=== PATIENT | female | born 1945 | race Caucasian/White ===

== ENCOUNTER 2016-12-07 08:03 | Inpatient (IN) ==
--- NOTE | 2016-12-07 08:32 | Emergency Department Note ---
Disposition Clinical Impression: Intertrochanteric fracture of left femur Qualifiers: Encounter type: initial encounter Fracture type: closed Qualified Code(s): S72.142A - Displaced intertrochanteric fracture of left femur, initial encounter for closed fracture Disposition: Admitted As Inpatient Condition: Good Time of Disposition: 09:18 Fall HPI - General Chief Complaint: ED Fall Stated Complaint: Fall/L thigh pain Source: patient, EMS Mode of arrival: EMS Limitations: no limitations Nursing Notes Reviewed: Yes Vital Signs Reviewed: Yes - History of Present Illness HPI Narrative: 71-year-old female presents with concerns of left hip pain. Patient states that she was standing, trying to reach the bathroom when she lost her footing and fell to the ground. Patient denies hitting her head or having loss of consciousness. Patient states she is unable to stand after the event. She was transferred to the emergency department by EMS. - Related Data Home Medications Medication Instructions Recorded Confirmed Albuterol Sulfate [Proair Hfa] 1 - 2 puff IH Q4-6H PRN 05/19/16 12/07/16 Amitriptyline [Elavil] 25 - 50 mg PO HS 05/19/16 12/07/16 Amlodipine [Norvasc] 5 mg PO DAILY 05/19/16 12/07/16 Atorvastatin [Lipitor] 40 mg PO HS 05/19/16 12/07/16 Ferrous Sulfate 325 mg PO BIDWM 05/19/16 12/07/16 Furosemide [Lasix] 40 mg PO BID 05/19/16 12/07/16 Gabapentin [Neurontin] 600 mg PO TID 05/19/16 12/07/16 Glimepiride [Amaryl] 4 mg PO BID 05/19/16 12/07/16 Insulin Glargine,Hum.rec.anlog 68 unit SQ DAILY 05/19/16 12/07/16 [Lantus Solostar] Levothyroxine [Synthroid] 125 mcg PO QAM 05/19/16 12/07/16 Valsartan [Diovan] 20 mg PO DAILY 05/19/16 12/07/16 Venlafaxine HCl 100 mg PO QPM 05/19/16 12/07/16 Cholecalciferol (Vitamin D3) 5,000 unit PO BID 08/16/16 12/07/16 [Vitamin D3] Metoprolol XL (24 HR) Succ [Toprol 100 mg PO DAILY 08/16/16 12/07/16 Xl] Warfarin [Coumadin] 1 mg PO AD 08/16/16 12/07/16 Warfarin [Coumadin] 5 mg PO AD 08/16/16 12/07/16 Venlafaxine HCl 200 mg PO QAM 12/07/16 12/07/16 Previous Rx's Medication Instructions Recorded Acetaminophen [Tylenol] 650 mg PO Q6HR PRN #0 tablet 08/18/16 Allergies Allergy/AdvReac Type Severity Reaction Status Date / Time No Known Allergies Allergy Verified 12/07/16 09:35 All systems ED: reviewed and negative except as stated. Constitutional: Denies: fever, chills, weakness Cardiovascular: Denies: chest pain, palpitations Respiratory: Denies: cough, dyspnea, wheezes Gastrointestinal: Denies: abdominal pain, nausea, vomiting Musculoskeletal: Reports: joint swelling Integumentary: Denies: rash Neurological: Denies: headache, weakness, numbness, paresthesias Fall PMH - Past Medical History Medical history: Reports: CVA, diabetes, hyperlipidemia, hypertension, thyroid disease Surgical history: Reports: Psychiatric history: Reports: no psych history - Social History Smoking Status: Former smoker Alcohol use: Reports: none Drug use: Reports: none Physical Exam General: Alert and in no acute distress. Morbidly obese. Skin: Warm, dry, intact Head: Normocephalic and atraumatic Neck: Supple, trachea midline and no tenderness Cardiovascular: RRR, no murmur, normal perfusion Respiratory: CTAB, no wheezing, cough, or respiratory distress Musculoskeletal: Tenderness to palpation of the left hip and thigh with leg and a externally rotated and shortened position. GI: Soft, nontender, nondistended. Bowel sounds present Neuro: A&O to person, place, time and situation. No focal deficits noted on exam Psychiatric: cooperative and appropriate mood and affect. - General Limitations: no limitations General appearance: alert Course Vital Signs O2 Sat by Pulse Oximetry 94 L 12/07/16 08:04 Temperature 97.9 F 12/07/16 14:49 Pulse Rate 92 12/07/16 14:49 Respiratory Rate 16 12/07/16 14:49 Blood Pressure 116/70 12/07/16 14:49 O2 Sat by Pulse Oximetry 96 12/07/16 14:49 Oxygen Delivery Oxygen Delivery Nasal Cannula Fall - MDM Narrative Medical decision making narrative: Spoke with Dr. Ruvalcaba who will see on the floor for L intertrochanteric hip fracture. - Medical Records Medical records reviewed: Yes I reviewed the patient's medical records. - Lab Data Lab results reviewed: Yes I reviewed the patient's lab results. Result diagrams: 12/07/16 09:23 12/07/16 09:23 Lab Results 12/07/16 12/07/16 12/07/16 Range/Units 09:23 09:23 09:23 WBC 12.1 H (4.3-11.1) K/mcL RBC 4.79 (3.82-4.97) M/mcL Hgb 13.9 (11.5-15.4) g/dL Hct 43.8 (35.3-44.9) % MCV 91.4 (83.0-100.0) fL MCH 29.0 (28.0-33.3) pg MCHC 31.7 (31.6-35.5) g/dL RDW 15.6 H (11.5-14.5) % Plt Count 239 (140-400) K/mcL MPV 10.9 (9.4-12.4) fL Immature Gran % 1.1 (0-4) % Seg Neutrophils % 82.2 % Lymphocytes % 8.5 % Monocytes % 5.8 % Eosinophils % 2.1 % Basophils % 0.3 % Neutrophils # 10.0 H (1.6-8.9) K/mcL Lymphocytes # 1.0 (0.6-4.6) K/mcL Monocytes # 0.7 (0.0-1.3) K/mcL Eosinophils # 0.3 (0.0-0.6) K/mcL Basophils # 0.0 (0.0-0.2) K/mcL Immature Plt Fraction 5.2 (1.1-6.1) % PT 21.7 H (9.4-12.1) Seconds INR 2.0 APTT 36.2 H (26.0-36.0) Seconds Sodium 140 (136-145) mEq/L Potassium 4.5 (3.5-4.5) mEq/L Chloride 100 (98-109) mEq/L Carbon Dioxide 29 (19-29) mEq/L BUN 31 H (7-20) mg/dL Creatinine 1.23 H (0.57-1.11) mg/dL Est GFR ( Amer) 52 L (> 60) Est GFR (Non-Af Amer) 43 L (> 60) BUN/Creatinine Ratio 25 (6-26) Glucose 319 H (70-99) mg/dL Calculated Osmolality 309 H (280-300) Calcium 9.4 (8.6-10.8) mg/dL Creatine Kinase 71 (29-168) Units/L - Radiology Data Radiology results reviewed: Yes I reviewed the patient's radiology results. - EKG Data EKG attestation: Yes I reviewed and interpreted this EKG.
[2016-12-07 09:30] LABS: Basophils % 0.3 %; Eosinophils # 0.3 K/mcL (0.0-0.6); Eosinophils % 2.1 %; Hematocrit 43.8 % (35.3-44.9); Hemoglobin 13.9 g/dL (11.5-15.4); Immature Granulocytes % 1.1 % (0-4); Immature Platelets 5.2 % (1.1-6.1); Lymphocytes % 8.5 %; Mean Corpuscular HGB Conc 31.7 g/dL (31.6-35.5); Mean Corpuscular Volume 91.4 fL (83.0-100.0); Mean Platelet Volume 10.9 fL (9.4-12.4); Monocytes # 0.7 K/mcL (0.0-1.3); Monocytes % 5.8 %; Platelet Count 239 K/mcL (140-400); Red Blood Count 4.79 M/mcL (3.82-4.97); Red Cell Distribution Width 15.6 % (11.5-14.5); Segmented Neutrophils % 82.2 %
[2016-12-07 09:34] LABS: Prothrombin Time 21.7 Seconds (9.4-12.1)
[2016-12-07 09:37] LABS: Activated Partial Thrombo Time 36.2 Seconds (26.0-36.0)
[2016-12-07 09:43] LABS: Calcium 9.4 mg/dL (8.6-10.8); Potassium 4.5 mEq/L (3.5-4.5)
[2016-12-07] MEDS ORDERED: *HR* Morphine 2 MG/ML SYRINGE IV ONE (09:55)
[2016-12-07] MEDS ORDERED: Naloxone 0.4 MG/ML INJ IVP PRN (10:02)
--- NOTE | 2016-12-07 10:31 | Internal Med History&Physical ---
Date of Encounter: 12/07/16 Time of Encounter: 10:10 Assessment and Plan (1) Closed intertrochanteric fracture of left hip Current visit: Yes Status: Acute Acute left hip intertrochanteric fracture. Admit inpatient. Consult orthopedics. Pain control. Depending on orthopedic recommendations, patient may require surgery. Height is for complications from this condition given at her age and comorbidities. She will stay in the hospital for at least 2 midnights. She may need placement to skilled rehabilitation at discharge. Will get 2-D echocardiogram for preoperative evaluation due to chronic history of hypertension and hyperlipidemia without any previous cardiac workup available here. Qualifiers: Encounter type: initial encounter Qualified Code(s): S72.142A - Displaced intertrochanteric fracture of left femur, initial encounter for closed fracture (2) Essential hypertension Current visit: Yes Status: Chronic Monitor blood pressure. Resume home medications. (3) Chronic anticoagulation Current visit: Yes Status: Chronic On Coumadin. INR is 2. We will hold Coumadin for now due to impending surgery. If surgery is not planned, will place her back on Coumadin. If surgery cannot be done by tomorrow, she will be placed on heparin drip to anticoagulate her. (4) DM2 (diabetes mellitus, type 2) Current visit: Yes Status: Chronic Monitor blood sugars. Sliding scale insulin. Diabetic diet. Qualifiers: Diabetes mellitus complication status: with hyperglycemia Diabetes mellitus intermediate insulin use: with intermediate use Qualified Code(s): E11.65 - Type 2 diabetes mellitus with hyperglycemia; Z79.4 - snf (current) use of insulin (5) History of cerebrovascular accident (CVA) with residual deficit Current visit: No Status: Chronic With residual left-sided hemiparesis. Supportive care. DVT and the throat is also prophylaxis. (6) Frequent falls Current visit: Yes Status: Acute Patient describes a history of recurrent falls. Will need physical therapy evaluation. Monitor blood pressure closely. Check orthostatics when able. Internal Medicine - H&P: HPI Chief complaint: Fall and left hip pain Admitted From: Emergency Dept Plans for Post Hospital Care: Transfer [facility] History of present illness: Ms. Walton is a 71 year old female with history of DVT, PE on chronic anticoagulation with Coumadin, CVA with residual left-sided hemiparesis, diabetes mellitus type 2, hyperlipidemia, hypertension who ambulates with a powered wheelchair presented to the ER after a fall. It appears to be a mechanical fall after the patient slipped. She hit her hip and has been having severe pain in her left hip since then. She does say she has been having frequent falls at home. No palpitations or dizziness. She denies any shortness of breath or chest pain. She has no history of coronary artery disease but does have a history of COPD. Past Med Surg Social Fam HX - Past Medical History Medical history: CVA, diabetes, hyperlipidemia, hypertension, thyroid disease Psychiatric history: no psych history - Past Surgical History Surgical History: - Social History Smoking Status: Former smoker Smokeless Tobacco Status: No Alcohol use: none Drug use: none - Family History Father Living Status: Hx Family Cardiac Disorders: Yes (HTN) Hx Family Cancer: Yes (prostate) Internal Medicine - H&P: Meds Albuterol Sulfate [Proair Hfa] 1 - 2 puff IH Q4-6H PRN 05/19/16 [History] Amitriptyline [Elavil] 25 - 50 mg PO HS 05/19/16 [History] Amlodipine [Norvasc] 5 mg PO DAILY 05/19/16 [History] Atorvastatin [Lipitor] 40 mg PO HS 05/19/16 [History] Ferrous Sulfate 325 mg PO BIDWM 05/19/16 [History] Furosemide [Lasix] 40 mg PO BID 05/19/16 [History] Gabapentin [Neurontin] 600 mg PO TID 05/19/16 [History] Glimepiride [Amaryl] 4 mg PO BID 05/19/16 [History] Insulin Glargine,Hum.rec.anlog [Lantus Solostar] 68 unit SQ DAILY 05/19/16 [ History] Levothyroxine [Synthroid] 125 mcg PO QAM 05/19/16 [History] Valsartan [Diovan] 20 mg PO DAILY 05/19/16 [History] Venlafaxine HCl 100 mg PO QPM 05/19/16 [History] Cholecalciferol (Vitamin D3) [Vitamin D3] 5,000 unit PO BID 08/16/16 [History] Metoprolol XL (24 HR) Succ [Toprol Xl] 100 mg PO DAILY 08/16/16 [History] Warfarin [Coumadin] 1 mg PO AD 08/16/16 [History] Warfarin [Coumadin] 5 mg PO AD 08/16/16 [History] Acetaminophen [Tylenol] 650 mg PO Q6HR PRN #0 tablet 08/18/16 [Rx] Venlafaxine HCl 200 mg PO QAM 12/07/16 [History] Allergies No Known Allergies Allergy (Verified 12/07/16 09:35) All Systems PM: A 10-system review of systems was performed and is negative for pertinent findings except as documented above in the HPI. - Constitutional Constitutional: falls, no chills, no fever(s), no night sweats - EENT Eyes: no change in vision, no discharge, no pain, no photophobia Ears: no ear discharge, no ear pain, no tinnitus Nose, mouth and throat: no dysphagia, no nasal discharge, no neck pain, no sore throat - Cardiovascular Cardiovascular ROS IM: no chest pain, no diaphoresis, no dyspnea, no lightheadedness, no palpitations, no syncope - Respiratory Respiratory: no cough, no dyspnea, no wheezing, no excessive phlegm production - Gastrointestinal Gastrointestinal: no abdominal pain, no diarrhea, no hematemesis, no hematochezia, no melena, no nausea, no vomiting - Genitourinary Genitourinary: no change in urinary stream, no dysuria, no flank pain, no hematuria - Musculoskeletal Musculoskeletal ROS IM: no numbness, no tingling - Integumentary Integumentary IM: no rash, no unusual bruising - Neurological Neurological ROS: focal weakness (Left-sided weakness), no confusion, no convulsions, no numbness, no tingling, no tremor(s) - Hematologic/Lymphatic Hematologic/Lymphatic: no easy bruising - Constitutional Vitals: Temp Pulse Resp BP Pulse Ox 98.6 F 86 18 132/90 91 L 12/07/16 08:11 12/07/16 08:11 12/07/16 08:11 12/07/16 08:11 12/07/16 08:11 General appearance: Present: cooperative, mild distress, A&O X 3, obese, answers questions appropriately - Eye Eye exam: Present: PERRL, conjuntiva pink, sclera anicteric Pupils: Present: PERRL - Neck Neck exam general surgery: Present: supple, trachea midline. Absent: lymphadenopathy - Respiratory Respiratory exam: Present: CTAB. Absent: accessory muscle use, rales, rhonchi, wheezes - Cardiovascular Cardiovascular exam: Present: RRR, +S1, +S2. Absent: diastolic murmur, gallop, rubs, systolic murmur - GI/Abdominal GI/Abdominal exam: Present: normal bowel sounds, soft, no peritoneal signs. Absent: distended, tenderness - Extremities Exam Extremities exam: Present: tenderness (Left hip region), warm, radial pulses palpable and symetrical. Absent: calf tenderness, cyanotic, pedal edema - Neurological Exam Neurological exam: Present: CN II-XII intact, oriented X3. Absent: facial droop , speech deficit Additional comments: Left-sided hemiparesis - Skin Skin exam: Present: dry, intact Internal Med - H&P Results - Labs CBC & Chem 7: 12/07/16 09:23 12/07/16 09:23 Labs: Short CBC 12/07/16 Range/Units 09:23 WBC 12.1 H (4.3-11.1) K/mcL Hgb 13.9 (11.5-15.4) g/dL Hct 43.8 (35.3-44.9) % Plt Count 239 (140-400) K/mcL Neutrophils # 10.0 H (1.6-8.9) K/mcL BMP 12/07/16 09:23 Sodium 140 Potassium 4.5 Chloride 100 Carbon Dioxide 29 BUN 31 H Creatinine 1.23 H Glucose 319 H Calcium 9.4 - Impressions ITS Impressions Cervical Spine CT 12/07/16 08:26 IMPRESSION: 1. No evidence of acute fracture in the cervical spine. 2. Exaggerated thoracic kyphosis. 3. There is a mass noted along the posterior right lobe of the thyroid gland measuring 2.9 x 1.2 cm that can be seen dating back to a CT of the chest on 08/28/2007. This favors a benign etiology. If there is strong clinical concern, a thyroid ultrasound could be performed for further evaluation. D/ / 12/07/2016 09:49:02 Garfield Galvez MD / [facility] Interpreting Provider: Garfield Galvez MD Chest X-Ray 12/07/16 08:26 IMPRESSION: No acute cardiopulmonary disease. D/ / Matt Mckinney MD / Matt Mckinney MD Interpreting Provider: Matt Mckinney MD Head CT 12/07/16 08:26 IMPRESSION: No acute intracranial abnormality. D/ / Maurizio Gorman MD / Maurizio Gorman MD Interpreting Provider: Maurizio Gorman MD Hip X-Ray 12/07/16 08:27 IMPRESSION: Intertrochanteric left proximal femur fracture. D/ / 12/07/2016 09:42:47 [facility] / [facility] Provider: Thai Zimmerman MD Knee X-Ray 12/07/16 08:27 IMPRESSION: 1. No acute abnormality of the left knee. 2. Chronic healed fracture deformity of the proximal fibular neck. 3. Stable tricompartmental osteoarthritis. D/ / 12/07/2016 09:42:15 Maurizio Gorman MD / [facility] Interpreting Provider: Maurizio Gorman MD - Attending Attestation This document has been at least partially created by [employer] recognition technology by Dr. Patel. Errors in grammar, wording or other phrases may exist. If errors are found after the documentation is signed, they will be addressed individually in the addendum section of this document when appropriate.
[2016-12-07] MEDS ORDERED: Ipratropium/Albuterol Neb 3 ML IH PRN (10:40)
[2016-12-07] MEDS ORDERED: *HR* Dextrose 50 % in Water (Syg) 50 ML SYRINGE IVP PRN (10:41)
[2016-12-07] MEDS ORDERED: Dextrose Gel 15 GM PO PRN ×2 (10:41)
[2016-12-07] MEDS ORDERED: D5% in Water 1,000 ML IV PRN (10:41)
[2016-12-07] MEDS: Insulin LISPRO 300 UNITS/3 ML VIAL SQ SCH ×3 (16:17→21:32)
[2016-12-07] MEDS: Venlafaxine 25 MG, Venlafaxine 75 MG PO SCH (16:27)
[2016-12-07] MEDS: 0.9 % Sodium Chloride 1,000 ML IVC SCH (16:35)
[2016-12-07] MEDS: *HR* Morphine 2 MG/ML SYRINGE IVP PRN (17:46)
[2016-12-07] MEDS ORDERED: VENLAFAXINE HCL 100 MG PO SCH (18:00)
--- NOTE | 2016-12-07 19:24 | Anesthesia Evaluation PreOp ---
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: CVA (residual L sided hemiparesis) Other Medical History: Renal (claudia), Diabetes Type II (282 at 1634 on 12/07), Thyroid Anesthesia History: No Prior Anesthetic Complications, Past Anesthesia (c/s) Alcohol Use: none Drug use: none Medications and Allergies Albuterol Sulfate [Proair Hfa] 1 - 2 puff IH Q4-6H PRN 05/19/16 [History] Amitriptyline [Elavil] 25 - 50 mg PO HS 05/19/16 [History] Amlodipine [Norvasc] 5 mg PO DAILY 05/19/16 [History] Atorvastatin [Lipitor] 40 mg PO HS 05/19/16 [History] Ferrous Sulfate 325 mg PO BIDWM 05/19/16 [History] Furosemide [Lasix] 40 mg PO BID 05/19/16 [History] Gabapentin [Neurontin] 600 mg PO TID 05/19/16 [History] Glimepiride [Amaryl] 4 mg PO BID 05/19/16 [History] Insulin Glargine,Hum.rec.anlog [Lantus Solostar] 68 unit SQ DAILY 05/19/16 [ History] Levothyroxine [Synthroid] 125 mcg PO QAM 05/19/16 [History] Valsartan [Diovan] 20 mg PO DAILY 05/19/16 [History] Venlafaxine HCl 100 mg PO QPM 05/19/16 [History] Cholecalciferol (Vitamin D3) [Vitamin D3] 5,000 unit PO BID 08/16/16 [History] Metoprolol XL (24 HR) Succ [Toprol Xl] 100 mg PO DAILY 08/16/16 [History] Warfarin [Coumadin] 1 mg PO AD 08/16/16 [History] Warfarin [Coumadin] 5 mg PO AD 08/16/16 [History] Acetaminophen [Tylenol] 650 mg PO Q6HR PRN #0 tablet 08/18/16 [Rx] Venlafaxine HCl 200 mg PO QAM 12/07/16 [History] Allergies No Known Allergies Allergy (Verified 12/07/16 09:35) - Meds/Allergy Pre-op Review Medications Reviewed: Yes Allergies Reviewed: Yes Beta Blockers on Current Med List: Yes If Beta Blockers taken, Date/Time (Last Dose taken): Metoprolol Anesthesia Results - Labs 12/07/16 09:23 12/07/16 09:23 - Imaging EKG: report reviewed (08/11: ST/RBBB/LA[facility]) Chest x-ray: report reviewed (nl from 12/07) Additional studies: CT cspine, negative, 2.9x1.2cm stable mass on the right thyroid lobe CT Head, no acute abnl Anesthesia Exam Height: 1.65 Weight: 98 NPO (# of Hours): >8 - HEENT Pupil (Motor): Pupils equal, EOMI Mallampati: IV (difficult AW) Teeth: Poor dentition Oral Opening: Less than or equal to 3 (very smile mouth and opening) - FIXTURE DESIGNER LOC: Oriented FIXTURE DESIGNER Motor: Normal RUE, Normal RLE, Normal Face, Deficit LUE, Deficit LLE FIXTURE DESIGNER Sensory: Normal: RUE, RLE, Face, Deficit: LUE, LLE - Cardiac Rhythm: Regular Murmur: None - Pulmonary Breath Sounds: bilateral Clear Respiratory Effort: Symmetrical Anesthesia Assess/Plan ASA Score: 3 Modified [place] Scale for Level of Consciousness: Cooperative, oriented, and tranquil Anesthetic Plan: General Monitoring Plan: Standard Monitors Recovery Plan: PACU
[2016-12-07] MEDS ORDERED: Perflutren Lipid Microsphere 1.3 ML in 0.9 % Sodium Chloride 8.7 ML IVP ONE (20:55)
[2016-12-07] MEDS: Gabapentin 300 MG CAPSULE PO SCH (21:29)
[2016-12-07] MEDS: Insulin DETEMIR 100 UNIT/ML X5UNITS SQ SCH (21:31)
[2016-12-08] MEDS: 0.9 % Sodium Chloride 1,000 ML IVC SCH ×2 (05:35→23:21)
[2016-12-08 06:24] LABS: INR 1.7; Prothrombin Time 18.5 Seconds (9.4-12.1)
[2016-12-08 06:25] LABS: Basophils % 0.2 %; Eosinophils # 0.3 K/mcL (0.0-0.6); Eosinophils % 3.5 %; Hematocrit 40.1 % (35.3-44.9); Immature Granulocytes % 0.7 % (0-4); Lymphocytes # 1.5 K/mcL (0.6-4.6); Lymphocytes % 16.6 %; Mean Corpuscular HGB Conc 30.2 g/dL (31.6-35.5); Mean Corpuscular Hemoglobin 27.4 pg (28.0-33.3); Mean Corpuscular Volume 90.7 fL (83.0-100.0); Mean Platelet Volume 10.4 fL (9.4-12.4); Monocytes # 0.8 K/mcL (0.0-1.3); Monocytes % 8.7 %; Neutrophils # 6.4 K/mcL (1.6-8.9); Platelet Count 162 K/mcL (140-400); Red Blood Count 4.42 M/mcL (3.82-4.97); Red Cell Distribution Width 15.5 % (11.5-14.5); Segmented Neutrophils % 70.3 %
[2016-12-08 06:29] LABS: Hemoglobin 12.1 g/dL (11.5-15.4)
[2016-12-08 06:43] LABS: BUN/Creatinine Ratio 28 (6-26); Blood Urea Nitrogen 25 mg/dL (7-20); Calcium 8.3 mg/dL (8.6-10.8); Carbon Dioxide 27 mEq/L (19-29); Chloride 103 mEq/L (98-109); Glucose 130 mg/dL (70-99); Osmolality,Calculated 292 (280-300); Sodium 138 mEq/L (136-145); eGFR For African Americans > 60 (> 60); eGFR For Non-African Americans > 60 (> 60)
--- NOTE | 2016-12-08 07:37 | Orthopedic Consult Note ---
Date of Encounter: 12/08/16 Time of Encounter: 07:35 Assessment and Plan (1) Closed intertrochanteric fracture of left hip Current Visit: Yes Status: Acute I did discuss the diagnosis in detail with the patient. She has a left-sided intertrochanteric hip fracture area I did discuss treatment options and recommended reduction and internal fixation in order to stabilize the hip to provide pain control and help facilitate nursing care. The risks discussed included but were not limited to bleeding, infection, anesthesia risks, damage to neurovascular structures, tendons, ligaments, and bone. Also discussed was the risk of continued symptoms and possible need for further procedures. I also discussed the risk of malunion, nonunion, some traumatic hardware, periprosthetic fracture. I also discussed the reasonable foreseeable post operative course, which will likely include a rehabilitation facility. I explained this to the patient in simple terms and she wished to proceed and consent was obtained. She will require medical clearance. Qualifiers: Encounter type: initial encounter Qualified Code(s): S72.142A - Displaced intertrochanteric fracture of left femur, initial encounter for closed fracture History of Present Illness HPI: Ms. Walton is a 71 year old female with a history of a prior stroke with left- sided hemiparesis. She is also on Coumadin for history of a DVT/PE. She had a fall yesterday when trying to get off the bed side commode and onto her motorized wheelchair. She did go down to the ground. The squad was called and she was lifted back up into the chair, but because of acute groin and hip pain she was brought in for further evaluation and found to have a left intertrochanteric hip fracture. The patient complains this is an isolated injury. She denies any loss of consciousness, headaches, neck pain, chest pain , abdominal pain, bilateral upper extremity pain, or right lower extremity pain. No numbness, tingling, or any other associated signs or symptoms. She has limited use of the left upper and left lower extremities from her prior stroke. She has no other complaints. Past Med Surg Social Fam HX - Past Medical History Medical history: CVA, diabetes, hyperlipidemia, hypertension, thyroid disease Psychiatric history: no psych history - Past Surgical History Surgical History: - Social History Smoking Status: Former smoker Smokeless Tobacco Status: No Alcohol use: none Drug use: none - Family History Father Living Status: Hx Family Cardiac Disorders: Yes (HTN) Hx Family Cancer: Yes (prostate) Medications and Allergies Albuterol Sulfate [Proair Hfa] 1 - 2 puff IH Q4-6H PRN 05/19/16 [History] Amitriptyline [Elavil] 25 - 50 mg PO HS 05/19/16 [History] Amlodipine [Norvasc] 5 mg PO DAILY 05/19/16 [History] Atorvastatin [Lipitor] 40 mg PO HS 05/19/16 [History] Ferrous Sulfate 325 mg PO BIDWM 05/19/16 [History] Furosemide [Lasix] 40 mg PO BID 05/19/16 [History] Gabapentin [Neurontin] 600 mg PO TID 05/19/16 [History] Glimepiride [Amaryl] 4 mg PO BID 05/19/16 [History] Insulin Glargine,Hum.rec.anlog [Lantus Solostar] 68 unit SQ DAILY 05/19/16 [ History] Levothyroxine [Synthroid] 125 mcg PO QAM 05/19/16 [History] Valsartan [Diovan] 20 mg PO DAILY 05/19/16 [History] Venlafaxine HCl 100 mg PO QPM 05/19/16 [History] Cholecalciferol (Vitamin D3) [Vitamin D3] 5,000 unit PO BID 08/16/16 [History] Metoprolol XL (24 HR) Succ [Toprol Xl] 100 mg PO DAILY 08/16/16 [History] Warfarin [Coumadin] 1 mg PO AD 08/16/16 [History] Warfarin [Coumadin] 5 mg PO AD 08/16/16 [History] Acetaminophen [Tylenol] 650 mg PO Q6HR PRN #0 tablet 08/18/16 [Rx] Venlafaxine HCl 200 mg PO QAM 12/07/16 [History] Allergies No Known Allergies Allergy (Verified 12/07/16 09:35) All Systems Reviewed: Constitutional and musculoskeletal systems were reviewed and are negative unless otherwise stated in history of present illness. Physical Exam - Constitutional Vitals: Temp Pulse Resp BP Pulse Ox 98.4 F 102 16 126/85 95 12/08/16 06:44 12/08/16 06:44 12/08/16 06:44 12/08/16 06:44 12/08/16 06:44 Constitutional -Vitals reviewed -The patient is well developed and well nourished. -Morbid obesity -Mood is pleasant. -The patient is well groomed. Psychiatric -The patient is fully alert and oriented x 3. Respiratory: -Respiratory effort normal Abdomen: -Soft abdomen -Non tender -Non distended: Left upper extremity: -The overlying skin is intact. No obvious signs of acute trauma. -No tenderness to palpation throughout. -Noted is rigidity to the hand and wrist given her prior stroke. -No significant pain with passive motion of the shoulder, elbow, wrist, and fingers within the limits of the bed. -Limited motor capabilities given her prior stroke. -Sensation grossly intact to light touch throughout the median, radial, and ulnar distributions. -Radial pulse is present; Fingers have good capillary refill. Right upper extremity: -No deformities. The overlying skin is intact. No obvious signs of acute trauma. -No tenderness to palpation throughout. -No significant pain with passive motion of the shoulder, elbow, wrist, and fingers within the limits of the bed. -Able to make an "OK" sign, cross the index and long fingers, and extend the thumb. -Sensation grossly intact to light touch throughout the median, radial, and ulnar distributions. -Radial pulse is present; Fingers have good capillary refill. Left lower extremity: -The extremity is shortened and externally rotated. The overlying skin is intact. -There is tenderness in the groin region as well as the proximal lateral thigh. -I did not range the hip due to the known fracture. -No tenderness along the distal thigh, leg, ankle, foot, or toes. -Able to dorsiflex the great toe but motion is limited otherwise given her prior stroke. -Sensation is grossly intact to light touch throughout the sural, saphenous, superficial peroneal, and deep peroneal distributions. -Toes have good capillary refill. Right lower extremity: -No deformities. The overlying skin is intact. No obvious signs of acute trauma. -No tenderness to palpation throughout. -No pain with passive motion of the hip, knee, ankle, and toes within the limits of the bed. -No pain with axial loading of the thigh. -Able to dorsiflex and plantarflex the ankle and toes. -Sensation is grossly intact to light touch throughout the sural, saphenous, superficial peroneal, and deep peroneal distributions. -Toes have good capillary refill. Results - Labs Result Diagrams: 12/08/16 05:58 12/08/16 05:58 Labs: Abnormal lab results MCH 27.4 pg (28.0-33.3) L 12/08/16 05:58 MCHC 30.2 g/dL (31.6-35.5) L 12/08/16 05:58 RDW 15.5 % (11.5-14.5) H 12/08/16 05:58 PT 18.5 Seconds (9.4-12.1) H 12/08/16 05:58 APTT 36.2 Seconds (26.0-36.0) H 12/07/16 09:23 BUN 25 mg/dL (7-20) H 12/08/16 05:58 BUN/Creatinine Ratio 28 (6-26) H 12/08/16 05:58 Glucose 130 mg/dL (70-99) H 12/08/16 05:58 POC Glucose 261 (58-89) H 12/07/16 19:38 Calcium 8.3 mg/dL (8.6-10.8) L 12/08/16 05:58 H & H 12/08/16 Range/Units 05:58 Hgb 12.1 D (11.5-15.4) g/dL Hct 40.1 (35.3-44.9) % All other labs normal. - Diagnostic results Hip x-ray: image reviewed (Left intertrochanteric hip fracture.) Consult Discharge Plan - Plan Referrals: Marleny Groves DO [Primary Care Provider] -
[2016-12-08] MEDS: Insulin LISPRO 300 UNITS/3 ML VIAL SQ SCH ×4 (08:00→20:45)
[2016-12-08] MEDS: VENLAFAXINE PO SCH (08:35)
[2016-12-08] MEDS: Metoprolol XL (24 HR) Succ 50 MG TAB.ER.24H PO SCH (08:35)
[2016-12-08] MEDS: Gabapentin 300 MG CAPSULE PO SCH ×2 (08:36→20:40)
[2016-12-08] MEDS: Cholecalciferol (D-3) 1,000 UNIT TABLET PO SCH (08:36)
[2016-12-08] MEDS: amLODIPine 5 MG TABLET PO SCH (08:36)
[2016-12-08] MEDS ORDERED: VENLAFAXINE HCL PO SCH (09:00)
--- NOTE | 2016-12-08 09:38 | ECHO - Doppler Report ---
Echo with Imaging Enhancement Agent Name: Mary Walton Date of Study: 12/07/2016 Date: 1945 Ht: 65.0 in Medical Record#: [id number] Age: 71 Wt: 216.0 lb Gender: Female BSA: 2.04 Order #: [id number] Location: [facility] Room #: [facility] Reading Physician: Lilly Nolasco DO Gas Inspector: Carleen Bolton RDCS Ordering Physician: Tamia Patel MD Primary Physician: Marleny Groves DO Indications: Preoperative, Hypertension, COPD Impressions: LVEF 65%. Indeterminate left venticular diastoic function Definity was given. Normal right ventricular size and function. No significant valvular dysfunction. No pulmonary hypertension. Left Ventricular Wall Motion: Rest Echo Findings The mid anterior septal, mid inferior lateral, basal anterior septal and basal inferior lateral henriquez were not visualized. All other wall segments showed normal motion. Findings: Study Quality * Technically sub-optimal due to body habitus. ECG Findings * Sinus tachycardia with BBB. Aortic Valve * No aortic regurgitation. * Aortic valve not well visualized. * No aortic stenosis. Mitral Valve * No mitral regurgitation. * Mildly calcified mitral valve leaflets. * No mitral stenosis. Tricuspid Valve * Tricuspid valve not well visualized. * Trace tricuspid regurgitation. Pulmonic Valve * Pulmonic valve is not well visualized. * No pulmonic stenosis. * No pulmonic regurgitation. Pulmonary Artery * Pulmonary artery not well visualized. Left Ventricle * Indeterminate diastolic function. * LVEF 65%. * Definity echo contrast was used. * LV size is normal. Right Ventricle * Normal right ventricular structure and function. Left Atrium * Normal left atrial size. Right Atrium * Normal right atrial size. Interatrial Septum * Interatrial septum not well evaluated. IVC * The IVC is not well evaluated. Pericardium * There is no pericardial effusion present. Aorta * Not well visualized. History Hypertension Diabetes Hypercholesteremia Family History of CAD 12/29/2014 a Previous Echo was performed. Contrast: Definity 1.3 ml in 8.7 ml of saline 2 ml. Measurements: BP: 116/ 70 2D Normal Values IVSd: 1.30 cm 0.6 - 1.0 cm LVIDd: 4.09 cm 3.7 - 5.6 cm LVPWd: 1.32 cm 0.6 - 1.1 cm LVIDs: 2.47 cm 1.5 - 3.6 cm AO: 2.40 cm < 4.0 cm LA: 3.40 cm 2.0 - 4.0cm %FS: 39.60 cm >25 % LA volume: 39 Mitral Valve Peak E:1.24 m/sec Peak E' Lat Ronald:18.8 cm/s Peak E' Med Ronald:16.8 cm/s E/E' Lat Ratio:6.6 E/E' Med Ratio:7.4 Tricuspid Valve TV Regurg Peak Grad: 20.00mmHg TV Regurg Peak Ronald: 2.24m/sec Updated by Lilly Nolasco on 12/08/2016 9:33:05 AM electronically signed on 12/08/2016 9:33:56 AM with status of Final Wall Motion Salgado: 1=Normal, 2=Hypokinesis, 3=Akinesis, 4=Dyskinesis, 5=Aneurysmal, 6=Hyperkinetic, X=Not Visualized (Blank)=Missing
[2016-12-08] MEDS: Insulin DETEMIR 100 UNIT/ML X5UNITS SQ SCH ×2 (12:19→20:40)
[2016-12-08] MEDS: *HR* Morphine 2 MG/ML SYRINGE IVP PRN (14:00)
--- NOTE | 2016-12-08 14:01 | Internal Med Progress Note ---
<Brooke Ocasio - Last Filed: 12/08/16 16:22> Date of Encounter: 12/08/16 Time of Encounter: 09:30 - Assessment and plan (1) Closed intertrochanteric fracture of left hip Current Visit: Yes Status: Acute Assessment and plan: - Left hip XR showed closed intertrochanteric proximal femur fracture - Orthopedic surgery plans to perform reduction and internal fixation later today. - Patient has clinical risk factors including diabetes and history of CVA but patient's MET is less than 4 and EKG & echocardiogram are normal. - Patient is moderate risk for intermediate-risk surgery - Will hold Coumadin for now. Qualifiers: Encounter type: initial encounter Qualified Code(s): S72.142A - Displaced intertrochanteric fracture of left femur, initial encounter for closed fracture (2) GORDY (acute kidney injury) Current Visit: Yes Status: Resolved Assessment and plan: - Cr 1.23 on initial presentation. Likely secondary to dehydration. - Improved as Cr 0.88 this morning. - Continue IV fluid. - Continue to monitor. (3) Frequent falls Current Visit: Yes Status: Acute Assessment and plan: - History of frequent fall. - PT/OT after surgery. (4) Chronic anticoagulation Current Visit: Yes Status: Chronic Assessment and plan: - On chronic Coumadin for history of PE/DVT. - INR 2 on admission. - Hold Coumadin for planned orthopedia surgery later today. - Will start heparin drip after surgery. (5) DM2 (diabetes mellitus, type 2) Current Visit: Yes Status: Chronic Assessment and plan: - Continue basal and sliding scale insulin. Qualifiers: Diabetes mellitus complication status: with hyperglycemia Diabetes mellitus [facility] insulin use: with [facility] use Qualified Code(s): E11.65 - Type 2 diabetes mellitus with hyperglycemia; Z79.4 - correction (current) use of insulin (6) Essential hypertension Current Visit: Yes Status: Chronic Assessment and plan: - BP 126/85 this morning. - Continue current antihypertensive regimen. (7) History of cerebrovascular accident (CVA) with residual deficit Current Visit: No Status: Chronic Assessment and plan: - With residual left-side hemiparesis. - Subjective Interval history: Patient was seen and examined this morning. Patient reports left hip pain being controlled. Patient denies fever, chills, chest pain, nausea, vomiting. Patient reports chronic dyspnea on exertion while she transports herself from bed to powerchair. Patient denies any known diagnosis of heart problem and has no cardiac work-up in the past. - Constitutional Vitals: Temp Pulse Resp BP Pulse Ox 98.6 F 104 16 165/80 97 12/08/16 11:46 12/08/16 11:46 12/08/16 06:44 12/08/16 11:46 12/08/16 11:46 General appearance: Present: cooperative, mild distress, A&O X 3, obese, answers questions appropriately - Head Head exam: Present: atraumatic, normocephalic - Eye Eye exam: Present: PERRL, conjuntiva pink, sclera anicteric - Neck Neck exam general surgery: Present: supple, trachea midline. Absent: lymphadenopathy - Respiratory Respiratory exam: Present: CTAB. Absent: accessory muscle use, rales, rhonchi, wheezes - Cardiovascular Cardiovascular exam: Present: RRR, +S1, +S2. Absent: diastolic murmur, gallop, rubs, systolic murmur - GI/Abdominal GI/Abdominal exam: Present: normal bowel sounds, soft, no peritoneal signs. Absent: distended, tenderness - Extremities Exam Extremities exam: Present: pedal edema, warm, radial pulses palpable and symetrical. Absent: calf tenderness, cyanotic - Neurological Exam Neurological exam: Present: CN II-XII intact, oriented X3. Absent: pronater drift, facial droop, speech deficit Additional comments: Left-side hemiparesis. - Skin Skin exam: Present: dry, warm Internal Medicine: Result - Labs CBC & Chem 7: 12/08/16 05:58 12/08/16 05:58 Labs: Short CBC 12/08/16 Range/Units 05:58 WBC 9.2 (4.3-11.1) K/mcL Hgb 12.1 D (11.5-15.4) g/dL Hct 40.1 (35.3-44.9) % Plt Count 162 (140-400) K/mcL Neutrophils # 6.4 (1.6-8.9) K/mcL BMP 12/08/16 05:58 Sodium 138 Potassium 4.0 Chloride 103 Carbon Dioxide 27 BUN 25 H Creatinine 0.88 Glucose 130 H Calcium 8.3 L - ABG Interpretation ABG results: PT/INR, D-dimer PT 18.5 Seconds (9.4-12.1) H 12/08/16 05:58 - VTE Documentation of Mechanical Device: Intermittent pneumatic compression device Consult Discharge Plan - Plan Referrals: Marleny Groves DO [Primary Care Provider] - 01/26/17 1:45 pm <[email or web address] T - Last Filed: 12/08/16 16:40> - Constitutional Vitals: Temp Pulse Resp BP Pulse Ox 98.6 F 104 16 165/80 97 12/08/16 11:46 12/08/16 11:46 12/08/16 06:44 12/08/16 11:46 12/08/16 11:46 Internal Medicine: Result - Labs CBC & Chem 7: 12/08/16 05:58 12/08/16 05:58 Labs: Short CBC 12/08/16 Range/Units 05:58 WBC 9.2 (4.3-11.1) K/mcL Hgb 12.1 D (11.5-15.4) g/dL Hct 40.1 (35.3-44.9) % Plt Count 162 (140-400) K/mcL Neutrophils # 6.4 (1.6-8.9) K/mcL BMP 12/08/16 05:58 Sodium 138 Potassium 4.0 Chloride 103 Carbon Dioxide 27 BUN 25 H Creatinine 0.88 Glucose 130 H Calcium 8.3 L - ABG Interpretation ABG results: PT/INR, D-dimer PT 18.5 Seconds (9.4-12.1) H 12/08/16 05:58 - Attending Attestation I examined this patient and my medical decision-making was reviewed with the CLINICAL CYTOGENETICS DIRECTOR/PA/Advanced Practice Nurse/Resident Physician. I agree with the documented findings, disposition and treatment plan as described except to the extent set forth below. 71 Y/O F with PMH of CAD, DVT-PE, HTN, HLD, Hx of CVA, She is admitted and being managed for Left hip fracture after a mechanical fall. She was on Coumadin prior to admission, her renal function tests showed some mild dehydration She is seen at bedside, pleasant, denies new complains Labs and Imaging reviewed: CXR, C-Spine CT, Head CT, Knee X-ray unremarkable, Hip X-ray with intertrochanteric left femora fracture. ECHO shows LVEF 65%, indeterminate LVDD, normal RV size and function, no pulmonary HTN. Chem showed improved renal function, CBC stable She is moderate risk for intermediate risk surgery. Plan is to hold Coumadin till after surgery today, start heparin drip after surgery, PT/OT. She is not on /ACEI/diuretics, its safe to continue other home meds except coumadin. High risk due to emergent procedure, and heparin drip. Rest of details as in residents documentation..
[2016-12-08] MEDS ORDERED: *HR* FentaNYL (PF) 100 MCG/2 ML VIAL ONE (14:05)
[2016-12-08] MEDS ORDERED: *HR* Propofol 200 MG/20 ML VIAL IVP ONE (14:05)
[2016-12-08] MEDS ORDERED: Lidocaine -MPF 4% 5 ML AMPUL ONE ×2 (14:05→14:22)
[2016-12-08] MEDS ORDERED: *HR* Succinylcholine 200 MG/10 ML VIAL IVP ONE (14:05)
[2016-12-08] MEDS ORDERED: *HR* Rocuronium Bromide 50 MG/5 ML VIAL ONE (14:05)
[2016-12-08] MEDS ORDERED: Ondansetron 4 MG/2 ML VIAL IVP ONE (14:12)
[2016-12-08] MEDS ORDERED: *HR* HYDROmorphone (PF) 1 MG/ML SYRINGE IVP PRN (14:12)
[2016-12-08] MEDS ORDERED: *HR* Labetalol 100 MG/20 ML MDV IVP PRN (14:12)
[2016-12-08] MEDS ORDERED: Lacri-Lube 3.5 GM TUBE ONE (15:25)
[2016-12-08] MEDS ORDERED: *HR* Phenylephrine 10 MG/ML VIAL ONE (15:30)
[2016-12-08] MEDS ORDERED: *HR* Morphine 10 MG/ML VIAL ONE (16:45)
[2016-12-08] MEDS ORDERED: Ipratropium/Albuterol Neb 3 ML ONE (16:52)
--- NOTE | 2016-12-08 17:20 | Orthopedic Operative Note ---
Date of procedure: 12/08/16 Procedure: OPERATIVE REPORT DATE OF PROCEDURE: 12/08/2016 SURGEON: Yassine Ruvalcaba MD GAME AUTHOR(S): There were no assistants PREOPERATIVE DIAGNOSIS: Left intertrochanteric hip fracture POSTOPERATIVE DIAGNOSIS: Left intertrochanteric hip fracture PROCEDURE: Reduction and internal fixation of the left intertrochanteric hip fracture ANESTHESIA: General anesthesia PREOPERATIVE ANTIBIOTICS: 2 g of Ancef ESTIMATED BLOOD LOSS: 75 milliliters SPECIMENS: There were no specimens IMPLANTS: [place] Gamma 3 125 degree by 11 mm short nail with a 105 mm lag screw LOCAL INJECTION: 0.5% percent bupivacaine PREOPERATIVE NOTE AND INDICATIONS: Mary is a 71-year-old female sustained a left intertrochanteric hip fracture. She has had a prior stroke with left-sided hemiparesis. She mostly gets by and a Hoveround but does weight-bear to transfer. Treatment options were discussed and the recommendation is for reduction and fixation in order to stabilize the hip to control pain and help facilitate nursing care. The surgical plan was discussed with the patient as well as the power of defense attorney. The risks, benefits, alternatives, and potential complications of this procedure were discussed with the patient including injury to veins, arteries, nerves, tendons, ligaments, and bone. Also discussed were the risks of infection, bleeding, pain, blood clots, the possible need for a blood transfusion, the possible need for further procedures, heart attack, stroke, and . Specific risks include malunion, nonunion, hardware failure, hardware irritation and the risk of needing to remove the hardware. All of this was explained in simple terms, and the patient and power of defense attorney verbalized understanding and wished to proceed. Consent was given to proceed with surgery. PROCEDURE: The patient was seen in the preoperative holding area where the identify and the consent were confirmed. The left thigh was marked. Final questions were answered. The patient was brought back to the operating room and placed supine on the operating room table. A huddle was performed with the patient and all vital surgical team members confirming patient identity, the correct procedure, and the correct operative site. General anesthesia was administered. The patient was placed in the traction table and the nonoperative leg was flexed and abducted out of the way. X-rays confirmed good visualization of the left hip. The left thigh was prepped and draped in the usual sterile fashion. A surgical time out was performed immediately preceding the incision with all personnel in the operating room to confirm patient identity, the correct operative site and extremity, correct radiographic studies, availability of appropriate surgical equipment, and agreement on the planned procedure. A longitudinal incision was made and dissection proceeded through the subcutaneous tissue and gluteal fascia. A guidewire was placed at the tip of the greater trochanter and an awl was used to open the proximal femur. The short medullary nail was then placed in the canal with great difficulty given her body habitus. The triple sleeve was placed over the skin and an incision was made through the skin and the fascia to place the guidewire up the femoral neck. Once it was felt that reasonable position was obtained, the length was measured and 105 mm felt appropriate. This was reamed and the lag screw was placed. The next set of triple sleeves was used for the distal interlocking screw and an incision was made through the skin and the fascia. The screw was drilled and a 37.5 mm distal interlocking screw was placed. X-rays confirmed reasonable reduction though there is slight varus due to the nail entering the fracture site when placed. Her tip to apex distance was felt to be less than 25 mm and therefore this was not changed. The wounds were copiously irrigated and the skin closed with 3-0 Vicryl stitches followed by brian. The fascia was too deep to close given her body habitus. The instrument, sponge, and needle counts were correct after wound closure. POST OPERATIVE PLAN: Weight Bearing: Weightbearing as tolerated DVT Prophylaxis: Coumadin Activity: As tolerated with assistance Wound Care: Daily dressing changes on postoperative day 2 Perioperative antibiotic prophylaxis: 2 g of Ancef 2 doses Social work for discharge planning Follow Up: 2 weeks
--- NOTE | 2016-12-08 17:38 | Anesthesia Evaluation Post Op ---
Date of Encounter: 12/08/16 Time of Encounter: 17:40 - Vital Signs Vital Signs: Vital Signs/O2 Sat/Glucose, Most Current Temp Pulse Resp BP Pulse Ox 12/08/16 17:23 98.9 F 93 20 104/56 90 L 12/08/16 17:13 95 20 120/76 91 L 12/08/16 17:03 96 20 130/93 90 L 12/08/16 16:53 99.1 F 95 20 159/93 88 L - Lungs Lungs: Clear Ascult./Percussion - Airway Airway: Non-obstructed - Cardiovascular Regular Rate - Mental Status Mental Status: Alert & Oriented, Answers Appropriately - Pain Pain Scale: 0 - Nausea Vomiting Nausea Vomiting: Not Present - Hydration Hydration: Ice chips - Discharge PostOp Status: Transfer Patient to floor
[2016-12-08] MEDS ORDERED: *HR* Heparin 5,000 UNIT/ML VIAL IVP ONE (18:00)
[2016-12-08] MEDS ORDERED: *HR* Heparin 5,000 UNIT/ML VIAL IVP PRN (18:00)
[2016-12-08] MEDS: Venlafaxine 25 MG, Venlafaxine 75 MG PO SCH (18:42)
[2016-12-08 19:20] LABS: INR 1.5; Prothrombin Time 15.9 Seconds (9.4-12.1)
[2016-12-08 19:23] LABS: Activated Partial Thrombo Time 30.3 Seconds (26.0-36.0)
[2016-12-08] MEDS: Heparin 25,000 UNIT/500 ML D5W 25,000 UNIT/500 ML MLS IVC SCH (20:57)
[2016-12-08] MEDS: ceFAZolin 2,000 MG in D5% in Water 100 ML IVPB SCH (23:22)
[2016-12-09] MEDS: *HR* Heparin 5,000 UNIT/ML VIAL IVP PRN ×2 (05:21→15:44)
[2016-12-09 06:45] LABS: Basophils % 0.3 %; Eosinophils # 0.3 K/mcL (0.0-0.6); Eosinophils % 2.6 %; Hematocrit 34.6 % (35.3-44.9); Hemoglobin 10.7 g/dL (11.5-15.4); Immature Granulocytes % 0.6 % (0-4); Lymphocytes # 1.1 K/mcL (0.6-4.6); Lymphocytes % 10.8 %; Mean Corpuscular HGB Conc 30.9 g/dL (31.6-35.5); Mean Corpuscular Hemoglobin 28.8 pg (28.0-33.3); Mean Platelet Volume 11.2 fL (9.4-12.4); Monocytes # 0.8 K/mcL (0.0-1.3); Monocytes % 7.7 %; Neutrophils # 7.8 K/mcL (1.6-8.9); Platelet Count 147 K/mcL (140-400); Red Blood Count 3.72 M/mcL (3.82-4.97); Red Cell Distribution Width 15.5 % (11.5-14.5)
[2016-12-09 07:18] LABS: BUN/Creatinine Ratio 20 (6-26); Blood Urea Nitrogen 20 mg/dL (7-20); Calcium 7.7 mg/dL (8.6-10.8); Carbon Dioxide 30 mEq/L (19-29); Chloride 103 mEq/L (98-109); Glucose 165 mg/dL (70-99); Osmolality,Calculated 294 (280-300); Potassium 4.3 mEq/L (3.5-4.5); Sodium 139 mEq/L (136-145); eGFR For African Americans > 60 (> 60); eGFR For Non-African Americans 55 (> 60)
--- NOTE | 2016-12-09 07:37 | Orthopedics Progress Note ---
Date of Encounter: 12/09/16 Time of Encounter: 07:34 - Assessment and Plan (1) Closed intertrochanteric fracture of left hip Current Visit: Yes Status: Acute I did discuss the diagnosis in detail with the patient. She has a left-sided intertrochanteric hip fracture area I did discuss treatment options and recommended reduction and internal fixation in order to stabilize the hip to provide pain control and help facilitate nursing care. The risks discussed included but were not limited to bleeding, infection, anesthesia risks, damage to neurovascular structures, tendons, ligaments, and bone. Also discussed was the risk of continued symptoms and possible need for further procedures. I also discussed the risk of malunion, nonunion, some traumatic hardware, periprosthetic fracture. I also discussed the reasonable foreseeable post operative course, which will likely include a rehabilitation facility. I explained this to the patient in simple terms and she wished to proceed and consent was obtained. She will require medical clearance. Qualifiers: Encounter type: initial encounter Qualified Code(s): S72.142A - Displaced intertrochanteric fracture of left femur, initial encounter for closed fracture Subjective Interval history: S: Resting in bed. Left hip is sore as expected, but pain better than before surgery. O: Afebrile, VSS Left thigh dressing is clean, dry, and intact. Very little movement of the left foot and ankle from prior stroke. Sensation grossly intact to left foot. Left foot is sensate and well perfused. A: Post fixation of the left hip. P: PT/OT WBAT B/L LE. Post op antibiotics x 2 doses. Heparin bridge to coumadin per the hospitalist. Alonso out today. Dressing change tomorrow. Antipicate rehab upon D/C. Objective Vital signs: Vital Signs Temp Pulse Resp BP Pulse Ox 12/09/16 07:06 98.5 F 93 16 114/68 94 L 12/09/16 00:00 98.8 F 87 16 117/75 92 L 12/08/16 20:25 99.2 F 95 20 112/70 95 12/08/16 18:50 98.2 F 94 17 113/69 88 L 12/08/16 18:21 98.2 F 95 16 115/68 12/08/16 17:50 98.3 F 98 15 103/63 98 12/08/16 17:43 95 20 128/79 90 L 12/08/16 17:33 94 20 137/92 89 L 12/08/16 17:23 98.9 F 93 20 104/56 90 L 12/08/16 17:13 95 20 120/76 91 L 12/08/16 17:03 96 20 130/93 90 L 12/08/16 16:55 19 93 L 12/08/16 16:53 99.1 F 95 20 159/93 88 L 12/08/16 11:46 98.6 F 104 165/80 97 Intake and Output 12/08/16 12/08/16 12/09/16 15:59 23:59 07:59 Intake Total 1200 / 1200 319 / 319 Output Total 1050 / 1050 975 / 975 550 / 550 Balance -1050 / -1050 225 / 225 -231 / -231 Intake: IV Fluids 1000 / 1000 219 / 219 0.9 % Sodium Chloride 1, 1000 / 1000 000 ML @ 75 mls/hr IVC . [id number] [facility] Rx#: [id number] Heparin 25,000 UNIT/500 119 / 119 ML D5W 25,000 unit In 500 ml @ 10.2 UNIT/KG/HR 19. 987 mls/hr IVC .Q24H [facility] Rx#:[id number] Ancef 2,000 MG In 100 / 100 Dextrose 5% 100 ML @ 200 mls/hr IVPB Q8HR [facility] Rx#: [id number] Oral 200 / 200 100 / 100 Output: Urine 450 / 450 Urethral (Alonso) 450 / 450 Estimated Blood Loss 75 / 75 Catheter 1050 / 1050 450 / 450 550 / 550 Other: Blood Glucose* 97 155 - Labs CBC & BMP: 12/09/16 02:10 12/09/16 02:10 Labs: Abnormal lab results RBC 3.72 M/mcL (3.82-4.97) L 12/09/16 02:10 Hgb 10.7 g/dL (11.5-15.4) L 12/09/16 02:10 Hct 34.6 % (35.3-44.9) L 12/09/16 02:10 MCHC 30.9 g/dL (31.6-35.5) L 12/09/16 02:10 RDW 15.5 % (11.5-14.5) H 12/09/16 02:10 PT 15.9 Seconds (9.4-12.1) H 12/08/16 18:39 APTT 47.3 Seconds (26.0-36.0) H D 12/09/16 02:10 Carbon Dioxide 30 mEq/L (19-29) H 12/09/16 02:10 Est GFR (Non-Af Amer) 55 (> 60) L 12/09/16 02:10 Glucose 165 mg/dL (70-99) H 12/09/16 02:10 POC Glucose 155 (58-89) H 12/08/16 20:44 Calcium 7.7 mg/dL (8.6-10.8) L 12/09/16 02:10 - VTE Documentation of Mechanical Device: Intermittent pneumatic compression device Consult Discharge Plan - Plan Additional Instructions: HALFWAY DISCHARGE INSTRUCTIONS Dr. Ruvalcaba PROCEDURE PERFORMED Reduction and fixation of left hip. Incision care -Daily dressing changes to the right hip with dry gauze and either paper tape or medipore tape. -Avoid soaking wound in water (no hot tubs, bathtubs, swimming pools). -May shower after 2 weeks from surgery date. Carefully wash incision with soap and water. Gently pat it dry. Don't rub the incision, or apply creams or lotions. Sit on a shower stool when showering to keep from falling. Weight bearing status -Weightbearing as tolerated to the bilateral lower extremity. Medications -Pain medication per the discharging medical doctor. -Comadin per the discharging medical doctor. Other -Knee high ANA hose 23 hours per day -Consult physical and occupational therapy for ambulation. -Up to chair with assistance at least twice per day. Follow-up with Dr. Ruvalcaba at the office 2 weeks from the surgery date for a post operative evaluation. Call the office at [phone] to schedule appointment. Referrals: Marleny Groves DO [Primary Care Provider] - 01/26/17 1:45 pm
[2016-12-09] MEDS: ceFAZolin 2,000 MG in D5% in Water 100 ML IVPB SCH (08:18)
[2016-12-09] MEDS: Gabapentin 300 MG CAPSULE PO SCH ×2 (08:20→20:40)
[2016-12-09] MEDS: VENLAFAXINE PO SCH (08:20)
[2016-12-09] MEDS: Insulin LISPRO 300 UNITS/3 ML VIAL SQ SCH ×4 (08:20→20:40)
[2016-12-09] MEDS: Cholecalciferol (D-3) 1,000 UNIT TABLET PO SCH (08:21)
[2016-12-09] MEDS: amLODIPine 5 MG TABLET PO SCH (08:21)
[2016-12-09] MEDS: Metoprolol XL (24 HR) Succ 50 MG TAB.ER.24H PO SCH (08:21)
[2016-12-09] MEDS: Insulin DETEMIR 100 UNIT/ML X5UNITS SQ SCH ×2 (08:27→20:46)
--- NOTE | 2016-12-09 09:52 | Internal Med Progress Note ---
<Brooke Ocasio - Last Filed: 12/09/16 13:15> Date of Encounter: 12/09/16 Time of Encounter: 09:49 - Assessment and plan (1) Closed intertrochanteric fracture of left hip Current Visit: Yes Status: Acute Assessment and plan: -POD1 ORIF left trochanter. Pateint is afebrile. No WBC. Incision remains clean /dry with no evidence of infection. Pulses 2/4 b/l dorsalis pedis/popliteal. PT/ OT seeing. Will add oral pain medication. 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 Will transition to Coumadin today. Will check INR tomorrow. Plan is for d/c to rehab/SNF. Qualifiers: Encounter type: initial encounter Qualified Code(s): S72.142A - Displaced intertrochanteric fracture of left femur, initial encounter for closed fracture (2) Acute blood loss anemia Current Visit: Yes Status: Acute Assessment and plan: Patient has an acute blood loss anemia after ORIF. Will continue to monitor H/H. (3) GORDY (acute kidney injury) Current Visit: Yes Status: Resolved Assessment and plan: Resolved. Patient with Cr 1.23 and suspected dehydration on arrival. Today Cr. 0.99. Will continue to give oral/IVF as needed. Will monitor Cr. (4) Frequent falls Current Visit: Yes Status: Acute Assessment and plan: - History of frequent fall. - PT/OT after surgery. (5) Chronic anticoagulation Current Visit: Yes Status: Chronic Assessment and plan: - On chronic Coumadin for history of PE/DVT. - On heparin drip after surgery -Will transition to coumadin today. Repeat INR tomorrow AM (6) DM2 (diabetes mellitus, type 2) Current Visit: Yes Status: Chronic Assessment and plan: - Continue basal and sliding scale insulin. Sugars appear to be controlled <180. Qualifiers: Diabetes mellitus complication status: with hyperglycemia Diabetes mellitus tank terminal gauger insulin use: with residential use Qualified Code(s): E11.65 - Type 2 diabetes mellitus with hyperglycemia; Z79.4 - truck terminal manager (current) use of insulin (7) Essential hypertension Current Visit: Yes Status: Chronic Assessment and plan: - BP 114/68 this morning. - Continue current antihypertensive regimen. (8) History of cerebrovascular accident (CVA) with residual deficit Current Visit: No Status: Chronic Assessment and plan: - With residual left-side hemiparesis. - Subjective Interval history: I have seen and examined the patient this morning. POD#1 ORIF left trochanter. Reports she is in some pain this morning as she just completed PT. Denies chills , sweats, cough, sob, cp, abdominal pain, N/V, diarrhea, or any other complaints at this time. - Constitutional Vitals: Temp Pulse Resp BP Pulse Ox 98.5 F 93 16 114/68 94 L 12/09/16 07:06 12/09/16 07:06 12/09/16 07:06 12/09/16 07:06 12/09/16 07:06 General appearance: Present: cooperative, A&O X 3, no acute distress, obese, answers questions appropriately Exam: Patient appears to be in some pain upon examination. - Head Head exam: Present: atraumatic, normocephalic - Eye Eye exam: Present: PERRL, conjuntiva pink, sclera anicteric Pupils: Present: PERRL - Neck Neck exam general surgery: Present: supple, trachea midline. Absent: lymphadenopathy - Respiratory Respiratory exam: Present: CTAB. Absent: accessory muscle use, rales, rhonchi, wheezes Additional comments: Patient is on 4L NC. In no acute distress. No accessory muscle use. - Cardiovascular Cardiovascular exam: Present: RRR, +S1, +S2. Absent: diastolic murmur, gallop, rubs, systolic murmur - GI/Abdominal GI/Abdominal exam: Present: normal bowel sounds, soft, no peritoneal signs. Absent: distended, tenderness - Extremities Exam Extremities exam: Present: normal capillary refill, warm, radial pulses palpable and symetrical. Absent: calf tenderness, cyanotic, pedal edema Additional comments: Dressing over left lateral thigh is clean and dry. No discharge noted. No tenderness to palpation. - Neurological Exam Neurological exam: Present: CN II-XII intact, oriented X3, no focal deficits. Absent: pronater drift, facial droop, speech deficit - Skin Skin exam: Present: dry, intact Internal Medicine: Result - Labs CBC & Chem 7: 12/09/16 02:10 12/09/16 02:10 Labs: Short CBC 12/09/16 Range/Units 02:10 WBC 10.0 (4.3-11.1) K/mcL Hgb 10.7 L (11.5-15.4) g/dL Hct 34.6 L (35.3-44.9) % Plt Count 147 (140-400) K/mcL Neutrophils # 7.8 (1.6-8.9) K/mcL BMP 12/09/16 02:10 Sodium 139 Potassium 4.3 Chloride 103 Carbon Dioxide 30 H BUN 20 Creatinine 0.99 Glucose 165 H Calcium 7.7 L - ABG Interpretation ABG results: PT/INR, D-dimer PT 15.9 Seconds (9.4-12.1) H 12/08/16 18:39 - Impressions Impressions Fluoroscopy 12/08/16 15:30 IMPRESSION: Intraprocedural fluoroscopic spot images as above. See separate procedure report for more information. D/ / Jason Calero MD / Jason Calero MD Interpreting Provider: Jason Calero MD Hip X-Ray 12/08/16 15:30 IMPRESSION: Intraprocedural fluoroscopic spot images as above. See separate procedure report for more information. D/ / Jason Calero MD / Jason Calero MD Interpreting Provider: Jason Calero MD - VTE Documentation of Mechanical Device: Intermittent pneumatic compression device Consult Discharge Plan - Plan Additional Instructions: LONGTERM DISCHARGE INSTRUCTIONS Dr. Ruvalcaba PROCEDURE PERFORMED Reduction and fixation of left hip. Incision care -Daily dressing changes to the right hip with dry gauze and either paper tape or medipore tape. -Avoid soaking wound in water (no hot tubs, bathtubs, swimming pools). -May shower after 2 weeks from surgery date. Carefully wash incision with soap and water. Gently pat it dry. Don't rub the incision, or apply creams or lotions. Sit on a shower stool when showering to keep from falling. Weight bearing status -Weightbearing as tolerated to the bilateral lower extremity. Medications -Pain medication per the discharging medical doctor. -Comadin per the discharging medical doctor. Other -Knee high ANA hose 23 hours per day -Consult physical and occupational therapy for ambulation. -Up to chair with assistance at least twice per day. Follow-up with Dr. Ruvalcaba at the office 2 weeks from the surgery date for a post operative evaluation. Call the office at [phone] to schedule appointment. Referrals: Marleny Groves DO [Primary Care Provider] - 01/26/17 1:45 pm <Rachid Rios T - Last Filed: 12/09/16 16:52> - Constitutional Vitals: Temp Pulse Resp BP Pulse Ox 98.5 F 83 16 116/73 96 12/09/16 15:07 12/09/16 15:07 12/09/16 15:07 12/09/16 15:07 12/09/16 15:07 Internal Medicine: Result - Labs CBC & Chem 7: 12/09/16 02:10 12/09/16 02:10 Labs: Short CBC 12/09/16 Range/Units 02:10 WBC 10.0 (4.3-11.1) K/mcL Hgb 10.7 L (11.5-15.4) g/dL Hct 34.6 L (35.3-44.9) % Plt Count 147 (140-400) K/mcL Neutrophils # 7.8 (1.6-8.9) K/mcL BMP 12/09/16 02:10 Sodium 139 Potassium 4.3 Chloride 103 Carbon Dioxide 30 H BUN 20 Creatinine 0.99 Glucose 165 H Calcium 7.7 L - ABG Interpretation ABG results: PT/INR, D-dimer PT 15.9 Seconds (9.4-12.1) H 12/08/16 18:39 - Impressions Impressions Fluoroscopy 12/08/16 15:30 IMPRESSION: Intraprocedural fluoroscopic spot images as above. See separate procedure report for more information. D/ / Jason Calero MD / Jason Calero MD Interpreting Provider: Jason Calero MD Hip X-Ray 12/08/16 15:30 IMPRESSION: Intraprocedural fluoroscopic spot images as above. See separate procedure report for more information. D/ / Jason Calero MD / Jason Calero MD Interpreting Provider: Jason Calero MD - Attending Attestation I examined this patient and my medical decision-making was reviewed with the ETL LEAD/PA/Advanced Practice Nurse/Resident Physician. I agree with the documented findings, disposition and treatment plan as described except to the extent set forth below. 71 Y/O F with PMH of CAD, DVT-PE, HTN, HLD, Hx of CVA, She is admitted and being managed for Left hip fracture after a mechanical fall. She was on Coumadin prior to admission, her renal function tests showed some mild dehydration She is seen at bedside, pleasant, complaining of pain POD 1 Labs and Imaging reviewed: CBC and Chem is stable Plan is pain control, resume COumadin, monitor INR, D/C heprain when therapeutic , continue current meds High risk due to heparin and IV pain medications D/C dispo is for SNF Rest of care as in Documentation by resident
--- NOTE | 2016-12-09 12:46 | Electrocardiograph Report ---
[address] [address] Test Date: 2016-12-08 Pat Name: Mary Walton Department: 114 Room: [facility] Gender: F Investigator Vice: : 1945 Requested By: Sav Cavazos Order Number: [id number] Reading MD: Rainer Carrera MD Measurements Intervals [place] Rate: 102 P: 60 OR: 178 QRS: -62 QRSD: 153 T: 63 QT: 392 QTc: 451 Interpretive Statements SINUS TACHYCARDIA RBBB Poor R wave progression Electronically Signed On 12-09-2016 12:45:20 EDT by Rainer Carrera MD
--- NOTE | 2016-12-09 16:28 | Electrocardiograph Report ---
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
[2016-12-09] MEDS: Venlafaxine 25 MG, Venlafaxine 75 MG PO SCH (17:04)
[2016-12-09] MEDS: Acetaminophen 325 MG TABLET PO PRN (17:10)
[2016-12-09] MEDS: *HR* OxyCODONE Immed Rel 5 MG TABLET PO PRN (17:10)
[2016-12-09] MEDS ORDERED: *HR* Warfarin 3 MG TABLET PO SCH ×2 (18:00)
[2016-12-09] MEDS: *HR* Morphine 2 MG/ML SYRINGE IVP PRN (20:50)
[2016-12-09] MEDS: Heparin 25,000 UNIT/500 ML D5W 25,000 UNIT/500 ML MLS IVC SCH (23:48)
[2016-12-10 05:11] LABS: Hematocrit 24.4 % (35.3-44.9)
[2016-12-10 05:13] LABS: Hemoglobin 7.7 g/dL (11.5-15.4)
[2016-12-10 05:17] LABS: INR 1.6
[2016-12-10 05:28] LABS: Activated Partial Thrombo Time 71.9 Seconds (26.0-36.0)
[2016-12-10 08:14] LABS: Basophils % 0.4 %; Eosinophils # 0.5 K/mcL (0.0-0.6); Eosinophils % 4.4 %; Hematocrit 24.3 % (35.3-44.9); Hemoglobin 7.5 g/dL (11.5-15.4); Immature Granulocytes % 0.9 % (0-4); Lymphocytes # 1.4 K/mcL (0.6-4.6); Lymphocytes % 12.6 %; Mean Corpuscular HGB Conc 30.9 g/dL (31.6-35.5); Mean Corpuscular Hemoglobin 28.2 pg (28.0-33.3); Mean Corpuscular Volume 91.4 fL (83.0-100.0); Mean Platelet Volume 11.1 fL (9.4-12.4); Monocytes # 1.1 K/mcL (0.0-1.3); Monocytes % 10.2 %; Neutrophils # 7.8 K/mcL (1.6-8.9); Platelet Count 132 K/mcL (140-400); Red Blood Count 2.66 M/mcL (3.82-4.97); Red Cell Distribution Width 15.3 % (11.5-14.5); Segmented Neutrophils % 71.5 %
[2016-12-10] MEDS: Insulin LISPRO 300 UNITS/3 ML VIAL SQ SCH ×6 (08:19→21:43)
[2016-12-10] MEDS: Insulin DETEMIR 100 UNIT/ML X5UNITS SQ SCH ×2 (08:20→21:43)
[2016-12-10] MEDS: VENLAFAXINE PO SCH (08:21)
[2016-12-10] MEDS: *HR* OxyCODONE Immed Rel 5 MG TABLET PO PRN ×2 (08:22→14:41)
[2016-12-10] MEDS: amLODIPine 5 MG TABLET PO SCH (08:22)
[2016-12-10] MEDS: Cholecalciferol (D-3) 1,000 UNIT TABLET PO SCH (08:22)
[2016-12-10] MEDS: Metoprolol XL (24 HR) Succ 50 MG TAB.ER.24H PO SCH (08:22)
[2016-12-10] MEDS: Gabapentin 300 MG CAPSULE PO SCH ×2 (08:23→21:43)
--- NOTE | 2016-12-10 10:05 | Internal Med Progress Note ---
<Brooke Ocasio - Last Filed: 12/10/16 14:49> Date of Encounter: 12/10/16 Time of Encounter: 10:05 - Assessment and plan (1) Closed intertrochanteric fracture of left hip Current Visit: Yes Status: Acute Assessment and plan: -POD2 ORIF left trochanter. Pateint is afebrile. No leukocytosis. Incision remains clean/dry with no evidence of infection. Dressing changed this AM. Pulses 2/4 b/l dorsalis pedis/popliteal. PT/OT seeing. Patient reminded to ask for PRN pain medication. H/H 7.5/24.3 today. Patient reports worsening SOB/ dizziness since yesterday. Denies blood in stool, urine. Denies any bleeding. BP 100/72. Will hold anticoagulation and transfuse 2U PRBC today. Will continue to monitor H/H and for any signs of bleeding. Plan is for d/c to rehab/SNF when medically stable. Qualifiers: Encounter type: initial encounter Qualified Code(s): S72.142A - Displaced intertrochanteric fracture of left femur, initial encounter for closed fracture (2) Acute blood loss anemia Current Visit: Yes Status: Acute Assessment and plan: See above. Patient has an acute blood loss anemia after ORIF. Will continue to monitor H/H. 7.5/24.3 today. Plan is to transfuse 2U PRBC today. (3) GORDY (acute kidney injury) Current Visit: Yes Status: Resolved Assessment and plan: Resolved. Patient with Cr 1.23 and suspected dehydration on arrival. Today Cr. 0.99. Will continue to give oral/IVF as needed. (4) Frequent falls Current Visit: Yes Status: Acute Assessment and plan: - History of frequent fall. - PT/OT seeing. Plan for discharge to SNF/Rehab (5) Chronic anticoagulation Current Visit: Yes Status: Chronic Assessment and plan: - On chronic Coumadin for history of PE/DVT. - On heparin drip after surgery -HOLD anticoagulation at this time due to acute blood loss anemia. (6) DM2 (diabetes mellitus, type 2) Current Visit: Yes Status: Chronic Assessment and plan: - Continue basal and sliding scale insulin. Past 24H with Glucose >200. Will add 5U Humolog with meals. Will continue to monitor. 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 - Continue current antihypertensive regimen. Will monitor closely and hold if needed. (8) History of cerebrovascular accident (CVA) with residual deficit Current Visit: No Status: Chronic Assessment and plan: - With residual left-side hemiparesis. - Subjective Interval history: I have seen and examined the patient this morning. POD#2 ORIF left trochanter. Reports she is in some pain this morning but has not asked for any pain medication. Patient reports feeling SOB and dizzy when changing positions. Denies chills, sweats, cough, cp, abdominal pain, N/V, diarrhea, or any other complaints at this time. - Constitutional Vitals: Temp Pulse Resp BP Pulse Ox 98.9 F 96 18 100/72 97 12/10/16 06:58 12/10/16 06:58 12/10/16 06:58 12/10/16 06:58 12/10/16 06:58 General appearance: Present: cooperative, A&O X 3, no acute distress, obese, answers questions appropriately - Head Head exam: Present: atraumatic, normocephalic - Eye Eye exam: Present: PERRL, conjuntiva pink, sclera anicteric Pupils: Present: PERRL - ENT ENT exam: Present: mucous membranes moist - Neck Neck exam general surgery: Present: supple, trachea midline. Absent: lymphadenopathy - Respiratory Respiratory exam: Present: CTAB. Absent: accessory muscle use, rales, respiratory distress, rhonchi, wheezes Additional comments: Patient is breathing comfortably on 4L NC - Cardiovascular Cardiovascular exam: Present: RRR, +S1, +S2. Absent: diastolic murmur, gallop, rubs, systolic murmur - GI/Abdominal GI/Abdominal exam: Present: normal bowel sounds, soft, no peritoneal signs. Absent: distended, tenderness - Extremities Exam Extremities exam: Present: warm, radial pulses palpable and symetrical. Absent : calf tenderness, cyanotic, pedal edema Additional comments: LLE with incision over lateral side of proximal thigh. Does not appear infected. No drainage, warmth, erythema. +Tenderness with palpation. Dressing changed today, clean and dry. Dorsalis pedis/popliteal pulses 2/4. - Back Exam Back exam: Present: normal inspection - Neurological Exam Neurological exam: Present: CN II-XII intact, oriented X3, no focal deficits. Absent: pronater drift, facial droop, speech deficit - Psychiatric Psychiatric exam: Present: normal affect, normal mood - Skin Skin exam: Present: dry, intact Internal Medicine: Result - Labs CBC & Chem 7: 12/10/16 07:51 12/09/16 02:10 Labs: Short CBC 12/10/16 12/10/16 Range/Units 04:27 07:51 WBC 10.9 (4.3-11.1) K/mcL Hgb 7.7 L D 7.5 L (11.5-15.4) g/dL Hct 24.4 L 24.3 L (35.3-44.9) % Plt Count 132 L (140-400) K/mcL Neutrophils # 7.8 (1.6-8.9) K/mcL - ABG Interpretation ABG results: PT/INR, D-dimer PT 17.0 Seconds (9.4-12.1) H 12/10/16 04:27 - VTE Documentation of Mechanical Device: Intermittent pneumatic compression device Consult Discharge Plan - Plan Additional Instructions: LONG TERM DISCHARGE INSTRUCTIONS Dr. Ruvalcaba PROCEDURE PERFORMED Reduction and fixation of left hip. Incision care -Daily dressing changes to the right hip with dry gauze and either paper tape or medipore tape. -Avoid soaking wound in water (no hot tubs, bathtubs, swimming pools). -May shower after 2 weeks from surgery date. Carefully wash incision with soap and water. Gently pat it dry. Don't rub the incision, or apply creams or lotions. Sit on a shower stool when showering to keep from falling. Weight bearing status -Weightbearing as tolerated to the bilateral lower extremity. Medications -Pain medication per the discharging medical doctor. -Comadin per the discharging medical doctor. Other -Knee high ANA hose 23 hours per day -Consult physical and occupational therapy for ambulation. -Up to chair with assistance at least twice per day. Follow-up with Dr. Ruvalcaba at the office 2 weeks from the surgery date for a post operative evaluation. Call the office at [phone] to schedule appointment. Referrals: Marleny Groves DO [Primary Care Provider] - 01/26/17 1:45 pm <Rachid Rios - Last Filed: 12/10/16 15:55> - Constitutional Vitals: Temp Pulse Resp BP Pulse Ox 97.7 F 90 16 128/79 94 L 12/10/16 14:34 12/10/16 14:34 12/10/16 15:16 12/10/16 15:16 12/10/16 15:16 Internal Medicine: Result - Labs CBC & Chem 7: 12/10/16 07:51 12/09/16 02:10 Labs: Short CBC 12/10/16 12/10/16 Range/Units 04:27 07:51 WBC 10.9 (4.3-11.1) K/mcL Hgb 7.7 L D 7.5 L (11.5-15.4) g/dL Hct 24.4 L 24.3 L (35.3-44.9) % Plt Count 132 L (140-400) K/mcL Neutrophils # 7.8 (1.6-8.9) K/mcL - ABG Interpretation ABG results: PT/INR, D-dimer PT 17.0 Seconds (9.4-12.1) H 12/10/16 04:27 - Attending Attestation I examined this patient and my medical decision-making was reviewed with the SENIOR INFORMATION SECURITY CONSULTANT/PA/Advanced Practice Nurse/Resident Physician. I agree with the documented findings, disposition and treatment plan as described except to the extent set forth below. 71 Y/O F with PMH of CAD, DVT-PE, HTN, HLD, Hx of CVA, She is admitted and being managed for Left hip fracture after a mechanical fall. She was on Coumadin prior to admission, her renal function tests showed some mild dehydration She is seen at bedside, pleasant, complaining of pain She denied hematemesis, hematocheiz, melena, no epistaxis, no skin bruising, wound dressing is clean and dry Physical exam: VSS, Chest is clear, abdomen is benign, wound dressing is clean and dry, no surrounding erythema or bruising POD 2 Labs and Imaging reviewed: Acute blood loss anemia with Hb drom of ~4-5 from admission Chem is unremarkable A/Plan Acute blood loss anemia: Secondary to surgery, Transfuse 2 units RBCs, recheck Hb a.m. Hold heparin and coumadin for now Continue other management Rest of details as in Documentation by resident
[2016-12-10] MEDS ORDERED: 0.9 % Sodium Chloride 250 ML ONE ×2 (10:40→14:30)
[2016-12-10] MEDS: Acetaminophen 325 MG TABLET PO PRN (14:41)
[2016-12-10] MEDS: Venlafaxine 25 MG, Venlafaxine 75 MG PO SCH (17:40)
--- NOTE | 2016-12-10 20:03 | Orthopedics Progress Note ---
Date of Encounter: 12/10/16 Time of Encounter: 07:00 - Assessment and Plan (1) Closed intertrochanteric fracture of left hip Current Visit: Yes Status: Acute I did discuss the diagnosis in detail with the patient. She has a left-sided intertrochanteric hip fracture area I did discuss treatment options and recommended reduction and internal fixation in order to stabilize the hip to provide pain control and help facilitate nursing care. The risks discussed included but were not limited to bleeding, infection, anesthesia risks, damage to neurovascular structures, tendons, ligaments, and bone. Also discussed was the risk of continued symptoms and possible need for further procedures. I also discussed the risk of malunion, nonunion, some traumatic hardware, periprosthetic fracture. I also discussed the reasonable foreseeable post operative course, which will likely include a rehabilitation facility. I explained this to the patient in simple terms and she wished to proceed and consent was obtained. She will require medical clearance. Qualifiers: Encounter type: initial encounter Qualified Code(s): S72.142A - Displaced intertrochanteric fracture of left femur, initial encounter for closed fracture Subjective Interval history: S: Resting in bed. No new complaints. Expected post op pain. O: Afebrile, VSS Left thigh wounds are clean, dry, and intact. Very little movement of the left foot and ankle from prior stroke. Sensation grossly intact to left foot. Left foot is sensate and well perfused. A: Post fixation of the left hip. Acute blood loss anemia from surgery. P: PT/OT WBAT B/L LE. Coumadin per the hospitalist. Pain controlled. Transfuse for acute blood loss anemia. Antipicate rehab upon D/C. Objective Vital signs: Vital Signs Temp Pulse Resp BP Pulse Ox 12/10/16 17:10 98 F 91 18 108/66 96 12/10/16 15:16 16 128/79 94 L 12/10/16 14:52 98 12/10/16 14:34 97.7 F 90 20 128/79 98 12/10/16 14:24 97.8 F 89 20 115/70 96 12/10/16 14:02 97.8 F 60 16 103/64 96 12/10/16 11:21 98.8 F 81 14 92/61 96 12/10/16 10:55 97.9 F 83 18 100/56 98 12/10/16 06:58 98.9 F 96 18 100/72 97 12/10/16 05:17 98.6 F 96 16 114/67 97 12/09/16 20:38 97.8 F 90 16 108/72 95 Intake and Output 12/10/16 12/10/16 12/10/16 07:59 15:59 23:59 Intake Total 353 / 353 301 / 301 287 / 287 Output Total 500 / 500 Balance -147 / -147 301 / 301 287 / 287 Intake: IV Fluids 353 / 353 1 / 1 0.9 % Sodium Chloride 250 1 / 1 ML As .ROUTE .[facility] Rx#:[id number] Heparin 25,000 UNIT/500 312 / 312 ML D5W 25,000 unit In 500 ml @ 10.2 UNIT/KG/HR 19. 987 mls/hr IVC .Q24H [facility] Rx#:[id number] Blood Product 300 / 300 287 / 287 Rbcs Leuko Poor As-1 300 / 300 Unit [id number] Rbcs Leuko Poor As-1 0 / 0 287 / 287 Unit [id number] Output: Straight Cath 500 / 500 Other: Blood Glucose* 206 244 280 - Labs CBC & BMP: 12/10/16 07:51 12/09/16 02:10 Labs: Abnormal lab results RBC 2.66 M/mcL (3.82-4.97) L 12/10/16 07:51 Hgb 7.5 g/dL (11.5-15.4) L 12/10/16 07:51 Hct 24.3 % (35.3-44.9) L 12/10/16 07:51 MCHC 30.9 g/dL (31.6-35.5) L 12/10/16 07:51 RDW 15.3 % (11.5-14.5) H 12/10/16 07:51 Plt Count 132 K/mcL (140-400) L 12/10/16 07:51 PT 17.0 Seconds (9.4-12.1) H 12/10/16 04:27 APTT 71.9 Seconds (26.0-36.0) H 12/10/16 04:27 Carbon Dioxide 30 mEq/L (19-29) H 12/09/16 02:10 Est GFR (Non-Af Amer) 55 (> 60) L 12/09/16 02:10 Glucose 165 mg/dL (70-99) H 12/09/16 02:10 POC Glucose 280 (58-89) H 12/10/16 17:22 Calcium 7.7 mg/dL (8.6-10.8) L 12/09/16 02:10 - VTE Documentation of Mechanical Device: Intermittent pneumatic compression device Consult Discharge Plan - Plan Additional Instructions: [facility] DISCHARGE INSTRUCTIONS Dr. Ruvalcaba PROCEDURE PERFORMED Reduction and fixation of left hip. Incision care -Daily dressing changes to the right hip with dry gauze and either paper tape or medipore tape. -Avoid soaking wound in water (no hot tubs, bathtubs, swimming pools). -May shower after 2 weeks from surgery date. Carefully wash incision with soap and water. Gently pat it dry. Don't rub the incision, or apply creams or lotions. Sit on a shower stool when showering to keep from falling. Weight bearing status -Weightbearing as tolerated to the bilateral lower extremity. Medications -Pain medication per the discharging medical doctor. -Comadin per the discharging medical doctor. Other -Knee high ANA hose 23 hours per day -Consult physical and occupational therapy for ambulation. -Up to chair with assistance at least twice per day. Follow-up with Dr. Ruvalcaba at the office 2 weeks from the surgery date for a post operative evaluation. Call the office at [phone] to schedule appointment. Referrals: Marleny Groves DO [Primary Care Provider] - 01/26/17 1:45 pm
[2016-12-11 05:48] LABS: Basophils % 0.3 %; Eosinophils # 0.5 K/mcL (0.0-0.6); Eosinophils % 4.6 %; Hematocrit 27.6 % (35.3-44.9); Hemoglobin 8.7 g/dL (11.5-15.4); Immature Granulocytes % 1.7 % (0-4); Lymphocytes # 1.5 K/mcL (0.6-4.6); Lymphocytes % 14.7 %; Mean Corpuscular HGB Conc 31.5 g/dL (31.6-35.5); Mean Corpuscular Hemoglobin 28.2 pg (28.0-33.3); Mean Corpuscular Volume 89.3 fL (83.0-100.0); Mean Platelet Volume 10.9 fL (9.4-12.4); Monocytes % 9.6 %; Neutrophils # 6.9 K/mcL (1.6-8.9); Platelet Count 148 K/mcL (140-400); Red Blood Count 3.09 M/mcL (3.82-4.97); Red Cell Distribution Width 15.4 % (11.5-14.5); Segmented Neutrophils % 69.1 %
[2016-12-11 06:05] LABS: BUN/Creatinine Ratio 29 (6-26); Blood Urea Nitrogen 25 mg/dL (7-20); Calcium 8.2 mg/dL (8.6-10.8); Carbon Dioxide 29 mEq/L (19-29); Chloride 104 mEq/L (98-109); Glucose 178 mg/dL (70-99); Osmolality,Calculated 297 (280-300); Potassium 4.2 mEq/L (3.5-4.5); Sodium 139 mEq/L (136-145); eGFR For African Americans > 60 (> 60); eGFR For Non-African Americans > 60 (> 60)
[2016-12-11] MEDS: VENLAFAXINE PO SCH (08:54)
[2016-12-11] MEDS: Gabapentin 300 MG CAPSULE PO SCH ×2 (08:55→21:24)
[2016-12-11] MEDS: Insulin DETEMIR 100 UNIT/ML X5UNITS SQ SCH ×2 (08:55→21:23)
[2016-12-11] MEDS: Insulin LISPRO 300 UNITS/3 ML VIAL SQ SCH ×7 (08:55→21:22)
[2016-12-11] MEDS: Acetaminophen 325 MG TABLET PO PRN (08:55)
[2016-12-11] MEDS: Cholecalciferol (D-3) 1,000 UNIT TABLET PO SCH (08:55)
[2016-12-11] MEDS: amLODIPine 5 MG TABLET PO SCH (08:55)
[2016-12-11] MEDS: Metoprolol XL (24 HR) Succ 50 MG TAB.ER.24H PO SCH (08:55)
--- NOTE | 2016-12-11 09:21 | Internal Med Progress Note ---
<Brooke Ocasio - Last Filed: 12/11/16 13:47> Date of Encounter: 12/11/16 Time of Encounter: 08:00 - Assessment and plan (1) Closed intertrochanteric fracture of left hip Current Visit: Yes Status: Acute Assessment and plan: -POD3 ORIF left trochanter. Pateint is afebrile. No leukocytosis. Incision remains clean/dry with no evidence of infection. Dressing changed this AM. Pulses 2/4 b/l dorsalis pedis/popliteal. PT/OT seeing. Patient reminded to ask for PRN pain medication. H/H 8.7/27.6 today s/p 2 units of pRBC transfusion on . Denies blood in stool, urine or other bleeding signs. BP 111/68. Will continue to monitor H/H and for any signs of bleeding. Consider to resume anticoagulation once Hgb maintains stable. Plan is for d/c to rehab/SNF when medically stable. Qualifiers: Encounter type: initial encounter Qualified Code(s): S72.142A - Displaced intertrochanteric fracture of left femur, initial encounter for closed fracture (2) Acute blood loss anemia Current Visit: Yes Status: Acute Assessment and plan: See above. Patient has an acute blood loss anemia after ORIF. Will continue to monitor H/H. H/H 8.7/27.6 today s/p 2 units of pRBC transfusion on 12/10. Continue close monitoring. (3) Chronic anticoagulation Current Visit: Yes Status: Chronic Assessment and plan: - On chronic Coumadin for history of PE/DVT. - Was on heparin drip after surgery - Anticoagulation is held at this time given the acute blood loss anemia. - If Hgb remains stable tomorrow, plan to discharge patient to rehab with restart of Coumadin. (4) GORDY (acute kidney injury) Current Visit: Yes Status: Resolved Assessment and plan: Resolved. Patient with Cr 1.23 and suspected dehydration on arrival. Today Cr. 0.86. Will continue to give oral/IVF as needed. (5) Frequent falls Current Visit: Yes Status: Acute Assessment and plan: - History of frequent fall. - PT/OT seeing. Plan for discharge to SNF/Rehab (6) DM2 (diabetes mellitus, type 2) Current Visit: Yes Status: Chronic Assessment and plan: - Continue basal and sliding scale insulin. Will continue to monitor. 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 - Continue current antihypertensive regimen. Will monitor closely and hold if needed. (8) History of cerebrovascular accident (CVA) with residual deficit Current Visit: No Status: Chronic Assessment and plan: - With residual left-side hemiparesis. - Subjective Interval history: No significant event noted overnight. Patient was seen and examined this morning. POD#3 ORIF left trochanter. Reports she complains of neck, shoulder and left hip pain but states she tried to minimize taking pain medications. Patient breathing is about the same and denies chills, sweats, cough, cp, abdominal pain, N/V, diarrhea. - Constitutional Vitals: Temp Pulse Resp BP Pulse Ox 98.7 F 109 16 111/68 95 12/11/16 06:30 12/11/16 06:30 12/11/16 06:30 12/11/16 06:30 12/11/16 06:30 General appearance: Present: cooperative, A&O X 3, no acute distress, obese, answers questions appropriately - Head Head exam: Present: atraumatic, normocephalic - Eye Eye exam: Present: PERRL, conjuntiva pink, sclera anicteric - Neck Neck exam general surgery: Present: supple, trachea midline. Absent: lymphadenopathy - Respiratory Respiratory exam: Present: decreased breath sounds. Absent: accessory muscle use, rales, rhonchi, wheezes - Cardiovascular Cardiovascular exam: Present: RRR, +S1, +S2. Absent: diastolic murmur, gallop, rubs, systolic murmur - GI/Abdominal GI/Abdominal exam: Present: normal bowel sounds, soft, no peritoneal signs. Absent: distended, tenderness - Extremities Exam Extremities exam: Present: pedal edema, warm, radial pulses palpable and symetrical. Absent: calf tenderness, cyanotic Additional comments: LLE with incision over lateral side of proximal thigh. Does not appear infected. No drainage, warmth, erythema. +Tenderness with palpation. Dressing is clean and dry. Dorsalis pedis/popliteal pulses 2/4. - Neurological Exam Neurological exam: Present: CN II-XII intact, oriented X3. Absent: pronater drift, facial droop, speech deficit Additional comments: Left hemiparesis - Skin Skin exam: Present: dry, intact Internal Medicine: Result - Labs CBC & Chem 7: 12/11/16 05:33 12/11/16 05:33 Labs: Short CBC 12/11/16 Range/Units 05:33 WBC 10.0 (4.3-11.1) K/mcL Hgb 8.7 L (11.5-15.4) g/dL Hct 27.6 L (35.3-44.9) % Plt Count 148 (140-400) K/mcL Neutrophils # 6.9 (1.6-8.9) K/mcL BMP 12/11/16 05:33 Sodium 139 Potassium 4.2 Chloride 104 Carbon Dioxide 29 BUN 25 H Creatinine 0.86 Glucose 178 H Calcium 8.2 L - ABG Interpretation ABG results: PT/INR, D-dimer PT 17.0 Seconds (9.4-12.1) H 12/10/16 04:27 - VTE Documentation of Mechanical Device: Intermittent pneumatic compression device Consult Discharge Plan - Plan Additional Instructions: INTERMEDIATE DISCHARGE INSTRUCTIONS Dr. Ruvalcaba PROCEDURE PERFORMED Reduction and fixation of left hip. Incision care -Daily dressing changes to the right hip with dry gauze and either paper tape or medipore tape. -Avoid soaking wound in water (no hot tubs, bathtubs, swimming pools). -May shower after 2 weeks from surgery date. Carefully wash incision with soap and water. Gently pat it dry. Don't rub the incision, or apply creams or lotions. Sit on a shower stool when showering to keep from falling. Weight bearing status -Weightbearing as tolerated to the bilateral lower extremity. Medications -Pain medication per the discharging medical doctor. -Comadin per the discharging medical doctor. Other -Knee high ANA hose 23 hours per day -Consult physical and occupational therapy for ambulation. -Up to chair with assistance at least twice per day. Follow-up with Dr. Ruvalcaba at the office 2 weeks from the surgery date for a post operative evaluation. Call the office at [phone] to schedule appointment. Referrals: Marleny Groves DO [Primary Care Provider] - 01/26/17 1:45 pm <GabrielRachid T - Last Filed: 12/11/16 15:20> - Constitutional Vitals: Temp Pulse Resp BP Pulse Ox 97.8 F 96 16 103/65 94 L 12/11/16 10:51 12/11/16 10:51 12/11/16 10:51 12/11/16 10:51 12/11/16 10:51 Internal Medicine: Result - Labs CBC & Chem 7: 12/11/16 05:33 12/11/16 05:33 Labs: Short CBC 12/11/16 Range/Units 05:33 WBC 10.0 (4.3-11.1) K/mcL Hgb 8.7 L (11.5-15.4) g/dL Hct 27.6 L (35.3-44.9) % Plt Count 148 (140-400) K/mcL Neutrophils # 6.9 (1.6-8.9) K/mcL BMP 12/11/16 05:33 Sodium 139 Potassium 4.2 Chloride 104 Carbon Dioxide 29 BUN 25 H Creatinine 0.86 Glucose 178 H Calcium 8.2 L - ABG Interpretation ABG results: PT/INR, D-dimer PT 17.0 Seconds (9.4-12.1) H 12/10/16 04:27 - Attending Attestation I examined this patient and my medical decision-making was reviewed with the DEPUTY SHERIFF/PA/Advanced Practice Nurse/Resident Physician. I agree with the documented findings, disposition and treatment plan as described except to the extent set forth below. 71 Y/O F with PMH of CAD, DVT-PE, HTN, HLD, Hx of CVA, She is admitted and being managed for Left hip fracture after a mechanical fall. She was on Coumadin prior to admission, her renal function tests showed some mild dehydration which have improved She is POD 3, complicated by acute blood loss anemia She is seen at bedside, pleasant, no new complains Physical exam: VSS, Chest is clear, abdomen is benign, wound dressing is clean and dry, no surrounding erythema or bruising POD 3 Labs and Imaging reviewed: Hb improved to 8.7. Chem is stable A/Plan Acute blood loss anemia: Secondary to surgery, Imrpoved with RBCs, recheck Hb a.m. if stable, will start on Coumadin and discharge to SNF Continue other management Rest of details as in Documentation by resident
--- NOTE | 2016-12-11 09:38 | Orthopedics Progress Note ---
Date of Encounter: 12/11/16 Time of Encounter: 09:37 - Assessment and Plan (1) Closed intertrochanteric fracture of left hip Current Visit: Yes Status: Acute I did discuss the diagnosis in detail with the patient. She has a left-sided intertrochanteric hip fracture area I did discuss treatment options and recommended reduction and internal fixation in order to stabilize the hip to provide pain control and help facilitate nursing care. The risks discussed included but were not limited to bleeding, infection, anesthesia risks, damage to neurovascular structures, tendons, ligaments, and bone. Also discussed was the risk of continued symptoms and possible need for further procedures. I also discussed the risk of malunion, nonunion, some traumatic hardware, periprosthetic fracture. I also discussed the reasonable foreseeable post operative course, which will likely include a rehabilitation facility. I explained this to the patient in simple terms and she wished to proceed and consent was obtained. She will require medical clearance. Qualifiers: Encounter type: initial encounter Qualified Code(s): S72.142A - Displaced intertrochanteric fracture of left femur, initial encounter for closed fracture Subjective Interval history: S: Resting in bed. No new complaints. Expected post op pain. O: Afebrile, VSS Left thigh wounds are clean, dry, and intact. Very little movement of the left foot and ankle from prior stroke. Sensation grossly intact to left foot. Left foot is sensate and well perfused. A: Post fixation of the left hip. Acute blood loss anemia from surgery. P: PT/OT WBAT B/L LE. Coumadin per the hospitalist--currently held due to acute blood loss anemia. Pain controlled. Orthopedically stable for discharge. Antipicate rehab when medically stable for discharge. Objective Vital signs: Vital Signs Temp Pulse Resp BP Pulse Ox 12/11/16 06:30 98.7 F 109 16 111/68 95 12/11/16 00:23 99 F 102 17 108/69 94 L 12/10/16 21:06 98.4 F 63 19 92/50 96 12/10/16 17:10 98 F 91 18 108/66 96 12/10/16 15:16 16 128/79 94 L 12/10/16 14:52 98 12/10/16 14:34 97.7 F 90 20 128/79 98 12/10/16 14:24 97.8 F 89 20 115/70 96 12/10/16 14:02 97.8 F 60 16 103/64 96 12/10/16 11:21 98.8 F 81 14 92/61 96 12/10/16 10:55 97.9 F 83 18 100/56 98 Intake and Output 12/10/16 12/11/16 12/11/16 23:59 07:59 15:59 Intake Total 287 / 287 Output Total 650 / 650 550 / 550 Balance -363 / -363 -550 / -550 Intake: Blood Product 287 / 287 Rbcs Leuko Poor As-1 287 / 287 Unit [id number] Output: Catheter 650 / 650 550 / 550 Other: Blood Glucose* 268 166 - Labs CBC & BMP: 12/11/16 05:33 12/11/16 05:33 Labs: Abnormal lab results RBC 3.09 M/mcL (3.82-4.97) L 12/11/16 05:33 Hgb 8.7 g/dL (11.5-15.4) L 12/11/16 05:33 Hct 27.6 % (35.3-44.9) L 12/11/16 05:33 MCHC 31.5 g/dL (31.6-35.5) L 12/11/16 05:33 RDW 15.4 % (11.5-14.5) H 12/11/16 05:33 PT 17.0 Seconds (9.4-12.1) H 12/10/16 04:27 BUN 25 mg/dL (7-20) H 12/11/16 05:33 BUN/Creatinine Ratio 29 (6-26) H 12/11/16 05:33 Glucose 178 mg/dL (70-99) H 12/11/16 05:33 POC Glucose 166 (58-89) H 12/11/16 07:17 Calcium 8.2 mg/dL (8.6-10.8) L 12/11/16 05:33 - VTE Documentation of Mechanical Device: Intermittent pneumatic compression device Consult Discharge Plan - Plan Additional Instructions: HALF-WAY DISCHARGE INSTRUCTIONS Dr. Ruvalcaba PROCEDURE PERFORMED Reduction and fixation of left hip. Incision care -Daily dressing changes to the right hip with dry gauze and either paper tape or medipore tape. -Avoid soaking wound in water (no hot tubs, bathtubs, swimming pools). -May shower after 2 weeks from surgery date. Carefully wash incision with soap and water. Gently pat it dry. Don't rub the incision, or apply creams or lotions. Sit on a shower stool when showering to keep from falling. Weight bearing status -Weightbearing as tolerated to the bilateral lower extremity. Medications -Pain medication per the discharging medical doctor. -Comadin per the discharging medical doctor. Other -Knee high ANA hose 23 hours per day -Consult physical and occupational therapy for ambulation. -Up to chair with assistance at least twice per day. Follow-up with Dr. Ruvalcaba at the office 2 weeks from the surgery date for a post operative evaluation. Call the office at [phone] to schedule appointment. Referrals: Marleny Groves DO [Primary Care Provider] - 01/26/17 1:45 pm
[2016-12-11] MEDS: *HR* OxyCODONE Immed Rel 5 MG TABLET PO PRN ×2 (12:12→21:24)
[2016-12-11] MEDS: Venlafaxine 25 MG, Venlafaxine 75 MG PO SCH (17:12)
[2016-12-12 06:37] LABS: Basophils % 0.3 %; Eosinophils # 0.5 K/mcL (0.0-0.6); Eosinophils % 5.1 %; Hemoglobin 7.9 g/dL (11.5-15.4); Immature Granulocytes % 1.9 % (0-4); Lymphocytes # 1.5 K/mcL (0.6-4.6); Lymphocytes % 16.3 %; Mean Corpuscular HGB Conc 31.6 g/dL (31.6-35.5); Mean Corpuscular Hemoglobin 28.4 pg (28.0-33.3); Mean Corpuscular Volume 89.9 fL (83.0-100.0); Monocytes # 0.8 K/mcL (0.0-1.3); Monocytes % 8.4 %; Neutrophils # 6.4 K/mcL (1.6-8.9); Nucleated Red Blood Cells 0.2 /100 WBC (0); Platelet Count 159 K/mcL (140-400); Red Blood Count 2.78 M/mcL (3.82-4.97); Red Cell Distribution Width 15.5 % (11.5-14.5)
[2016-12-12 06:38] LABS: INR 1.2; Prothrombin Time 13.2 Seconds (9.4-12.1)
[2016-12-12] MEDS: Gabapentin 300 MG CAPSULE PO SCH ×2 (08:17→20:25)
[2016-12-12] MEDS: Metoprolol XL (24 HR) Succ 50 MG TAB.ER.24H PO SCH (08:18)
[2016-12-12] MEDS: Insulin LISPRO 300 UNITS/3 ML VIAL SQ SCH ×7 (08:18→20:33)
[2016-12-12] MEDS: Cholecalciferol (D-3) 1,000 UNIT TABLET PO SCH (08:18)
[2016-12-12] MEDS: VENLAFAXINE PO SCH (08:18)
[2016-12-12] MEDS: amLODIPine 5 MG TABLET PO SCH (08:18)
[2016-12-12] MEDS: Insulin DETEMIR 100 UNIT/ML X5UNITS SQ SCH ×2 (08:28→20:32)
--- NOTE | 2016-12-12 09:51 | Orthopedics Progress Note ---
Date of Encounter: 12/12/16 Time of Encounter: 09:50 - Assessment and Plan (1) Closed intertrochanteric fracture of left hip Current Visit: Yes Status: Acute I did discuss the diagnosis in detail with the patient. She has a left-sided intertrochanteric hip fracture area I did discuss treatment options and recommended reduction and internal fixation in order to stabilize the hip to provide pain control and help facilitate nursing care. The risks discussed included but were not limited to bleeding, infection, anesthesia risks, damage to neurovascular structures, tendons, ligaments, and bone. Also discussed was the risk of continued symptoms and possible need for further procedures. I also discussed the risk of malunion, nonunion, some traumatic hardware, periprosthetic fracture. I also discussed the reasonable foreseeable post operative course, which will likely include a rehabilitation facility. I explained this to the patient in simple terms and she wished to proceed and consent was obtained. She will require medical clearance. Qualifiers: Encounter type: initial encounter Qualified Code(s): S72.142A - Displaced intertrochanteric fracture of left femur, initial encounter for closed fracture Subjective Interval history: S: Resting in bed. No new complaints. Expected post op pain. O: Afebrile, VSS Left thigh wounds are clean, dry, and intact. Very little movement of the left foot and ankle from prior stroke. Sensation grossly intact to left foot. Left foot is sensate and well perfused. A: Post fixation of the left hip. Acute blood loss anemia from surgery. P: Continue postoperative care PT/OT WBAT B/L LE. Coumadin per the hospitalist; Will defer decision to transfuse to hospitalist Pain controlled. Antipicate rehab when medically stable for discharge. Objective Vital signs: Vital Signs Temp Pulse Resp BP Pulse Ox 12/12/16 06:55 99.0 F 103 16 107/57 93 L 12/12/16 00:00 98.2 F 91 17 111/65 98 12/11/16 20:00 98.7 F 97 18 112/66 98 12/11/16 15:40 97.7 F 83 16 100/64 94 L 12/11/16 10:51 97.8 F 96 16 103/65 94 L Intake and Output 12/11/16 12/12/16 12/12/16 23:59 07:59 15:59 Output Total 600 / 600 600 / 600 Balance -600 / -600 -600 / -600 Output: Catheter 600 / 600 600 / 600 Other: Blood Glucose* 239 184 - Labs CBC & BMP: 12/12/16 06:09 12/11/16 05:33 Labs: Abnormal lab results RBC 2.78 M/mcL (3.82-4.97) L 12/12/16 06:09 Hgb 7.9 g/dL (11.5-15.4) L 12/12/16 06:09 Hct 25.0 % (35.3-44.9) L 12/12/16 06:09 RDW 15.5 % (11.5-14.5) H 12/12/16 06:09 Nucleated RBCs/100 WBC 0.2 /100 WBC (0) H 12/12/16 06:09 PT 13.2 Seconds (9.4-12.1) H 12/12/16 06:09 BUN 25 mg/dL (7-20) H 12/11/16 05:33 BUN/Creatinine Ratio 29 (6-26) H 12/11/16 05:33 Glucose 178 mg/dL (70-99) H 12/11/16 05:33 POC Glucose 251 (58-89) H 12/11/16 11:09 Calcium 8.2 mg/dL (8.6-10.8) L 12/11/16 05:33 - VTE Documentation of Mechanical Device: Intermittent pneumatic compression device Consult Discharge Plan - Plan Additional Instructions: SHELTER DISCHARGE INSTRUCTIONS Dr. Ruvalcaba PROCEDURE PERFORMED Reduction and fixation of left hip. Incision care -Daily dressing changes to the right hip with dry gauze and either paper tape or medipore tape. -Avoid soaking wound in water (no hot tubs, bathtubs, swimming pools). -May shower after 2 weeks from surgery date. Carefully wash incision with soap and water. Gently pat it dry. Don't rub the incision, or apply creams or lotions. Sit on a shower stool when showering to keep from falling. Weight bearing status -Weightbearing as tolerated to the bilateral lower extremity. Medications -Pain medication per the discharging medical doctor. -Comadin per the discharging medical doctor. Other -Knee high ANA hose 23 hours per day -Consult physical and occupational therapy for ambulation. -Up to chair with assistance at least twice per day. Follow-up with Dr. Ruvalcaba at the office 2 weeks from the surgery date for a post operative evaluation. Call the office at [phone] to schedule appointment. Referrals: Marleny Groves DO [Primary Care Provider] - 01/26/17 1:45 pm
--- NOTE | 2016-12-12 11:20 | Internal Med Progress Note ---
<Brooke Ocasio - Last Filed: 12/12/16 12:17> Date of Encounter: 12/12/16 Time of Encounter: 08:00 - Assessment and plan (1) Closed intertrochanteric fracture of left hip Current Visit: Yes Status: Acute Assessment and plan: -POD4 ORIF left trochanter. Pateint is afebrile. No leukocytosis. Incision remains clean/dry with no evidence of infection. Dressing changed this AM. Pulses 2/4 b/l dorsalis pedis/popliteal. PT/OT seeing. S/p 2 units of pRBC transfusion on 12/10. H/H 7.9/25.0 today and some hematoma noted around left hip incision site. Denies blood in stool, urine or other bleeding signs. Per nurse, orthopedic surgeon took a look of the hematoma and stated it's not significant and not indicated for further orthopedic surgical intervention. Will continue to monitor H/H and for any signs of bleeding. Plan is for d/c to rehab/SNF when medically stable. Qualifiers: Encounter type: initial encounter Qualified Code(s): S72.142A - Displaced intertrochanteric fracture of left femur, initial encounter for closed fracture (2) Acute blood loss anemia Current Visit: Yes Status: Acute Assessment and plan: Patient has an acute blood loss anemia after ORIF. Will continue to monitor H/ H. S/p 2 units of pRBC transfusion on 12/10. But H/H dropped from 8.7/27.6 to 7.9 /25.0 today. Likely related to the hematoma noted near the incision site. Continue close monitoring and consider more pRBC transfusion if H/H continues to drop or Hgb < 7. (3) Chronic anticoagulation Current Visit: Yes Status: Chronic Assessment and plan: - On chronic Coumadin for history of PE/DVT. - Was on heparin drip after surgery - Anticoagulation is held at this time given the acute blood loss anemia. - Given her current low Hgb and potential bleeding, will have patient follow up with her PCP or physician at rehab to decide when to resume her anticoagulation. (4) Frequent falls Current Visit: Yes Status: Acute Assessment and plan: - History of frequent fall. - PT/OT seeing. Plan for discharge to SNF/Rehab (5) DM2 (diabetes mellitus, type 2) Current Visit: Yes Status: Chronic Assessment and plan: - Continue basal and sliding scale insulin. Will continue to monitor. Qualifiers: Diabetes mellitus complication status: with hyperglycemia Diabetes mellitus intermodal dispatcher insulin use: with longterm use Qualified Code(s): E11.65 - Type 2 diabetes mellitus with hyperglycemia; Z79.4 - prison (current) use of insulin (6) Essential hypertension Current Visit: Yes Status: Chronic Assessment and plan: - BP 120/75 this morning. - Continue current antihypertensive regimen. Will monitor closely and hold if needed. (7) History of cerebrovascular accident (CVA) with residual deficit Current Visit: No Status: Chronic Assessment and plan: - With residual left-side hemiparesis. - Subjective Interval history: No significant event noted overnight. Patient was seen and examined this morning. POD#4 ORIF left trochanter. Reports she complains of neck, shoulder and left hip pain. Patient still reports some shortness of breath and lightheadedness. Patient denies chest pain, fever, chills, sweats, cough, cp, abdominal pain, N/V, diarrhea, hematochezia, melena, hematuria or any sign of bleeding. - Constitutional Vitals: Temp Pulse Resp BP Pulse Ox 97.9 F 95 16 120/75 93 L 12/12/16 11:00 12/12/16 11:00 12/12/16 11:00 12/12/16 11:00 12/12/16 11:00 General appearance: Present: cooperative, A&O X 3, no acute distress, obese, answers questions appropriately - Head Head exam: Present: atraumatic, normocephalic - Eye Eye exam: Present: PERRL, conjuntiva pink, sclera anicteric - Neck Neck exam general surgery: Present: supple, trachea midline. Absent: lymphadenopathy - Respiratory Respiratory exam: Present: decreased breath sounds. Absent: accessory muscle use, rales, rhonchi, wheezes - Cardiovascular Cardiovascular exam: Present: +S1, +S2, tachycardia. Absent: diastolic murmur, gallop, rubs, systolic murmur - GI/Abdominal GI/Abdominal exam: Present: normal bowel sounds, soft, no peritoneal signs. Absent: distended, tenderness - Extremities Exam Extremities exam: Present: pedal edema, warm, radial pulses palpable and symetrical. Absent: calf tenderness, cyanotic Additional comments: LLE with incision over lateral side of proximal thigh. Some hematoma noted. Does not appear infected. No drainage, warmth, erythema. +Tenderness with palpation. Dressing is clean and dry. Dorsalis pedis/popliteal pulses 2/4. - Neurological Exam Neurological exam: Present: CN II-XII intact, oriented X3. Absent: pronater drift, facial droop, speech deficit Additional comments: Left hemiparesis. - Skin Skin exam: Present: dry, intact Internal Medicine: Result - Labs CBC & Chem 7: 12/12/16 06:09 12/11/16 05:33 Labs: Short CBC 12/12/16 Range/Units 06:09 WBC 9.4 (4.3-11.1) K/mcL Hgb 7.9 L (11.5-15.4) g/dL Hct 25.0 L (35.3-44.9) % Plt Count 159 (140-400) K/mcL Neutrophils # 6.4 (1.6-8.9) K/mcL - ABG Interpretation ABG results: PT/INR, D-dimer PT 13.2 Seconds (9.4-12.1) H 12/12/16 06:09 - VTE Documentation of Mechanical Device: Intermittent pneumatic compression device Consult Discharge Plan - Plan Additional Instructions: SHELTER DISCHARGE INSTRUCTIONS Dr. Ruvalcaba PROCEDURE PERFORMED Reduction and fixation of left hip. Incision care -Daily dressing changes to the right hip with dry gauze and either paper tape or medipore tape. -Avoid soaking wound in water (no hot tubs, bathtubs, swimming pools). -May shower after 2 weeks from surgery date. Carefully wash incision with soap and water. Gently pat it dry. Don't rub the incision, or apply creams or lotions. Sit on a shower stool when showering to keep from falling. Weight bearing status -Weightbearing as tolerated to the bilateral lower extremity. Medications -Pain medication per the discharging medical doctor. -Comadin per the discharging medical doctor. Other -Knee high ANA hose 23 hours per day -Consult physical and occupational therapy for ambulation. -Up to chair with assistance at least twice per day. Follow-up with Dr. Ruvalcaba at the office 2 weeks from the surgery date for a post operative evaluation. Call the office at [phone] to schedule appointment. Referrals: Marleny Groves DO [Primary Care Provider] - 01/26/17 1:45 pm <Rachid Rios - Last Filed: 12/12/16 14:34> - Constitutional Vitals: Temp Pulse Resp BP Pulse Ox 97.9 F 95 16 120/75 93 L 12/12/16 11:00 12/12/16 11:00 12/12/16 11:00 12/12/16 11:00 12/12/16 11:00 Internal Medicine: Result - Labs CBC & Chem 7: 12/12/16 06:09 12/11/16 05:33 Labs: Short CBC 12/12/16 Range/Units 06:09 WBC 9.4 (4.3-11.1) K/mcL Hgb 7.9 L (11.5-15.4) g/dL Hct 25.0 L (35.3-44.9) % Plt Count 159 (140-400) K/mcL Neutrophils # 6.4 (1.6-8.9) K/mcL - ABG Interpretation ABG results: PT/INR, D-dimer PT 13.2 Seconds (9.4-12.1) H 12/12/16 06:09 - Attending Attestation I examined this patient and my medical decision-making was reviewed with the MAILROOM COORDINATOR/PA/Advanced Practice Nurse/Resident Physician. I agree with the documented findings, disposition and treatment plan as described except to the extent set forth below. 71 Y/O F with PMH of CAD, DVT-PE, HTN, HLD, Hx of CVA, She is admitted and being managed for Left hip fracture after a mechanical fall. She was on Coumadin prior to admission, her renal function tests showed some mild dehydration which have improved She is POD 3, complicated by acute blood loss anemia She is seen at bedside, denies new complains Physical exam: VSS, Chest is clear, abdomen is benign, wound dressing is clean and dry, surrounding the hip site and thigh wound site are large subcut hematoma , no active bleeding from the wound. The left LE is larger than the right. POD 4 Labs and Imaging reviewed: Hb again dropped to 7.5. Chem is stable. No source of bleeding Will keep patient today, to repeat Hb a.m. I am not comfortable restarting her coumadin with this current Hb. If Hb is stable a.m, will discharge with plan to restart Coumadin per PCP Rest of details as in resident's documentation
[2016-12-12] MEDS: Venlafaxine 25 MG, Venlafaxine 75 MG PO SCH (17:17)
[2016-12-12] MEDS: *HR* OxyCODONE Immed Rel 5 MG TABLET PO PRN (20:25)
[2016-12-13 05:26] LABS: INR 1.2; Prothrombin Time 12.9 Seconds (9.4-12.1)
[2016-12-13 05:32] LABS: Basophils % 0.3 %; Eosinophils # 0.5 K/mcL (0.0-0.6); Eosinophils % 5.2 %; Hematocrit 26.3 % (35.3-44.9); Hemoglobin 8.4 g/dL (11.5-15.4); Immature Granulocytes % 1.9 % (0-4); Lymphocytes # 1.6 K/mcL (0.6-4.6); Lymphocytes % 17.2 %; Mean Corpuscular HGB Conc 31.9 g/dL (31.6-35.5); Mean Corpuscular Volume 90.7 fL (83.0-100.0); Mean Platelet Volume 10.8 fL (9.4-12.4); Monocytes # 0.8 K/mcL (0.0-1.3); Monocytes % 9.1 %; Neutrophils # 6.1 K/mcL (1.6-8.9); Nucleated Red Blood Cells 0.2 /100 WBC (0); Platelet Count 173 K/mcL (140-400); Red Cell Distribution Width 15.6 % (11.5-14.5); Segmented Neutrophils % 66.3 %
[2016-12-13] MEDS: Insulin LISPRO 300 UNITS/3 ML VIAL SQ SCH ×2 (08:10)
[2016-12-13] MEDS: VENLAFAXINE PO SCH (08:11)
[2016-12-13] MEDS: amLODIPine 5 MG TABLET PO SCH (08:11)
[2016-12-13] MEDS: Metoprolol XL (24 HR) Succ 50 MG TAB.ER.24H PO SCH (08:11)
[2016-12-13] MEDS: Gabapentin 300 MG CAPSULE PO SCH (08:12)
[2016-12-13] MEDS: Cholecalciferol (D-3) 1,000 UNIT TABLET PO SCH (08:12)
[2016-12-13] MEDS: Insulin DETEMIR 100 UNIT/ML X5UNITS SQ SCH (08:28)
--- NOTE | 2016-12-13 08:29 | Orthopedics Progress Note ---
Date of Encounter: 12/13/16 Time of Encounter: 08:28 - Assessment and Plan (1) Closed intertrochanteric fracture of left hip Current Visit: Yes Status: Acute I did discuss the diagnosis in detail with the patient. She has a left-sided intertrochanteric hip fracture area I did discuss treatment options and recommended reduction and internal fixation in order to stabilize the hip to provide pain control and help facilitate nursing care. The risks discussed included but were not limited to bleeding, infection, anesthesia risks, damage to neurovascular structures, tendons, ligaments, and bone. Also discussed was the risk of continued symptoms and possible need for further procedures. I also discussed the risk of malunion, nonunion, some traumatic hardware, periprosthetic fracture. I also discussed the reasonable foreseeable post operative course, which will likely include a rehabilitation facility. I explained this to the patient in simple terms and she wished to proceed and consent was obtained. She will require medical clearance. Qualifiers: Encounter type: initial encounter Qualified Code(s): S72.142A - Displaced intertrochanteric fracture of left femur, initial encounter for closed fracture Subjective Interval history: S: Resting in bed. No new complaints. Expected post op pain. O: Afebrile, VSS Left thigh wounds are clean, dry, and intact. Very little movement of the left foot and ankle from prior stroke. Sensation grossly intact to left foot. Left foot is sensate and well perfused. A: Post fixation of the left hip. P: Continue postoperative care PT/OT WBAT B/L LE. Coumadin per the hospitalist; Pain controlled. Stable for discharge from ortho standpoint. Antipicate rehab when medically stable for discharge. Objective Vital signs: Vital Signs Temp Pulse Resp BP Pulse Ox 12/13/16 06:42 97.6 F 98 18 126/77 93 L 12/12/16 23:47 97.9 F 96 18 112/75 97 12/12/16 20:16 98.5 F 93 18 121/74 95 12/12/16 15:08 98.2 F 101 14 132/71 94 L 12/12/16 11:00 97.9 F 95 16 120/75 93 L Intake and Output 12/12/16 12/13/16 12/13/16 23:59 07:59 15:59 Intake Total 600 / 600 100 / 100 Output Total 820 / 820 550 / 550 Balance -220 / -220 -450 / -450 Intake: Oral 600 / 600 100 / 100 Output: Catheter 820 / 820 550 / 550 Other: Blood Glucose* 176 186 - Labs CBC & BMP: 12/13/16 04:59 12/11/16 05:33 Labs: Abnormal lab results RBC 2.90 M/mcL (3.82-4.97) L 12/13/16 04:59 Hgb 8.4 g/dL (11.5-15.4) L 12/13/16 04:59 Hct 26.3 % (35.3-44.9) L 12/13/16 04:59 RDW 15.6 % (11.5-14.5) H 12/13/16 04:59 Nucleated RBCs/100 WBC 0.2 /100 WBC (0) H 12/13/16 04:59 PT 12.9 Seconds (9.4-12.1) H 12/13/16 04:59 BUN 25 mg/dL (7-20) H 12/11/16 05:33 BUN/Creatinine Ratio 29 (6-26) H 12/11/16 05:33 Glucose 178 mg/dL (70-99) H 12/11/16 05:33 POC Glucose 176 (58-89) H 12/12/16 19:43 Calcium 8.2 mg/dL (8.6-10.8) L 12/11/16 05:33 - VTE Documentation of Mechanical Device: Intermittent pneumatic compression device Consult Discharge Plan - Plan Additional Instructions: ASSISTED DISCHARGE INSTRUCTIONS Dr. Ruvalcaba PROCEDURE PERFORMED Reduction and fixation of left hip. Incision care -Daily dressing changes to the right hip with dry gauze and either paper tape or medipore tape. -Avoid soaking wound in water (no hot tubs, bathtubs, swimming pools). -May shower after 2 weeks from surgery date. Carefully wash incision with soap and water. Gently pat it dry. Don't rub the incision, or apply creams or lotions. Sit on a shower stool when showering to keep from falling. Weight bearing status -Weightbearing as tolerated to the bilateral lower extremity. Medications -Pain medication per the discharging medical doctor. -Comadin per the discharging medical doctor. Other -Knee high ANA hose 23 hours per day -Consult physical and occupational therapy for ambulation. -Up to chair with assistance at least twice per day. Follow-up with Dr. Ruvalcaba at the office 2 weeks from the surgery date for a post operative evaluation. Call the office at [phone] to schedule appointment. Referrals: Marleny Groves DO [Primary Care Provider] - 01/26/17 1:45 pm
--- NOTE | 2016-12-13 09:00 | Discharge Summary ---
<Brooke Ocasio - Last Filed: 12/13/16 10:17> Date of Encounter: 12/13/16 Time of Encounter: 08:30 - Discharge Diagnosis (1) Closed intertrochanteric fracture of left hip Priority: Primary Status: Acute Qualifiers: Encounter type: initial encounter Qualified Code(s): S72.142A - Displaced intertrochanteric fracture of left femur, initial encounter for closed fracture (2) Acute blood loss anemia Priority: Secondary Status: Acute (3) Chronic anticoagulation Priority: Secondary Status: Chronic (4) Frequent falls Priority: Secondary Status: Acute (5) DM2 (diabetes mellitus, type 2) Priority: Secondary Status: Chronic Qualifiers: Diabetes mellitus complication status: with hyperglycemia Diabetes mellitus long-term insulin use: with technician terminal and repeater use Qualified Code(s): E11.65 - Type 2 diabetes mellitus with hyperglycemia; Z79.4 - terminal gauger supervisor (current) use of insulin (6) Essential hypertension Priority: Secondary Status: Chronic (7) History of cerebrovascular accident (CVA) with residual deficit Priority: Secondary Status: Chronic - Discharge Medications Prescriptions: OxyCODONE Immed Rel [Roxicodone 5 MG] 5 mg PO Q6HR PRN #20 tablet PRN Reason: Pain Home Medications: Albuterol Sulfate [Proair Hfa] 1 - 2 puff IH Q4-6H PRN 05/19/16 [History] Amitriptyline [Elavil] 25 - 50 mg PO HS 05/19/16 [History] Amlodipine [Norvasc] 5 mg PO DAILY 05/19/16 [History] Atorvastatin [Lipitor] 40 mg PO HS 05/19/16 [History] Ferrous Sulfate 325 mg PO BIDWM 05/19/16 [History] Furosemide [Lasix] 40 mg PO BID 05/19/16 [History] Gabapentin [Neurontin] 600 mg PO TID 05/19/16 [History] Glimepiride [Amaryl] 4 mg PO BID 05/19/16 [History] Insulin Glargine,Hum.rec.anlog [Lantus Solostar] 68 unit SQ DAILY 05/19/16 [ History] Levothyroxine [Synthroid] 125 mcg PO QAM 05/19/16 [History] Valsartan [Diovan] 20 mg PO DAILY 05/19/16 [History] Venlafaxine HCl 100 mg PO QPM 05/19/16 [History] Cholecalciferol (Vitamin D3) [Vitamin D3] 5,000 unit PO BID 08/16/16 [History] Metoprolol XL (24 HR) Succ [Toprol Xl] 100 mg PO DAILY 08/16/16 [History] Acetaminophen [Tylenol] 650 mg PO Q6HR PRN #0 tablet 08/18/16 [Rx] Venlafaxine HCl 200 mg PO QAM 12/07/16 [History] OxyCODONE Immed Rel [Roxicodone 5 MG] 5 mg PO Q6HR PRN #20 tablet 12/13/16 [Rx] Allergies/Adverse Reactions: Allergies No Known Allergies Allergy (Verified 12/07/16 09:35) Date of admission: 12/07/16 10:43 Primary care physician: Marleny Groves DO Consults: 12/07/16 10:49 Consult to Orthopedic Surgery [CONS] Routine Consulting Provider: Yassine Ruvalcaba Reason for Consult: Left hip intertrochanteric fracture; ED Dr. Cavazos called Call Completed: Yes 12/08/16 17:04 Consult to Occupational Therapy [CONS] Routine Comment: Evaluate, develop and implement POC Consult to Physical Therapy [CONS] Routine Comment: Evaluate, develop and implement POC Discharging clinician: Brooke Ocasio Anticipated date of discharge: 12/13/16 - Patient Status Disposition: Transfer SNF Condition: Good Functional capacity at discharge: bed bound Overall status at discharge: patient is progressing back to baseline - Discharge Instructions Instructions: Anemia (GEN) Follow Up With: Marleny Groves DO [Primary Care Provider] - 01/26/17 1:45 pm Yassine Ruvalcaba MD [Partnered Physician] - 12/27/16 8:30 am Additional Instructions: SENIOR CARE DISCHARGE INSTRUCTIONS Dr. Ruvalcaba PROCEDURE PERFORMED Reduction and fixation of left hip. Incision care -Daily dressing changes to the right hip with dry gauze and either paper tape or medipore tape. -Avoid soaking wound in water (no hot tubs, bathtubs, swimming pools). -May shower after 2 weeks from surgery date. Carefully wash incision with soap and water. Gently pat it dry. Don't rub the incision, or apply creams or lotions. Sit on a shower stool when showering to keep from falling. Weight bearing status -Weight bearing as tolerated to the bilateral lower extremity. Medications -Pain medication per the discharging medical doctor. -Comadin per the discharging medical doctor. Other -Knee high ANA hose 23 hours per day -Consult physical and occupational therapy for ambulation. -Up to chair with assistance at least twice per day. Follow-up with Dr. Ruvalcaba at the office 2 weeks from the surgery date for a post operative evaluation. Call the office at [phone] to schedule appointment. Please be aware that your Coumadin 6 mg daily had been held for acute blood loss anemia. Please follow up with your primary care physician or physician at skilled nursing/rehab within a week to determine when to resume your Coumadin. - Diet and Activity Activity: as per physical therapy Diet: diabetic diet Hospital course: Ms. Walton is a 71 year old female with PMH of DM, history of PE/DVT on warfarin and history of CVA with residual left-side hemiparesis. Patient had a mechanical fall and left hip XR showed closed intertrochanteric proximal femur fracture. Patient was admitted on 12/07 for left hip fracture and got reduction and internal fixation of the left intertrochanteric hip fracture on 12/08. Patient's Hgb was noted to drop to as low as 7.5 on 12/10 and patient received two units of pRBC on that day. Patient's Coumadin has been held and H&H is closely monitored. Patient's acute blood loss anemia is noted to improve as her Hgb increased to 8.4 without getting additional blood transfusion. Patient remains clinically stable throughout hospitalization. Will discharge patient to rehab as recommended by PT/OT. Patient is instructed to follow up with her PCP or physician at SNF/rehab within a week regarding when to resume her Coumadin. Patient verbalized her understanding. - Time Spent with Patient Total time spent providing and/or coordinating discharge services: Greater than 30 minutes - Constitutional Vitals: Temp Pulse Resp BP Pulse Ox 97.6 F 98 18 126/77 93 L 12/13/16 06:42 12/13/16 06:42 12/13/16 06:42 12/13/16 06:42 12/13/16 06:42 General appearance: Present: cooperative, A&O X 3, no acute distress, obese, answers questions appropriately - Head Head exam: Present: atraumatic, normocephalic - Eye Eye exam: Present: PERRL, conjuntiva pink, sclera anicteric - Neck Neck exam general surgery: Present: supple, trachea midline. Absent: lymphadenopathy - Respiratory Respiratory exam: Present: CTAB. Absent: accessory muscle use, rales, rhonchi, wheezes - Cardiovascular Cardiovascular exam: Present: RRR, +S1, +S2. Absent: diastolic murmur, gallop, rubs, systolic murmur - GI/Abdominal GI/Abdominal exam: Present: normal bowel sounds, soft, no peritoneal signs. Absent: distended, tenderness - Extremities Exam Extremities exam: Present: pedal edema, warm, radial pulses palpable and symetrical. Absent: calf tenderness, cyanotic Additional comments: LLE with incision over lateral side of proximal thigh. Some hematoma noted. Does not appear infected. No drainage, warmth, erythema. +Tenderness with palpation. Dressing is clean and dry. Dorsalis pedis/popliteal pulses 2/4. - Neurological Exam Neurological exam: Present: CN II-XII intact, oriented X3. Absent: pronater drift, facial droop, speech deficit Additional comments: Chronic left hemiparesis. - Skin Skin exam: Present: dry, intact. Absent: rash - VTE Documentation of Mechanical Device: Intermittent pneumatic compression device <Rachid Rios - Last Filed: 12/13/16 14:01> Date of admission: 12/07/16 10:43 Primary care physician: Marleny Groves DO Consults: 12/07/16 10:49 Consult to Orthopedic Surgery [CONS] Routine Consulting Provider: Yassine Ruvalcaba Reason for Consult: Left hip intertrochanteric fracture; ED Dr. Cavazos called Call Completed: Yes 12/08/16 17:04 Consult to Occupational Therapy [CONS] Routine Comment: Evaluate, develop and implement POC Consult to Physical Therapy [CONS] Routine Comment: Evaluate, develop and implement POC Hospital course: Ms. Walton is a 71 year old female - Time Spent with Patient Total time spent providing and/or coordinating discharge services: - Constitutional Vitals: Temp Pulse Resp BP Pulse Ox 98.9 F 93 18 119/78 93 L 12/13/16 11:14 12/13/16 11:14 12/13/16 11:14 12/13/16 11:14 12/13/16 11:14 - Attending Attestation I examined this patient and my medical decision-making was reviewed with the DIRECTOR EXTERNAL COMMUNICATIONS/PA/Advanced Practice Nurse/Resident Physician. I agree with the documented findings, disposition and treatment plan as described except to the extent set forth below. 71 Y/O F with PMH of CAD, DVT-PE, HTN, HLD, Hx of CVA, She is admitted and being managed for Left hip fracture after a mechanical fall. She was on Coumadin prior to admission, her renal function tests showed some mild dehydration which have improved She is POD 4, complicated by acute blood loss anemia She is seen at bedside, denies new complains Hb has stabilized at ~8. She is safe for discharge to SNF Recommend to monitor HB ad restart Coumadin per SNF MD or PCP Rest of details as in resident's documentation
[2016-12-13] MEDS: Acetaminophen 325 MG TABLET PO PRN (09:15)
--- NOTE | 2016-12-13 10:03 | Physician Discharge Referral ---
<Brooke Ocasio - Last Filed: 12/13/16 10:00> ExtendedCare Referral Info Transfer To: [facility] Provider in Charge after Transfer: PCP Institutional Level of Care: Skilled - Diagnosis (1) Closed intertrochanteric fracture of left hip Priority: Primary Status: Acute (2) Acute blood loss anemia Priority: Secondary Status: Acute (3) Chronic anticoagulation Priority: Secondary Status: Chronic (4) Frequent falls Priority: Secondary Status: Acute (5) DM2 (diabetes mellitus, type 2) Priority: Secondary Status: Chronic (6) Essential hypertension Priority: Secondary Status: Chronic (7) History of cerebrovascular accident (CVA) with residual deficit Priority: Secondary Status: Chronic - Transfer Medications Prescriptions: OxyCODONE Immed Rel [Roxicodone 5 MG] 5 mg PO Q6HR PRN #20 tablet PRN Reason: Pain Home Medications: Albuterol Sulfate [Proair Hfa] 1 - 2 puff IH Q4-6H PRN 05/19/16 [History] Amitriptyline [Elavil] 25 - 50 mg PO HS 05/19/16 [History] Amlodipine [Norvasc] 5 mg PO DAILY 05/19/16 [History] Atorvastatin [Lipitor] 40 mg PO HS 05/19/16 [History] Ferrous Sulfate 325 mg PO BIDWM 05/19/16 [History] Furosemide [Lasix] 40 mg PO BID 05/19/16 [History] Gabapentin [Neurontin] 600 mg PO TID 05/19/16 [History] Glimepiride [Amaryl] 4 mg PO BID 05/19/16 [History] Insulin Glargine,Hum.rec.anlog [Lantus Solostar] 68 unit SQ DAILY 05/19/16 [ History] Levothyroxine [Synthroid] 125 mcg PO QAM 05/19/16 [History] Valsartan [Diovan] 20 mg PO DAILY 05/19/16 [History] Venlafaxine HCl 100 mg PO QPM 05/19/16 [History] Cholecalciferol (Vitamin D3) [Vitamin D3] 5,000 unit PO BID 08/16/16 [History] Metoprolol XL (24 HR) Succ [Toprol Xl] 100 mg PO DAILY 08/16/16 [History] Acetaminophen [Tylenol] 650 mg PO Q6HR PRN #0 tablet 08/18/16 [Rx] Venlafaxine HCl 200 mg PO QAM 12/07/16 [History] OxyCODONE Immed Rel [Roxicodone 5 MG] 5 mg PO Q6HR PRN #20 tablet 12/13/16 [Rx] Allergies/Adverse Reactions: Allergies No Known Allergies Allergy (Verified 12/07/16 09:35) - Respiratory Orders Oxygen / L per min (3 L) Smoking Cessation: Smoking cessation has been advised. For more information, call the [facility] [employer] [facility] at 5-886-LYRK-NOW. - Mobility Orders Other (Per PT/OT recommendations.) - Rehabiliation Orders Rehab Potential: Fair Rehab Orders: Evaluation for Physical Therapy, Evaluation for Occupational Therapy - Diet Orders No Concentrated Sweets CERTIFICATION: I certify that the transfer of the above named patient to an Extended Care Facility is necessary for the continuing treatment of the diagnosis listed. The above information is true and accurate reflection of patient's current condition. Confidential - Redisclosure prohibited without a patient's written consent. <Rachid Rios T - Last Filed: 12/13/16 14:00> ExtendedCare Referral Info Provider in Charge: Rachid Rios - Respiratory Orders Smoking Cessation: Smoking cessation has been advised. For more information, call the [facility] [employer] [facility] at 1-153-LSNL-NOW. - Rehabiliation Orders Other: Incision care -Daily dressing changes to the right hip with dry gauze and either paper tape or medipore tape. -Avoid soaking wound in water (no hot tubs, bathtubs, swimming pools). -May shower after 2 weeks from surgery date. Carefully wash incision with soap and water. Gently pat it dry. Don't rub the incision, or apply creams or lotions. Sit on a shower stool when showering to keep from falling. Weight bearing status -Weightbearing as tolerated to the bilateral lower extremity. Medications -Pain medication per the discharging medical doctor. -Comadin per the PCP Other -Knee high ANA hose 23 hours per day -Consult physical and occupational therapy for ambulation. -Up to chair with assistance at least twice per day. Follow-up with Dr. Ruvalcaba at the office 2 weeks from the surgery date for a post operative evaluation. Call the office at [phone] to schedule appointment. CERTIFICATION: I certify that the transfer of the above named patient to an Extended Care Facility is necessary for the continuing treatment of the diagnosis listed. The above information is true and accurate reflection of patient's current condition. Confidential - Redisclosure prohibited without a patient's written consent.
[2016-12-13 11:15] VITALS: BP 119/78
== END 2016-12-13 12:03 | DRG 481 ==
LOC: EMEROO 08:03 → 3NENU 08:03 → SUATTDRO 10:43 → 3NENU 11:11
PROVIDERS: ADMIT Internal Medicine; ATTEND Internal Medicine

== ENCOUNTER 2017-10-08 12:14 | Inpatient (IN) ==
--- NOTE | 2017-10-08 12:44 | Emergency Department Note ---
Disposition Clinical Impression: Right sided weakness TIA (transient ischemic attack) Qualifiers: Transient cerebral ischemia type: unspecified Qualified Code(s): G45.9 - Transient cerebral ischemic attack, unspecified Disposition: Admitted As Inpatient Condition: Good General Adult HPI - General Chief complaint: ED Neuro Symptoms/Deficit Stated complaint: neuro symptoms Time Seen by Provider: 10/08/17 12:19 Source: EMS Limitations: physical limitation Nursing Notes Reviewed: Yes Vital Signs Reviewed: Yes - History of Present Illness HPI Narrative: 72-year-old female with a remote history of a large stroke affecting the left side of her body. She is in a local nursing facility. She reports she woke up at 7 AM with right-sided weakness. She was being assisted to the bedside commode little before noon and her worsening weakness was noted by the staff who said that she also had slurred speech and they sent her to the emergency department. She reports that all of her symptoms are 100% resolved. She feels completely back to her baseline. She denies having chest pain or shortness of breath. She takes aspirin. She is not on other anticoagulants. Pain Scale: 0 Consistency: now resolved Improves with: nothing Worsens with: nothing Associated symptoms: Reports: denies other symptoms Treatments Prior to Arrival: none - Related Data Home Medications Medication Instructions Recorded Confirmed Albuterol Sulfate [Proair Hfa] 1 - 2 puff IH Q4-6H PRN 05/19/16 05/16/17 Atorvastatin [Lipitor] 40 mg PO HS 05/19/16 05/16/17 Ferrous Sulfate 325 mg PO BIDWM 05/19/16 05/16/17 Furosemide [Lasix] 60 mg PO BID 05/19/16 05/16/17 Gabapentin [Neurontin] 600 mg PO TID 05/19/16 05/16/17 Glimepiride [Amaryl] 2 mg PO BID 05/19/16 05/16/17 Insulin Glargine,Hum.rec.anlog 60 unit SQ HS 05/19/16 05/16/17 [Lantus Solostar] Levothyroxine [Synthroid] 125 mcg PO QAM 05/19/16 05/16/17 amLODIPine [Norvasc] 5 mg PO DAILY 05/19/16 05/16/17 Cholecalciferol (Vitamin D3) 2,000 unit PO DAILY 08/16/16 05/16/17 [Vitamin D3] Metoprolol XL (24 HR) Succ [Toprol 100 mg PO DAILY 08/16/16 05/16/17 Xl] Venlafaxine HCl 200 mg PO QAM 12/07/16 05/16/17 Insulin ASPART [NovoLOG] 10 unit SQ TIDWM 02/28/17 05/16/17 Nystatin POWDER [Nystop] 1 appl TP BID 02/28/17 05/16/17 Potassium Chloride [Klor-Con] 20 meq PO BID 02/28/17 05/16/17 Pramipexole [Mirapex] 0.125 mg PO DAILY 02/28/17 05/16/17 Aspirin [Lo-Dose Aspirin EC] 81 mg PO DAILY 05/16/17 05/16/17 Budesonide [Pulmicort] 0.5 mg IH BID 05/16/17 05/16/17 Esomeprazole Magnesium [Nexium] 40 mg PO DAILY 05/16/17 05/16/17 Folic Acid 1 mg PO DAILY 05/16/17 05/16/17 Ipratropium/Albuterol Neb [Duoneb] 3 ml IH Q6HR PRN 05/16/17 05/16/17 Sertraline [Zoloft] 100 mg PO HS 05/16/17 05/16/17 Valsartan [Diovan] 80 mg PO DAILY 05/16/17 05/16/17 Previous Rx's Medication Instructions Recorded Acetaminophen [Tylenol] 650 mg PO Q6HR PRN #0 tablet 08/18/16 OxyCODONE Immed Rel [Roxicodone 5 5 mg PO Q6HR PRN #20 tablet 12/13/16 MG] Allergies Allergy/AdvReac Type Severity Reaction Status Date / Time No Known Allergies Allergy Verified 10/08/17 12:19 All systems ED: reviewed and negative except as stated. Constitutional: Denies: fever ENT ED: Denies: throat pain Cardiovascular: Denies: chest pain Respiratory: Denies: cough Gastrointestinal: Denies: abdominal pain Neurological: Denies: headache Past Medical History - Past Medical History Medical history: Reports: CVA, diabetes, GERD, hyperlipidemia, hypertension, renal disease, thyroid disease Surgical history: Reports: , cholecystectomy, herniorrhaphy, orthopedic , other Psychiatric history: Reports: anxiety, depression, panic disorder - Social History Smoking Status: Former smoker Smokeless Tobacco Status: No Alcohol use: Reports: none Drug use: Reports: none Physical Exam - General Limitations: physical limitation General appearance: alert, in no apparent distress - Head Head exam: atraumatic - Eye Eye exam: Present: normal appearance, PERRL - ENT ENT exam: normal exam, normal oropharynx - Neck Neck exam: Present: normal inspection - Respiratory Respiratory exam: Present: normal lung sounds bilaterally. Absent: respiratory distress - Cardiovascular Cardiovascular exam: Present: regular rate, normal rhythm - Abdominal Exam Abdominal exam: Present: soft, Non-Tender - Extremities Exam Extremities exam: Present: normal inspection. Absent: tenderness - Neurological Exam Neurological exam: Present: alert, oriented X3, other (Significant chronic left- sided weakness in the left upper and left lower extremity. Full muscle strength in the right upper and right lower extremity. No dysdiadochokinesis. NIH of 0.) - Skin Skin exam: Present: warm, dry Course Course Narrative: All of her symptoms completely resolved by the time she was in the emergency department. She states she does not have a headache and she feels normal. I did not see any record of prior carotid ultrasound or echocardiogram. She is currently on aspirin, Plavix or other blood thinners. The admitted for TIA like symptoms. Vital Signs Temperature 98.6 F 10/08/17 12:19 Pulse Rate 102 10/08/17 12:19 Respiratory Rate 15 10/08/17 12:19 Blood Pressure 136/78 10/08/17 12:19 O2 Sat by Pulse Oximetry 93 10/08/17 12:19 Temperature 98.6 F 10/08/17 12:19 Pulse Rate 104 10/08/17 13:35 Respiratory Rate 22 10/08/17 13:35 Blood Pressure 123/76 10/08/17 13:35 O2 Sat by Pulse Oximetry 96 10/08/17 13:35 Oxygen Delivery Oxygen Delivery Nasal Cannula Medical Decision Making - Medical Records Medical records reviewed: Yes I reviewed the patient's medical records. - Lab Data Lab results reviewed: Yes I reviewed the patient's lab results. Result diagrams: 10/08/17 12:46 10/08/17 12:46 Lab Results 10/08/17 10/08/17 10/08/17 Range/Units 12:46 12:46 12:46 WBC 9.2 (4.3-11.1) K/mcL RBC 5.24 H (3.82-4.97) M/mcL Hgb 15.0 (11.5-15.4) g/dL Hct 51.5 H (35.3-44.9) % MCV 98.3 (83.0-100.0) fL MCH 28.6 (28.0-33.3) pg MCHC 29.1 L (31.6-35.5) g/dL RDW 15.9 H (11.5-14.5) % Plt Count 180 (140-400) K/mcL MPV 10.5 (9.4-12.4) fL Immature Gran % 0.9 (0-4) % Seg Neutrophils % 77.4 % Lymphocytes % 12.1 % Monocytes % 6.3 % Eosinophils % 3.1 % Basophils % 0.2 % Neutrophils # 7.1 (1.6-8.9) K/mcL Lymphocytes # 1.1 (0.6-4.6) K/mcL Monocytes # 0.6 (0.0-1.3) K/mcL Eosinophils # 0.3 (0.0-0.6) K/mcL Basophils # 0.0 (0.0-0.2) K/mcL Platelet Estimate Slight Decrease L (Normal) Hypochromasia Present A (Not Present) PT 11.5 (9.4-12.1) Seconds INR 1.1 APTT 30.7 (26.0-36.0) Seconds Sodium 144 (136-145) mEq/L Potassium 4.6 (3.5-5.1) mEq/L Chloride 101 (98-107) mEq/L Carbon Dioxide 40 H* (23-29) mEq/L BUN 20 (8-23) mg/dL Creatinine 1.16 (0.60-1.20) mg/dL Est GFR ( Amer) 56 L (> 60) Est GFR (Non-Af Amer) 46 L (> 60) BUN/Creatinine Ratio 17 (6-26) Glucose 141 H (70-105) mg/dL Calculated Osmolality 303 H (280-300) Calcium 9.0 (8.6-10.3) mg/dL Troponin I (< 0.04) ng/mL 10/08/17 Range/Units 12:46 WBC (4.3-11.1) K/mcL RBC (3.82-4.97) M/mcL Hgb (11.5-15.4) g/dL Hct (35.3-44.9) % MCV (83.0-100.0) fL MCH (28.0-33.3) pg MCHC (31.6-35.5) g/dL RDW (11.5-14.5) % Plt Count (140-400) K/mcL MPV (9.4-12.4) fL Immature Gran % (0-4) % Seg Neutrophils % % Lymphocytes % % Monocytes % % Eosinophils % % Basophils % % Neutrophils # (1.6-8.9) K/mcL Lymphocytes # (0.6-4.6) K/mcL Monocytes # (0.0-1.3) K/mcL Eosinophils # (0.0-0.6) K/mcL Basophils # (0.0-0.2) K/mcL Platelet Estimate (Normal) Hypochromasia (Not Present) PT (9.4-12.1) Seconds INR APTT (26.0-36.0) Seconds Sodium (136-145) mEq/L Potassium (3.5-5.1) mEq/L Chloride (98-107) mEq/L Carbon Dioxide (23-29) mEq/L BUN (8-23) mg/dL Creatinine (0.60-1.20) mg/dL Est GFR ( Amer) (> 60) Est GFR (Non-Af Amer) (> 60) BUN/Creatinine Ratio (6-26) Glucose (70-105) mg/dL Calculated Osmolality (280-300) Calcium (8.6-10.3) mg/dL Troponin I < 0.03 (< 0.04) ng/mL - Radiology Data Radiology results reviewed: Yes I reviewed the patient's radiology results. - EKG Data EKG #1 EKG attestation: Yes I reviewed and interpreted this EKG. EKG shows normal: sinus rhythm Rate: normal When compared to previous EKG there are: no significant changes Interpretation: nonspecific ST-T wave changes Attestation Statement - Attestation Attestation: I examined this patient and my medical decision-making was reviewed with the Resident Physician. I agree with the documented findings, disposition and treatment plan as described except to the extent set forth below. Patient presents to the emergency department with a chief complaint of right- sided weakness. Per longterm report the patient awoke around 7 AM today with weakness in her right arm and leg. She has had a prior left-sided stroke. Patient states she feels better now. She states she felt like her right hand would not work right. On examination she is awake and alert. Her speech sounded garbled but she states that is her normal. Her NIH is 0. Plan. Not a TPA candidate secondary to an NIH of 0 and symptoms are resolved. The patient appears to have had a TIA. Her symptoms all resolved at this time. Head CT is unremarkable. Patient will be admitted to medicine for further neuro workup.
[2017-10-08 12:54] LABS: Mean Platelet Volume 10.5 fL (9.4-12.4); Red Cell Distribution Width 15.9 % (11.5-14.5)
[2017-10-08 12:55] LABS: Basophils % 0.2 %; Eosinophils # 0.3 K/mcL (0.0-0.6); Eosinophils % 3.1 %; Hematocrit 51.5 % (35.3-44.9); Immature Granulocytes % 0.9 % (0-4); Lymphocytes # 1.1 K/mcL (0.6-4.6); Lymphocytes % 12.1 %; Mean Corpuscular HGB Conc 29.1 g/dL (31.6-35.5); Mean Corpuscular Hemoglobin 28.6 pg (28.0-33.3); Mean Corpuscular Volume 98.3 fL (83.0-100.0); Monocytes # 0.6 K/mcL (0.0-1.3); Monocytes % 6.3 %; Neutrophils # 7.1 K/mcL (1.6-8.9); Platelet Count 180 K/mcL (140-400); Red Blood Count 5.24 M/mcL (3.82-4.97); Segmented Neutrophils % 77.4 %
[2017-10-08 13:00] LABS: INR 1.1; Prothrombin Time 11.5 Seconds (9.4-12.1)
[2017-10-08 13:02] LABS: Activated Partial Thrombo Time 30.7 Seconds (26.0-36.0)
[2017-10-08 13:06] LABS: Hypochromasia Present (Not Present); Platelet Estimate Slight Decrease (Normal)
[2017-10-08 13:14] LABS: Potassium 4.6 mEq/L (3.5-5.1)
[2017-10-08] MEDS ORDERED: Aspirin 325 MG TABLET PO ONE (14:25)
[2017-10-08] MEDS ORDERED: Ipratropium/Albuterol Neb 3 ML IH PRN (14:57)
[2017-10-08] MEDS ORDERED: Dextrose Gel 15 GM/37.5 ML TUBE PO PRN ×2 (15:01)
[2017-10-08] MEDS ORDERED: *HR* Dextrose 50 % in Water (Syg) 50 ML SYRINGE IVP PRN (15:01)
[2017-10-08] MEDS ORDERED: D5% in Water 1,000 ML IVC PRN (15:01)
[2017-10-08] MEDS ORDERED: Naloxone 0.4 MG/ML INJ IVP PRN (15:01)
--- NOTE | 2017-10-08 15:15 | Internal Med History&Physical ---
<Angelito Moreno - Last Filed: 10/08/17 20:44> Date of Encounter: 10/08/17 Time of Encounter: 15:12 Assessment and Plan (1) TIA (transient ischemic attack) Current visit: Yes Status: Acute She presents today with concern for right-sided weakness which began approximately 0700 morning. Right-sided deficits have resolved at this time. Given her prior history and clinical presentation and the lack of deficits as of my assessment I believe the patient has had a TIA. 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 Risk factors include prior CVA, diabetes, HLD, and HTN. Patient is currently on aspirin however is not on any additional blood thinners at this time. -I have spoken with Dr. Mccracken of neurology who has agreed to see the patient. -MRI head/brain without contrast -BL Carotid doppler -TTE now -Continue ASA -Consider Plavix with ASA for dual antiplatelet therapy depending on results of workup -Continue Statin -Maintain HOB Graeter than 30 degrees -CBC, BMP/CMP, Lipid panel in am -NIHSS now -Dysphagia screening now -Neuro checks per protocol -Heparin 5000units SC BID -CARDIAC/DIABETIC DIET as long as she passes dysphagia screening Qualifiers: Transient cerebral ischemia type: unspecified Qualified Code(s): G45.9 - Transient cerebral ischemic attack, unspecified (2) Right sided weakness Current visit: Yes Status: Acute Has resolved at the time of my assessment. See plan above (3) History of cerebrovascular accident (CVA) with residual deficit Current visit: Yes Status: Chronic Patient has a history of remote CVA with residual left-sided flaccid weakness. (4) HLD (hyperlipidemia) Current visit: Yes Status: Acute Currently on Atorvastatin 40mg PO HS, Continue. -Lipid panel in the morning. Qualifiers: Hyperlipidemia type: unspecified Qualified Code(s): E78.5 - Hyperlipidemia , unspecified (5) DM (diabetes mellitus) Current visit: Yes Status: Acute H/O DMII, she is on long-term insulin. 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 Qualifiers: Hypothyroidism type: unspecified Qualified Code(s): E03.9 - Hypothyroidism , unspecified (7) Hypertension Current visit: Yes Status: Chronic h/o HTN, BP currently stable. Resume home antihypertensive medications. Qualifiers: Hypertension type: essential hypertension Qualified Code(s): I10 - Essential (primary) hypertension (8) DVT prophylaxis Current visit: Yes Status: Acute Heparin 5000 units SC BID Internal Medicine - H&P: HPI Chief complaint: Right-sided weakness Admitted From: Home Plans for Post Hospital Care: Home History of present illness: Ms. Walton is a 72 year old female with remote history of CVA with left-sided flaccid, additionally, history of DM, HLD, HTN, COPD stage II, GERD and hypothyroidism. She presented to [facility] with right-sided weakness. The patient reports that she woke this morning at 7 AM and was experiencing right-sided weakness, she reports that she was unable to lift her arm and leg and when she attended only to shake. He was at bedside and notes that the [facility] staff reported patient tends to get her up to the bedside commode around noon today and during the transfer her right side was so weak she was unable to get out of bed. By time of arrival to the emergency department the patient's symptoms had resolved. She denies any fever, chills, chest pain, lightheadedness, dizziness, blurred vision, headaches, slurred speech or facial droop. Workup in the emergency department included a CT of the head which is found to be negative for acute intracranial process. There is no recent echocardiogram or carotid Dopplers on file. Due to the risk factors listed above in past medical history of CVA the patient is being admitted for further observation to rule out TIA Past Med Surg Social Fam HX - Past Medical History Medical history: CVA, diabetes, GERD, hyperlipidemia, hypertension, renal disease, thyroid disease Psychiatric history: anxiety, depression, panic disorder - Past Surgical History Surgical History: , cholecystectomy, herniorrhaphy, orthopedic, other - Social History Smoking Status: Former smoker Smokeless Tobacco Status: No Alcohol use: none Drug use: none - Family History Father Living Status: Hx Family Cardiac Disorders: Yes (HTN) Hx Family Cancer: Yes (prostate) Mother Living Status: Age at : 64 Cause of : [place] Hx Family Cardiac Disorders: Yes ([place]) Hx Family Respiratory Disorders: No Hx Family Cancer: No Hx Family GI Disorders: No Hx Family Genitourinary Disorders: No Hx Family Endocrine Disorder: Yes (DM) Hx Family Musculoskeletal Disorders: No Hx Family Neuromuscular Disorders: No Hx Family Neurologic Disorders: No Hx Family HEENT Disorders: No Hx Family Autoimmune Disorders: No Hx Family Reproductive Disorders: No Hx Family Psychosocial Disorders: No Hx Family Medical Disorders: No Internal Medicine - H&P: Meds Albuterol Sulfate [Proair Hfa] 1 - 2 puff IH Q4H PRN 05/19/16 [History] Atorvastatin [Lipitor] 40 mg PO HS 05/19/16 [History] Ferrous Sulfate 325 mg PO BIDWM 05/19/16 [History] Furosemide [Lasix] 80 mg PO QAM 05/19/16 [History] Gabapentin [Neurontin] 600 mg PO TID 05/19/16 [History] Glimepiride [Amaryl] 2 mg PO BID 05/19/16 [History] Insulin Glargine,Hum.rec.anlog [Lantus Solostar] 60 unit SQ HS 05/19/16 [History ] Levothyroxine [Synthroid] 125 mcg PO QAM 05/19/16 [History] amLODIPine [Norvasc] 5 mg PO DAILY 05/19/16 [History] Cholecalciferol (Vitamin D3) [Vitamin D3] 2,000 unit PO DAILY 08/16/16 [History] Acetaminophen [Tylenol] 650 mg PO Q6HR PRN #0 tablet 08/18/16 [Rx] Venlafaxine HCl 200 mg PO QAM 12/07/16 [History] Insulin ASPART [NovoLOG] 10 unit SQ TIDAC 02/28/17 [History] Nystatin POWDER [Nystop] 1 appl TP BID 02/28/17 [History] Potassium Chloride [Klor-Con] 20 meq PO BID 02/28/17 [History] Aspirin [Lo-Dose Aspirin EC] 81 mg PO DAILY 05/16/17 [History] Budesonide [Pulmicort] 0.5 mg IH BID 05/16/17 [History] Folic Acid 1 mg PO DAILY 05/16/17 [History] Ipratropium/Albuterol Neb [Duoneb] 3 ml IH Q6HR PRN 05/16/17 [History] Sertraline [Zoloft] 150 mg PO DAILY 05/16/17 [History] Valsartan [Diovan] 80 mg PO DAILY 05/16/17 [History] Ammonium Lactate [Cinda-Hydrolac] 1 appl TP BID 10/09/17 [History] Diphenhydramine HCl/Zinc Acet [Benadryl Itch Stopping Crm] 1 appl TP TID PRN [History] Famotidine [Heartburn Prevention] 20 mg PO DAILY 10/09/17 [History] Furosemide [Lasix] 40 mg PO QPM 10/09/17 [History] Loperamide HCl [Anti-Diarrheal] 2 mg PO Q4H PRN 10/09/17 [History] Melatonin 5 mg PO HS 10/09/17 [History] Metoprolol Succinate 200 mg PO DAILY 10/09/17 [History] Mirtazapine [Remeron] 15 mg PO HS 10/09/17 [History] Oxygen 2 l NS AD 10/09/17 [History] Peg 400/Hypromellose/Glycerin [Visine Tired Eye Relief Drop] 1 drop OP Q4H PRN 10/09/17 [History] Polyvinyl Alcohol [Artificial Tears] 1 drop OP QID 10/09/17 [History] Pramipexole Di-HCl [Pramipexole Dihydrochloride] 0.125 mg PO HS 10/09/17 [ History] Pramipexole [Mirapex] 0.25 mg PO QAM 10/09/17 [History] Promethazine HCl 12.5 mg PO Q6H PRN 10/09/17 [History] 3 Allergy/AdvReac Type Severity Reaction Status Date / Time No Known Allergies Allergy Verified 10/08/17 12:19 All Systems PM: A 10-system review of systems was performed and is negative for pertinent findings except as documented above in the HPI. Review of systems: REVIEW OF SYSTEMS GENERAL: Negative for any nausea, vomiting, fevers, chills, or weight loss. NEUROLOGIC: Negative for any blurry vision, blind spots, double vision, facial asymmetry, dysphagia, dysarthria, hemiparesis, hemisensory deficits, vertigo, ataxia. She admits to chronic left-sided deficits following remote CVA and new right-sided weakness which began this morning but has since subsided HEENT: Negative for any head trauma, neck trauma, neck stiffness, photophobia, phonophobia, sinusitis, rhinitis. CARDIAC: Negative for any chest pain, paroxysmal nocturnal dyspnea, peripheral edema. PULMONARY: Negative for wheezing, COPD, or TB exposure. The patient is dyspneic at baseline and requires home O2 GASTROINTESTINAL: Negative for any abdominal pain, nausea, vomiting, bright red blood per rectum, melena. GENITOURINARY: Negative for any dysuria, hematuria, incontinence. INTEGUMENTARY: Negative for any rashes, cuts, insect bites. RHEUMATOLOGIC: Negative for any joint pains, photosensitive rashes, history of vasculitis or kidney problems. HEMATOLOGIC: Negative for any abnormal bruising, frequent infections or bleeding. - Constitutional Vitals: Temp Pulse Resp BP Pulse Ox 98.6 F 102 15 115/74 95 10/08/17 12:19 10/08/17 14:51 10/08/17 14:57 10/08/17 14:57 10/08/17 14:47 General appearance: Present: cooperative, A&O X 3, no acute distress, answers questions appropriately - Head Head exam: Present: atraumatic, normocephalic - Eye Eye exam: Present: PERRL, conjuntiva pink, sclera anicteric Pupils: Present: PERRL - Neck Neck exam general surgery: Present: supple, trachea midline. Absent: lymphadenopathy - Respiratory Respiratory exam: Present: CTAB, tachypnea. Absent: accessory muscle use, chest wall tenderness, prolonged expiratory phase, rales, respiratory distress, rhonchi, wheezes - Cardiovascular Cardiovascular exam: Present: RRR, +S1, +S2. Absent: bradycardia, diastolic murmur, gallop, irregular rhythm, rubs, systolic murmur, tachycardia - GI/Abdominal GI/Abdominal exam: Present: normal bowel sounds, soft, no peritoneal signs. Absent: distended, tenderness - Extremities Exam Extremities exam: Present: warm, radial pulses palpable and symmetrical. Absent : calf tenderness, cyanotic, joint swelling, normal capillary refill, normal inspection, mottling, pedal edema, tenderness Additional comments: Generalized bilateral lower extremity nonpitting edema - Neurological Exam Neurological exam: Present: alert, oriented X3, pronater drift (No pronator drift noted on the right side, unable to assess left side due to severe weakness following remote stroke). Absent: CN II-XII intact, no focal deficits , strengths equal and symetr throughout, facial droop, speech deficit - Expanded Neurological Exam Neurological exam expanded: Absent: expressive aphasia, receptive aphasia Patient oriented to: Present: person, place, time Speech: Present: fluid speech Cranial Nerves: EOM's intact PM: Normal, nystagmus PM: Normal, tongue deviation PM: Normal Cerebellar function: finger to nose: Abnormal Left, heel to hampton: Abnormal Left , Romberg: Abnormal Left Upper motor neuron: Babinski sign: Abnormal Left, Jose neglect: Normal, pronator drift: Abnormal Left, sensory extinction: Normal Neuro motor strength exam: LUE: 0 (Severe weakness following remote CVA), RUE: 4 , LLE: 0, RLE: 4 Coma Scale Eye Opening: Spontaneous Coma Scale Motor Response: Obeys Commands Coma Scale Verbal Response: Oriented Coma Scale Total: 15 - Skin Skin exam: Present: dry, intact Internal Med - H&P Results - Labs CBC & Chem 7: 10/08/17 12:46 10/08/17 12:46 - EKG Data -: EKG Interpreted by Myself EKG shows normal: sinus rhythm Rate: normal - EKG Data Prior EKG available for review: no Interpretation IM: normal EKG - Diagnostic Studies CT scan - head Status: image reviewed by me Additional comments: Negative for acute intracranial abnormalities <Craig Hoffman P - Last Filed: 10/09/17 19:46> Date of Encounter: 10/09/17 Internal Medicine - H&P: HPI History of present illness: Ms. Walton is a 72 year old female All Systems PM: A 10-system review of systems was performed and is negative for pertinent findings except as documented above in the HPI. - Constitutional Vitals: Temp Pulse Resp BP Pulse Ox 98.1 F 86 14 95/68 92 10/09/17 19:00 10/09/17 19:00 10/09/17 19:40 10/09/17 19:00 10/09/17 19:40 Internal Med - H&P Results - Labs CBC & Chem 7: 10/09/17 00:31 10/09/17 00:31 Labs: Short CBC 10/09/17 Range/Units 00:31 WBC 8.3 (4.3-11.1) K/mcL Hgb 12.6 D (11.5-15.4) g/dL Hct 43.4 (35.3-44.9) % Plt Count 166 (140-400) K/mcL Neutrophils # 6.1 (1.6-8.9) K/mcL BMP 10/09/17 00:31 Sodium 141 Potassium 4.2 Chloride 99 Carbon Dioxide 36 H BUN 22 Creatinine 1.06 Glucose 209 H Calcium 8.7 Cardiac Enzymes 10/09/17 Range/Units 00:31 Troponin I < 0.03 (< 0.04) ng/mL - Impressions ITS Impressions Echocardiogram 10/08/17 14:57 Impressions: LVEF 55%. Indeterminate diastolic function. Normal right ventricular structure and function. Severely sclerotic aortic valve leaflets. Mild-moderate aortic stenosis. Mild pulmonary hypertension. Left Ventricular Wall Motion: Rest Echo Findings All wall segments showed normal motion. Findings: Study Quality * Technically adequate exam. ECG Findings * Normal sinus rhythm. Left Ventricle * LVEF 55%. * Indeterminate diastolic function. Right Ventricle * Normal right ventricular structure and function. Left Atrium * Normal left atrial size. Right Atrium * Normal right atrial size. Aortic Valve * Trileaflet aortic valve. * Severely sclerotic aortic valve leaflets. * Trace aortic regurgitation. * Mild-moderate aortic stenosis. * Aortic valve leaflets are restricted. Mitral Valve * Normal mitral valve structure and function. Tricuspid Valve * Mild tricuspid regurgitation. Pulmonic Valve * Pulmonic valve not well visualized. Pericardium * The pericardium appears normal. IVC * Normal IVC dimensions and inspiratory collapse. - Attending Attestation I examined this patient and my medical decision-making was reviewed with the Resident Physician/CHUCKER. I agree with the documented findings, disposition and treatment plan as described except to the extent set forth below.
[2017-10-08] MEDS: Insulin LISPRO 300 UNITS/3 ML VIAL SQ SCH ×2 (16:29→20:47)
[2017-10-08] MEDS: *HR* Heparin 5,000 UNIT/ML VIAL SQ SCH (17:31)
[2017-10-08] MEDS: Gabapentin 300 MG CAPSULE PO SCH (20:34)
[2017-10-08] MEDS: Insulin DETEMIR 100 UNIT/ML X5UNITS SQ SCH (20:47)
[2017-10-08] MEDS: Budesonide Neb 0.5 MG/2 ML IH SCH (21:37)
[2017-10-09 01:05] LABS: Basophils % 0.2 %; Eosinophils # 0.2 K/mcL (0.0-0.6); Eosinophils % 2.8 %; Hematocrit 43.4 % (35.3-44.9); Immature Granulocytes % 0.7 % (0-4); Lymphocytes # 1.3 K/mcL (0.6-4.6); Lymphocytes % 15.1 %; Mean Corpuscular Hemoglobin 28.3 pg (28.0-33.3); Mean Corpuscular Volume 97.5 fL (83.0-100.0); Mean Platelet Volume 10.7 fL (9.4-12.4); Monocytes # 0.6 K/mcL (0.0-1.3); Monocytes % 7.6 %; Neutrophils # 6.1 K/mcL (1.6-8.9); Platelet Count 166 K/mcL (140-400); Red Blood Count 4.45 M/mcL (3.82-4.97); Segmented Neutrophils % 73.6 %
[2017-10-09 01:07] LABS: Hemoglobin 12.6 g/dL (11.5-15.4)
[2017-10-09 01:18] LABS: BUN/Creatinine Ratio 21 (6-26); Blood Urea Nitrogen 22 mg/dL (8-23); Calcium 8.7 mg/dL (8.6-10.3); Carbon Dioxide 36 mEq/L (23-29); Chloride 99 mEq/L (98-107); Chol/HDL Ratio 4.8 (0-4.9); Glucose 209 mg/dL (70-105); Osmolality,Calculated 301 (280-300); Potassium 4.2 mEq/L (3.5-5.1); Sodium 141 mEq/L (136-145); eGFR For African Americans > 60 (> 60); eGFR For Non-African Americans 51 (> 60)
[2017-10-09] MEDS: *HR* Heparin 5,000 UNIT/ML VIAL SQ SCH ×2 (05:44→17:17)
[2017-10-09] MEDS: Insulin LISPRO 300 UNITS/3 ML VIAL SQ SCH ×4 (07:46→20:16)
[2017-10-09] MEDS: Budesonide Neb 0.5 MG/2 ML IH SCH ×2 (08:15→19:38)
[2017-10-09] MEDS: Aspirin Enteric Coated 81 MG Tablet PO SCH (10:40)
[2017-10-09] MEDS: amLODIPine 5 MG TABLET PO SCH (10:40)
[2017-10-09] MEDS: Folic Acid 1 MG TABLET PO SCH (10:40)
[2017-10-09] MEDS: Metoprolol XL (24 HR) Succ 50 MG TAB.ER.24H PO SCH (10:40)
[2017-10-09] MEDS: Valsartan 80 MG TABLET PO SCH (10:40)
[2017-10-09] MEDS: Gabapentin 300 MG CAPSULE PO SCH ×3 (10:40→20:05)
--- NOTE | 2017-10-09 12:42 | Neurology - Consult Note ---
Date of Encounter: 10/09/17 Time of Encounter: 12:39 Assessment and Plan (1) TIA (transient ischemic attack) Current Visit: Yes Status: Acute I agree her symptoms are consistent with diagnosis of TIA, although transient compressive nerve palsy is also possible. Agree with stroke work up including MRI of brain, carotid artery duplex and echocardiography. For now, would agree to add on Plavix in addition to Aspirin 81mg for secondary stroke prevention. Continue statin therapy. MRI of brain likely not going to changeover operator but would like to get carotid artery duplex and echocardigoraphy to make sure no source of emboli or critical ICA stenosis. Continue medical and supportive care. Thank you very much for the consultation Qualifiers: Transient cerebral ischemia type: unspecified Qualified Code(s): G45.9 - Transient cerebral ischemic attack, unspecified History of Present Illness Chief complaint: right sided arm weakness HPI: Ms. Walton is a 72 year old female with PMH significant for PE, CKD, HTN, history of CVA with left hemiplegia, HTN, obesity who developed transient right arm weakness. [facility]. She has history of PE and was taking coumadin for that until last year at nursing facility when coumadin was discontinued. She has previous CVA resulting in left sided hemiplegia. Yesterday she woke up and felt the weak to her right hand, although she could still move it. The symptoms lasted less than few hours and by the time she arrived ER the weakness resolved. She takes Aspirin 81 mg daily. Currently she denies any discomforts. She is back to baseline and [facility] Past Med Surg Social Fam HX - Past Medical History Medical history: CVA, diabetes, GERD, hyperlipidemia, hypertension, renal disease, thyroid disease Psychiatric history: anxiety, depression, panic disorder - Past Surgical History Surgical History: , cholecystectomy, herniorrhaphy, orthopedic, other - Social History Smoking Status: Former smoker Smokeless Tobacco Status: No Alcohol use: none Drug use: none - Family History Mother Living Status: Age at : 64 Cause of : [place] Hx Family Cardiac Disorders: Yes ([place]) Hx Family Respiratory Disorders: No Hx Family Cancer: No Hx Family GI Disorders: No Hx Family Genitourinary Disorders: No Hx Family Endocrine Disorder: Yes (DM) Hx Family Musculoskeletal Disorders: No Hx Family Neuromuscular Disorders: No Hx Family Neurologic Disorders: No Hx Family HEENT Disorders: No Hx Family Autoimmune Disorders: No Hx Family Reproductive Disorders: No Hx Family Psychosocial Disorders: No Hx Family Medical Disorders: No Father Living Status: Age at : 85 Cause of : [place] Hx Family Cardiac Disorders: Yes (HTN) Hx Family Cancer: Yes (prostate) Hx Family Endocrine Disorder: Yes (DM) Hx Family Musculoskeletal Disorders: No Medications and Allergies Albuterol Sulfate [Proair Hfa] 1 - 2 puff IH Q4-6H PRN 05/19/16 [History] Atorvastatin [Lipitor] 40 mg PO HS 05/19/16 [History] Ferrous Sulfate 325 mg PO BIDWM 05/19/16 [History] Furosemide [Lasix] 80 mg PO BID 05/19/16 [History] Gabapentin [Neurontin] 600 mg PO TID 05/19/16 [History] Glimepiride [Amaryl] 2 mg PO BID 05/19/16 [History] Insulin Glargine,Hum.rec.anlog [Lantus Solostar] 60 unit SQ HS 05/19/16 [History ] Levothyroxine [Synthroid] 125 mcg PO QAM 05/19/16 [History] amLODIPine [Norvasc] 5 mg PO DAILY 05/19/16 [History] Cholecalciferol (Vitamin D3) [Vitamin D3] 2,000 unit PO DAILY 08/16/16 [History] Metoprolol XL (24 HR) Succ [Toprol Xl] 100 mg PO DAILY 08/16/16 [History] Acetaminophen [Tylenol] 650 mg PO Q6HR PRN #0 tablet 08/18/16 [Rx] Venlafaxine HCl 200 mg PO QAM 12/07/16 [History] OxyCODONE Immed Rel [Roxicodone 5 MG] 5 mg PO Q6HR PRN #20 tablet 12/13/16 [Rx] Insulin ASPART [NovoLOG] 10 unit SQ TIDWM 02/28/17 [History] Nystatin POWDER [Nystop] 1 appl TP BID 02/28/17 [History] Potassium Chloride [Klor-Con] 20 meq PO BID 02/28/17 [History] Pramipexole [Mirapex] 0.25 mg PO DAILY 02/28/17 [History] Aspirin [Lo-Dose Aspirin EC] 81 mg PO DAILY 05/16/17 [History] Budesonide [Pulmicort] 0.5 mg IH BID 05/16/17 [History] Esomeprazole Magnesium [Nexium] 40 mg PO DAILY 05/16/17 [History] Folic Acid 1 mg PO DAILY 05/16/17 [History] Ipratropium/Albuterol Neb [Duoneb] 3 ml IH Q6HR PRN 05/16/17 [History] Sertraline [Zoloft] 100 mg PO HS 05/16/17 [History] Valsartan [Diovan] 80 mg PO DAILY 05/16/17 [History] 3 Allergy/AdvReac Type Severity Reaction Status Date / Time No Known Allergies Allergy Verified 10/08/17 12:19 All Systems: A 10-system review of systems was performed and is negative for pertinent findings except as documented above in the HPI. Physical Examination - Vital Signs Vital Signs: Initial Vital Signs Temp Pulse Resp BP Pulse Ox 98.6 F 102 15 136/78 93 10/08/17 12:19 10/08/17 12:19 10/08/17 12:19 10/08/17 12:19 10/08/17 12:19 - Constitutional General appearance: comfortable - Neurologic Sensorimotor examination: intact Motor examination - right side: 5/5: deltoids, biceps, triceps, wrist flexion, wrist extension, director blood bank, hip flexors, tibialis Anterior, quadriceps, toe extension (EHL), plantarflexion Motor examination - left side: 1/5: deltoids, biceps, triceps, wrist flexion, wrist extension, hip flexors, director blood bank, quadriceps, tibialis Anterior, toe extension (EHL), plantarflexion Detailed sensory examination: intact Posture: other (None) Reflexes: Biceps: 1+, Triceps: 1+, Brachioradialis: 1+, Patella: 1+, Achilles: 1 + Mental Status Examination: awake, alert, oriented to person, oriented to place, oriented to time, follows commands appropriately, answers questions appropriately, no agnosia, no aphasia, no aproxia Cranial nerve examination: PERRL, EOMI, visual hicks intact, corneal reflexes brisk symmetrically, sensory to face intact, mastication intact, no facial asymmetry is present, no dysarthria (Mildly slurred due to no teeth. Language normal), hearing is intact symmetrically, soft palate elevates bilaterally upon phonation, gag reflex intact, flexes SCM and trapezius muscles symmetrically with full power, tongue protrudes midline, no atrophy or facial fasiculations present Results - Laboratory Findings CBC and BMP: 10/09/17 00:31 10/09/17 00:31 Abnormal lab findings: Abnormal lab results MCHC 29.0 g/dL (31.6-35.5) L 10/09/17 00:31 RDW 16.0 % (11.5-14.5) H 10/09/17 00:31 Platelet Estimate Slight Decrease (Normal) L 10/08/17 12:46 Hypochromasia Present (Not Present) A 10/08/17 12:46 Carbon Dioxide 36 mEq/L (23-29) H 10/09/17 00:31 Est GFR (Non-Af Amer) 51 (> 60) L 10/09/17 00:31 Glucose 209 mg/dL (70-105) H 10/09/17 00:31 POC Glucose 108 (58-89) H 10/09/17 10:55 Calculated Osmolality 301 (280-300) H 10/09/17 00:31 Triglycerides 309 mg/dL (< 150) H 10/09/17 00:31 VLDL Cholesterol, Calc 62 mg/dL (< 31) H 10/09/17 00:31 HDL Cholesterol 27 mg/dL (40-59) L 10/09/17 00:31 Consult Discharge Plan - Plan Referrals: Marleny Groves DO [Primary Care Provider] -
--- NOTE | 2017-10-09 18:35 | Internal Med Progress Note ---
Date of Encounter: 10/09/17 Time of Encounter: 15:00 - Assessment and plan (1) History of cerebrovascular accident (CVA) with residual deficit Current Visit: Yes Status: Chronic Assessment and plan: hx CVA with left sided weakness/paralysis. Presented with right-sided weakness which resolved in ED. Head CT non-acute. MRI brain, carotid doppler, TTE pending. On ASA, add Plavix per Neurology recommendations. Cont statin. Neurology following. (2) DM2 (diabetes mellitus, type 2) Current Visit: No Status: Chronic Assessment and plan: per hx. Cont long acting insulin at lower dose as diet likely restricted while inpatient. SSI. 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 BP soft/borderline. Cont home BB at lower dose. Monitor BP and titrate PRN (4) Hypothyroid Current Visit: Yes Status: Acute Assessment and plan: per hx. Cont levothyroxine Qualifiers: Hypothyroidism type: acquired Qualified Code(s): E03.9 - Hypothyroidism, unspecified (5) DVT prophylaxis Current Visit: Yes Status: Acute Assessment and plan: heparin - Subjective Interval history: Seen and examined at bedside; patient is new to me. Information obtained from chart review and patient report. Says she feels well, says right hand feels a little jiggly, otherwise back to baseline. No headache, no blurred vision. No numbness or tingling - Constitutional Vitals: Temp Pulse Resp BP Pulse Ox 97.9 F 88 15 111/75 94 10/09/17 15:58 10/09/17 15:58 10/09/17 16:05 10/09/17 15:58 10/09/17 16:05 General appearance: Present: cooperative, A&O X 3, no acute distress, answers questions appropriately - Head Head exam: Present: atraumatic, normocephalic - Eye Eye exam: Present: PERRL, conjuntiva pink, sclera anicteric Pupils: Present: PERRL - Neck Neck exam general surgery: Present: supple, trachea midline. Absent: lymphadenopathy - Respiratory Respiratory exam: Present: CTAB. Absent: accessory muscle use, rales, rhonchi, wheezes - Cardiovascular Cardiovascular exam: Present: RRR, +S1, +S2. Absent: diastolic murmur, gallop, rubs, systolic murmur - GI/Abdominal GI/Abdominal exam: Present: normal bowel sounds, soft, no peritoneal signs. Absent: distended, tenderness - Extremities Exam Extremities exam: Present: warm, radial pulses palpable and symmetrical. Absent : calf tenderness, cyanotic, pedal edema - Neurological Exam Neurological exam: Present: CN II-XII intact, oriented X3, no focal deficits. Absent: strengths equal and symetr throughout, pronater drift, facial droop, speech deficit Additional comments: left side (upper and lower extremity) paralysis - Skin Skin exam: Present: dry, intact Internal Medicine: Result - Labs CBC & Chem 7: 10/09/17 00:31 10/09/17 00:31 Labs: Short CBC 10/09/17 Range/Units 00:31 WBC 8.3 (4.3-11.1) K/mcL Hgb 12.6 D (11.5-15.4) g/dL Hct 43.4 (35.3-44.9) % Plt Count 166 (140-400) K/mcL Neutrophils # 6.1 (1.6-8.9) K/mcL BMP 10/09/17 00:31 Sodium 141 Potassium 4.2 Chloride 99 Carbon Dioxide 36 H BUN 22 Creatinine 1.06 Glucose 209 H Calcium 8.7 Cardiac Enzymes 10/08/17 10/09/17 Range/Units 18:34 00:31 Troponin I < 0.03 < 0.03 (< 0.04) ng/mL - ABG Interpretation ABG results: PT/INR, D-dimer PT 11.5 Seconds (9.4-12.1) 10/08/17 12:46 - Impressions Impressions Echocardiogram 10/08/17 14:57 Impressions: LVEF 55%. Indeterminate diastolic function. Normal right ventricular structure and function. Severely sclerotic aortic valve leaflets. Mild-moderate aortic stenosis. Mild pulmonary hypertension. Left Ventricular Wall Motion: Rest Echo Findings All wall segments showed normal motion. Findings: Study Quality * Technically adequate exam. ECG Findings * Normal sinus rhythm. Left Ventricle * LVEF 55%. * Indeterminate diastolic function. Right Ventricle * Normal right ventricular structure and function. Left Atrium * Normal left atrial size. Right Atrium * Normal right atrial size. Aortic Valve * Trileaflet aortic valve. * Severely sclerotic aortic valve leaflets. * Trace aortic regurgitation. * Mild-moderate aortic stenosis. * Aortic valve leaflets are restricted. Mitral Valve * Normal mitral valve structure and function. Tricuspid Valve * Mild tricuspid regurgitation. Pulmonic Valve * Pulmonic valve not well visualized. Pericardium * The pericardium appears normal. IVC * Normal IVC dimensions and inspiratory collapse. Consult Discharge Plan - Plan Referrals: Marleny Groves DO [Primary Care Provider] -
[2017-10-09] MEDS: Melatonin 3 MG TABLET PO SCH (20:05)
[2017-10-09] MEDS: Mirtazapine 15 MG TABLET PO SCH (20:05)
[2017-10-09] MEDS: Insulin DETEMIR 100 UNIT/ML X5UNITS SQ SCH (21:27)
[2017-10-10 05:01] LABS: Hematocrit 42.5 % (35.3-44.9); Hemoglobin 12.7 g/dL (11.5-15.4); Mean Corpuscular HGB Conc 29.9 g/dL (31.6-35.5); Mean Corpuscular Hemoglobin 28.7 pg (28.0-33.3); Mean Corpuscular Volume 95.9 fL (83.0-100.0); Mean Platelet Volume 11.2 fL (9.4-12.4); Platelet Count 159 K/mcL (140-400); Red Blood Count 4.43 M/mcL (3.82-4.97)
[2017-10-10 05:15] LABS: Hemoglobin A1C 6.6 %
[2017-10-10] MEDS: *HR* Heparin 5,000 UNIT/ML VIAL SQ SCH ×2 (05:37→17:30)
[2017-10-10] MEDS: Budesonide Neb 0.5 MG/2 ML IH SCH ×2 (07:59→20:11)
[2017-10-10] MEDS: Cholecalciferol (D-3) 1,000 UNIT TABLET PO SCH (09:12)
[2017-10-10] MEDS: Gabapentin 300 MG CAPSULE PO SCH ×3 (09:12→21:54)
[2017-10-10] MEDS: Metoprolol XL (24 HR) Succ 50 MG TAB.ER.24H PO SCH (09:12)
[2017-10-10] MEDS: Folic Acid 1 MG TABLET PO SCH (09:13)
[2017-10-10] MEDS: Insulin LISPRO 300 UNITS/3 ML VIAL SQ SCH ×4 (09:13→21:52)
[2017-10-10] MEDS: Aspirin Enteric Coated 81 MG Tablet PO SCH (09:13)
[2017-10-10] MEDS: Furosemide 40 MG TABLET PO SCH (09:13)
[2017-10-10] MEDS: amLODIPine 5 MG TABLET PO SCH (09:13)
[2017-10-10] MEDS: Valsartan 80 MG TABLET PO SCH (09:13)
[2017-10-10 14:23] LABS: Bilirubin,Urine Negative (Negative); Blood,Urine Negative (Negative); Clarity,Urine Cloudy (Clear); Color,Urine Yellow (Yellow); Glucose,Urine (UA) 100 mg/dL (Normal); Ketones,Urine Negative (Negative); Leukocyte Esterase,Urine Trace (Negative); Nitrite,Urine Negative (Negative); PH,Urine 6.5 pH Units (5.0-8.0); Protein,Urine Negative (Neg-Trace); Specific Gravity,Urine 1.015 (1.010-1.025); Urobilinogen,Urine Normal (Normal)
[2017-10-10 14:26] LABS: Bacteria,Urine Many per hpf (None-Few); Hyaline Casts,Urine None Seen per lpf (None-Few); Squamous Epithelial Cell,Urine Many per lpf (None-Few)
--- NOTE | 2017-10-10 14:31 | Electrocardiograph Report ---
[address] [place] [address] Test Date: 2017-10-08 Pat Name: Mary Walton Department: 104 Room: 3B52 Gender: F Legal Clerk: JOANNE : 1945 Requested By: Delio Navarrete Order Number: [id number] Reading MD: Lilly Nolasco Measurements Intervals [place] Rate: 99 P: 55 VT: 177 QRS: -69 QRSD: 141 T: 49 QT: 397 QTc: 453 Interpretive Statements SINUS RHYTHM INTRAVENTRICULAR CONDUCTION DELAY [130+ ms QRS DURATION] LEFT ANTERIOR FASCICULAR BLOCK RIGHT BUNDLE BRANCH BLOCK PROBABLE LATERAL MYOCARDIAL INFARCTION [35 ms Q WAVE IN I/aVL/V5/V6], OF INDETERMINATE AGE Electronically Signed On 10-10-2017 14:29:17 EST by Lilly Nolasoc
[2017-10-10 14:37] LABS: RBC,Urine 0-3 per hpf (0-3)
--- NOTE | 2017-10-10 14:45 | Internal Med Progress Note ---
Date of Encounter: 10/10/17 Time of Encounter: 09:30 - Assessment and plan (1) History of cerebrovascular accident (CVA) with residual deficit Current Visit: Yes Status: Chronic Assessment and plan: Per prior history with left sided deficit/paralysis. Patient is on aspirin, Plavix, statin. Will continue after discharge. (2) TIA (transient ischemic attack) Current Visit: Yes Status: Acute Assessment and plan: Head CT was negative for any acute intracranial process, MRI is ordered and pending. Bilateral carotid Doppler showed nonstenotic plaque. Symptoms have resolved and patient has returned to her baseline. Patient was evaluated by neurology who recommended MRI, carotids, echo. They also recommend adding Plavix 75 mg daily and continuing aspirin 81 mg daily, as well as continuing statin, which patient will continue after discharge. Qualifiers: Transient cerebral ischemia type: unspecified Qualified Code(s): G45.9 - Transient cerebral ischemic attack, unspecified (3) DM2 (diabetes mellitus, type 2) Current Visit: No Status: Chronic Assessment and plan: Uncontrolled diabetes. A1c is 6.6. Continue sliding scale insulin, Accu-Cheks before meals at bedtime, diabetic diet. Qualifiers: Diabetes mellitus complication status: with hyperglycemia Diabetes mellitus shelter insulin use: with shelter use Qualified Code(s): E11.65 - Type 2 diabetes mellitus with hyperglycemia; Z79.4 - halfway (current) use of insulin (4) Hypertension Current Visit: Yes Status: Chronic Assessment and plan: Chronic. Well controlled. Continue home medications. Qualifiers: Hypertension type: essential hypertension Qualified Code(s): I10 - Essential (primary) hypertension (5) HLD (hyperlipidemia) Current Visit: Yes Status: Acute Assessment and plan: Chronic. Continue statin. Qualifiers: Hyperlipidemia type: unspecified Qualified Code(s): E78.5 - Hyperlipidemia , unspecified (6) Hypothyroid Current Visit: Yes Status: Acute Assessment and plan: Chronic. Continue levothyroxine. Qualifiers: Hypothyroidism type: acquired Qualified Code(s): E03.9 - Hypothyroidism, unspecified (7) DVT prophylaxis Current Visit: Yes Status: Acute Assessment and plan: Subcutaneous heparin daily. - Time Spent With Patient less than 15 minutes - Subjective Interval history: Patient was seen and assessed at bedside at 9:30 AM. She is alert, awake, oriented. She answers questions appropriately. Patient states that she has returned to her baseline and that she feels well today. Patient reports that she lives in [facility]. She denies any pain, headache, nausea or vomiting, chest pain, abdominal pain, dizziness or shortness of breath. She reports that she is not really want to go back to [facility] and states that she would like to go home, however she is aware that this is on possibility at this time. Also aware that we are waiting on MRI results for her to be discharged. We do not have MRI apparently on holidays, so it will be done tomorrow hopefully. - Constitutional Vitals: Temp Pulse Resp BP Pulse Ox 98.0 F 102 16 94/64 98 10/10/17 11:19 10/10/17 11:19 10/10/17 11:50 10/10/17 11:19 10/10/17 11:50 General appearance: Present: cooperative, A&O X 3, pleasant, no acute distress, answers questions appropriately - Head Head exam: Present: atraumatic, normal inspection, normocephalic - Eye Eye exam: Present: normal appearance, conjuntiva pink, sclera anicteric - Neck Neck exam general surgery: Present: supple, trachea midline. Absent: lymphadenopathy, tenderness - Respiratory Respiratory exam: Present: CTAB. Absent: accessory muscle use, chest wall tenderness, rales, respiratory distress, rhonchi, wheezes - Cardiovascular Cardiovascular exam: Present: RRR, +S1, +S2. Absent: diastolic murmur, gallop, rubs, systolic murmur - GI/Abdominal GI/Abdominal exam: Present: normal bowel sounds, soft, no peritoneal signs. Absent: distended, tenderness - Extremities Exam Extremities exam: Present: normal capillary refill, normal inspection, warm. Absent: calf tenderness, cyanotic, pedal edema, tenderness - Neurological Exam Neurological exam: Present: alert, motor sensory deficit, oriented X3, no focal deficits, strengths equal and symetr throughout. Absent: altered, facial droop , speech deficit - Skin Skin exam: Present: dry, intact, normal color, warm. Absent: rash Internal Medicine: Result - Labs CBC & Chem 7: 10/10/17 04:47 10/09/17 00:31 Labs: Short CBC 10/10/17 Range/Units 04:47 WBC 7.9 (4.3-11.1) K/mcL Hgb 12.7 (11.5-15.4) g/dL Hct 42.5 (35.3-44.9) % Plt Count 159 (140-400) K/mcL Urine 10/10/17 Range/Units 14:05 Urine Color Yellow (Yellow) Urine Clarity Cloudy A (Clear) Urine pH 6.5 (5.0-8.0) pH Units Ur Specific [place] 1.015 (1.010-1.025) Urine Protein Negative (Neg-Trace) mg/dL Urine Glucose (UA) 100 H (Normal) mg/dL - ABG Interpretation ABG results: PT/INR, D-dimer PT 11.5 Seconds (9.4-12.1) 10/08/17 12:46 - Impressions Impressions Echocardiogram 10/08/17 14:57 Impressions: LVEF 55%. Indeterminate diastolic function. Normal right ventricular structure and function. Severely sclerotic aortic valve leaflets. Mild-moderate aortic stenosis. Mild pulmonary hypertension. Left Ventricular Wall Motion: Rest Echo Findings All wall segments showed normal motion. Findings: Study Quality * Technically adequate exam. ECG Findings * Normal sinus rhythm. Left Ventricle * LVEF 55%. * Indeterminate diastolic function. Right Ventricle * Normal right ventricular structure and function. Left Atrium * Normal left atrial size. Right Atrium * Normal right atrial size. Aortic Valve * Trileaflet aortic valve. * Severely sclerotic aortic valve leaflets. * Trace aortic regurgitation. * Mild-moderate aortic stenosis. * Aortic valve leaflets are restricted. Mitral Valve * Normal mitral valve structure and function. Tricuspid Valve * Mild tricuspid regurgitation. Pulmonic Valve * Pulmonic valve not well visualized. Pericardium * The pericardium appears normal. IVC * Normal IVC dimensions and inspiratory collapse. Consult Discharge Plan - Plan Referrals: Marleny Groves DO [Primary Care Provider] - 10/11/17 2:45 pm
[2017-10-10] MEDS: Insulin DETEMIR 100 UNIT/ML X5UNITS SQ SCH (21:52)
[2017-10-10] MEDS: Melatonin 3 MG TABLET PO SCH (21:53)
[2017-10-10] MEDS: Mirtazapine 15 MG TABLET PO SCH (21:54)
[2017-10-11] MEDS: *HR* Heparin 5,000 UNIT/ML VIAL SQ SCH ×2 (06:13→17:57)
[2017-10-11] MEDS: Budesonide Neb 0.5 MG/2 ML IH SCH ×2 (07:49→19:30)
[2017-10-11] MEDS: Insulin LISPRO 300 UNITS/3 ML VIAL SQ SCH ×4 (09:15→21:54)
[2017-10-11] MEDS: Metoprolol XL (24 HR) Succ 50 MG TAB.ER.24H PO SCH (10:18)
[2017-10-11] MEDS: Cholecalciferol (D-3) 1,000 UNIT TABLET PO SCH (10:18)
[2017-10-11] MEDS: Furosemide 40 MG TABLET PO SCH (10:18)
[2017-10-11] MEDS: Gabapentin 300 MG CAPSULE PO SCH ×3 (10:18→21:56)
[2017-10-11] MEDS: Folic Acid 1 MG TABLET PO SCH (10:19)
[2017-10-11] MEDS: amLODIPine 5 MG TABLET PO SCH (10:19)
[2017-10-11] MEDS: Aspirin Enteric Coated 81 MG Tablet PO SCH (10:19)
[2017-10-11] MEDS: Valsartan 80 MG TABLET PO SCH (10:19)
--- NOTE | 2017-10-11 18:34 | Internal Med Progress Note ---
Date of Encounter: 10/11/17 Time of Encounter: 11:20 - Assessment and plan (1) History of cerebrovascular accident (CVA) with residual deficit Current Visit: Yes Status: Chronic Assessment and plan: Per prior history with left sided deficit/paralysis. Patient is on aspirin, Plavix, statin. Will continue after discharge. Patient has returned to her baseline. We are currently waiting on physical therapy note to be entered. OT note reports that she does not require services. (2) TIA (transient ischemic attack) Current Visit: Yes Status: Acute Assessment and plan: Head CT was negative for any acute intracranial process, MRI is negative for acute. Bilateral carotid Doppler showed nonstenotic plaque. Echocardiogram showed LVEF of 55% with indeterminant diastolic function patient is severely sclerotic aortic valve leaflets, mild to moderate aortic stenosis. Symptoms have resolved and patient has returned to her baseline. Patient was evaluated by neurology who recommended MRI, carotids, echo which have been completed. They also recommend adding Plavix 75 mg daily and continuing aspirin 81 mg daily, as well as continuing statin, which patient will continue after discharge. Patient is aware of results. Questions have been answered. Patient has significant change noted to echocardiogram from November,, as noted above. Cardiology consult has been ordered for recommendations and treatment. Qualifiers: Transient cerebral ischemia type: unspecified Qualified Code(s): G45.9 - Transient cerebral ischemic attack, unspecified (3) DM2 (diabetes mellitus, type 2) Current Visit: No Status: Chronic Qualifiers: Diabetes mellitus complication status: with hyperglycemia Diabetes mellitus meterman insulin use: with meterman use Qualified Code(s): E11.65 - Type 2 diabetes mellitus with hyperglycemia; Z79.4 - custodial (current) use of insulin (4) Hypertension Current Visit: Yes Status: Chronic Qualifiers: Hypertension type: essential hypertension Qualified Code(s): I10 - Essential (primary) hypertension (5) HLD (hyperlipidemia) Current Visit: Yes Status: Acute Qualifiers: Hyperlipidemia type: unspecified Qualified Code(s): E78.5 - Hyperlipidemia , unspecified (6) Hypothyroid Current Visit: Yes Status: Acute Qualifiers: Hypothyroidism type: acquired Qualified Code(s): E03.9 - Hypothyroidism, unspecified (7) DVT prophylaxis Current Visit: Yes Status: Acute Assessment and plan: Subcutaneous heparin daily. - Subjective Interval history: Patient was seen and assessed at bedside at 1120 AM. She is alert, awake, oriented. She answers questions appropriately. No acute change from prior assessment. Patient reports that she is at her baseline. She denies any pain, headache, nausea or vomiting, chest pain, abdominal pain, dizziness or shortness of breath. She states that she is ready to go home, she is also aware that we are waiting on physical therapy at this time. Note is still not entered at this time 1833. - Constitutional Vitals: Temp Pulse Resp BP Pulse Ox 98.3 F 93 20 121/85 91 10/11/17 14:46 10/11/17 14:46 10/11/17 16:29 10/11/17 14:46 10/11/17 16:29 General appearance: Present: cooperative, A&O X 3, pleasant, no acute distress, answers questions appropriately - Head Head exam: Present: atraumatic, normal inspection, normocephalic - Eye Eye exam: Present: normal appearance, conjuntiva pink, sclera anicteric - Neck Neck exam general surgery: Present: supple, trachea midline. Absent: lymphadenopathy - Respiratory Respiratory exam: Present: CTAB. Absent: accessory muscle use, rales, rhonchi, wheezes - Cardiovascular Cardiovascular exam: Present: RRR, +S1, +S2. Absent: diastolic murmur, gallop, rubs, systolic murmur - GI/Abdominal GI/Abdominal exam: Present: normal bowel sounds, soft. Absent: distended, hepatomegaly, tenderness - Extremities Exam Extremities exam: Present: warm, radial pulses palpable and symmetrical. Absent : calf tenderness, cyanotic, normal inspection, pedal edema, tenderness - Neurological Exam Neurological exam: Present: alert, oriented X3. Absent: altered, no focal deficits, strengths equal and symetr throughout, facial droop, speech deficit - Skin Skin exam: Present: dry, intact, normal color, warm. Absent: rash Internal Medicine: Result - Labs CBC & Chem 7: 10/10/17 04:47 10/09/17 00:31 - ABG Interpretation ABG results: PT/INR, D-dimer PT 11.5 Seconds (9.4-12.1) 10/08/17 12:46 Consult Discharge Plan - Plan Referrals: Marleny Groves DO [Primary Care Provider] - 10/18/17 2:45 pm
[2017-10-11] MEDS: Insulin DETEMIR 100 UNIT/ML X5UNITS SQ SCH (21:55)
[2017-10-11] MEDS: Melatonin 3 MG TABLET PO SCH (21:56)
[2017-10-11] MEDS: Mirtazapine 15 MG TABLET PO SCH (21:57)
[2017-10-12] MEDS: *HR* Heparin 5,000 UNIT/ML VIAL SQ SCH (05:49)
[2017-10-12] MEDS: Budesonide Neb 0.5 MG/2 ML IH SCH (07:43)
[2017-10-12 07:53] VITALS: BP 107/72
--- NOTE | 2017-10-12 09:24 | Physician Discharge Referral ---
ExtendedCare Referral Info Transfer To: [facility] Provider in Charge after Transfer: PCP Institutional Level of Care: Intermediate - Diagnosis (1) History of cerebrovascular accident (CVA) with residual deficit Priority: Secondary Status: Chronic (2) TIA (transient ischemic attack) Priority: Primary Status: Acute (3) DM2 (diabetes mellitus, type 2) Priority: Secondary Status: Chronic (4) Hypertension Priority: Secondary Status: Chronic (5) HLD (hyperlipidemia) Priority: Secondary Status: Acute (6) Hypothyroid Priority: Secondary Status: Acute (7) DVT prophylaxis Priority: Secondary Status: Acute Prognosis: Fair Aware of Diagnosis: Patient - Transfer Medications Home Medications: Albuterol Sulfate [Proair Hfa] 1 - 2 puff IH Q4H PRN 05/19/16 [History] Atorvastatin [Lipitor] 40 mg PO HS 05/19/16 [History] Ferrous Sulfate 325 mg PO BIDWM 05/19/16 [History] Furosemide [Lasix] 80 mg PO QAM 05/19/16 [History] Gabapentin [Neurontin] 600 mg PO TID 05/19/16 [History] Glimepiride [Amaryl] 2 mg PO BID 05/19/16 [History] Insulin Glargine,Hum.rec.anlog [Lantus Solostar] 60 unit SQ HS 05/19/16 [History ] Levothyroxine [Synthroid] 125 mcg PO QAM 05/19/16 [History] amLODIPine [Norvasc] 5 mg PO DAILY 05/19/16 [History] Cholecalciferol (Vitamin D3) [Vitamin D3] 2,000 unit PO DAILY 08/16/16 [History] Acetaminophen [Tylenol] 650 mg PO Q6HR PRN #0 tablet 08/18/16 [Rx] Venlafaxine HCl 200 mg PO QAM 12/07/16 [History] Insulin ASPART [NovoLOG] 10 unit SQ TIDAC 02/28/17 [History] Nystatin POWDER [Nystop] 1 appl TP BID 02/28/17 [History] Potassium Chloride [Klor-Con] 20 meq PO BID 02/28/17 [History] Aspirin [Lo-Dose Aspirin EC] 81 mg PO DAILY 05/16/17 [History] Budesonide [Pulmicort] 0.5 mg IH BID 05/16/17 [History] Folic Acid 1 mg PO DAILY 05/16/17 [History] Ipratropium/Albuterol Neb [Duoneb] 3 ml IH Q6HR PRN 05/16/17 [History] Sertraline [Zoloft] 150 mg PO DAILY 05/16/17 [History] Valsartan [Diovan] 80 mg PO DAILY 05/16/17 [History] Ammonium Lactate [Icnda-Hydrolac] 1 appl TP BID 10/09/17 [History] Diphenhydramine HCl/Zinc Acet [Benadryl Itch Stopping Crm] 1 appl TP TID PRN [History] Famotidine [Heartburn Prevention] 20 mg PO DAILY 10/09/17 [History] Furosemide [Lasix] 40 mg PO QPM 10/09/17 [History] Loperamide HCl [Anti-Diarrheal] 2 mg PO Q4H PRN 10/09/17 [History] Melatonin 5 mg PO HS 10/09/17 [History] Metoprolol Succinate 200 mg PO DAILY 10/09/17 [History] Mirtazapine [Remeron] 15 mg PO HS 10/09/17 [History] Oxygen 2 l NS AD 10/09/17 [History] Peg 400/Hypromellose/Glycerin [Visine Tired Eye Relief Drop] 1 drop OP Q4H PRN 10/09/17 [History] Polyvinyl Alcohol [Artificial Tears] 1 drop OP QID 10/09/17 [History] Pramipexole Di-HCl [Pramipexole Dihydrochloride] 0.125 mg PO HS 10/09/17 [ History] Pramipexole [Mirapex] 0.25 mg PO QAM 10/09/17 [History] Promethazine HCl 12.5 mg PO Q6H PRN 10/09/17 [History] Allergies/Adverse Reactions: 3 Allergy/AdvReac Type Severity Reaction Status Date / Time No Known Allergies Allergy Verified 10/08/17 12:19 - Respiratory Orders Smoking Cessation: Smoking cessation has been advised. For more information, call the [place] Tobacco Quit Line at 1-493-NJYW-NOW. - Lab Orders Lab Orders: CBC, U/A, CXR yearly - Ancillary Orders May consult with Dentist, [place], Xray Tech PRN - Advance Directives Code Status: DNR-Arrest/Don't Intubate - Mobility Orders Chair, Ambulate - Rehabiliation Orders Rehab Potential: Fair Rehab Orders: ROM Exercises, Evaluation for Physical Therapy, Evaluation for Occupational Therapy - Treatments May check for fecal impaction rectally daily PRN - Diet Orders Mechanical Soft, No Concentrated Sweets CERTIFICATION: I certify that the transfer of the above named patient to an Extended Care Facility is necessary for the continuing treatment of the diagnosis listed. The above information is true and accurate reflection of patient's current condition. Confidential - Redisclosure prohibited without a patient's written consent.
--- NOTE | 2017-10-12 09:48 | Discharge Summary ---
Date of Encounter: 10/12/17 Time of Encounter: 09:00 - Discharge Diagnosis (1) History of cerebrovascular accident (CVA) with residual deficit Priority: Secondary Status: Chronic Comments: Per prior history with left sided deficit/paralysis. Continue ASA, Plavix, and statin. Patient has returned to her baseline. PT and OT have identified no needs. (2) TIA (transient ischemic attack) Priority: Primary Status: Acute Comments: Head CT was negative for any acute intracranial process, MRI is negative for acute. Bilateral carotid Doppler showed nonstenotic plaque. Echocardiogram showed LVEF of 55% with indeterminant diastolic function patient is severely sclerotic aortic valve leaflets, mild to moderate aortic stenosis. Symptoms have resolved and patient has returned to her baseline. Patient was evaluated by neurology who recommended MRI, carotids, echo which have been completed. They also recommend adding Plavix 75 mg daily and continuing aspirin 81 mg daily, as well as continuing statin, which patient will continue after discharge. Patient is aware of results. Questions have been answered. Patient has significant change noted to echocardiogram from November,, as noted above. I spoke with cardiology SONG LYRICIST who recommends outpatient follow up that she will schedule, suggests follow up echo in 6 months. Qualifiers: Transient cerebral ischemia type: unspecified Qualified Code(s): G45.9 - Transient cerebral ischemic attack, unspecified (3) DM2 (diabetes mellitus, type 2) Priority: Secondary Status: Chronic Comments: A1c 6.6%. Continue home medications, accuchecks, and diabetic diet. 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 Continue home medications. Qualifiers: Hypertension type: essential hypertension Qualified Code(s): I10 - Essential (primary) hypertension (5) HLD (hyperlipidemia) Priority: Secondary Status: Chronic Comments: Chronic. Continue home medications. Qualifiers: Hyperlipidemia type: unspecified Qualified Code(s): E78.5 - Hyperlipidemia , unspecified (6) Hypothyroid Priority: Secondary Status: Chronic Comments: Chronic. Continue home medications. Qualifiers: Hypothyroidism type: acquired Qualified Code(s): E03.9 - Hypothyroidism, unspecified (7) DVT prophylaxis Priority: Secondary Status: Acute Comments: SubQ Heparin daily - Discharge Medications Prescriptions: Clopidogrel [Plavix] 75 mg PO DAILY #30 tablet Home Medications: Albuterol Sulfate [Proair Hfa] 1 - 2 puff IH Q4H PRN 05/19/16 [History] Atorvastatin [Lipitor] 40 mg PO HS 05/19/16 [History] Ferrous Sulfate 325 mg PO BIDWM 05/19/16 [History] Furosemide [Lasix] 80 mg PO QAM 05/19/16 [History] Gabapentin [Neurontin] 600 mg PO TID 05/19/16 [History] Glimepiride [Amaryl] 2 mg PO BID 05/19/16 [History] Insulin Glargine,Hum.rec.anlog [Lantus Solostar] 60 unit SQ HS 05/19/16 [History ] Levothyroxine [Synthroid] 125 mcg PO QAM 05/19/16 [History] amLODIPine [Norvasc] 5 mg PO DAILY 05/19/16 [History] Cholecalciferol (Vitamin D3) [Vitamin D3] 2,000 unit PO DAILY 08/16/16 [History] Acetaminophen [Tylenol] 650 mg PO Q6HR PRN #0 tablet 08/18/16 [Rx] Venlafaxine HCl 200 mg PO QAM 12/07/16 [History] Insulin ASPART [NovoLOG] 10 unit SQ TIDAC 02/28/17 [History] Nystatin POWDER [Nystop] 1 appl TP BID 02/28/17 [History] Potassium Chloride [Klor-Con] 20 meq PO BID 02/28/17 [History] Aspirin [Lo-Dose Aspirin EC] 81 mg PO DAILY 05/16/17 [History] Budesonide [Pulmicort] 0.5 mg IH BID 05/16/17 [History] Folic Acid 1 mg PO DAILY 05/16/17 [History] Ipratropium/Albuterol Neb [Duoneb] 3 ml IH Q6HR PRN 05/16/17 [History] Sertraline [Zoloft] 150 mg PO DAILY 05/16/17 [History] Valsartan [Diovan] 80 mg PO DAILY 05/16/17 [History] Ammonium Lactate [Cinda-Hydrolac] 1 appl TP BID 10/09/17 [History] Diphenhydramine HCl/Zinc Acet [Benadryl Itch Stopping Crm] 1 appl TP TID PRN [History] Famotidine [Heartburn Prevention] 20 mg PO DAILY 10/09/17 [History] Furosemide [Lasix] 40 mg PO QPM 10/09/17 [History] Loperamide HCl [Anti-Diarrheal] 2 mg PO Q4H PRN 10/09/17 [History] Melatonin 5 mg PO HS 10/09/17 [History] Metoprolol Succinate 200 mg PO DAILY 10/09/17 [History] Mirtazapine [Remeron] 15 mg PO HS 10/09/17 [History] Oxygen 2 l NS AD 10/09/17 [History] Peg 400/Hypromellose/Glycerin [Visine Tired Eye Relief Drop] 1 drop OP Q4H PRN 10/09/17 [History] Polyvinyl Alcohol [Artificial Tears] 1 drop OP QID 10/09/17 [History] Pramipexole Di-HCl [Pramipexole Dihydrochloride] 0.125 mg PO HS 10/09/17 [ History] Pramipexole [Mirapex] 0.25 mg PO QAM 10/09/17 [History] Promethazine HCl 12.5 mg PO Q6H PRN 10/09/17 [History] Clopidogrel [Plavix] 75 mg PO DAILY #30 tablet 10/12/17 [Rx] Allergies/Adverse Reactions: 3 Allergy/AdvReac Type Severity Reaction Status Date / Time No Known Allergies Allergy Verified 10/08/17 12:19 Date of admission: 10/11/17 09:44 Primary care physician: Marleny Groves DO Discharging clinician: Cammie Denton Anticipated date of discharge: 10/12/17 - Patient Status Disposition: Home, Self-Care Condition: Good Functional capacity at discharge: wheelchair bound Overall status at discharge: patient is back to baseline - Discharge Instructions Follow Up With: Marleny Groves DO [Primary Care Provider] - 10/18/17 2:45 pm Additional Instructions: Please follow up with your PCP in the next 7-10 days for a recheck. Return to the ER as needed for any other problems or concerns. Return to your normal activities and diet as tolerated. Resume your normal home medications including Plavix 75mg po daily - Diet and Activity Activity: increase activity as tolerated, resume usual activities as tolerated Diet: diabetic diet Hospital course: Ms. Walton is a 72 year old female - Time Spent with Patient Total time spent providing and/or coordinating discharge services: Less than 30 minutes - Constitutional Vitals: Temp Pulse Resp BP Pulse Ox 97.5 F L 81 16 107/72 99 10/12/17 07:51 10/12/17 07:51 10/12/17 07:51 10/12/17 07:51 10/12/17 07:51 General appearance: Present: cooperative, A&O X 3, pleasant, no acute distress, obese, answers questions appropriately - Head Head exam: Present: atraumatic, normal inspection, normocephalic - Eye Eye exam: Present: normal appearance, conjuntiva pink, sclera anicteric - Neck Neck exam general surgery: Present: normal inspection, supple, trachea midline. Absent: lymphadenopathy, tenderness - Respiratory Respiratory exam: Present: CTAB. Absent: accessory muscle use, rales, respiratory distress, rhonchi, wheezes - Cardiovascular Cardiovascular exam: Present: RRR, +S1, +S2. Absent: diastolic murmur, gallop, rubs, systolic murmur - GI/Abdominal GI/Abdominal exam: Present: normal bowel sounds, soft, no peritoneal signs. Absent: distended, hepatomegaly, tenderness - Extremities Exam Extremities exam: Present: normal capillary refill, normal inspection, warm, radial pulses palpable and symmetrical. Absent: calf tenderness, cyanotic, pedal edema, tenderness - Neurological Exam Neurological exam: Present: alert, oriented X3, no focal deficits. Absent: altered, strengths equal and symetr throughout, facial droop, speech deficit - Skin Skin exam: Present: dry, intact, normal color, warm. Absent: rash
== END 2017-10-12 11:14 | disposition home or self-care (01) | DRG 69 ==
LOC: 3BNU 12:14 → EMEROO 12:14 → 3BNU 15:08
PROVIDERS: ADMIT Registered Nurse; ATTEND Registered Nurse

== ENCOUNTER 2018-07-03 17:00 | Inpatient (IN) ==
[2018-07-03] MEDS ORDERED: Ipratropium/Albuterol Neb 3 ML IH ONE (17:26)
[2018-07-03] MEDS ORDERED: methylPREDNISolone 125 MG/2 ML VIAL IVP ONE (17:26)
[2018-07-03] MEDS ORDERED: 0.9 % Sodium Chloride 500 ML IVC ONE (17:27)
[2018-07-03 17:41] LABS: Basophils % 0.2 %; Eosinophils # 0.1 K/mcL (0.0-0.6); Eosinophils % 0.9 %; Hemoglobin 10.6 g/dL (11.5-15.4); Immature Granulocytes % 0.8 % (0-4); Lymphocytes % 9.4 %; Mean Corpuscular HGB Conc 27.2 g/dL (31.6-35.5); Mean Corpuscular Hemoglobin 26.7 pg (28.0-33.3); Mean Corpuscular Volume 98.2 fL (83.0-100.0); Mean Platelet Volume 10.5 fL (9.4-12.4); Monocytes # 0.7 K/mcL (0.0-1.3); Monocytes % 6.8 %; Platelet Count 202 K/mcL (140-400); Red Blood Count 3.97 M/mcL (3.82-4.97); Red Cell Distribution Width 15.6 % (11.5-14.5); Segmented Neutrophils % 81.9 %
[2018-07-03 17:42] LABS: Neutrophils # 8.4 K/mcL (1.6-8.9)
[2018-07-03 17:53] LABS: BUN/Creatinine Ratio 27 (6-26); Blood Urea Nitrogen 42 mg/dL (8-23); Calcium 9.2 mg/dL (8.6-10.3); Carbon Dioxide 41 mEq/L (23-29); Chloride 96 mEq/L (98-107); Glucose 309 mg/dL (70-105); Osmolality,Calculated 314 (280-300); Potassium 4.3 mEq/L (3.5-5.1); Sodium 141 mEq/L (136-145); Troponin I < 0.03 ng/mL (< 0.04); eGFR For Non-African Americans 33 (> 60)
[2018-07-03 18:00] LABS: VBG HCO3 42 mEq/L (21-27); VBG PCO2 82 mmHg (41-51); VBG PH 7.32 pH Units (7.32-7.42); VBG PO2 62 mmHg (25-50)
[2018-07-03 18:06] LABS: Hypochromasia Present (Not Present); Platelet Estimate Normal (Normal)
[2018-07-03 18:15] LABS: Bilirubin,Urine Negative (Negative); Blood,Urine Small (Negative); Clarity,Urine Turbid (Clear); Color,Urine Yellow (Yellow); Glucose,Urine (UA) Normal (Normal); Ketones,Urine Negative (Negative); Leukocyte Esterase,Urine Large (Negative); Nitrite,Urine Negative (Negative); PH,Urine 5.5 pH Units (5.0-8.0); Protein,Urine 100 mg/dL (Neg-Trace); Specific Gravity,Urine 1.013 (1.010-1.025); Urobilinogen,Urine Normal (Normal)
[2018-07-03 18:17] LABS: Bacteria,Urine Many per hpf (None-Few); Hyaline Casts,Urine None Seen per lpf (None-Few); RBC,Urine 0-3 per hpf (0-3); Squamous Epithelial Cell,Urine Many per lpf (None-Few); WBC,Urine TNTC per hpf (0-3)
--- NOTE | 2018-07-03 19:20 | Emergency Department Note ---
Disposition Clinical Impression: Dyspnea Qualifiers: Dyspnea type: unspecified Qualified Code(s): R06.00 - Dyspnea, unspecified CHF exacerbation Qualifiers: Heart failure type: unspecified Qualified Code(s): I50.9 - Heart failure, unspecified Disposition: Admitted As Inpatient Condition: Serious Altered Mental Status HPI - General Chief Complaint: ED Shortness of Breath/Dyspnea Stated Complaint: AMS Time Seen by Provider: 07/03/18 17:14 Source: EMS Limitations: physical limitation, age Nursing Notes Reviewed: Yes Vital Signs Reviewed: Yes - History of Present Illness HPI Narrative: Patient presents with family for evaluation from jail. The patient does have a history of COPD and is on 2 L nasal cannula at baseline. She got breathing treatments this morning. Was found to be alterable she was in the bathroom and had a pulse ox of 78% and she was taken off oxygen. He did increase her oxygen to 4 L. Patient states that increased oxygen has helped her overall symptoms. 3 days of increasing shortness of breath with cough and the which she describes as brown sputum production. The patient has not had any fevers or chills. She has mild leg swelling in the lower extremities. - Related Data Home Medications Medication Instructions Recorded Confirmed Albuterol Sulfate [Proair Hfa] 1 - 2 puff IH Q4H PRN 05/19/16 07/03/18 Ferrous Sulfate 325 mg PO BIDWM 05/19/16 07/03/18 Furosemide [Lasix] 80 mg PO QAM 05/19/16 07/03/18 Levothyroxine [Synthroid] 125 mcg PO QAM 05/19/16 07/03/18 amLODIPine [Norvasc] 5 mg PO DAILY 05/19/16 07/03/18 Insulin ASPART [NovoLOG] 10 unit SQ TIDAC 02/28/17 07/03/18 Aspirin [Lo-Dose Aspirin EC] 81 mg PO DAILY 05/16/17 07/03/18 Budesonide [Pulmicort] 0.5 mg IH BID 05/16/17 07/03/18 Ipratropium/Albuterol Neb [Duoneb] 3 ml IH Q6HR PRN 05/16/17 07/03/18 Diphenhydramine HCl/Zinc Acet 1 appl TP TID PRN 10/09/17 07/03/18 [Benadryl Itch Stopping Crm] Famotidine [Heartburn Prevention] 20 mg PO DAILY 10/09/17 07/03/18 Furosemide [Lasix] 40 mg PO QPM 10/09/17 07/03/18 Loperamide HCl [Anti-Diarrheal] 2 mg PO Q4H PRN 10/09/17 07/03/18 Polyvinyl Alcohol [Artificial 1 drop OP QID 10/09/17 07/03/18 Tears] Pramipexole Di-HCl [Pramipexole 0.125 mg PO HS 10/09/17 07/03/18 Dihydrochloride] Pramipexole [Mirapex] 0.25 mg PO QAM 10/09/17 07/03/18 Atorvastatin Calcium [Lipitor] 20 mg PO HS 07/03/18 07/03/18 Benzonatate [Tessalon] 100 mg PO TID 07/03/18 07/03/18 Gabapentin [Neurontin] 800 mg PO TID 07/03/18 07/03/18 Guaifenesin [Mucinex] 600 mg PO BID 07/03/18 07/03/18 Insulin DETEMIR [Levemir Flextouch] 34 units SQ HS 07/03/18 07/03/18 Latanoprost [Xalatan] 1 drop OP DAILY 07/03/18 07/03/18 Losartan Potassium [Cozaar] 100 mg PO DAILY 07/03/18 07/03/18 Melatonin 4 mg PO HS 07/03/18 07/03/18 Metoprolol Succinate [Toprol Xl] 100 mg PO DAILY 07/03/18 07/03/18 Mirtazapine 7.5 mg PO HS 07/03/18 07/03/18 Potassium Chloride [K-Tab ER] 20 meq PO DAILY 07/03/18 07/03/18 Sertraline [Zoloft] 25 mg PO DAILY 07/03/18 07/03/18 Venlafaxine [Effexor] 75 mg PO DAILY 07/03/18 07/03/18 Previous Rx's Medication Instructions Recorded Acetaminophen [Tylenol] 650 mg PO Q6HR PRN #0 tablet 08/18/16 Clopidogrel [Plavix] 75 mg PO DAILY #30 tablet 10/12/17 Allergies Allergy/AdvReac Type Severity Reaction Status Date / Time No Known Allergies Allergy Verified 10/08/17 12:19 Review of Systems: As Per HPI Constitutional: Denies: fever, chills Cardiovascular: Reports: dyspnea on exertion. Denies: chest pain Respiratory: Reports: cough Gastrointestinal: Denies: abdominal pain, nausea Genitourinary: Denies: urgency, dysuria Musculoskeletal: Denies: back pain Integumentary: Denies: rash, abrasion, lesions Psychiatric: Reports: anxiety Endocrine: Reports: fatigue Past Medical History - Past Medical History Medical history: Reports: CVA, diabetes, GERD, hyperlipidemia, hypertension, renal disease, thyroid disease Surgical history: Reports: , cholecystectomy, herniorrhaphy, orthopedic , other Psychiatric history: Reports: anxiety, depression, panic disorder - Social History Smoking Status: Former smoker Smokeless Tobacco Status: No Alcohol use: Reports: none Drug use: Reports: none Physical Exam General: Mild respiratory distress Head: Normocephalic Atraumatic Eyes: PERRL, EOMI ENT: Airway patent, no stridor Neck: supple, no meningismus Chest: Decreased breath sounds bilaterally Cardiac: Regular rhythm Abdomen: soft, nontender, nondistended; no guarding, rebound, or tenderness to percussion Musculoskeletal: Calves symmetric, nontender, mild swelling in the lower extremities Skin: No rash, normal skin tone Neuro: Alert and Oriented to person, place, and time; No focal deficit, - General Limitations: physical limitation, age General appearance: alert Course - Reevaluation(s) Reevaluation #1: Patient was evaluated and had workup for her shortness of breath. Patient's concern for CHF this time. During her stay in the emergency department she did become hypotensive. Hospitalist has seen her and I have been in contact with them. They have taken over management at this point. I did discuss with family. She does not want to be activated she does not want chest compressions and she does not want any heroic measures. Patient understands that she is significantly ill. Vital Signs Temperature 98.8 F 07/03/18 17:09 Pulse Rate 107 07/03/18 17:09 Respiratory Rate 23 07/03/18 17:09 Blood Pressure 96/70 07/03/18 17:09 O2 Sat by Pulse Oximetry 93 07/03/18 17:09 Temperature 99.5 F 07/04/18 19:15 Pulse Rate 116 07/04/18 19:15 Respiratory Rate 16 07/04/18 19:30 Blood Pressure 101/66 07/04/18 19:15 O2 Sat by Pulse Oximetry 92 07/04/18 19:30 Oxygen Delivery Oxygen Delivery Simple Mask Altered Mental Status - Lab Data Result diagrams: 07/03/18 17:15 07/03/18 17:15 Lab Results 07/03/18 07/03/18 07/03/18 Range/Units 17:15 17:15 17:15 WBC 10.2 (4.3-11.1) K/mcL RBC 3.97 (3.82-4.97) M/mcL Hgb 10.6 L (11.5-15.4) g/dL Hct 39.0 (35.3-44.9) % MCV 98.2 (83.0-100.0) fL MCH 26.7 L (28.0-33.3) pg MCHC 27.2 L (31.6-35.5) g/dL RDW 15.6 H (11.5-14.5) % Plt Count 202 (140-400) K/mcL MPV 10.5 (9.4-12.4) fL Immature Gran % 0.8 (0-4) % Seg Neutrophils % 81.9 % Lymphocytes % 9.4 % Monocytes % 6.8 % Eosinophils % 0.9 % Basophils % 0.2 % Neutrophils # 8.4 (1.6-8.9) K/mcL Lymphocytes # 1.0 (0.6-4.6) K/mcL Monocytes # 0.7 (0.0-1.3) K/mcL Eosinophils # 0.1 (0.0-0.6) K/mcL Basophils # 0.0 (0.0-0.2) K/mcL Platelet Estimate Normal (Normal) Hypochromasia Present A (Not Present) VBG pH (7.32-7.42) pH Units VBG pCO2 (41-51) mmHg VBG pO2 (25-50) mmHg VBG HCO3 (21-27) mEq/L Sodium 141 (136-145) mEq/L Potassium 4.3 (3.5-5.1) mEq/L Chloride 96 L (98-107) mEq/L Carbon Dioxide 41 H* (23-29) mEq/L BUN 42 H (8-23) mg/dL Creatinine 1.54 H (0.60-1.20) mg/dL Est GFR ( Amer) 40 L (> 60) Est GFR (Non-Af Amer) 33 L (> 60) BUN/Creatinine Ratio 27 H (6-26) Glucose 309 H (70-105) mg/dL Calculated Osmolality 314 H (280-300) Lactic Acid 1.0 (0.5-2.2) mmol/L Calcium 9.2 (8.6-10.3) mg/dL Troponin I < 0.03 (< 0.04) ng/mL B-Natriuretic Peptide (Less than 100) pg/mL Urine Color (Yellow) Urine Clarity (Clear) Urine pH (5.0-8.0) pH Units Ur Specific [place] (1.010-1.025) Urine Protein (Neg-Trace) mg/dL Urine Glucose (UA) (Normal) mg/dL Urine Ketones (Negative) mg/dL Urine Blood (Negative) Urine Nitrite (Negative) Urine Bilirubin (Negative) Urine Urobilinogen (Normal) mg/dL Ur Leukocyte Esterase (Negative) Urine Microscopic RBC (0-3) per hpf Urine Microscopic WBC (0-3) per hpf Ur Squamous Epith Cells (None-Few) per lpf Urine Bacteria (None-Few) per hpf Hyaline Casts (None-Few) per lpf Urine Yeast Ur Culture Indicated? (NO) Person Notif of Crit 07/03/18 07/03/18 07/03/18 Range/Units 17:15 17:54 18:02 WBC (4.3-11.1) K/mcL RBC (3.82-4.97) M/mcL Hgb (11.5-15.4) g/dL Hct (35.3-44.9) % MCV (83.0-100.0) fL MCH (28.0-33.3) pg MCHC (31.6-35.5) g/dL RDW (11.5-14.5) % Plt Count (140-400) K/mcL MPV (9.4-12.4) fL Immature Gran % (0-4) % Seg Neutrophils % % Lymphocytes % % Monocytes % % Eosinophils % % Basophils % % Neutrophils # (1.6-8.9) K/mcL Lymphocytes # (0.6-4.6) K/mcL Monocytes # (0.0-1.3) K/mcL Eosinophils # (0.0-0.6) K/mcL Basophils # (0.0-0.2) K/mcL Platelet Estimate (Normal) Hypochromasia (Not Present) VBG pH 7.32 (7.32-7.42) pH Units VBG pCO2 82 H* (41-51) mmHg VBG pO2 62 H (25-50) mmHg VBG HCO3 42 H (21-27) mEq/L Sodium (136-145) mEq/L Potassium (3.5-5.1) mEq/L Chloride (98-107) mEq/L Carbon Dioxide (23-29) mEq/L BUN (8-23) mg/dL Creatinine (0.60-1.20) mg/dL Est GFR ( Amer) (> 60) Est GFR (Non-Af Amer) (> 60) BUN/Creatinine Ratio (6-26) Glucose (70-105) mg/dL Calculated Osmolality (280-300) Lactic Acid (0.5-2.2) mmol/L Calcium (8.6-10.3) mg/dL Troponin I (< 0.04) ng/mL B-Natriuretic Peptide 63 (Less than 100) pg/mL Urine Color Yellow (Yellow) Urine Clarity Turbid A (Clear) Urine pH 5.5 (5.0-8.0) pH Units Ur Specific [place] 1.013 (1.010-1.025) Urine Protein 100 H (Neg-Trace) mg/dL Urine Glucose (UA) Normal (Normal) mg/dL Urine Ketones Negative (Negative) mg/dL Urine Blood Small H (Negative) Urine Nitrite Negative (Negative) Urine Bilirubin Negative (Negative) Urine Urobilinogen Normal (Normal) mg/dL Ur Leukocyte Esterase Large H (Negative) Urine Microscopic RBC 0-3 (0-3) per hpf Urine Microscopic WBC TNTC H (0-3) per hpf Ur Squamous Epith Cells Many H (None-Few) per lpf Urine Bacteria Many H (None-Few) per hpf Hyaline Casts None Seen (None-Few) per lpf Urine Yeast Test Not Performed Ur Culture Indicated? NO. A (NO) Person Notif of Crit KIRSTIN TORSTEN TPA Checklist - LKW: 3-4.5 hrs Add. Warnings/Precautions Patient/family understanding: The patient/family members have been counseled and understood the risk, benefit , and alternatives of treatment.
[2018-07-03] MEDS ORDERED: Furosemide 40 MG/4 ML VIAL IVP ONE (19:30)
[2018-07-03] MEDS ORDERED: Piperacillin/Tazobactam 3.375 GM in 0.9 % Sodium Chloride Mini Bag 100 ML IVPB ONE (20:03)
[2018-07-03] MEDS ORDERED: Levofloxacin 750 MG/150 ML 750 MG/150 ML BAG IVPB ONE (20:03)
[2018-07-03] MEDS ORDERED: 0.9 % Sodium Chloride 250 ML IVC ONE (20:04)
[2018-07-03] MEDS ORDERED: Ondansetron 4 MG/2 ML VIAL IVP PRN (21:26)
[2018-07-03] MEDS ORDERED: *HR* Promethazine 25 MG/ML VIAL IVP PRN (21:26)
[2018-07-03] MEDS ORDERED: Naloxone 0.4 MG/ML INJ IVP PRN (21:26)
[2018-07-03] MEDS ORDERED: OXYCODONE Oral CONC 10 MG/0.5 ML ORAL.SYG SL PRN (21:26)
[2018-07-03] MEDS ORDERED: Furosemide 20 MG/2 ML VIAL IVP PRN (21:33)
[2018-07-03] MEDS ORDERED: Furosemide 20 MG/2 ML VIAL IVP ONE (21:33)
[2018-07-03] MEDS ORDERED: *HR* Morphine 2 MG/ML SYRINGE IVP PRN (21:33)
[2018-07-03] MEDS ORDERED: *HR* LORazepam 2 MG/ML VIAL IVP PRN (21:33)
[2018-07-03] MEDS ORDERED: Atropine 1% Opth Drops 100 DROP/5 ML BOTTLE SL PRN (21:35)
--- NOTE | 2018-07-03 22:05 | Internal Med History&Physical ---
<Cuba Duval Marcia - Last Filed: 07/03/18 21:41> Date of Encounter: 07/03/18 Time of Encounter: 21:41 Internal Medicine - H&P: HPI Chief complaint: shortness of breath Admitted From: Long-term Nursing Facility Plans for Post Hospital Care: Transfer Detention Facility History of present illness: Ms. Walton is a 72 year old female with a past medical history of COPD, CHF, CVA , DM, GERD, HLD, HTN. She presented to the emergency department with the chief complaint of 5 days upper respiratory infection symptoms and worsening shortness of breath. On presentation to the emergency department she was noted to be hypoxic and was put on 2 L oxygen nasal cannula with improvement in her oxygen saturation. Chest x-ray revealed cardiomegaly with pulmonary vascular congestion but was negative for focal consolidation or opacification. White count was in normal limits, troponin less than 0.03, BNP 63, lactic acid 1.0. Blood cultures were drawn and VBG was drawn which demonstrated pH of 7.3, PCO2 82, PO2 of 62, bicarbonate 41. She was given 1 treatment of DuoNeb's, 1 dose of Solu-Medrol, half liter normal saline bolus. Upon my arrival to interview and examine the patient I noted that she had audible gurgling in her breath sounds, oxygen saturation was in the 80s and blood pressure was in the 70s over 40s. The patient was alert and oriented to person and place and situation and was in mild respiratory distress. She admitted to shortness of breath but denied chest pain. I discussed with her that due to her respiratory distress she would likely require BiPAP to improve her oxygen saturation. She stated that she did not want BiPAP or intubation or cardiac resuscitation. We had a lengthy discussion in which I described exactly what BiPAP treatment consists of as well as intubation and cardiac resuscitation, after which she was still adamant that she did not want BiPAP or resuscitation performed. I discussed with her that if she did not receive these treatments it was possible that her breathing and blood pressure could continue to decline to the point where she would be at risk of dying. She stated that she understood and that she was prepared for that eventuality. The patient's niece and medical power of privacy attorney was in the room during these discussions and established that she would follow the patient's wishes. I contacted Dr. Nation who came down to the emergency department to assist with the patient's care. He also discussed with the patient the risks, benefits, complications associated with refusing or accepting lifesaving measures. He described that if we did not pursue BiPAP or intubation the course of care would consist of comfort measures to make the patient's breathing easier. He established that the patient may or may not recover with these comfort measures. The patient asked for several minutes alone to discuss with her family which course she wanted to take. We were called back into the room and informed that the patient had decided to refuse BiPAP or any resuscitative measures and to only pursue comfort care. She was informed that we would respect her wishes and admit her to the floor for comfort care treatment. Past Med Surg Social Fam HX - Past Medical History Medical history: CVA, diabetes, GERD, hyperlipidemia, hypertension, renal disease, thyroid disease Additional medical history: anemia - diverticulosis Psychiatric history: anxiety, depression, panic disorder - Past Surgical History Surgical History: , cholecystectomy, herniorrhaphy, orthopedic, other Additional surgical history: shoulder - elbow and hip surgery - Social History Smoking Status: Former smoker Smokeless Tobacco Status: No Alcohol use: none Drug use: none - Family History Mother Living Status: Hx Family Cardiac Disorders: Yes ([place]) Hx Family Respiratory Disorders: No Hx Family Cancer: No Hx Family GI Disorders: No Hx Family Endocrine Disorder: Yes (DM) Hx Family Neuromuscular Disorders: No Hx Family Neurologic Disorders: No Hx Family HEENT Disorders: No Hx Family Autoimmune Disorders: No Father Living Status: Hx Family Cardiac Disorders: Yes (HTN) Hx Family Cancer: Yes (prostate) Hx Family Endocrine Disorder: Yes (DM) Internal Medicine - H&P: Meds Albuterol Sulfate [Proair Hfa] 1 - 2 puff IH Q4H PRN 05/19/16 [History] Ferrous Sulfate 325 mg PO BIDWM 05/19/16 [History] Furosemide [Lasix] 80 mg PO QAM 05/19/16 [History] Levothyroxine [Synthroid] 125 mcg PO QAM 05/19/16 [History] amLODIPine [Norvasc] 5 mg PO DAILY 05/19/16 [History] Acetaminophen [Tylenol] 650 mg PO Q6HR PRN #0 tablet 08/18/16 [Rx] Insulin ASPART [NovoLOG] 10 unit SQ TIDAC 02/28/17 [History] Aspirin [Lo-Dose Aspirin EC] 81 mg PO DAILY 05/16/17 [History] Budesonide [Pulmicort] 0.5 mg IH BID 05/16/17 [History] Ipratropium/Albuterol Neb [Duoneb] 3 ml IH Q6HR PRN 05/16/17 [History] Diphenhydramine HCl/Zinc Acet [Benadryl Itch Stopping Crm] 1 appl TP TID PRN [History] Famotidine [Heartburn Prevention] 20 mg PO DAILY 10/09/17 [History] Furosemide [Lasix] 40 mg PO QPM 10/09/17 [History] Loperamide HCl [Anti-Diarrheal] 2 mg PO Q4H PRN 10/09/17 [History] Polyvinyl Alcohol [Artificial Tears] 1 drop OP QID 10/09/17 [History] Pramipexole Di-HCl [Pramipexole Dihydrochloride] 0.125 mg PO HS 10/09/17 [ History] Pramipexole [Mirapex] 0.25 mg PO QAM 10/09/17 [History] Clopidogrel [Plavix] 75 mg PO DAILY #30 tablet 10/12/17 [Rx] Atorvastatin Calcium [Lipitor] 20 mg PO HS 07/03/18 [History] Benzonatate [Tessalon] 100 mg PO TID 07/03/18 [History] Gabapentin [Neurontin] 800 mg PO TID 07/03/18 [History] Guaifenesin [Mucinex] 600 mg PO BID 07/03/18 [History] Insulin DETEMIR [Levemir Flextouch] 34 units SQ HS 07/03/18 [History] Latanoprost [Xalatan] 1 drop OP DAILY 07/03/18 [History] Losartan Potassium [Cozaar] 100 mg PO DAILY 07/03/18 [History] Melatonin 4 mg PO HS 07/03/18 [History] Metoprolol Succinate [Toprol Xl] 100 mg PO DAILY 07/03/18 [History] Mirtazapine 7.5 mg PO HS 07/03/18 [History] Potassium Chloride [K-Tab ER] 20 meq PO DAILY 07/03/18 [History] Sertraline [Zoloft] 25 mg PO DAILY 07/03/18 [History] Venlafaxine [Effexor] 75 mg PO DAILY 07/03/18 [History] 3 Allergy/AdvReac Type Severity Reaction Status Date / Time No Known Allergies Allergy Verified 10/08/17 12:19 All Systems PM: A 10-system review of systems was performed and is negative for pertinent findings except as documented above in the HPI. - Constitutional Constitutional: no chills, no fever(s) - Cardiovascular Cardiovascular ROS IM: dyspnea, dyspnea on exertion, orthopnea, no chest pain, no diaphoresis, no irregular heart rhythm, no syncope - Respiratory Respiratory: cough, dyspnea, dyspnea on exertion, no hemoptysis, no wheezing, no excessive phlegm production, no change in phlegm color - Gastrointestinal Gastrointestinal: no abdominal pain, no diarrhea, no vomiting - Genitourinary Genitourinary: urinary frequency - Musculoskeletal Musculoskeletal ROS IM: no back pain - Integumentary Integumentary IM: no erythema - Neurological Neurological ROS: focal weakness, no abnormal speech, no confusion - Psychiatric Psychiatric: no confusion - Constitutional Vitals: Temp Pulse Resp BP Pulse Ox 98.8 F 109 12 107/66 94 07/03/18 17:09 07/03/18 21:07 07/03/18 21:07 07/03/18 21:07 07/03/18 21:07 Exam: Patient in mild distress, alert and oriented to person, place, situation Heart in tachycardic rate and regular rhythm without murmur or gallop Patient breath sounds externally with significant gurgling Lung auscultation demonstrated significant and diffuse rales and rhonchi Abdomen soft and nontender with normal bowel sounds present Bilateral lower extremities 2+ pitting edematous Skin cool and dry with pallor Delayed capillary refill in bilateral lower extremities Internal Med - H&P Results - Labs CBC & Chem 7: 07/03/18 17:15 07/03/18 17:15 - Assessment and plan (1) Acute respiratory failure with hypoxia and hypercarbia Current Visit: Yes Status: Acute Assessment and plan: Patient presented with chief complaint of shortness of breath In the ED she was found to be hypoxic and hypercarbic and hypercapnic Differentials include CHF exacerbation, COPD exacerbation, aspiration pneumonia Chest x-ray showed cardiomegaly with prominent vascular congestion Labs showed white count within normal limits, BNP 63, troponin less than 0.03, lactic 1.0 On exam patient was tachycardic, hypotensive, hypoxic on 2 L, rales and rhonchi In the ED patient received DuoNeb's, Solu-Medrol, half liter normal saline bolus Plan of care was discussed with patient, she refused BiPAP, intubation, resuscitation Plan Comfort Care Measures, consult to Palliative Care 20 mg IV Lasix every 6 hours when necessary DuoNeb's every 4 hours when necessary 1 mg IV Ativan every 2 hours when necessary 500 mg metronidazole IVPB every 8 hours 1 mg IV morphine every 2 hours when necessary 4 mg IV Zofran every 8 hours when necessary 5 mg sublingual oxycodone every 4 hours when necessary 3.375 mg Zosyn IVPB every 8 hours 12.5 mg IV Phenergan every 6 hours as necessary (2) Shock Current Visit: Yes Status: Acute Assessment and plan: On exam patient was tachycardic and hypotensive Differentials include cardiogenic shock secondary to heart failure and septic shock secondary to aspiration pneumonia Ideally the patient would be intubated and fluid resuscitated however she is refusing resuscitative measures Plan as seen above (3) Diastolic CHF with preserved left ventricular function, NYHA class 2 Current Visit: Yes Status: Acute Assessment and plan: Patient has known history of heart failure Last echocardiogram in September 2017 demonstrated indeterminate diastolic dysfunction, ejection fraction 55%, severe aortic valve sclerosis Chest x-ray and physical exam indicate likely heart failure exacerbation leading to pulmonary edema Patient has refused resuscitative measures, therefore we will attempt to diurese her to ease her breathing Rest of plan as seen above (4) COPD (chronic obstructive pulmonary disease) Current Visit: Yes Status: Acute Assessment and plan: Patient has known history of COPD COPD exacerbation is likely contributing to respiratory failure Plan as seen above Qualifiers: COPD type: unspecified COPD Qualified Code(s): J44.9 - Chronic obstructive pulmonary disease, unspecified (5) Chronic kidney disease Current Visit: No Status: Chronic Assessment and plan: Patient has history of chronic kidney disease Creatinine on admission is 1.5 Based on previous lab results is appears to be her baseline We will continue to monitor Qualifiers: Chronic kidney disease stage: stage 3 (moderate) Qualified Code(s): N18.3 - Chronic kidney disease, stage 3 (moderate) (6) History of cerebrovascular accident (CVA) with residual deficit Current Visit: No Status: Chronic Assessment and plan: Patient has history of cerebrovascular accident with residual left-sided paralysis (7) DM (diabetes mellitus) Current Visit: No Status: Chronic Assessment and plan: Patient has chronic history of diabetes managed with home insulin Patient is currently nothing by mouth we will continue to monitor glucose and treat as necessary Qualifiers: Diabetes mellitus type: type 2 Diabetes mellitus director long term care insulin use: with care home use Diabetes mellitus complication status: without complication Qualified Code(s): E11.9 - Type 2 diabetes mellitus without complications; Z79.4 - termite helper (current) use of insulin; Z79.4 - termite helper ( current) use of insulin; Z79.4 - FDC (current) use of insulin; Z79.4 - termite helper (current) use of insulin (8) Pneumonia Current Visit: Yes Status: Suspected Assessment and plan: Patient has had difficulty maintaining her airway during this episode of respiratory distress Patient has external gurgling breath sounds on exam Patient's family also states patient has had issues with swallowing leading up to this hospitalization Patient does not demonstrate white count however she is in shock which could be secondary to sepsis Chest x-ray does not confirm pneumonia however it is still in differential Antibiotic therapy as seen above Qualifiers: Pneumonia type: aspiration pneumonia Aspiration pneumonia type: due to gastric secretions Laterality: unspecified laterality Lung location: unspecified part of lung Qualified Code(s): J69.0 - Pneumonitis due to inhalation of food and vomit - Time Spent With Patient Total time spent is greater than 50% in coordination of care (as documented) at patient's floor/unit and/or counseling patient: - VTE Reasons for not Prescribing Prophylaxis: Medical contraindication <Laci Nation - Last Filed: 07/04/18 01:28> Date of Encounter: 07/03/18 Time of Encounter: 21:15 - Constitutional Constitutional: no chills, no fever(s) - EENT Nose, mouth and throat: no nasal congestion, no sore throat - Cardiovascular Cardiovascular ROS IM: dyspnea, dyspnea on exertion, orthopnea, paroxysmal nocturnal dyspnea - Respiratory Respiratory: cough, chest congestion - Gastrointestinal Gastrointestinal: no abdominal pain, no diarrhea, no vomiting - Genitourinary Genitourinary: dysuria, no flank pain - Integumentary Integumentary IM: no erythema, no rash - Neurological Neurological ROS: focal weakness (left sided weakness/paralysis from old stroke) - Psychiatric Psychiatric: no anxiety, no depression - Constitutional Vitals: Temp Pulse Resp BP Pulse Ox 97.5 F L 106 17 92/52 94 07/03/18 23:33 07/03/18 23:33 07/03/18 23:33 07/03/18 23:33 07/03/18 23:33 General appearance: Present: cooperative, mild distress, A&O X 3, pleasant, answers questions appropriately Exam: alert and oriented x 3; both nieces/POA's present and confirm patient at baseline and appropriate - Head Head exam: Present: atraumatic, normal inspection - Eye Eye exam: Present: PERRL. Absent: scleral icterus - ENT ENT exam: Present: mucous membranes dry, normal exam - Neck Neck exam general surgery: Present: supple. Absent: tenderness, nuchal rigidity , thyromegaly - Respiratory Respiratory exam: Present: accessory muscle use, rales, respiratory distress, rhonchi, wheezes. Absent: chest wall tenderness Additional comments: diffuse rhonchi, wheezes, and rales throughout; patient also with upper airway noise/gurgling with concerns for aspiration; moderate respiratory distress - Cardiovascular Cardiovascular exam: Present: distant heart sounds, +S1, +S2, tachycardia - GI/Abdominal GI/Abdominal exam: Present: soft. Absent: guarding, tenderness - Extremities Exam Extremities exam: Absent: calf tenderness, normal capillary refill (purple nailbeds with poor perfusion; cool extremities/warm centrally), tenderness, warm , radial pulses palpable and symmetrical (weak and thready) - Neurological Exam Neurological exam: Present: alert, oriented X3 Additional comments: left sided weakness/paresis from old stroke - Psychiatric Psychiatric exam: Present: normal affect, normal mood - Skin Skin exam: Present: cyanosis (peripherally -- nailbeds/fingers/toes), dry, pallor. Absent: normal color Internal Med - H&P Results - Labs CBC & Chem 7: 07/03/18 17:15 07/03/18 17:15 - Diagnostic Studies Chest x-ray Status: image reviewed by me (cardiomegaly w CHF findings) - Assessment and plan (1) History of cerebrovascular accident (CVA) with residual deficit Current Visit: No Status: Chronic (2) DM (diabetes mellitus) Current Visit: No Status: Chronic Qualifiers: Diabetes mellitus type: type 2 Diabetes mellitus director long term care insulin use: with care home use Diabetes mellitus complication status: without complication Qualified Code(s): E11.9 - Type 2 diabetes mellitus without complications; Z79.4 - FDC (current) use of insulin; Z79.4 - termite helper ( current) use of insulin; Z79.4 - termite helper (current) use of insulin; Z79.4 - FDC (current) use of insulin (3) Acute respiratory failure with hypoxia and hypercarbia Current Visit: Yes Status: Acute (4) Shock Current Visit: Yes Status: Acute (5) Chronic kidney disease Current Visit: No Status: Chronic Qualifiers: Chronic kidney disease stage: stage 3 (moderate) Qualified Code(s): N18.3 - Chronic kidney disease, stage 3 (moderate) (6) Diastolic CHF with preserved left ventricular function, NYHA class 2 Current Visit: Yes Status: Acute (7) COPD (chronic obstructive pulmonary disease) Current Visit: Yes Status: Acute Qualifiers: COPD type: unspecified COPD Qualified Code(s): J44.9 - Chronic obstructive pulmonary disease, unspecified (8) Pneumonia Current Visit: Yes Status: Suspected Qualifiers: Pneumonia type: aspiration pneumonia Aspiration pneumonia type: due to gastric secretions Laterality: unspecified laterality Lung location: unspecified part of lung Qualified Code(s): J69.0 - Pneumonitis due to inhalation of food and vomit - Time Spent With Patient Total time spent is greater than 50% in coordination of care (as documented) at patient's floor/unit and/or counseling patient: - Attending Attestation I discussed the patient NOATAK, past medical history, review of systems, lab data , imaging findings, and exam findings with Dr. Duval. Because of her critical situation and shocklike state, Dr. Duval called me to her bedside in the ER emergently. I came quickly and assessed patient in the ER. She was in obvious respiratory distress, had evidence of poor perfusion, and was hypotensive. She also had active gurgling upper airway sounds concerning for aspiration. Her niece confirmed that she is an aspiration risk due to recent stroke. I reviewed with patient and her niece that she needed acute intervention including intubation, central venous catheter, and pressors to help stabilize her hemodynamically. Patient refuses all the above. She is not a candidate for BiPAP due to her aspiration risk. Nonetheless, she refused BiPAP as well. At that point, her other niece came to the bedside in the ER and I discussed with both of them and the patient at length the grave nature the patient is in currently. I emphasized that if she has any hope or expectation of improvement that we should pursue all measures and make her full code. Otherwise, I recommend comfort care measures only as I do not feel she will survive this hospital stay without aggressive measures. At that point, patient requested to meet with her 2 nieces privately to discuss her situation. Both nieces are medical martinez of privacy attorney as the patient confirmed. I stepped out of the room and gave them some private time alone. Meanwhile, I reviewed her lab data, imaging studies, and medical records while waiting to meet with patient and family again. About 15 minutes later, I was called back to the bedside by her 2 nieces. Patient voiced to me and Dr. Duval that she wished to pursue comfort measures only. She does not want any heroic measures whatsoever. She realizes that she is likely dying and requests only palliative care treatment. I discussed this at length with the patient and her 2 nieces and they confirm all the above. As such, we will admit her to the palliative care floor, institute comfort measures only, and consult the palliative care team in the morning. Clinically, I am concerned that she also likely has aspiration pneumonia in addition to her CHF. As a comfort measure, I recommend treating her with antibiotics, oxygen, and aerosols to which the patient agreed and the family agree. However, should her respiratory status decline, I would not pursue any further aggressive measures and they all agreed. We will provide bedside suctioning and atropine drops to help minimize her secretions. We'll provide IV morphine for pain control and Ativan for anxiety or suffering. Any further comfort measures to be provided by palliative care team. Other than my comments above and noted physical exam findings, I agree with Dr. Duval's assessment and plan.
[2018-07-04] MEDS: Piperacillin/Tazobactam 3.375 GM in 0.9 % Sodium Chloride Mini Bag 100 ML IVPB SCH ×2 (01:41→08:44)
[2018-07-04] MEDS: MetroNIDAZOLE 500 MG/100 ML 500 MG/100 ML BAG IVPB SCH ×2 (01:41→08:39)
[2018-07-04] MEDS ORDERED: D5% in Water 1,000 ML IVC PRN (07:46)
[2018-07-04] MEDS ORDERED: *HR* Dextrose 50 % in Water (Syg) 50 ML SYRINGE IVP PRN (07:46)
[2018-07-04] MEDS ORDERED: Dextrose Gel 15 GM/37.5 ML TUBE PO PRN ×2 (07:46)
[2018-07-04] MEDS ORDERED: OXYCODONE Oral CONC 10 MG/0.5 ML ORAL.SYG SL PRN (08:06)
--- NOTE | 2018-07-04 09:28 | Palliative - Consult Note ---
Date of Encounter: 07/04/18 Time of Encounter: 09:15 - Assessment and Plan (1) Dyspnea Current Visit: Yes Status: Acute Assessment and plan: Continues with IV antibiotics, aerosols, and supportive oxygen. Continue and monitor. Qualifiers: Dyspnea type: unspecified Qualified Code(s): R06.00 - Dyspnea, unspecified (2) Congestion of upper airway Current Visit: Yes Status: Acute Assessment and plan: Has atropine available if needed. Has not utilized. (3) Goals of care, counseling/discussion Current Visit: Yes Status: Acute Assessment and plan: Patient 2 nieces at bedside. She remains DNRCC per wishes, receiving treatment for pneumonia. They are pleased that she is improved this am. However, understand that she is still fragile and could have further respiratory decline. Desire to continue present management. Discussed potential speech evaluation - patient states she has had increasing difficulty swallowing medications at the [facility] lately. Will continue to follow. (4) Acute respiratory failure with hypoxia and hypercarbia Current Visit: Yes Status: Acute (5) COPD (chronic obstructive pulmonary disease) Current Visit: Yes Status: Acute Qualifiers: COPD type: unspecified COPD Qualified Code(s): J44.9 - Chronic obstructive pulmonary disease, unspecified (6) Pneumonia Current Visit: Yes Status: Suspected Qualifiers: Pneumonia type: aspiration pneumonia Aspiration pneumonia type: due to gastric secretions Laterality: unspecified laterality Lung location: unspecified part of lung Qualified Code(s): J69.0 - Pneumonitis due to inhalation of food and vomit Palliative-CN HPI - Data of Consult Consult date: 07/04/18 Requesting Physician: Raheem Wen MD Primary Care Provider: PCP NONE - Consult Narrative History of present illness: Ms. Walton is a 72 year old female with a history of CHF, CVA, COPD, presented after found hypoxic at [facility]. She has been resident of [facility] since hip fracture 1 1/2 years ago. The patient was hypotensive and in respiratory distress, and audible upper airway secretions. Discussion was held with ED and also Dr. Nation and patient's 2 nieces who are her power of research attorney, María Driver and Ciara Green. Patient was able to participate in discussion as well. She declined bipap and does not want intubation or resuscitation. She is documented DNRCC and this form is present on medical record. HOwever, pt and family agreeable with conservative treatment with IV antibiotics, fluids, aerosols, and supportive oxygen. Other medical conditions include: hypertension, diabetes, thyroid disease, anxiety, and depression. Since admission last pm, blood pressure has improved and this am 99/66, pulse 96 , tachypneic at 28/min, afebrile. Oxygen does remain 10L at per oxymask. She appears in mild respiratory distress, but denies shortness of breath. C/o some abdominal tenderness that she states is from coughing. States she feels hungry and would like breakfast. CC: Raheem Wen MD - Time Spent with Patient Time: Total time spent is greater than 50% in coordination of care (as documented) at patient's floor/unit and/or counseling patient: 25 - 35 minutes Past Med Surg Social Fam HX - Past Medical History Medical history: CHF, COPD, CVA, diabetes, GERD, hyperlipidemia, hypertension, renal disease, thyroid disease Additional medical history: anemia - diverticulosis Psychiatric history: anxiety, depression, panic disorder - Past Surgical History Surgical History: , cholecystectomy, herniorrhaphy, orthopedic, other Additional surgical history: shoulder - elbow and hip surgery - Social History Smoking Status: Former smoker Smokeless Tobacco Status: No Alcohol use: none Drug use: none - Family History Mother Living Status: Hx Family Cardiac Disorders: Yes (ND) Hx Family Respiratory Disorders: No Hx Family Cancer: No Hx Family GI Disorders: No Hx Family Endocrine Disorder: Yes (DM) Hx Family Neuromuscular Disorders: No Hx Family Neurologic Disorders: No Hx Family HEENT Disorders: No Hx Family Autoimmune Disorders: No Father Living Status: Hx Family Cardiac Disorders: Yes (HTN) Hx Family Cancer: Yes (prostate) Hx Family Endocrine Disorder: Yes (DM) Medications and Allergies Albuterol Sulfate [Proair Hfa] 1 - 2 puff IH Q4H PRN 05/19/16 [History] Ferrous Sulfate 325 mg PO BIDWM 05/19/16 [History] Furosemide [Lasix] 80 mg PO QAM 05/19/16 [History] Levothyroxine [Synthroid] 125 mcg PO QAM 05/19/16 [History] amLODIPine [Norvasc] 5 mg PO DAILY 05/19/16 [History] Acetaminophen [Tylenol] 650 mg PO Q6HR PRN #0 tablet 08/18/16 [Rx] Insulin ASPART [NovoLOG] 10 unit SQ TIDAC 02/28/17 [History] Aspirin [Lo-Dose Aspirin EC] 81 mg PO DAILY 05/16/17 [History] Budesonide [Pulmicort] 0.5 mg IH BID 05/16/17 [History] Ipratropium/Albuterol Neb [Duoneb] 3 ml IH Q6HR PRN 05/16/17 [History] Diphenhydramine HCl/Zinc Acet [Benadryl Itch Stopping Crm] 1 appl TP TID PRN [History] Famotidine [Heartburn Prevention] 20 mg PO DAILY 10/09/17 [History] Furosemide [Lasix] 40 mg PO QPM 10/09/17 [History] Loperamide HCl [Anti-Diarrheal] 2 mg PO Q4H PRN 10/09/17 [History] Polyvinyl Alcohol [Artificial Tears] 1 drop OP QID 10/09/17 [History] Pramipexole Di-HCl [Pramipexole Dihydrochloride] 0.125 mg PO HS 10/09/17 [ History] Pramipexole [Mirapex] 0.25 mg PO QAM 10/09/17 [History] Clopidogrel [Plavix] 75 mg PO DAILY #30 tablet 10/12/17 [Rx] Atorvastatin Calcium [Lipitor] 20 mg PO HS 07/03/18 [History] Benzonatate [Tessalon] 100 mg PO TID 07/03/18 [History] Gabapentin [Neurontin] 800 mg PO TID 07/03/18 [History] Guaifenesin [Mucinex] 600 mg PO BID 07/03/18 [History] Insulin DETEMIR [Levemir Flextouch] 34 units SQ HS 07/03/18 [History] Latanoprost [Xalatan] 1 drop OP DAILY 07/03/18 [History] Losartan Potassium [Cozaar] 100 mg PO DAILY 07/03/18 [History] Melatonin 4 mg PO HS 07/03/18 [History] Metoprolol Succinate [Toprol Xl] 100 mg PO DAILY 07/03/18 [History] Mirtazapine 7.5 mg PO HS 07/03/18 [History] Potassium Chloride [K-Tab ER] 20 meq PO DAILY 07/03/18 [History] Sertraline [Zoloft] 25 mg PO DAILY 07/03/18 [History] Venlafaxine [Effexor] 75 mg PO DAILY 07/03/18 [History] 3 Allergy/AdvReac Type Severity Reaction Status Date / Time No Known Allergies Allergy Verified 10/08/17 12:19 All systems: reviewed and no additional remarkable complaints except as stated ( nonproductive cough, abd tenderness, occasional shortness of breath) Palliative Care-Exam - Constitutional Vitals: Temp Pulse Resp BP Pulse Ox 97.8 F 96 17 99/66 96 07/04/18 07:26 07/04/18 07:26 07/04/18 07:26 07/04/18 07:26 07/04/18 07:26 General appearance: Present: mild distress - Head Head Exam: Present: normocephalic - Respiratory Respiratory exam: Present: decreased breath sounds, tachypnea Additional comments: Rhonchi throughout lung hicks. Breath sounds diminished to LLL. Harsh cough with nonproductive secretions - Cardiovascular Cardiovascular exam: Present: +S1, +S2 - GI/Abdominal Exam GI/Abdominal exam: Present: normal bowel sounds, soft, tenderness - Catheter Type: Urethral (Alonso) - Extremities Exam Extremities exam: Present: normal capillary refill, normal inspection - Neurological Exam Additional comments: Left sided weakness from old CVA. Alert and oriented to person and place. Able to answer most questions correctly. Follows simple commands. - Psychiatric Psychiatric exam: Present: normal affect, normal mood - Skin Skin exam: Present: dry, pallor, warm Internal Medicine - CN: Reslt - Labs CBC & Chem 7: 07/03/18 17:15 07/03/18 17:15 Consult Discharge Plan - Plan Referrals: NONE,PCP [Primary Care Provider] - Palliative Quality Palliative Quality: Screen for Code Status: Yes, Screen for Goals of Care: Yes, Screen for Pain: Yes, If Pain Regimen Started, Initiate Bowel Regimen: NA, Screen for Nausea/Vomitting: Yes Code Status: 07/03/18 21:26 Resuscitation Status: Active [RES] Routine Comment: Resuscitation Status: DNR-Comfort Care
--- NOTE | 2018-07-04 12:37 | Internal Med Progress Note ---
Hospitalist Progress Note - Encounter Date of Encounter: 07/04/18 Time of Encounter: 09:00 - Subjective Interval History: Pt's SOB has improved. BP is still at lower side but normal. Awake, alert, but oriented x 0. Two nieces at bedside. - Exam Vitals: Temp Pulse Resp BP Pulse Ox 97.6 F 96 18 101/59 96 07/04/18 11:46 07/04/18 11:46 07/04/18 11:46 07/04/18 11:46 07/04/18 11:46 Exam: alert and oriented x 0 now ( think she is at her house). In NAD. On high flow O2. HEENT: NC/AT, PERRL Neck: Supple, no JVD Lungs: Coarse breath sound b/l, no wheezes/rhonchi Heart: S1S2, RRR Abd: Soft, NT, BS normal Ext: No pedal edema Neuro: Left side hemiplegia due to previous CVA. Disoriented. - Assessment and Plan (1) History of cerebrovascular accident (CVA) with residual deficit Current Visit: No Status: Chronic Assessment and Plan: Patient has history of cerebrovascular accident with residual left-sided paralysis (2) DM (diabetes mellitus) Current Visit: No Status: Chronic Assessment and Plan: Patient has chronic history of diabetes managed with home insulin - Place pt on SSI at this point. (3) Acute respiratory failure with hypoxia and hypercarbia Current Visit: Yes Status: Acute Assessment and Plan: Patient presented with chief complaint of shortness of breath In the ED she was found to be hypoxic and hypercarbic and hypercapnic Pt has hx of CVA with difficult swallowing. Suspect aspiration pneumonia although CXR shows negative for PNA now. Further discussed with pt's nieces regarding goal of care, together with palliative care team. Family said no CPR/intubation/BiPAP, accept abx, duoneb, IVF Plan: - Sallow evaluation - Place pt on unasyn iv - Cont supportive treatment - Duoneb PRN. - Cont pulseoximetry monitoring. (4) Shock Current Visit: Yes Status: Acute Assessment and Plan: Improved after hydration, closely monitor vitals. (5) Chronic kidney disease Current Visit: No Status: Chronic Assessment and Plan: Patient has history of chronic kidney disease Creatinine on admission is 1.5 Based on previous lab results is appears to be her baseline We will continue to monitor (6) Diastolic CHF with preserved left ventricular function, NYHA class 2 Current Visit: Yes Status: Acute Assessment and Plan: Patient has known history of heart failure Last echocardiogram in September 2017 demonstrated indeterminate diastolic dysfunction, ejection fraction 55%, severe aortic valve sclerosis Will cont home meds of lasix as BP tolerate. Cont closely monitor pt. (7) COPD (chronic obstructive pulmonary disease) Current Visit: Yes Status: Acute Assessment and Plan: Patient has known history of COPD No wheezing. Cont Abx and duoneb. (8) Pneumonia Current Visit: Yes Status: Suspected Assessment and Plan: Patient has had difficulty maintaining her airway during this episode of respiratory distress Highly suspect aspiration PNA. Management as above. - Time Spent with Patient Total time spent is greater than 50% in coordination of care (as documented) at patient's floor/unit and/or counseling patient: 30 min 25 - 35 minutes Plan of Care Discussed with: family Internal Medicine: Result - Labs CBC & Chem 7: 07/03/18 17:15 07/03/18 17:15 - VTE Reasons for not Prescribing Prophylaxis: Medical contraindication Consult Discharge Plan - Plan Referrals: NONE,PCP [Primary Care Provider] - (2) DM (diabetes mellitus) Qualifiers: Diabetes mellitus type: type 2 Diabetes mellitus half-way insulin use: with half-way use Diabetes mellitus complication status: without complication Qualified Code(s): E11.9 - Type 2 diabetes mellitus without complications; Z79.4 - [facility] (current) use of insulin; Z79.4 - [employer] (current) use of insulin; Z79.4 - [facility] (current) use of insulin; Z79.4 - [employer] (current ) use of insulin (5) Chronic kidney disease Qualifiers: Chronic kidney disease stage: stage 3 (moderate) Qualified Code(s): N18.3 - Chronic kidney disease, stage 3 (moderate) (7) COPD (chronic obstructive pulmonary disease) Qualifiers: COPD type: unspecified COPD Qualified Code(s): J44.9 - Chronic obstructive pulmonary disease, unspecified (8) Pneumonia Qualifiers: Pneumonia type: aspiration pneumonia Aspiration pneumonia type: due to gastric secretions Laterality: unspecified laterality Lung location: unspecified part of lung Qualified Code(s): J69.0 - Pneumonitis due to inhalation of food and vomit
[2018-07-04] MEDS: Ampicillin/Sulbactam 3,000 MG in 0.9 % Sodium Chloride Mini Bag 100 ML IVPB SCH ×2 (13:05→17:38)
[2018-07-04] MEDS: Insulin LISPRO 300 UNITS/3 ML VIAL SQ SCH ×3 (13:31→20:41)
[2018-07-04] MEDS: Furosemide 40 MG TABLET PO SCH ×2 (15:34→15:38)
[2018-07-04] MEDS: Aspirin Enteric Coated 81 MG Tablet PO SCH (15:34)
[2018-07-04] MEDS ORDERED: Furosemide 40 MG TABLET PO SCH (18:00)
--- NOTE | 2018-07-04 18:58 | Electrocardiograph Report ---
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
[2018-07-04] MEDS: Ipratropium/Albuterol Neb 3 ML IH PRN (19:28)
[2018-07-05] MEDS: Ipratropium/Albuterol Neb 3 ML IH PRN ×2 (03:24→07:24)
[2018-07-05] MEDS ORDERED: Furosemide 40 MG/4 ML VIAL IVP ONE (04:40)
[2018-07-05 06:38] LABS: Basophils % 0.2 %; Eosinophils % 0.1 %; Hematocrit 36.2 % (35.3-44.9); Hemoglobin 10.1 g/dL (11.5-15.4); Immature Granulocytes % 0.9 % (0-4); Lymphocytes # 1.1 K/mcL (0.6-4.6); Lymphocytes % 10.9 %; Mean Corpuscular HGB Conc 27.9 g/dL (31.6-35.5); Mean Corpuscular Hemoglobin 26.7 pg (28.0-33.3); Mean Corpuscular Volume 95.8 fL (83.0-100.0); Mean Platelet Volume 10.4 fL (9.4-12.4); Monocytes # 1.1 K/mcL (0.0-1.3); Monocytes % 10.7 %; Neutrophils # 7.6 K/mcL (1.6-8.9); Platelet Count 222 K/mcL (140-400); Red Blood Count 3.78 M/mcL (3.82-4.97); Red Cell Distribution Width 15.5 % (11.5-14.5); Segmented Neutrophils % 77.2 %
[2018-07-05] MEDS: Ampicillin/Sulbactam 3,000 MG in 0.9 % Sodium Chloride Mini Bag 100 ML IVPB SCH ×5 (06:45→23:19)
[2018-07-05 06:52] LABS: Calcium 8.9 mg/dL (8.6-10.3); Potassium 3.7 mEq/L (3.5-5.1)
[2018-07-05] MEDS: Insulin LISPRO 300 UNITS/3 ML VIAL SQ SCH ×4 (07:55→22:49)
[2018-07-05] MEDS: Aspirin Enteric Coated 81 MG Tablet PO SCH (07:55)
[2018-07-05] MEDS: Furosemide 40 MG TABLET PO SCH ×2 (07:58→16:02)
[2018-07-05 08:34] LABS: Anisocytosis 1+ (Not Present); Hypochromasia Present (Not Present); Platelet Estimate Normal (Normal)
--- NOTE | 2018-07-05 09:13 | Palliative Progress Note ---
Date of Encounter: 07/05/18 Time of Encounter: 09:00 - Assessment and plan (1) Generalized pain Current Visit: Yes Status: Acute Assessment and plan: Has Oxycodone available PRN. Utilized x1 last 24 hours for c/o abdominal tenderness from coughing and "ache all over". Patient states this was helpful and pain currently a 2/10, but does not like the liquid concentrate. Will switch to po tablet. Monitor. (2) Dyspnea Current Visit: Yes Status: Acute Assessment and plan: Had increased dyspnea and hypoxia last night, improved now after Lasix and increased oxygen. Repeat CXR pending. Monitor Qualifiers: Dyspnea type: unspecified Qualified Code(s): R06.00 - Dyspnea, unspecified (3) Goals of care, counseling/discussion Current Visit: Yes Status: Acute Assessment and plan: Niece at bedside, patient looks and feels better this am. Eating well and able to start coughing up secretions. Speech cleared for diet yesterday. They desire to continue present course of care. [facility]. Will continue to follow clinical course. (4) Acute respiratory failure with hypoxia and hypercarbia Current Visit: Yes Status: Acute (5) COPD (chronic obstructive pulmonary disease) Current Visit: Yes Status: Acute Qualifiers: COPD type: unspecified COPD Qualified Code(s): J44.9 - Chronic obstructive pulmonary disease, unspecified (6) Pneumonia Current Visit: Yes Status: Suspected Qualifiers: Pneumonia type: aspiration pneumonia Aspiration pneumonia type: due to gastric secretions Laterality: unspecified laterality Lung location: unspecified part of lung Qualified Code(s): J69.0 - Pneumonitis due to inhalation of food and vomit - Time Spent With Patient Total time spent is greater than 50% in coordination of care (as documented) at patient's floor/unit and/or counseling patient: - Subjective Interval history: Patient awake and alert - eating breakfast independently. Increased respiratory distress last night - received Furosemide and oxygen was increased. Currently on 9 Liters high flow nasal cannula. She is pleasant and in good spirits this am. Still with audible rhonchi, but states she is starting to "cough some up". Niece is at bedside. - Constitutional Vitals: Abnormal lab results RBC 3.78 M/mcL (3.82-4.97) L 07/05/18 05:30 Hgb 10.1 g/dL (11.5-15.4) L 07/05/18 05:30 MCH 26.7 pg (28.0-33.3) L 07/05/18 05:30 MCHC 27.9 g/dL (31.6-35.5) L 07/05/18 05:30 RDW 15.5 % (11.5-14.5) H 07/05/18 05:30 Hypochromasia Present (Not Present) A 07/05/18 05:30 Anisocytosis 1+ (Not Present) A 07/05/18 05:30 VBG pCO2 82 mmHg (41-51) H* 07/03/18 17:54 VBG pO2 62 mmHg (25-50) H 07/03/18 17:54 VBG HCO3 42 mEq/L (21-27) H 07/03/18 17:54 Carbon Dioxide 37 mEq/L (23-29) H 07/05/18 05:30 BUN 45 mg/dL (8-23) H 07/05/18 05:30 Creatinine 1.30 mg/dL (0.60-1.20) H 07/05/18 05:30 Est GFR ( Amer) 49 (> 60) L 07/05/18 05:30 Est GFR (Non-Af Amer) 40 (> 60) L 07/05/18 05:30 BUN/Creatinine Ratio 35 (6-26) H 07/05/18 05:30 Glucose 265 mg/dL (70-105) H 07/05/18 05:30 POC Glucose 323 mg/dL (70-99) H 07/04/18 20:23 Calculated Osmolality 317 (280-300) H 07/05/18 05:30 Urine Clarity Turbid (Clear) A 07/03/18 18:02 Urine Protein 100 mg/dL (Neg-Trace) H 07/03/18 18:02 Urine Blood Small (Negative) H 07/03/18 18:02 Ur Leukocyte Esterase Large (Negative) H 07/03/18 18:02 Urine Microscopic WBC TNTC per hpf (0-3) H 07/03/18 18:02 Ur Squamous Epith Cells Many per lpf (None-Few) H 07/03/18 18:02 Urine Bacteria Many per hpf (None-Few) H 07/03/18 18:02 Ur Culture Indicated? NO. (NO) A 07/03/18 18:02 General appearance: Present: no acute distress - Respiratory Additional comments: Rhonchi throughout all lung hicks, rt greater than lt. Expiratory wheezes also noted. - Cardiovascular Cardiovascular exam: Present: +S1, +S2, tachycardia - GI/Abdominal GI/Abdominal exam: Present: normal bowel sounds, soft - Extremities Exam Additional comments: Left arm/leg with 2+ edema. Right lower extremity 1+ edema - Neurological Exam Additional comments: Left sided deficits persist from old stroke. Follows commands with right upper and lower extremities. Alert and oriented x3 this am. Answering all questions appropriately. - Skin Skin exam: Present: dry, pallor, warm Palliative Quality Palliative Quality: Screen for Code Status: Yes, Screen for Goals of Care: Yes, Screen for Pain: Yes, If Pain Regimen Started, Initiate Bowel Regimen: NA, Screen for Nausea/Vomitting: Yes Code Status: 07/03/18 21:26 Resuscitation Status: Active [RES] Routine Comment: Resuscitation Status: DNR-Comfort Care - Labs CBC & Chem 7: 07/05/18 05:30 07/05/18 05:30 Labs: Laboratory Results - last 24 hr 07/04/18 07/04/18 07/04/18 11:43 15:31 20:23 WBC RBC Hgb Hct MCV MCH MCHC RDW Plt Count MPV Immature Gran % Seg Neutrophils % Lymphocytes % Monocytes % Eosinophils % Basophils % Neutrophils # Lymphocytes # Monocytes # Eosinophils # Basophils # Platelet Estimate Hypochromasia Anisocytosis Sodium Potassium Chloride Carbon Dioxide BUN Creatinine Est GFR ( Amer) Est GFR (Non-Af Amer) BUN/Creatinine Ratio Glucose POC Glucose 334 H 297 H 323 H Calculated Osmolality Calcium 07/05/18 07/05/18 05:30 05:30 WBC 9.9 RBC 3.78 L Hgb 10.1 L Hct 36.2 MCV 95.8 MCH 26.7 L MCHC 27.9 L RDW 15.5 H Plt Count 222 MPV 10.4 Immature Gran % 0.9 Seg Neutrophils % 77.2 Lymphocytes % 10.9 Monocytes % 10.7 Eosinophils % 0.1 Basophils % 0.2 Neutrophils # 7.6 Lymphocytes # 1.1 Monocytes # 1.1 Eosinophils # 0.0 Basophils # 0.0 Platelet Estimate Normal Hypochromasia Present A Anisocytosis 1+ A Sodium 143 Potassium 3.7 Chloride 98 Carbon Dioxide 37 H BUN 45 H Creatinine 1.30 H Est GFR ( Amer) 49 L Est GFR (Non-Af Amer) 40 L BUN/Creatinine Ratio 35 H Glucose 265 H POC Glucose Calculated Osmolality 317 H Calcium 8.9 Consult Discharge Plan - Plan Referrals: NONE,PCP [Primary Care Provider] -
[2018-07-05] MEDS ORDERED: Levalbuterol Neb 1.25 MG/3 ML IH PRN (09:55)
[2018-07-05] MEDS ORDERED: DiphenhydraMINE CREAM 28.4 GM TUBE TP PRN (09:56)
[2018-07-05] MEDS ORDERED: Acetaminophen 325 MG TABLET PO PRN (09:56)
[2018-07-05] MEDS: Levalbuterol Neb 1.25 MG/3 ML IH SCH ×3 (10:52→22:17)
[2018-07-05] MEDS: Metoprolol XL (24 HR) Succ 50 MG TAB.ER.24H PO SCH (11:27)
[2018-07-05] MEDS: Artificial Tears SOLN 15 ML BOTTLE OP SCH ×3 (12:05→21:15)
--- NOTE | 2018-07-05 12:38 | Internal Med Progress Note ---
Hospitalist Progress Note - Encounter Date of Encounter: 07/05/18 Time of Encounter: 09:00 - Subjective Interval History: Still has SOB and cough. Still need high flow O2. Mentally imroved. AAO x 3 today. - Exam Vitals: Temp Pulse Resp BP Pulse Ox 98.1 F 120 17 101/62 92 07/05/18 12:05 07/05/18 12:05 07/05/18 12:05 07/05/18 12:05 07/05/18 12:05 Exam: alert and oriented x 3. In NAD. On high flow O2. HEENT: NC/AT, PERRL Neck: Supple, no JVD Lungs: Coarse breath sound b/l, diffused rhonchi, scattered wheezing b/l Heart: S1S2, RRR Abd: Soft, NT, BS normal Ext: No pedal edema Neuro: Left side hemiplegia due to previous CVA. - Assessment and Plan (1) History of cerebrovascular accident (CVA) with residual deficit Current Visit: No Status: Chronic Assessment and Plan: Patient has history of cerebrovascular accident with residual left-sided paralysis. Cont antiplatelet for secondary prevention. (2) DM (diabetes mellitus) Current Visit: No Status: Chronic Assessment and Plan: Patient has chronic history of diabetes managed with home insulin - Place pt on SSI at this point. Add basal insulin today. (3) Acute respiratory failure with hypoxia and hypercarbia Current Visit: Yes Status: Acute Assessment and Plan: Patient presented with chief complaint of shortness of breath In the ED she was found to be hypoxic and hypercarbic and hypercapnic Pt has hx of CVA with difficult swallowing. Suspect aspiration pneumonia. CXR shows possible congestion vs PNA. BNP is not elevated, will cont abx to treat PNA. Plan: - Sallow evaluation appreciated, diet started per recommendation - Cont unasyn iv - Cont supportive treatment - Duoneb [place] and PRN. - Cont pulseoximetry monitoring. (4) Shock Current Visit: Yes Status: Acute Assessment and Plan: Improved after hydration, closely monitor vitals. No further hypotension. (5) Chronic kidney disease Current Visit: No Status: Chronic Assessment and Plan: Patient has history of chronic kidney disease Creatinine on admission is 1.5 Based on previous lab results is appears to be her baseline We will continue to monitor (6) Diastolic CHF with preserved left ventricular function, NYHA class 2 Current Visit: Yes Status: Acute Assessment and Plan: Patient has known history of heart failure Last echocardiogram in September 2017 demonstrated indeterminate diastolic dysfunction, ejection fraction 55%, severe aortic valve sclerosis Will cont home meds of lasix as BP tolerate. Cont closely monitor pt. Appears euvolemic at this point (7) COPD (chronic obstructive pulmonary disease) Current Visit: Yes Status: Acute Assessment and Plan: Patient has known history of COPD Cont Abx and duoneb. Minimal wheezing, will hold steroid at this point. Cont home med inhale steroid. (8) Pneumonia Current Visit: Yes Status: Suspected Assessment and Plan: Patient has had difficulty maintaining her airway during this episode of respiratory distress Highly suspect aspiration PNA. Management as above. DVT Prophylaxis: Heparin SC - Time Spent with Patient Total time spent is greater than 50% in coordination of care (as documented) at patient's floor/unit and/or counseling patient: 25 - 35 minutes Plan of Care Discussed with: family Internal Medicine: Result - Labs CBC & Chem 7: 07/05/18 05:30 07/05/18 05:30 Labs: Short CBC 07/05/18 Range/Units 05:30 WBC 9.9 (4.3-11.1) K/mcL Hgb 10.1 L (11.5-15.4) g/dL Hct 36.2 (35.3-44.9) % Plt Count 222 (140-400) K/mcL Neutrophils # 7.6 (1.6-8.9) K/mcL BMP 07/05/18 05:30 Sodium 143 Potassium 3.7 Chloride 98 Carbon Dioxide 37 H BUN 45 H Creatinine 1.30 H Glucose 265 H Calcium 8.9 - Impressions Impressions Chest X-Ray 07/05/18 09:56 IMPRESSION: 1. Stable bilateral perihilar interstitial reticulonodular densities which may represent acute pulmonary edema versus bronchitis/bronchiolitis. No lobar pneumonia or large effusions. 2. Stable left lung base patchy consolidation. 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; Z79.4 - alf (current) use of insulin; 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; Z79.4 - alf (current ) use of insulin (5) Chronic kidney disease Qualifiers: Chronic kidney disease stage: stage 3 (moderate) Qualified Code(s): N18.3 - Chronic kidney disease, stage 3 (moderate) (7) COPD (chronic obstructive pulmonary disease) Qualifiers: COPD type: unspecified COPD Qualified Code(s): J44.9 - Chronic obstructive pulmonary disease, unspecified (8) Pneumonia Qualifiers: Pneumonia type: aspiration pneumonia Aspiration pneumonia type: due to gastric secretions Laterality: unspecified laterality Lung location: unspecified part of lung Qualified Code(s): J69.0 - Pneumonitis due to inhalation of food and vomit
[2018-07-05] MEDS: Benzonatate 100 MG CAPSULE PO SCH ×2 (14:01→21:09)
[2018-07-05] MEDS: *HR* Heparin 5,000 UNIT/ML VIAL SQ SCH (18:07)
[2018-07-05] MEDS ORDERED: Budesonide Neb 0.5 MG/2 ML IH SCH (21:00)
[2018-07-05] MEDS ORDERED: Insulin DETEMIR 100 UNIT/ML X5UNITS SQ SCH (21:00)
[2018-07-05] MEDS: *HR* OxyCODONE Immed Rel 5 MG TABLET PO PRN (21:10)
[2018-07-05] MEDS: Latanoprost 2.5 ML BOTTLE BOTH EYES SCH (21:14)
[2018-07-05] MEDS: Budesonide Neb 0.5 MG/2 ML IH SCH (22:17)
[2018-07-06 03:39] LABS: Immature Granulocytes % 1.3 % (0-4)
[2018-07-06 03:40] LABS: Basophils % 0.2 %; Eosinophils # 0.1 K/mcL (0.0-0.6); Eosinophils % 1.5 %; Hematocrit 33.9 % (35.3-44.9); Hemoglobin 9.7 g/dL (11.5-15.4); Lymphocytes # 1.1 K/mcL (0.6-4.6); Lymphocytes % 12.5 %; Mean Corpuscular HGB Conc 28.6 g/dL (31.6-35.5); Mean Corpuscular Hemoglobin 26.6 pg (28.0-33.3); Mean Corpuscular Volume 92.9 fL (83.0-100.0); Mean Platelet Volume 10.3 fL (9.4-12.4); Monocytes % 11.1 %; Neutrophils # 6.3 K/mcL (1.6-8.9); Platelet Count 192 K/mcL (140-400); Red Blood Count 3.65 M/mcL (3.82-4.97); Red Cell Distribution Width 15.7 % (11.5-14.5); Segmented Neutrophils % 73.4 %
[2018-07-06 04:09] LABS: Platelet Estimate Normal (Normal)
[2018-07-06 04:15] LABS: Calcium 8.7 mg/dL (8.6-10.3); Potassium 3.5 mEq/L (3.5-5.1)
[2018-07-06] MEDS: Levalbuterol Neb 1.25 MG/3 ML IH SCH ×4 (04:19→23:40)
[2018-07-06] MEDS: Ampicillin/Sulbactam 3,000 MG in 0.9 % Sodium Chloride Mini Bag 100 ML IVPB SCH ×3 (06:04→18:01)
[2018-07-06] MEDS: *HR* Heparin 5,000 UNIT/ML VIAL SQ SCH ×2 (06:05→18:02)
[2018-07-06] MEDS: Aspirin Enteric Coated 81 MG Tablet PO SCH (08:16)
[2018-07-06] MEDS: Insulin LISPRO 300 UNITS/3 ML VIAL SQ SCH ×4 (08:16→22:03)
[2018-07-06] MEDS: Benzonatate 100 MG CAPSULE PO SCH ×3 (08:16→22:05)
[2018-07-06] MEDS: Artificial Tears SOLN 15 ML BOTTLE OP SCH ×4 (08:16→22:03)
[2018-07-06] MEDS: Metoprolol XL (24 HR) Succ 50 MG TAB.ER.24H PO SCH (08:16)
[2018-07-06] MEDS: Furosemide 40 MG TABLET PO SCH ×2 (08:16→18:01)
--- NOTE | 2018-07-06 10:40 | Palliative Progress Note ---
Date of Encounter: 07/06/18 Time of Encounter: 10:30 - Assessment and plan (1) Generalized pain Current Visit: Yes Status: Acute Assessment and plan: Continue low dose po Oxycodone. Utilized x1 last 24 hours. (2) Anxiety Current Visit: Yes Status: Acute Assessment and plan: She was given 1mg Lorazepam last night, this was originally ordered upon admission, when her condition was much worse, and thought she may need for comfort. She has improved since admission. Will decrease to 0.5mg. D/W pharmacy - she was on Zoloft and Effexor at [facility]. Will add back Zoloft today and evaluate if she needs Effexor restarted as well. Monitor (3) Dyspnea Current Visit: Yes Status: Acute Assessment and plan: Continues with supportive oxygen/aerosols/atb/diuretic therapy. Monitor Qualifiers: Dyspnea type: unspecified Qualified Code(s): R06.00 - Dyspnea, unspecified (4) Goals of care, counseling/discussion Current Visit: Yes Status: Acute Assessment and plan: Continue present course of care. Will continue to follow closely. Family understands her condition is fragile, and there is chance she may not get much better. (5) Acute respiratory failure with hypoxia and hypercarbia Current Visit: Yes Status: Acute (6) COPD (chronic obstructive pulmonary disease) Current Visit: Yes Status: Acute Qualifiers: COPD type: unspecified COPD Qualified Code(s): J44.9 - Chronic obstructive pulmonary disease, unspecified (7) Pneumonia Current Visit: Yes Status: Suspected Qualifiers: Pneumonia type: aspiration pneumonia Aspiration pneumonia type: due to gastric secretions Laterality: unspecified laterality Lung location: unspecified part of lung Qualified Code(s): J69.0 - Pneumonitis due to inhalation of food and vomit - Time Spent With Patient Total time spent is greater than 50% in coordination of care (as documented) at patient's floor/unit and/or counseling patient: - Subjective Interval history: Patient awake and alert. Denies complaints at present. Does not appear as alert today. POA at bedside states she had rough night and a lot of confusion, restlessness, and anxiety. She did receive Lorazeapam 1mg last night. - Constitutional Vitals: Abnormal lab results RBC 3.65 M/mcL (3.82-4.97) L 07/06/18 03:23 Hgb 9.7 g/dL (11.5-15.4) L 07/06/18 03:23 Hct 33.9 % (35.3-44.9) L 07/06/18 03:23 MCH 26.6 pg (28.0-33.3) L 07/06/18 03:23 MCHC 28.6 g/dL (31.6-35.5) L 07/06/18 03:23 RDW 15.7 % (11.5-14.5) H 07/06/18 03:23 Hypochromasia Present (Not Present) A 07/05/18 05:30 Anisocytosis 1+ (Not Present) A 07/05/18 05:30 VBG pCO2 82 mmHg (41-51) H* 07/03/18 17:54 VBG pO2 62 mmHg (25-50) H 07/03/18 17:54 VBG HCO3 42 mEq/L (21-27) H 07/03/18 17:54 Sodium 146 mEq/L (136-145) H 07/06/18 03:23 Carbon Dioxide 40 mEq/L (23-29) H* 07/06/18 03:23 BUN 37 mg/dL (8-23) H 07/06/18 03:23 Est GFR ( Amer) 54 (> 60) L 07/06/18 03:23 Est GFR (Non-Af Amer) 45 (> 60) L 07/06/18 03:23 BUN/Creatinine Ratio 31 (6-26) H 07/06/18 03:23 Glucose 246 mg/dL (70-105) H 07/06/18 03:23 POC Glucose 285 mg/dL (70-99) H 07/05/18 16:55 Calculated Osmolality 319 (280-300) H 07/06/18 03:23 Urine Clarity Turbid (Clear) A 07/03/18 18:02 Urine Protein 100 mg/dL (Neg-Trace) H 07/03/18 18:02 Urine Blood Small (Negative) H 07/03/18 18:02 Ur Leukocyte Esterase Large (Negative) H 07/03/18 18:02 Urine Microscopic WBC TNTC per hpf (0-3) H 07/03/18 18:02 Ur Squamous Epith Cells Many per lpf (None-Few) H 07/03/18 18:02 Urine Bacteria Many per hpf (None-Few) H 07/03/18 18:02 Ur Culture Indicated? NO. (NO) A 07/03/18 18:02 General appearance: Present: no acute distress - Respiratory Additional comments: Still with harsh cough. Less rhonchi today. Expiratory wheezes throughout all lung hicks. - Cardiovascular Cardiovascular exam: Present: +S1, +S2 - GI/Abdominal GI/Abdominal exam: Present: normal bowel sounds, soft - Extremities Exam Additional comments: 2+ edema to left upper and lower extremities. - Neurological Exam Additional comments: Left sides remains with deficits from old CVA. Follows commands with right side. Oriented to name and place - needs reoriented to time and situation today. - Skin Skin exam: Present: dry, pallor, warm Palliative Quality Palliative Quality: Screen for Code Status: Yes, Screen for Goals of Care: Yes, Screen for Pain: Yes, If Pain Regimen Started, Initiate Bowel Regimen: NA, Screen for Nausea/Vomitting: Yes Code Status: 07/03/18 21:26 Resuscitation Status: Active [RES] Routine Comment: Resuscitation Status: DNR-Comfort Care - Labs CBC & Chem 7: 07/06/18 03:23 07/06/18 03:23 Labs: Laboratory Results - last 24 hr 07/05/18 07/05/18 07/05/18 07:21 11:59 12:01 WBC RBC Hgb Hct MCV MCH MCHC RDW Plt Count MPV Immature Gran % Seg Neutrophils % Lymphocytes % Monocytes % Eosinophils % Basophils % Neutrophils # Lymphocytes # Monocytes # Eosinophils # Basophils # Platelet Estimate Sodium Potassium Chloride Carbon Dioxide BUN Creatinine Est GFR ( Amer) Est GFR (Non-Af Amer) BUN/Creatinine Ratio Glucose POC Glucose 269 H 444 H* 479 H* Calculated Osmolality Calcium 07/05/18 07/06/18 07/06/18 16:55 03:23 03:23 WBC 8.6 RBC 3.65 L Hgb 9.7 L Hct 33.9 L MCV 92.9 MCH 26.6 L MCHC 28.6 L RDW 15.7 H Plt Count 192 MPV 10.3 Immature Gran % 1.3 Seg Neutrophils % 73.4 Lymphocytes % 12.5 Monocytes % 11.1 Eosinophils % 1.5 Basophils % 0.2 Neutrophils # 6.3 Lymphocytes # 1.1 Monocytes # 1.0 Eosinophils # 0.1 Basophils # 0.0 Platelet Estimate Normal Sodium 146 H Potassium 3.5 Chloride 98 Carbon Dioxide 40 H* BUN 37 H Creatinine 1.18 Est GFR ( Amer) 54 L Est GFR (Non-Af Amer) 45 L BUN/Creatinine Ratio 31 H Glucose 246 H POC Glucose 285 H Calculated Osmolality 319 H Calcium 8.7 - Impressions Impressions Chest X-Ray 07/05/18 09:56 IMPRESSION: 1. Stable bilateral perihilar interstitial reticulonodular densities which may represent acute pulmonary edema versus bronchitis/bronchiolitis. No lobar pneumonia or large effusions. 2. Stable left lung base patchy consolidation. D/ / 07/05/2018 10:40:04 Chavo Miller MD / roxy Interpreting Provider: Chavo Miller MD Consult Discharge Plan - Plan Referrals: NONE,PCP [Primary Care Provider] -
[2018-07-06] MEDS: Budesonide Neb 0.5 MG/2 ML IH SCH ×2 (10:54→23:40)
--- NOTE | 2018-07-06 11:34 | Internal Med Progress Note ---
Hospitalist Progress Note - Encounter Date of Encounter: 07/06/18 Time of Encounter: 09:00 - Subjective Interval History: Pt is sleepy when I saw her, probably due to ativan, which was given during last night. Pt also has increased bicarbonate level. Per RN, pt has agitation last night. Pt needs less O2 to maintain SpO2 - Exam Vitals: Temp Pulse Resp BP Pulse Ox 97.7 F 90 16 121/81 94 07/06/18 07:24 07/06/18 07:24 07/06/18 07:24 07/06/18 07:24 07/06/18 08:02 Exam: Sleepy. On 5-6L O2. HEENT: NC/AT, PERRL Neck: Supple, no JVD Lungs: Coarse breath sound b/l, scattered rhonchi, scattered wheezing b/l Heart: S1S2, RRR Abd: Soft, NT, BS normal Ext: No pedal edema Neuro: Left side hemiplegia due to previous CVA. - Assessment and Plan (1) History of cerebrovascular accident (CVA) with residual deficit Current Visit: No Status: Chronic Assessment and Plan: Patient has history of cerebrovascular accident with residual left-sided paralysis. Cont antiplatelet for secondary prevention. (2) DM (diabetes mellitus) Current Visit: No Status: Chronic Assessment and Plan: Patient has chronic history of diabetes managed with home insulin - Place pt on SSI at this point. Add basal insulin today. (3) Acute respiratory failure with hypoxia and hypercarbia Current Visit: Yes Status: Acute Assessment and Plan: Patient presented with chief complaint of shortness of breath In the ED she was found to be hypoxic and hypercarbic and hypercapnic Pt has hx of CVA with difficult swallowing. Suspect aspiration pneumonia. CXR shows possible congestion vs PNA. BNP is not elevated, will cont abx to treat PNA. Plan: - Sallow evaluation appreciated, diet started per recommendation - Cont unasyn iv - Cont supportive treatment - Duoneb [place] and PRN. - Cont pulseoximetry monitoring. - Family still refuse BiPAP/intubation (4) Shock Current Visit: Yes Status: Acute Assessment and Plan: Improved after hydration, closely monitor vitals. No further hypotension. (5) Chronic kidney disease Current Visit: No Status: Chronic Assessment and Plan: Patient has history of chronic kidney disease Creatinine on admission is 1.5 Based on previous lab results is appears to be her baseline We will continue to monitor (6) Diastolic CHF with preserved left ventricular function, NYHA class 2 Current Visit: Yes Status: Acute Assessment and Plan: Patient has known history of heart failure Last echocardiogram in September 2017 demonstrated indeterminate diastolic dysfunction, ejection fraction 55%, severe aortic valve sclerosis Will cont home meds of lasix as BP tolerate. Cont closely monitor pt. Appears euvolemic at this point (7) COPD (chronic obstructive pulmonary disease) Current Visit: Yes Status: Acute Assessment and Plan: Patient has known history of COPD Cont Abx and duoneb. Minimal wheezing, will hold steroid at this point. Cont home med inhale steroid. (8) Pneumonia Current Visit: Yes Status: Suspected Assessment and Plan: Patient has had difficulty maintaining her airway during this episode of respiratory distress CXR suggest PNA Highly suspect aspiration PNA. Management as above. DVT Prophylaxis: Heparin SC - Time Spent with Patient Total time spent is greater than 50% in coordination of care (as documented) at patient's floor/unit and/or counseling patient: 30min 25 - 35 minutes Plan of Care Discussed with: family Internal Medicine: Result - Labs CBC & Chem 7: 07/06/18 03:23 07/06/18 03:23 Labs: Short CBC 07/06/18 Range/Units 03:23 WBC 8.6 (4.3-11.1) K/mcL Hgb 9.7 L (11.5-15.4) g/dL Hct 33.9 L (35.3-44.9) % Plt Count 192 (140-400) K/mcL Neutrophils # 6.3 (1.6-8.9) K/mcL BMP 07/06/18 03:23 Sodium 146 H Potassium 3.5 Chloride 98 Carbon Dioxide 40 H* BUN 37 H Creatinine 1.18 Glucose 246 H Calcium 8.7 - VTE Reasons for not Prescribing Prophylaxis: Medical contraindication Consult Discharge Plan - Plan Referrals: NONE,PCP [Primary Care Provider] - (2) DM (diabetes mellitus) Qualifiers: Diabetes mellitus type: type 2 Diabetes mellitus custodial insulin use: with custodial use Diabetes mellitus complication status: without complication Qualified Code(s): E11.9 - Type 2 diabetes mellitus without complications; Z79.4 - FDC (current) use of insulin; Z79.4 - terminal block assembler (current) use of insulin; Z79.4 - terminal block assembler (current) use of insulin; Z79.4 - terminal block assembler (current ) use of insulin (5) Chronic kidney disease Qualifiers: Chronic kidney disease stage: stage 3 (moderate) Qualified Code(s): N18.3 - Chronic kidney disease, stage 3 (moderate) (7) COPD (chronic obstructive pulmonary disease) Qualifiers: COPD type: unspecified COPD Qualified Code(s): J44.9 - Chronic obstructive pulmonary disease, unspecified (8) Pneumonia Qualifiers: Pneumonia type: aspiration pneumonia Aspiration pneumonia type: due to gastric secretions Laterality: unspecified laterality Lung location: unspecified part of lung Qualified Code(s): J69.0 - Pneumonitis due to inhalation of food and vomit
[2018-07-06] MEDS: Sennosides/Docusate Sodium TABLET PO SCH ×2 (13:16→22:05)
[2018-07-06] MEDS ORDERED: Insulin DETEMIR 100 UNIT/ML X5UNITS SQ SCH (21:00)
[2018-07-06] MEDS: *HR* LORazepam 2 MG/ML VIAL IVP PRN (22:06)
[2018-07-06] MEDS: Latanoprost 2.5 ML BOTTLE BOTH EYES SCH (22:06)
[2018-07-07] MEDS: Ampicillin/Sulbactam 3,000 MG in 0.9 % Sodium Chloride Mini Bag 100 ML IVPB SCH ×3 (00:53→12:43)
[2018-07-07] MEDS: Levalbuterol Neb 1.25 MG/3 ML IH SCH ×4 (03:42→21:22)
[2018-07-07 05:42] LABS: Lymphocytes % 10.3 %; Mean Corpuscular Hemoglobin 26.4 pg (28.0-33.3); Platelet Count 201 K/mcL (140-400)
[2018-07-07 05:43] LABS: Basophils % 0.5 %; Eosinophils # 0.3 K/mcL (0.0-0.6); Eosinophils % 3.2 %; Hematocrit 35.1 % (35.3-44.9); Hemoglobin 9.9 g/dL (11.5-15.4); Immature Granulocytes % 1.5 % (0-4); Lymphocytes # 0.9 K/mcL (0.6-4.6); Mean Corpuscular HGB Conc 28.2 g/dL (31.6-35.5); Mean Corpuscular Volume 93.6 fL (83.0-100.0); Mean Platelet Volume 10.5 fL (9.4-12.4); Monocytes # 0.7 K/mcL (0.0-1.3); Monocytes % 7.7 %; Neutrophils # 6.7 K/mcL (1.6-8.9); Red Blood Count 3.75 M/mcL (3.82-4.97); Red Cell Distribution Width 15.3 % (11.5-14.5); Segmented Neutrophils % 76.8 %
[2018-07-07 06:10] LABS: BUN/Creatinine Ratio 29 (6-26); Blood Urea Nitrogen 30 mg/dL (8-23); Carbon Dioxide 43 mEq/L (23-29); Chloride 95 mEq/L (98-107); Glucose 264 mg/dL (70-105); Osmolality,Calculated 317 (280-300); Potassium 3.1 mEq/L (3.5-5.1); Sodium 146 mEq/L (136-145); eGFR For Non-African Americans 53 (> 60)
[2018-07-07 06:50] LABS: Hypochromasia Present (Not Present); Platelet Estimate Normal (Normal)
[2018-07-07] MEDS: *HR* Heparin 5,000 UNIT/ML VIAL SQ SCH ×2 (06:57→17:45)
[2018-07-07] MEDS ORDERED: Potassium Chloride Elixir 20 MEQ/15 ML UDC PO ONE (07:13)
[2018-07-07] MEDS: Benzonatate 100 MG CAPSULE PO SCH ×3 (09:17→21:45)
[2018-07-07] MEDS: Aspirin Enteric Coated 81 MG Tablet PO SCH (09:17)
[2018-07-07] MEDS: Sennosides/Docusate Sodium TABLET PO SCH ×2 (09:17→21:45)
[2018-07-07] MEDS: Metoprolol XL (24 HR) Succ 50 MG TAB.ER.24H PO SCH (09:18)
[2018-07-07] MEDS: Insulin LISPRO 300 UNITS/3 ML VIAL SQ SCH ×4 (09:18→21:46)
[2018-07-07] MEDS: Artificial Tears SOLN 15 ML BOTTLE OP SCH ×4 (09:19→21:46)
[2018-07-07] MEDS: Budesonide Neb 0.5 MG/2 ML IH SCH ×2 (09:48→21:22)
--- NOTE | 2018-07-07 12:20 | Palliative Progress Note ---
Date of Encounter: 07/07/18 Time of Encounter: 12:20 - Assessment and plan (1) Generalized pain Current Visit: Yes Status: Acute Assessment and plan: Has Oxycodone available if needed. Her discomfort has improved and she has not required this in over 24 hours. (2) Anxiety Current Visit: Yes Status: Acute Assessment and plan: Low dose Lorazepam PRN. Received x1 last pm. Sertraline was also restarted yesterday. (3) Dyspnea Current Visit: Yes Status: Acute Qualifiers: Dyspnea type: unspecified Qualified Code(s): R06.00 - Dyspnea, unspecified (4) Goals of care, counseling/discussion Current Visit: Yes Status: Acute Assessment and plan: Niece at bedside. Re-discussed goals of care briefly. Patient does desire to continue present course, but is considering hospice referral upon return to [facility]. Discussed that if she is to the point she does not want to return to hospital for aggressive treatment of medical conditions, Hospice would help her with symptom management at the [facility]. Patient verbalized understanding and states that she will think about this. Niece would be in favor of hospice after treatment of present illness. Will continue to follow. (5) Acute respiratory failure with hypoxia and hypercarbia Current Visit: Yes Status: Acute (6) COPD (chronic obstructive pulmonary disease) Current Visit: Yes Status: Acute Qualifiers: COPD type: unspecified COPD Qualified Code(s): J44.9 - Chronic obstructive pulmonary disease, unspecified (7) Pneumonia Current Visit: Yes Status: Suspected Qualifiers: Pneumonia type: aspiration pneumonia Aspiration pneumonia type: due to gastric secretions Laterality: unspecified laterality Lung location: unspecified part of lung Qualified Code(s): J69.0 - Pneumonitis due to inhalation of food and vomit - Time Spent With Patient Total time spent is greater than 50% in coordination of care (as documented) at patient's floor/unit and/or counseling patient: - Subjective Interval history: Patient awake and alert. Denies complaints at present. More alert and interactive than yesterday. Dr. Osborne also in room during my visit. Niece at bedside. - Constitutional Vitals: Abnormal lab results RBC 3.75 M/mcL (3.82-4.97) L 07/07/18 05:14 Hgb 9.9 g/dL (11.5-15.4) L 07/07/18 05:14 Hct 35.1 % (35.3-44.9) L 07/07/18 05:14 MCH 26.4 pg (28.0-33.3) L 07/07/18 05:14 MCHC 28.2 g/dL (31.6-35.5) L 07/07/18 05:14 RDW 15.3 % (11.5-14.5) H 07/07/18 05:14 Hypochromasia Present (Not Present) A 07/07/18 05:14 Anisocytosis 1+ (Not Present) A 07/05/18 05:30 VBG pCO2 82 mmHg (41-51) H* 07/03/18 17:54 VBG pO2 62 mmHg (25-50) H 07/03/18 17:54 VBG HCO3 42 mEq/L (21-27) H 07/03/18 17:54 Sodium 146 mEq/L (136-145) H 07/07/18 05:14 Potassium 3.1 mEq/L (3.5-5.1) L 07/07/18 05:14 Chloride 95 mEq/L (98-107) L 07/07/18 05:14 Carbon Dioxide 43 mEq/L (23-29) H* 07/07/18 05:14 BUN 30 mg/dL (8-23) H 07/07/18 05:14 Est GFR (Non-Af Amer) 53 (> 60) L 07/07/18 05:14 BUN/Creatinine Ratio 29 (6-26) H 07/07/18 05:14 Glucose 264 mg/dL (70-105) H 07/07/18 05:14 POC Glucose 330 mg/dL (70-99) H 07/06/18 21:59 Calculated Osmolality 317 (280-300) H 07/07/18 05:14 Urine Clarity Turbid (Clear) A 07/03/18 18:02 Urine Protein 100 mg/dL (Neg-Trace) H 07/03/18 18:02 Urine Blood Small (Negative) H 07/03/18 18:02 Ur Leukocyte Esterase Large (Negative) H 07/03/18 18:02 Urine Microscopic WBC TNTC per hpf (0-3) H 07/03/18 18:02 Ur Squamous Epith Cells Many per lpf (None-Few) H 07/03/18 18:02 Urine Bacteria Many per hpf (None-Few) H 07/03/18 18:02 Ur Culture Indicated? NO. (NO) A 07/03/18 18:02 - Respiratory Additional comments: Expiratory wheezes throughout. - Cardiovascular Cardiovascular exam: Present: +S1, +S2 - GI/Abdominal GI/Abdominal exam: Present: normal bowel sounds, soft - Extremities Exam Additional comments: 2+ edema persists to left upper and lower extremity - Neurological Exam Neurological exam: Present: alert, oriented X3 Additional comments: Left sided deficit from old CVA - Skin Skin exam: Present: dry, pallor, warm Palliative Quality Palliative Quality: Screen for Code Status: Yes, Screen for Goals of Care: Yes, Screen for Pain: Yes, If Pain Regimen Started, Initiate Bowel Regimen: NA, Screen for Nausea/Vomitting: Yes - Labs CBC & Chem 7: 07/07/18 05:14 07/07/18 05:14 Labs: Laboratory Results - last 24 hr 07/06/18 07/06/18 07/07/18 16:01 21:59 05:14 WBC 8.7 RBC 3.75 L Hgb 9.9 L Hct 35.1 L MCV 93.6 MCH 26.4 L MCHC 28.2 L RDW 15.3 H Plt Count 201 MPV 10.5 Immature Gran % 1.5 Seg Neutrophils % 76.8 Lymphocytes % 10.3 Monocytes % 7.7 Eosinophils % 3.2 Basophils % 0.5 Neutrophils # 6.7 Lymphocytes # 0.9 Monocytes # 0.7 Eosinophils # 0.3 Basophils # 0.0 Platelet Estimate Normal Hypochromasia Present A Sodium Potassium Chloride Carbon Dioxide BUN Creatinine Est GFR ( Amer) Est GFR (Non-Af Amer) BUN/Creatinine Ratio Glucose POC Glucose 225 H 330 H Calculated Osmolality Calcium 07/07/18 05:14 WBC RBC Hgb Hct MCV MCH MCHC RDW Plt Count MPV Immature Gran % Seg Neutrophils % Lymphocytes % Monocytes % Eosinophils % Basophils % Neutrophils # Lymphocytes # Monocytes # Eosinophils # Basophils # Platelet Estimate Hypochromasia Sodium 146 H Potassium 3.1 L Chloride 95 L Carbon Dioxide 43 H* BUN 30 H Creatinine 1.02 Est GFR ( Amer) > 60 Est GFR (Non-Af Amer) 53 L BUN/Creatinine Ratio 29 H Glucose 264 H POC Glucose Calculated Osmolality 317 H Calcium 9.0 Consult Discharge Plan - Plan Referrals: NONE,PCP [Primary Care Provider] -
--- NOTE | 2018-07-07 12:22 | Internal Med Progress Note ---
Hospitalist Progress Note - Encounter Date of Encounter: 07/07/18 Time of Encounter: 08:00 - Subjective Interval History: Pt is AAO x3. Mild cough. No fever. Improved SOB and needs less O2 to maintain SpO2 - Exam Vitals: Temp Pulse Resp BP Pulse Ox 99.0 F 85 15 111/71 92 07/07/18 07:57 07/07/18 07:57 07/07/18 09:48 07/07/18 07:57 07/07/18 09:48 Exam: AAO x 3. On 5-6L O2. HEENT: NC/AT, PERRL Neck: Supple, no JVD Lungs: Coarse breath sound b/l, scattered rhonchi, scattered wheezing b/l Heart: S1S2, RRR Abd: Soft, NT, BS normal Ext: No pedal edema Neuro: Left side hemiplegia due to previous CVA. - Assessment and Plan (1) History of cerebrovascular accident (CVA) with residual deficit Current Visit: No Status: Chronic Assessment and Plan: Patient has history of cerebrovascular accident with residual left-sided paralysis. Cont antiplatelet for secondary prevention. (2) DM (diabetes mellitus) Current Visit: No Status: Chronic Assessment and Plan: Patient has chronic history of diabetes managed with home insulin - Cont SSI and basal insulin. adjust dose per Glu level. (3) Acute respiratory failure with hypoxia and hypercarbia Current Visit: Yes Status: Acute Assessment and Plan: Patient presented with chief complaint of shortness of breath In the ED she was found to be hypoxic and hypercarbic and hypercapnic Pt has hx of CVA with difficult swallowing. Suspect aspiration pneumonia. CXR shows possible congestion vs PNA. BNP is not elevated, will cont abx to treat PNA. Plan: - Sallow evaluation appreciated, diet started per recommendation - Switch Abx to po augmentin as clinically improved and blood culture negative so far. - Cont supportive treatment - Duoneb [place] and PRN. - Cont pulseoximetry monitoring. - Pt and family refuse BiPAP (4) Chronic kidney disease Current Visit: No Status: Chronic Assessment and Plan: Patient has history of chronic kidney disease Creatinine on admission is 1.5, gradually improved now Based on previous lab results is appears to be her baseline We will continue to monitor (5) Diastolic CHF with preserved left ventricular function, NYHA class 2 Current Visit: Yes Status: Acute Assessment and Plan: Patient has known history of heart failure Last echocardiogram in September 2017 demonstrated indeterminate diastolic dysfunction, ejection fraction 55%, severe aortic valve sclerosis Will cont home meds of lasix as BP tolerate. Cont closely monitor pt. Appears euvolemic at this point (6) COPD (chronic obstructive pulmonary disease) Current Visit: Yes Status: Acute Assessment and Plan: Patient has known history of COPD Cont Abx and duoneb. Sometimes has minimal wheezing, will hold steroid at this point. Cont home med inhale steroid. (7) Pneumonia Current Visit: Yes Status: Suspected Assessment and Plan: Patient has had difficulty maintaining her airway during this episode of respiratory distress CXR suggest PNA Highly suspect aspiration PNA. Management as above. Explain to pt and family that because pt is generally bedbound, she has high chance of PNA. Pt will think about hospice care but not decide yet. DVT Prophylaxis: Heparin SC - Time Spent with Patient Total time spent is greater than 50% in coordination of care (as documented) at patient's floor/unit and/or counseling patient: 30min 25 - 35 minutes Plan of Care Discussed with: patient Internal Medicine: Result - Labs CBC & Chem 7: 07/07/18 05:14 07/07/18 05:14 Labs: Short CBC 07/07/18 Range/Units 05:14 WBC 8.7 (4.3-11.1) K/mcL Hgb 9.9 L (11.5-15.4) g/dL Hct 35.1 L (35.3-44.9) % Plt Count 201 (140-400) K/mcL Neutrophils # 6.7 (1.6-8.9) K/mcL BMP 07/07/18 05:14 Sodium 146 H Potassium 3.1 L Chloride 95 L Carbon Dioxide 43 H* BUN 30 H Creatinine 1.02 Glucose 264 H Calcium 9.0 - VTE Reasons for not Prescribing Prophylaxis: Medical contraindication Consult Discharge Plan - Plan Referrals: NONE,PCP [Primary Care Provider] - (2) DM (diabetes mellitus) Qualifiers: Qualified Code(s): E11.9 - Type 2 diabetes mellitus without complications; Z79.4 - long term care administrator (current) use of insulin (4) Chronic kidney disease Qualifiers: Qualified Code(s): N18.3 - Chronic kidney disease, stage 3 (moderate) (6) COPD (chronic obstructive pulmonary disease) Qualifiers: Qualified Code(s): J44.9 - Chronic obstructive pulmonary disease, unspecified (7) Pneumonia Qualifiers: Qualified Code(s): J69.0 - Pneumonitis due to inhalation of food and vomit
[2018-07-07] MEDS: Furosemide 40 MG TABLET PO SCH ×2 (12:43→17:39)
[2018-07-07] MEDS: *HR* LORazepam 2 MG/ML VIAL IVP PRN (18:53)
[2018-07-07] MEDS: Insulin DETEMIR 100 UNIT/ML X5UNITS SQ SCH (21:45)
[2018-07-07] MEDS: Latanoprost 2.5 ML BOTTLE BOTH EYES SCH (21:46)
[2018-07-08] MEDS: *HR* LORazepam 2 MG/ML VIAL IVP PRN ×2 (01:23→17:00)
[2018-07-08] MEDS: Levalbuterol Neb 1.25 MG/3 ML IH SCH ×4 (03:50→22:57)
[2018-07-08] MEDS: *HR* Heparin 5,000 UNIT/ML VIAL SQ SCH ×3 (06:17→17:00)
[2018-07-08 06:28] LABS: BUN/Creatinine Ratio 25 (6-26); Blood Urea Nitrogen 26 mg/dL (8-23); Carbon Dioxide 45 mEq/L (23-29); Chloride 95 mEq/L (98-107); Glucose 185 mg/dL (70-105); Osmolality,Calculated 310 (280-300); Potassium 3.2 mEq/L (3.5-5.1); Sodium 145 mEq/L (136-145); eGFR For Non-African Americans 52 (> 60)
[2018-07-08] MEDS ORDERED: Potassium Chloride 40 MEQ, Lidocaine 1% 2 ML in D5% in Water 500 ML IVPB ONE (07:24)
[2018-07-08] MEDS: Insulin LISPRO 300 UNITS/3 ML VIAL SQ SCH ×4 (08:55→20:49)
[2018-07-08] MEDS: Artificial Tears SOLN 15 ML BOTTLE OP SCH ×4 (08:55→20:50)
[2018-07-08] MEDS: Metoprolol XL (24 HR) Succ 50 MG TAB.ER.24H PO SCH (08:55)
[2018-07-08] MEDS: Sennosides/Docusate Sodium TABLET PO SCH ×2 (08:56→20:50)
[2018-07-08] MEDS: Aspirin Enteric Coated 81 MG Tablet PO SCH (08:56)
[2018-07-08] MEDS: Benzonatate 100 MG CAPSULE PO SCH ×4 (08:56→20:48)
[2018-07-08] MEDS: Furosemide 40 MG TABLET PO SCH ×2 (08:56→17:00)
[2018-07-08] MEDS: Budesonide Neb 0.5 MG/2 ML IH SCH ×2 (10:15→22:57)
[2018-07-08] MEDS: Venlafaxine XR (24 HR) 75 MG CAP.ER.24H PO SCH (10:54)
--- NOTE | 2018-07-08 13:01 | Internal Med Progress Note ---
Hospitalist Progress Note - Encounter Date of Encounter: 07/08/18 Time of Encounter: 09:00 - Subjective Interval History: Pt is AAO x3. Mild cough. No fever. Improved SOB and needs less O2 to maintain SpO2 (5L today) - Exam Vitals: Temp Pulse Resp BP Pulse Ox 97.6 F 85 19 104/68 94 07/08/18 10:56 07/08/18 10:56 07/08/18 10:56 07/08/18 10:56 07/08/18 10:56 Exam: AAO x 3. On 5L O2. HEENT: NC/AT, PERRL Neck: Supple, no JVD Lungs: Coarse breath sound b/l, scattered rhonchi, no wheezes Heart: S1S2, RRR Abd: Soft, NT, BS normal Ext: No pedal edema Neuro: Left side hemiplegia due to previous CVA. - Assessment and Plan (1) History of cerebrovascular accident (CVA) with residual deficit Current Visit: No Status: Chronic Assessment and Plan: Patient has history of cerebrovascular accident with residual left-sided paralysis. Cont antiplatelet for secondary prevention. (2) DM (diabetes mellitus) Current Visit: No Status: Chronic Assessment and Plan: Patient has chronic history of diabetes managed with home insulin - Cont SSI and basal insulin. adjust dose per Glu level. (3) Acute respiratory failure with hypoxia and hypercarbia Current Visit: Yes Status: Acute Assessment and Plan: Patient presented with chief complaint of shortness of breath In the ED she was found to be hypoxic and hypercarbic and hypercapnic Pt has hx of CVA with difficult swallowing. Suspect aspiration pneumonia. CXR shows possible congestion vs PNA. BNP is not elevated, will cont abx to treat PNA. Plan: - Sallow evaluation appreciated, diet started per recommendation - Switch Abx to po augmentin as clinically improved and blood culture negative so far. - Cont supportive treatment - Duoneb [place] and PRN. - Cont pulseoximetry monitoring. - Pt and family refuse BiPAP (4) Chronic kidney disease Current Visit: No Status: Chronic Assessment and Plan: Patient has history of chronic kidney disease Creatinine on admission is 1.5, gradually improved now Based on previous lab results is appears to be her baseline We will continue to monitor (5) Diastolic CHF with preserved left ventricular function, NYHA class 2 Current Visit: Yes Status: Acute Assessment and Plan: Patient has known history of heart failure Last echocardiogram in September 2017 demonstrated indeterminate diastolic dysfunction, ejection fraction 55%, severe aortic valve sclerosis Will cont home meds of lasix as BP tolerate. Cont closely monitor pt. Appears euvolemic at this point (6) COPD (chronic obstructive pulmonary disease) Current Visit: Yes Status: Acute Assessment and Plan: Patient has known history of COPD Cont Abx and duoneb. Sometimes has minimal wheezing, will hold steroid at this point. Cont home med inhale steroid. (7) Pneumonia Current Visit: Yes Status: Suspected Assessment and Plan: CXR suggest PNA Highly suspect aspiration PNA. Management as above. Explain to pt and family that because pt is generally bedbound, she has high chance of PNA. Pt will think about hospice care but not decide yet. DVT Prophylaxis: Heparin SC - Time Spent with Patient Total time spent is greater than 50% in coordination of care (as documented) at patient's floor/unit and/or counseling patient: 25 - 35 minutes Plan of Care Discussed with: patient Internal Medicine: Result - Labs CBC & Chem 7: 07/07/18 05:14 07/08/18 05:25 Labs: BMP 07/08/18 05:25 Sodium 145 Potassium 3.2 L Chloride 95 L Carbon Dioxide 45 H* BUN 26 H Creatinine 1.04 Glucose 185 H Calcium 9.0 - VTE Reasons for not Prescribing Prophylaxis: Medical contraindication Consult Discharge Plan - Plan Referrals: NONE,PCP [Primary Care Provider] - (2) DM (diabetes mellitus) Qualifiers: Diabetes mellitus type: type 2 Diabetes mellitus senior living insulin use: with senior living use Diabetes mellitus complication status: without complication Qualified Code(s): E11.9 - Type 2 diabetes mellitus without complications; Z79.4 - buttermaker continuous churn (current) use of insulin; Z79.4 - prison (current) use of insulin; Z79.4 - prison (current) use of insulin; Z79.4 - prison (current ) use of insulin (4) Chronic kidney disease Qualifiers: Chronic kidney disease stage: stage 3 (moderate) Qualified Code(s): N18.3 - Chronic kidney disease, stage 3 (moderate) (6) COPD (chronic obstructive pulmonary disease) Qualifiers: COPD type: unspecified COPD Qualified Code(s): J44.9 - Chronic obstructive pulmonary disease, unspecified (7) Pneumonia Qualifiers: Pneumonia type: aspiration pneumonia Aspiration pneumonia type: due to gastric secretions Laterality: unspecified laterality Lung location: unspecified part of lung Qualified Code(s): J69.0 - Pneumonitis due to inhalation of food and vomit
[2018-07-08] MEDS: *HR* OxyCODONE Immed Rel 5 MG TABLET PO PRN (20:47)
[2018-07-08] MEDS: Insulin DETEMIR 100 UNIT/ML X5UNITS SQ SCH (20:48)
[2018-07-08] MEDS: Latanoprost 2.5 ML BOTTLE BOTH EYES SCH (20:49)
[2018-07-08] MEDS ORDERED: *HR* LORazepam 2 MG/ML VIAL IVP ONE (21:07)
[2018-07-09] MEDS: *HR* LORazepam 2 MG/ML VIAL IVP PRN (02:30)
[2018-07-09] MEDS: Levalbuterol Neb 1.25 MG/3 ML IH SCH ×4 (05:48→22:06)
[2018-07-09] MEDS: *HR* Heparin 5,000 UNIT/ML VIAL SQ SCH ×2 (06:41→17:01)
[2018-07-09 07:56] LABS: Alanine Aminotransferase 4 Units/L (7-52); Albumin 2.9 g/dL (3.5-5.7); Albumin/Globulin Ratio 0.8 (1.1-2.2); Alkaline Phosphatase 46 Units/L (34-104); Aspartate Amino Transferase 8 Units/L (13-39); BUN/Creatinine Ratio 24 (6-26); Bilirubin,Total 0.3 mg/dL (0.3-1.0); Blood Urea Nitrogen 24 mg/dL (8-23); Carbon Dioxide 45 mEq/L (23-29); Chloride 95 mEq/L (98-107); Globulin 3.5 g/dL (2.4-3.5); Glucose 142 mg/dL (70-105); Osmolality,Calculated 306 (280-300); Potassium 3.3 mEq/L (3.5-5.1); Sodium 145 mEq/L (136-145); Total Protein 6.4 g/dL (6.4-8.9); eGFR For Non-African Americans 54 (> 60)
[2018-07-09] MEDS: Insulin LISPRO 300 UNITS/3 ML VIAL SQ SCH ×4 (08:00→20:26)
[2018-07-09] MEDS: Benzonatate 100 MG CAPSULE PO SCH ×3 (08:07→20:26)
[2018-07-09] MEDS: Aspirin Enteric Coated 81 MG Tablet PO SCH (08:07)
[2018-07-09] MEDS: Sennosides/Docusate Sodium TABLET PO SCH ×2 (08:08→20:25)
[2018-07-09] MEDS: Metoprolol XL (24 HR) Succ 50 MG TAB.ER.24H PO SCH (08:08)
[2018-07-09] MEDS: Venlafaxine XR (24 HR) 75 MG CAP.ER.24H PO SCH (08:08)
[2018-07-09] MEDS: Artificial Tears SOLN 15 ML BOTTLE OP SCH ×4 (08:09→20:23)
[2018-07-09] MEDS: Famotidine 20 MG TABLET PO SCH (08:11)
[2018-07-09] MEDS: Gabapentin 400 MG CAPSULE PO SCH ×3 (08:12→20:25)
[2018-07-09] MEDS: Furosemide 40 MG TABLET PO SCH ×2 (08:12→17:01)
[2018-07-09] MEDS: Budesonide Neb 0.5 MG/2 ML IH SCH ×2 (10:49→22:09)
--- NOTE | 2018-07-09 11:09 | Internal Med Progress Note ---
Hospitalist Progress Note - Encounter Date of Encounter: 07/09/18 Time of Encounter: 09:00 - Subjective Interval History: Pt is AAO x3. Mild cough possibly chronic. No SOB. No fever. Graddually taper down O2 need to 4L. - Exam Vitals: Temp Pulse Resp BP Pulse Ox 97.7 F 71 19 118/79 94 07/09/18 07:32 07/09/18 07:32 07/09/18 07:32 07/09/18 07:32 07/09/18 08:24 Exam: AAO x 3. On 5L O2. HEENT: NC/AT, PERRL Neck: Supple, no JVD Lungs: Low breath sound b/l, no rhonchi, no wheezes Heart: S1S2, RRR Abd: Soft, NT, BS normal Ext: No pedal edema Neuro: Left side hemiplegia due to previous CVA. - Assessment and Plan (1) History of cerebrovascular accident (CVA) with residual deficit Current Visit: No Status: Chronic Assessment and Plan: Patient has history of cerebrovascular accident with residual left-sided paralysis. Cont antiplatelet for secondary prevention. (2) DM (diabetes mellitus) Current Visit: No Status: Chronic Assessment and Plan: Patient has chronic history of diabetes managed with home insulin - Cont SSI and basal insulin. adjust dose per Glu level. (3) Acute respiratory failure with hypoxia and hypercarbia Current Visit: Yes Status: Acute Assessment and Plan: Patient presented with chief complaint of shortness of breath In the ED she was found to be hypoxic and hypercarbic and hypercapnic Pt has hx of CVA with difficult swallowing. Suspect aspiration pneumonia. CXR shows possible congestion vs PNA. BNP is not elevated, will cont abx to treat PNA. Plan: - Sallow evaluation appreciated, diet started per recommendation - Switch Abx to po augmentin as clinically improved and blood culture negative so far. - Cont supportive treatment - Duoneb [place] and PRN. - Cont pulseoximetry monitoring. - Pt and family refuse BiPAP (4) Chronic kidney disease Current Visit: No Status: Chronic Assessment and Plan: Patient has history of chronic kidney disease Creatinine on admission is 1.5, gradually improved now to WNL Based on previous lab results is appears to be her baseline We will continue to monitor (5) Diastolic CHF with preserved left ventricular function, NYHA class 2 Current Visit: Yes Status: Acute Assessment and Plan: Patient has known history of heart failure Last echocardiogram in September 2017 demonstrated indeterminate diastolic dysfunction, ejection fraction 55%, severe aortic valve sclerosis Will cont home meds of lasix as BP tolerate. Cont closely monitor pt. Appears euvolemic at this point (6) COPD (chronic obstructive pulmonary disease) Current Visit: Yes Status: Acute Assessment and Plan: Patient has known history of COPD Cont Abx and duoneb. Sometimes has only minimal wheezing, will hold steroid at this point. Cont home med inhale steroid. Clinically improved. (7) Pneumonia Current Visit: Yes Status: Suspected Assessment and Plan: CXR suggest PNA Highly suspect aspiration PNA. Management as above. Explain to pt and family that because pt is generally bedbound, she has high chance of PNA. DVT Prophylaxis: Heparin SC - Summary of Assessment and Plan Summary of Assessment and Plan: Plan to D/C to [facility]CF tomorrow if pt remains stable. - Time Spent with Patient Total time spent is greater than 50% in coordination of care (as documented) at patient's floor/unit and/or counseling patient: 30 min 25 - 35 minutes Plan of Care Discussed with: patient Internal Medicine: Result - Labs CBC & Chem 7: 07/07/18 05:14 07/09/18 06:27 Labs: BMP 07/09/18 06:27 Sodium 145 Potassium 3.3 L Chloride 95 L Carbon Dioxide 45 H* BUN 24 H Creatinine 1.01 Glucose 142 H Calcium 9.0 Liver Function 07/09/18 Range/Units 06:27 Total Bilirubin 0.3 (0.3-1.0) mg/dL AST 8 L (13-39) Units/L ALT 4 L (7-52) Units/L Alkaline Phosphatase 46 (34-104) Units/L Albumin 2.9 L (3.5-5.7) g/dL - VTE Reasons for not Prescribing Prophylaxis: Medical contraindication Consult Discharge Plan - Plan Referrals: NONE,PCP [Primary Care Provider] - (2) DM (diabetes mellitus) Qualifiers: Diabetes mellitus type: type 2 Diabetes mellitus bed bug exterminator insulin use: with [facility] use Diabetes mellitus complication status: without complication Qualified Code(s): E11.9 - Type 2 diabetes mellitus without complications; Z79.4 - [facility] (current) use of insulin; Z79.4 - [facility] (current) use of insulin; Z79.4 - rat exterminator (current) use of insulin; Z79.4 - [facility] (current ) use of insulin (4) Chronic kidney disease Qualifiers: Chronic kidney disease stage: stage 3 (moderate) Qualified Code(s): N18.3 - Chronic kidney disease, stage 3 (moderate) (6) COPD (chronic obstructive pulmonary disease) Qualifiers: COPD type: unspecified COPD Qualified Code(s): J44.9 - Chronic obstructive pulmonary disease, unspecified (7) Pneumonia Qualifiers: Pneumonia type: aspiration pneumonia Aspiration pneumonia type: due to gastric secretions Laterality: unspecified laterality Lung location: unspecified part of lung Qualified Code(s): J69.0 - Pneumonitis due to inhalation of food and vomit
[2018-07-09] MEDS: Insulin DETEMIR 100 UNIT/ML X5UNITS SQ SCH (20:26)
[2018-07-09] MEDS: Latanoprost 2.5 ML BOTTLE BOTH EYES SCH (20:27)
[2018-07-10] MEDS: Levalbuterol Neb 1.25 MG/3 ML IH SCH ×4 (03:51→21:50)
[2018-07-10 05:13] LABS: Calcium 8.7 mg/dL (8.6-10.3); Potassium 4.2 mEq/L (3.5-5.1)
[2018-07-10] MEDS: *HR* Heparin 5,000 UNIT/ML VIAL SQ SCH ×2 (05:21→16:49)
[2018-07-10] MEDS: Insulin LISPRO 300 UNITS/3 ML VIAL SQ SCH ×4 (07:55→21:27)
[2018-07-10] MEDS: Venlafaxine XR (24 HR) 75 MG CAP.ER.24H PO SCH (09:47)
[2018-07-10] MEDS: Benzonatate 100 MG CAPSULE PO SCH ×3 (09:47→21:27)
[2018-07-10] MEDS: Gabapentin 400 MG CAPSULE PO SCH ×3 (09:47→21:27)
[2018-07-10] MEDS: Metoprolol XL (24 HR) Succ 50 MG TAB.ER.24H PO SCH (09:48)
[2018-07-10] MEDS: Sennosides/Docusate Sodium TABLET PO SCH ×2 (09:48→21:27)
[2018-07-10] MEDS: Aspirin Enteric Coated 81 MG Tablet PO SCH (09:48)
[2018-07-10] MEDS: Famotidine 20 MG TABLET PO SCH (09:49)
[2018-07-10] MEDS: Artificial Tears SOLN 15 ML BOTTLE OP SCH ×4 (09:51→21:28)
[2018-07-10] MEDS: Furosemide 40 MG TABLET PO SCH ×2 (09:57→16:49)
--- NOTE | 2018-07-10 10:24 | Palliative Progress Note ---
Date of Encounter: 07/10/18 Time of Encounter: 09:45 - Assessment and plan (1) Acute respiratory failure with hypoxia and hypercarbia Current Visit: Yes Status: Acute Assessment and plan: Patient denies dyspnea during assessment. Continue to titrate oxygen to 4L NC. (2) COPD (chronic obstructive pulmonary disease) Current Visit: Yes Status: Acute Qualifiers: COPD type: unspecified COPD Qualified Code(s): J44.9 - Chronic obstructive pulmonary disease, unspecified (3) Pneumonia Current Visit: Yes Status: Suspected Assessment and plan: Management per Primary team. Qualifiers: Pneumonia type: aspiration pneumonia Aspiration pneumonia type: due to gastric secretions Laterality: unspecified laterality Lung location: unspecified part of lung Qualified Code(s): J69.0 - Pneumonitis due to inhalation of food and vomit (4) Dyspnea Current Visit: Yes Status: Acute Assessment and plan: Patient denies dyspnea. Continue duonebs and oxygen therapy. Qualifiers: Dyspnea type: unspecified Qualified Code(s): R06.00 - Dyspnea, unspecified (5) Goals of care, counseling/discussion Current Visit: Yes Status: Acute Assessment and plan: Patient and family desire patient to stay overnight at [facility] and discharge to [facility] today. Patient expressed desire to not discuss hospice today, as her great granddaughter just . Palliative care offered emotional support. Patient notified has Ativan available if gets too anxious; verbalized understanding. Plan to discharge to [facility] tomorrow. Dr. Osborne aware of situation. (6) Generalized pain Current Visit: Yes Status: Acute Assessment and plan: Patient has received 0 doses of Oxycodone in last 24 hours; continue PRN. (7) Anxiety Current Visit: Yes Status: Acute Assessment and plan: Patient has received 0 doses of Ativan; continue PRN. - Time Spent With Patient Total time spent is greater than 50% in coordination of care (as documented) at patient's floor/unit and/or counseling patient: less than 15 minutes - Subjective Interval history: Patient sitting up in bed with copious family members gathered round. Present on arrival for assessment, Dr. Osborne, [employer], and this provider. Patient was notified that her 2 year old granddaughter in [facility] ER this morning. Patient very tearful, and reports had only seen her a couple of times. Patient denies pain, anxiety, shortness of breath. Patient has received 0 doses of Ativan and Oxycodone in the last 24 hours. Patient reports she is not ready to just yet, and plans to be around for a while longer. Family reports she appeared much improved yesterday evening. - Constitutional Vitals: Abnormal lab results RBC 3.75 M/mcL (3.82-4.97) L 07/07/18 05:14 Hgb 9.9 g/dL (11.5-15.4) L 07/07/18 05:14 Hct 35.1 % (35.3-44.9) L 07/07/18 05:14 MCH 26.4 pg (28.0-33.3) L 07/07/18 05:14 MCHC 28.2 g/dL (31.6-35.5) L 07/07/18 05:14 RDW 15.3 % (11.5-14.5) H 07/07/18 05:14 Hypochromasia Present (Not Present) A 07/07/18 05:14 Anisocytosis 1+ (Not Present) A 07/05/18 05:30 VBG pCO2 82 mmHg (41-51) H* 07/03/18 17:54 VBG pO2 62 mmHg (25-50) H 07/03/18 17:54 VBG HCO3 42 mEq/L (21-27) H 07/03/18 17:54 Chloride 94 mEq/L (98-107) L 07/10/18 04:35 Carbon Dioxide 41 mEq/L (23-29) H* 07/10/18 04:35 BUN 26 mg/dL (8-23) H 07/10/18 04:35 Creatinine 1.23 mg/dL (0.60-1.20) H 07/10/18 04:35 Est GFR ( Amer) 52 (> 60) L 07/10/18 04:35 Est GFR (Non-Af Amer) 43 (> 60) L 07/10/18 04:35 Glucose 168 mg/dL (70-105) H 07/10/18 04:35 POC Glucose 380 mg/dL (70-99) H 07/09/18 20:22 AST 8 Units/L (13-39) L 07/09/18 06:27 ALT 4 Units/L (7-52) L 07/09/18 06:27 Albumin 2.9 g/dL (3.5-5.7) L 07/09/18 06:27 Albumin/Globulin Ratio 0.8 (1.1-2.2) L 07/09/18 06:27 Urine Clarity Turbid (Clear) A 07/03/18 18:02 Urine Protein 100 mg/dL (Neg-Trace) H 07/03/18 18:02 Urine Blood Small (Negative) H 07/03/18 18:02 Ur Leukocyte Esterase Large (Negative) H 07/03/18 18:02 Urine Microscopic WBC TNTC per hpf (0-3) H 07/03/18 18:02 Ur Squamous Epith Cells Many per lpf (None-Few) H 07/03/18 18: Urine Bacteria Many per hpf (None-Few) H 07/03/18 18:02 Ur Culture Indicated? NO. (NO) A 07/03/18 18:02 General appearance: Present: cooperative, mild distress - Head Head exam: Present: atraumatic, normal inspection - Eye Eye exam: Present: EOMI, normal appearance, PERRL. Absent: periorbital swelling , periorbital tenderness Pupils: Present: normal accommodation, PERRL - ENT ENT exam: Present: mucous membranes moist, normal external ear exam - Neck Neck exam: Present: full ROM, normal inspection - Respiratory Respiratory exam: Present: rhonchi. Absent: accessory muscle use, respiratory distress - Cardiovascular Cardiovascular exam: Present: +S1, +S2 - GI/Abdominal GI/Abdominal exam: Present: distended, normal bowel sounds, soft. Absent: firm , tenderness - Rectal Rectal exam: Present: deferred - Extremities Exam Extremities exam: Present: full ROM, normal inspection, pedal edema - Back Exam Back exam: Present: full ROM, normal inspection - Neurological Exam Neurological exam: Present: alert, oriented X3. Absent: altered - Psychiatric Psychiatric exam: Present: normal affect, normal mood (Patient quite tearful as discovered great granddaughter had just .) - Skin Skin exam: Present: dry, intact Palliative Quality Palliative Quality: Screen for Code Status: Yes, Screen for Goals of Care: Yes, Screen for Pain: Yes, If Pain Regimen Started, Initiate Bowel Regimen: NA, Screen for Nausea/Vomitting: Yes - Labs CBC & Chem 7: 07/07/18 05:14 07/10/18 04:35 Labs: Laboratory Results - last 24 hr 07/09/18 07/09/18 07/09/18 07:32 11:56 16:07 Sodium Potassium Chloride Carbon Dioxide BUN Creatinine Est GFR ( Amer) Est GFR (Non-Af Amer) BUN/Creatinine Ratio Glucose POC Glucose 137 H 142 H 369 H Calculated Osmolality Calcium 07/09/18 07/10/18 20:22 04:35 Sodium 140 Potassium 4.2 D Chloride 94 L Carbon Dioxide 41 H* BUN 26 H Creatinine 1.23 H Est GFR ( Amer) 52 L Est GFR (Non-Af Amer) 43 L BUN/Creatinine Ratio 21 Glucose 168 H POC Glucose 380 H Calculated Osmolality 299 Calcium 8.7 Consult Discharge Plan - Plan Referrals: NONE,PCP [Primary Care Provider] - (palliative care patient)
[2018-07-10] MEDS: Budesonide Neb 0.5 MG/2 ML IH SCH ×2 (10:52→21:51)
[2018-07-10 12:37] LABS: Basophils % 0.2 %; Eosinophils # 0.3 K/mcL (0.0-0.6); Eosinophils % 3.8 %; Hematocrit 31.5 % (35.3-44.9); Hemoglobin 9.2 g/dL (11.5-15.4); Immature Granulocytes % 2.5 % (0-4); Lymphocytes # 1.3 K/mcL (0.6-4.6); Lymphocytes % 15.7 %; Mean Corpuscular HGB Conc 29.2 g/dL (31.6-35.5); Mean Corpuscular Hemoglobin 26.7 pg (28.0-33.3); Mean Corpuscular Volume 91.3 fL (83.0-100.0); Mean Platelet Volume 10.8 fL (9.4-12.4); Monocytes # 0.5 K/mcL (0.0-1.3); Monocytes % 5.9 %; Neutrophils # 5.8 K/mcL (1.6-8.9); Platelet Count 199 K/mcL (140-400); Red Blood Count 3.45 M/mcL (3.82-4.97); Red Cell Distribution Width 15.3 % (11.5-14.5); Segmented Neutrophils % 71.9 %
--- NOTE | 2018-07-10 14:12 | Internal Med Progress Note ---
Hospitalist Progress Note - Encounter Date of Encounter: 07/10/18 Time of Encounter: 09:00 - Subjective Interval History: Pt is AAO x3. Seems more alert. No increased SOB. However, pt has lower fever tis morning, with increased rhonchi b/l. CXR repeated, showed increased infiltrate. - Exam Vitals: Temp Pulse Resp BP Pulse Ox 98.1 F 83 19 99/66 97 07/10/18 11:00 07/10/18 11:00 07/10/18 11:00 07/10/18 11:00 07/10/18 11:00 Exam: AAO x 3. On 5L O2. HEENT: NC/AT, PERRL Neck: Supple, no JVD Lungs: Low breath sound b/l, B/L rhonchi, scattered wheezes mainly on the left Heart: S1S2, RRR Abd: Soft, NT, BS normal Ext: No pedal edema Neuro: Left side hemiplegia due to previous CVA. - Assessment and Plan (1) History of cerebrovascular accident (CVA) with residual deficit Current Visit: No Status: Chronic Assessment and Plan: Patient has history of cerebrovascular accident with residual left-sided paralysis. Cont antiplatelet for secondary prevention. (2) DM (diabetes mellitus) Current Visit: No Status: Chronic Assessment and Plan: Patient has chronic history of diabetes managed with home insulin - Cont SSI and basal insulin. adjust dose per Glu level. (3) Acute respiratory failure with hypoxia and hypercarbia Current Visit: Yes Status: Acute Assessment and Plan: Patient presented with chief complaint of shortness of breath In the ED she was found to be hypoxic and hypercarbic and hypercapnic Pt has hx of CVA with difficult swallowing. Pt has low fever and CXR shows increased infiltrate today Plan: - restart iv abx with vanco and cefepime to cover hospital acquired PNA, naso MRSA screen, if negative, will DC vanco. - Cont supportive treatment - Duoneb [place] and PRN. Add mucomyst to faciliate sputum expelling. Consult WHALE TRAINER for percussion therapy - Cont pulseoximetry monitoring. - Pt and family refuse BiPAP (4) Chronic kidney disease Current Visit: No Status: Chronic Assessment and Plan: Patient has history of chronic kidney disease Creatinine on admission is 1.5, gradually improved now Based on previous lab results is appears to be her baseline We will continue to monitor (5) Diastolic CHF with preserved left ventricular function, NYHA class 2 Current Visit: Yes Status: Acute Assessment and Plan: Patient has known history of heart failure Last echocardiogram in September 2017 demonstrated indeterminate diastolic dysfunction, ejection fraction 55%, severe aortic valve sclerosis Will cont home meds of lasix as BP tolerate. Cont closely monitor pt. Appears euvolemic at this point (6) COPD (chronic obstructive pulmonary disease) Current Visit: Yes Status: Acute Assessment and Plan: Patient has known history of COPD Cont Abx and duoneb. Sometimes has only minimal wheezing, will hold steroid at this point. Cont home med inhale steroid. (7) Pneumonia Current Visit: Yes Status: Suspected Assessment and Plan: CXR suggest PNA, worsening today with low fever, no increased leukocytosis Consider HAP as worsen in hospital. Vanco and cefepime started. Other management as above. Explain to pt and family that because pt is generally bedbound, she has high chance of PNA. DVT Prophylaxis: Heparin [place] - Time Spent with Patient Total time spent is greater than 50% in coordination of care (as documented) at patient's floor/unit and/or counseling patient: 30 min 25 - 35 minutes Internal Medicine: Result - Labs CBC & Chem 7: 07/10/18 12:18 07/10/18 04:35 Labs: Short CBC 07/10/18 Range/Units 12:18 WBC 8.1 (4.3-11.1) K/mcL Hgb 9.2 L (11.5-15.4) g/dL Hct 31.5 L (35.3-44.9) % Plt Count 199 (140-400) K/mcL Neutrophils # 5.8 (1.6-8.9) K/mcL BMP 07/10/18 04:35 Sodium 140 Potassium 4.2 D Chloride 94 L Carbon Dioxide 41 H* BUN 26 H Creatinine 1.23 H Glucose 168 H Calcium 8.7 - Impressions Impressions Chest X-Ray 07/10/18 12:00 IMPRESSION: Worsened patchy/hazy airspace opacity to the right upper lung zone and new mild patchy opacity to the left mid lung zone peripherally concerning for worsened atelectasis or multifocal infiltrates. Stable left basilar opacity compatible with small left pleural effusion and associated mild left basilar atelectasis or infiltrate. D/ / 07/10/2018 12:25:41 Willian Monge MD / antonio Interpreting Provider: Willian Monge MD - VTE Reasons for not Prescribing Prophylaxis: Medical contraindication Consult Discharge Plan - Plan Referrals: NONE,PCP [Primary Care Provider] - (palliative care patient) (2) DM (diabetes mellitus) Qualifiers: Diabetes mellitus type: type 2 Diabetes mellitus tip tester insulin use: with tip tester use Diabetes mellitus complication status: without complication Qualified Code(s): E11.9 - Type 2 diabetes mellitus without complications; Z79.4 - USP (current) use of insulin; Z79.4 - USP (current) use of insulin; Z79.4 - [employer] group leader (current) use of insulin; Z79.4 - [employer] group leader (current ) use of insulin (4) Chronic kidney disease Qualifiers: Chronic kidney disease stage: stage 3 (moderate) Qualified Code(s): N18.3 - Chronic kidney disease, stage 3 (moderate) (6) COPD (chronic obstructive pulmonary disease) Qualifiers: COPD type: unspecified COPD Qualified Code(s): J44.9 - Chronic obstructive pulmonary disease, unspecified (7) Pneumonia Qualifiers: Pneumonia type: aspiration pneumonia Aspiration pneumonia type: due to gastric secretions Laterality: unspecified laterality Lung location: unspecified part of lung Qualified Code(s): J69.0 - Pneumonitis due to inhalation of food and vomit
[2018-07-10] MEDS: Cefepime HCl 2,000 MG in Water for inj. (sterile) 20 ML 20 ML IVP SCH (14:30)
[2018-07-10] MEDS: Acetylcysteine 10% 2 ML INHSOL IH SCH ×2 (16:47→21:51)
[2018-07-10] MEDS: Lactobacillus 1 EACH CAP.SPRINK PO SCH (16:48)
[2018-07-10] MEDS: Insulin DETEMIR 100 UNIT/ML X5UNITS SQ SCH (21:27)
[2018-07-10] MEDS: Latanoprost 2.5 ML BOTTLE BOTH EYES SCH (21:29)
[2018-07-11] MEDS: Cefepime HCl 2,000 MG in Water for inj. (sterile) 20 ML 20 ML IVP SCH ×2 (03:19→15:29)
[2018-07-11] MEDS: Acetylcysteine 10% 2 ML INHSOL IH SCH ×4 (04:13→22:05)
[2018-07-11] MEDS: Levalbuterol Neb 1.25 MG/3 ML IH SCH ×4 (04:13→22:05)
[2018-07-11 05:04] LABS: Basophils % 0.4 %; Eosinophils % 3.2 %; Immature Granulocytes % 3.8 % (0-4); Segmented Neutrophils % 69.7 %
[2018-07-11 05:05] LABS: Eosinophils # 0.3 K/mcL (0.0-0.6); Hematocrit 29.8 % (35.3-44.9); Hemoglobin 8.7 g/dL (11.5-15.4); Lymphocytes # 1.3 K/mcL (0.6-4.6); Lymphocytes % 15.5 %; Mean Corpuscular HGB Conc 29.2 g/dL (31.6-35.5); Mean Corpuscular Hemoglobin 26.5 pg (28.0-33.3); Mean Corpuscular Volume 90.9 fL (83.0-100.0); Monocytes # 0.6 K/mcL (0.0-1.3); Monocytes % 7.4 %; Neutrophils # 5.9 K/mcL (1.6-8.9); Platelet Count 196 K/mcL (140-400); Red Blood Count 3.28 M/mcL (3.82-4.97); Red Cell Distribution Width 15.4 % (11.5-14.5)
[2018-07-11 05:25] LABS: Calcium 8.3 mg/dL (8.6-10.3); Potassium 4.1 mEq/L (3.5-5.1)
[2018-07-11 05:46] LABS: Anisocytosis 1+ (Not Present); Hypochromasia Present (Not Present); Microcytosis Present (Not Present); Platelet Estimate Normal (Normal)
[2018-07-11] MEDS: *HR* Heparin 5,000 UNIT/ML VIAL SQ SCH ×2 (06:25→17:07)
[2018-07-11] MEDS: Artificial Tears SOLN 15 ML BOTTLE OP SCH ×4 (10:07→21:05)
[2018-07-11] MEDS: Lactobacillus 1 EACH CAP.SPRINK PO SCH (10:07)
[2018-07-11] MEDS: Famotidine 20 MG TABLET PO SCH (10:08)
[2018-07-11] MEDS: Venlafaxine XR (24 HR) 75 MG CAP.ER.24H PO SCH (10:08)
[2018-07-11] MEDS: Gabapentin 400 MG CAPSULE PO SCH ×3 (10:08→21:04)
[2018-07-11] MEDS: Metoprolol XL (24 HR) Succ 50 MG TAB.ER.24H PO SCH (10:08)
[2018-07-11] MEDS: Sennosides/Docusate Sodium TABLET PO SCH ×2 (10:09→21:05)
[2018-07-11] MEDS: Insulin LISPRO 300 UNITS/3 ML VIAL SQ SCH ×4 (10:09→21:05)
[2018-07-11] MEDS: Aspirin Enteric Coated 81 MG Tablet PO SCH (10:09)
[2018-07-11] MEDS: Benzonatate 100 MG CAPSULE PO SCH ×3 (10:09→21:04)
[2018-07-11] MEDS: Furosemide 40 MG TABLET PO SCH ×2 (10:39→17:08)
[2018-07-11] MEDS: Budesonide Neb 0.5 MG/2 ML IH SCH ×2 (10:57→22:05)
[2018-07-11] MEDS ORDERED: Aminoglycoside Consult 1 EACH MC ONE (11:38)
[2018-07-11 13:21] LABS: Bilirubin,Urine Negative (Negative); Blood,Urine Negative (Negative); Clarity,Urine Clear (Clear); Color,Urine Yellow (Yellow); Glucose,Urine (UA) Normal (Normal); Ketones,Urine Negative (Negative); Leukocyte Esterase,Urine Negative (Negative); Nitrite,Urine Negative (Negative); Protein,Urine Trace mg/dL (Neg-Trace); Specific Gravity,Urine 1.028 (1.010-1.025); Urobilinogen,Urine Normal (Normal)
[2018-07-11 13:23] LABS: Bacteria,Urine None Seen per hpf (None-Few); Hyaline Casts,Urine None Seen per lpf (None-Few); Squamous Epithelial Cell,Urine Many per lpf (None-Few)
--- NOTE | 2018-07-11 16:55 | Internal Med Progress Note ---
Hospitalist Progress Note - Encounter Date of Encounter: 07/11/18 Time of Encounter: 16:53 - Subjective Interval History: Pt's niece at bedside. Pt is sleepy. Currently on BiPAP. Per nurse no acute changes during the night. - Exam Vitals: Temp Pulse Resp BP Pulse Ox 98.1 F 80 18 111/63 93 07/11/18 16:00 07/11/18 16:00 07/11/18 16:11 07/11/18 16:00 07/11/18 16:11 Exam: AAO x 3. On 5L O2. HEENT: NC/AT, PERRL Neck: Supple, no JVD Lungs: Low breath sound b/l, B/L rhonchi, scattered wheezes mainly on the left Heart: S1S2, RRR Abd: Soft, NT, BS normal Ext: No pedal edema Neuro: Left side hemiplegia due to previous CVA. - Assessment and Plan (1) History of cerebrovascular accident (CVA) with residual deficit Current Visit: No Status: Chronic Assessment and Plan: Patient has history of cerebrovascular accident with residual left-sided paralysis. Continue anti-platelet for secondary prevention. Plan is to DC pt to [facility]. Family considering hospice care services but will discuss with CM/SW at [facility]. (2) DM (diabetes mellitus) Current Visit: No Status: Chronic Assessment and Plan: Patient has chronic history of diabetes managed with home insulin - Cont SSI and basal insulin. adjust dose per Glu level. (3) Acute respiratory failure with hypoxia and hypercarbia Current Visit: Yes Status: Acute Assessment and Plan: Patient presented with chief complaint of shortness of breath In the ED she was found to be hypoxic and hypercarbic and hypercapnic Pt has hx of CVA with difficult swallowing. Pt has low fever and CXR shows increased infiltrate today Plan: - restart iv abx with vanco and cefepime to cover hospital acquired PNA, naso MRSA screen, if negative, will DC vanco. - Cont supportive treatment - Duoneb [place] and PRN. Add mucomyst to faciliate sputum expelling. Consult LAV CREWMAN for percussion therapy - Cont pulse-oximetry monitoring. - Pt and family refuse BiPAP. (4) Chronic kidney disease Current Visit: No Status: Chronic Assessment and Plan: Patient has history of chronic kidney disease Creatinine on admission is 1.5, gradually improved now Based on previous lab results is appears to be her baseline We will continue to monitor (5) Diastolic CHF with preserved left ventricular function, NYHA class 2 Current Visit: Yes Status: Acute Assessment and Plan: Patient has known history of heart failure Last echocardiogram in September 2017 demonstrated indeterminate diastolic dysfunction, ejection fraction 55%, severe aortic valve sclerosis Will cont home meds of lasix as BP tolerates. Continue to closely monitor pt. Appears euvolemic at this point (6) COPD (chronic obstructive pulmonary disease) Current Visit: Yes Status: Acute Assessment and Plan: Patient has known history of COPD Cont Abx and duoneb. Sometimes has only minimal wheezing. Cont home med inhale steroid. (7) Pneumonia Current Visit: Yes Status: Suspected Assessment and Plan: CXR suggest PNA, worsening today with low fever, no increased leukocytosis Consider HAP as worsen in hospital. Vanco and cefepime started. German swicth too PO antibiotic today and see how she does. Pt is generally bedbound, she has high chance of PNA. DVT Prophylaxis: Heparin [facility] - Summary of Assessment and Plan Summary of Assessment and Plan: Ms. Walton is a 72 year old female with a past medical history of COPD, CHF, CVA , DM, GERD, HLD, HTN. She presented to the emergency department with the chief complaint of 5 days upper respiratory infection symptoms and worsening shortness of breath. On presentation to the emergency department she was noted to be hypoxic and was put on 2 L oxygen nasal cannula with improvement in her oxygen saturation. Chest x-ray revealed cardiomegaly with pulmonary vascular congestion but was negative for focal consolidation or opacification. Ed contacted Dr. Nation who came down to the emergency department to assist with the patient's care. He also discussed with the patient the risks, benefits , complications associated with refusing or accepting lifesaving measures. He described that if we did not pursue BiPAP or intubation the course of care would consist of comfort measures to make the patient's breathing easier. He established that the patient may or may not recover with these comfort measures. The patient asked for several minutes alone to discuss with her family which course she wanted to take. We were called back into the room and informed that the patient had decided to refuse BiPAP or any resuscitative measures and to only pursue comfort care. She was informed that we would respect her wishes and admit her to the floor for comfort care treatment. - Time Spent with Patient Total time spent is greater than 50% in coordination of care (as documented) at patient's floor/unit and/or counseling patient: less than 15 minutes Plan of Care Discussed with: patient Internal Medicine: Result - Labs CBC & Chem 7: 07/11/18 04:44 07/11/18 04:44 Labs: Short CBC 07/11/18 Range/Units 04:44 WBC 8.5 (4.3-11.1) K/mcL Hgb 8.7 L (11.5-15.4) g/dL Hct 29.8 L (35.3-44.9) % Plt Count 196 (140-400) K/mcL Neutrophils # 5.9 (1.6-8.9) K/mcL BMP 07/11/18 04:44 Sodium 140 Potassium 4.1 Chloride 96 L Carbon Dioxide 37 H BUN 35 H Creatinine 1.42 H Glucose 311 H Calcium 8.3 L Urine 07/11/18 Range/Units 13:00 Urine Color Yellow (Yellow) Urine Clarity Clear (Clear) Urine pH 6.0 (5.0-8.0) pH Units Ur Specific Jackson 1.028 H (1.010-1.025) Urine Protein Trace (Neg-Trace) mg/dL Urine Glucose (UA) Normal (Normal) mg/dL - VTE Reasons for not Prescribing Prophylaxis: Medical contraindication Consult Discharge Plan - Plan Referrals: NONE,PCP [Primary Care Provider] - (palliative care patient) (2) DM (diabetes mellitus) Qualifiers: Diabetes mellitus type: type 2 Diabetes mellitus skilled nursing insulin use: with watermelon harvesting supervisor use Diabetes mellitus complication status: without complication Qualified Code(s): E11.9 - Type 2 diabetes mellitus without complications; Z79.4 - prison (current) use of insulin; Z79.4 - intermission coordinator (current) use of insulin; Z79.4 - prison (current) use of insulin; Z79.4 - prison (current ) use of insulin (4) Chronic kidney disease Qualifiers: Chronic kidney disease stage: stage 3 (moderate) Qualified Code(s): N18.3 - Chronic kidney disease, stage 3 (moderate) (6) COPD (chronic obstructive pulmonary disease) Qualifiers: COPD type: unspecified COPD Qualified Code(s): J44.9 - Chronic obstructive pulmonary disease, unspecified (7) Pneumonia Qualifiers: Pneumonia type: aspiration pneumonia Aspiration pneumonia type: due to gastric secretions Laterality: unspecified laterality Lung location: unspecified part of lung Qualified Code(s): J69.0 - Pneumonitis due to inhalation of food and vomit
[2018-07-11] MEDS: Latanoprost 2.5 ML BOTTLE BOTH EYES SCH (21:05)
[2018-07-11] MEDS: Insulin DETEMIR 100 UNIT/ML X5UNITS SQ SCH (21:11)
[2018-07-12] MEDS: Acetylcysteine 10% 2 ML INHSOL IH SCH ×2 (04:03→10:38)
[2018-07-12] MEDS: Levalbuterol Neb 1.25 MG/3 ML IH SCH ×2 (04:03→10:38)
[2018-07-12 05:40] LABS: Calcium 8.4 mg/dL (8.6-10.3); Potassium 3.9 mEq/L (3.5-5.1)
[2018-07-12] MEDS: *HR* Heparin 5,000 UNIT/ML VIAL SQ SCH (06:05)
[2018-07-12 06:58] VITALS: BP 107/69
[2018-07-12] MEDS: Insulin LISPRO 300 UNITS/3 ML VIAL SQ SCH (08:12)
[2018-07-12] MEDS: Aspirin Enteric Coated 81 MG Tablet PO SCH (08:13)
[2018-07-12] MEDS: Venlafaxine XR (24 HR) 75 MG CAP.ER.24H PO SCH (08:13)
[2018-07-12] MEDS: Furosemide 40 MG TABLET PO SCH (08:13)
[2018-07-12] MEDS: Lactobacillus 1 EACH CAP.SPRINK PO SCH (08:13)
[2018-07-12] MEDS: Gabapentin 400 MG CAPSULE PO SCH (08:13)
[2018-07-12] MEDS: Sennosides/Docusate Sodium TABLET PO SCH (08:14)
[2018-07-12] MEDS: Benzonatate 100 MG CAPSULE PO SCH (08:14)
[2018-07-12] MEDS: Metoprolol XL (24 HR) Succ 50 MG TAB.ER.24H PO SCH (08:14)
[2018-07-12] MEDS: Artificial Tears SOLN 15 ML BOTTLE OP SCH (08:14)
[2018-07-12] MEDS: Famotidine 20 MG TABLET PO SCH (08:14)
[2018-07-12] MEDS ORDERED: levoFLOXacin 250 MG TABLET PO ONE (08:47)
[2018-07-12] MEDS ORDERED: levoFLOXacin 500 MG TABLET PO SCH (09:00)
--- NOTE | 2018-07-12 09:42 | Discharge Summary ---
- NOTES TO OUTPATIENT PROVIDER Notes to Outpatient Provider: PCP at [facility] in 3 to 5 days Orders not resulted at time of discharge: Pending orders 07/12/18 13:00 Vancomycin,Trough Timed Date of Encounter: 07/12/18 Time of Encounter: 09:40 - Discharge Diagnosis (1) Acute respiratory failure with hypoxia and hypercarbia Priority: Primary Status: Acute Assessment and Plan: Patient presented with chief complaint of shortness of breath In the ED she was found to be hypoxic and hypercarbic and hypercapnic Pt has hx of CVA with difficult swallowing. Pt has low fever and CXR shows increased infiltrate today Plan: - Was on vanco and cefepime to cover hospital acquired PNA and had copleted 10 days of medication. - Naso MRSA screen positive and will prescribe mupirocin for 7 days, - Cont supportive treatment - Duoneb [place] and PRN. Add mucomyst to faciliate sputum expelling. - Consulted CERTIFIED NURSE PRACTITIONER for percussion therapy. Cont pulse-oximetry monitoring as deemed necessary. - Pt and family refuse BiPAP. CODE STATUS DNRCC Family considering hospice care services but will discuss with CM/SW at [facility], [facility]. (2) Pneumonia Priority: Primary Status: Suspected Assessment and Plan: CXR suggest PNA, worsening with low fever, no increased leukocytosis Concenr for HAP hence why she was started Vanco and cefepime started and completed 10 days. Pt is generally bedbound, she has high chance of PNA. Qualifiers: Pneumonia type: aspiration pneumonia Aspiration pneumonia type: due to gastric secretions Laterality: unspecified laterality Lung location: unspecified part of lung Qualified Code(s): J69.0 - Pneumonitis due to inhalation of food and vomit (3) History of cerebrovascular accident (CVA) with residual deficit Priority: Secondary Status: Chronic Assessment and Plan: Patient has history of cerebrovascular accident with residual left-sided paralysis. Continue anti-platelet for secondary prevention. Plan is to DC pt to [facility]. Family considering hospice care services but will discuss with CM/SW at [facility], [facility]. (4) DM (diabetes mellitus) Priority: Secondary Status: Chronic Assessment and Plan: Patient has chronic history of diabetes managed with home insulin - Cont SSI and basal insulin. adjust dose per Glu level. Qualifiers: Diabetes mellitus type: type 2 Diabetes mellitus terminal carman insulin use: with assisted use Diabetes mellitus complication status: without complication Qualified Code(s): E11.9 - Type 2 diabetes mellitus without complications; Z79.4 - group home (current) use of insulin (5) Chronic kidney disease Priority: Secondary Status: Chronic Assessment and Plan: Pt has history of chronic kidney disease. Was resumed back on Lasix and Cr 07/11 was 1.42 hence DC was held due to concern for GORDY/CKD. Creatinine on admission is 1.5, gradually improved now. Based on previous lab results is appears to be her baseline Discussed with Nephrology, Dr. Galindo, who recommends continue Lasix as before and have NH repeat BMP in a few days and monitor BMP prn. Qualifiers: Chronic kidney disease stage: stage 3 (moderate) Qualified Code(s): N18.3 - Chronic kidney disease, stage 3 (moderate) (6) Diastolic CHF with preserved left ventricular function, NYHA class 2 Priority: Secondary Status: Acute Assessment and Plan: Patient has known history of heart failure Last echocardiogram in September 2017 demonstrated indeterminate diastolic dysfunction, ejection fraction 55%, severe aortic valve sclerosis Will cont home meds of lasix as BP tolerates. Continue to closely monitor pt. Appears euvolemic at this point (7) COPD (chronic obstructive pulmonary disease) Priority: Secondary Status: Acute Assessment and Plan: Patient has known history of COPD Cont Abx and duoneb. Sometimes has only minimal wheezing. Cont home med inhale steroid. Qualifiers: COPD type: unspecified COPD Qualified Code(s): J44.9 - Chronic obstructive pulmonary disease, unspecified Hospital course: Ms. Walton is a 72 year old female with a past medical history of COPD, CHF, CVA , DM, GERD, HLD, HTN. She presented to the emergency department with the chief complaint of 5 days upper respiratory infection symptoms and worsening shortness of breath. On presentation to the emergency department she was noted to be hypoxic and was put on 2 L oxygen nasal cannula with improvement in her oxygen saturation. Chest x-ray revealed cardiomegaly with pulmonary vascular congestion but was negative for focal consolidation or opacification. ED contacted Dr. Nation who came down to the emergency department to assist with the patient's care. He also discussed with the patient the risks, benefits , complications associated with refusing or accepting lifesaving measures. He described that if pt did not pursue BiPAP or intubation the course of care would consist of comfort measures to make the patient's breathing easier. He established that the patient may or may not recover with these comfort measures. The patient asked for several minutes alone to discuss with her family which course she wanted to take. Ed staff was called back into the room and informed that the patient had decided to refuse BiPAP or any resuscitative measures and to only pursue comfort care. She was informed that we would respect her wishes and admit her to the floor for comfort care treatment. Discharge discussed with: patient - Time Spent with Patient Total time spent providing and/or coordinating discharge services: Greater than 30 minutes - Discharge Medications Home Medications: Albuterol Sulfate [Proair Hfa] 1 - 2 puff IH Q4H PRN 05/19/16 [History] Ferrous Sulfate 325 mg PO BIDWM 05/19/16 [History] Furosemide [Lasix] 80 mg PO QAM 05/19/16 [History] Levothyroxine [Synthroid] 125 mcg PO QAM 05/19/16 [History] amLODIPine [Norvasc] 5 mg PO DAILY 05/19/16 [History] Acetaminophen [Tylenol] 650 mg PO Q6HR PRN #0 tablet 08/18/16 [Rx] Insulin ASPART [NovoLOG] 10 unit SQ TIDAC 02/28/17 [History] Aspirin [Lo-Dose Aspirin EC] 81 mg PO DAILY 05/16/17 [History] Budesonide [Pulmicort] 0.5 mg IH BID 05/16/17 [History] Ipratropium/Albuterol Neb [Duoneb] 3 ml IH Q6HR PRN 05/16/17 [History] Diphenhydramine HCl/Zinc Acet [Benadryl Itch Stopping Crm] 1 appl TP TID PRN [History] Famotidine [Heartburn Prevention] 20 mg PO DAILY 10/09/17 [History] Furosemide [Lasix] 40 mg PO QPM 10/09/17 [History] Loperamide HCl [Anti-Diarrheal] 2 mg PO Q4H PRN 10/09/17 [History] Polyvinyl Alcohol [Artificial Tears] 1 drop OP QID 10/09/17 [History] Pramipexole Di-HCl [Pramipexole Dihydrochloride] 0.125 mg PO HS 10/09/17 [ History] Pramipexole [Mirapex] 0.25 mg PO QAM 10/09/17 [History] Clopidogrel [Plavix] 75 mg PO DAILY #30 tablet 10/12/17 [Rx] Atorvastatin Calcium [Lipitor] 20 mg PO HS 07/03/18 [History] Benzonatate [Tessalon] 100 mg PO TID 07/03/18 [History] Gabapentin [Neurontin] 800 mg PO TID 07/03/18 [History] Guaifenesin [Mucinex] 600 mg PO BID 07/03/18 [History] Insulin DETEMIR [Levemir Flextouch] 34 units SQ HS 07/03/18 [History] Latanoprost [Xalatan] 1 drop OP DAILY 07/03/18 [History] Losartan Potassium [Cozaar] 100 mg PO DAILY 07/03/18 [History] Melatonin 4 mg PO HS 07/03/18 [History] Metoprolol Succinate [Toprol Xl] 100 mg PO DAILY 07/03/18 [History] Mirtazapine 7.5 mg PO HS 07/03/18 [History] Potassium Chloride [K-Tab ER] 20 meq PO DAILY 07/03/18 [History] Sertraline [Zoloft] 25 mg PO DAILY 07/03/18 [History] Venlafaxine [Effexor] 75 mg PO DAILY 07/03/18 [History] Mupirocin [Bactroban Oint] 1 appl TP BID tube 07/12/18 [Rx] Allergies/Adverse Reactions: 3 Allergy/AdvReac Type Severity Reaction Status Date / Time No Known Allergies Allergy Verified 10/08/17 12:19 Date of admission: 07/06/18 13:37 Primary care physician: PCP NONE Consults: 07/10/18 14:01 Consult to Respiratory Therapy [CONS] Routine Reason for Consult: Please do back percussion to facilate sputum expelling Call Completed: No 07/11/18 11:28 Consult to Nephrology [CONS] Routine Consulting Provider: Kidney Adwoa/PANDA/MARIAN/AGNIESZKA Reason for Consult: GORDY/CKD, question home dosing of lasix before d/c Call Completed: No Discharging clinician: Nedra Gann Anticipated date of discharge: 07/12/18 - Constitutional Vitals: Temp Pulse Resp BP Pulse Ox 98.6 F 73 18 107/69 94 07/12/18 06:47 07/12/18 06:47 07/12/18 06:47 07/12/18 06:47 07/12/18 06:47 General appearance: Present: cooperative, mild distress, A&O X 3, pleasant, answers questions appropriately Exam: Exam: Alert and oriented. On 5L O2. HEENT: NC/AT, PERRL Neck: Supple, no JVD Lungs: Low breath sound b/l, B/L rhonchi, scattered wheezes mainly on the left Heart: S1S2, RRR Abd: Soft, NT, BS normal Ext: No pedal edema Neuro: Left side hemiplegia due to previous CVA. - Patient Status Disposition: Transfer SNF Condition: Serious Overall status at discharge: patient is not back to baseline - Discharge Instructions Follow Up With: NONE,PCP [Primary Care Provider] - (palliative care patient) - Diet and Activity Activity: increase activity as tolerated Diet: diabetic diet - VTE Reasons for not Prescribing Prophylaxis: Medical contraindication
--- NOTE | 2018-07-12 10:06 | Physician Discharge Referral ---
ExtendedCare Referral Info Provider in Charge after Transfer: PCP Institutional Level of Care: Skilled - Diagnosis (1) Acute respiratory failure with hypoxia and hypercarbia Priority: Primary Status: Acute (2) Pneumonia Status: Suspected (3) History of cerebrovascular accident (CVA) with residual deficit Priority: Primary Status: Chronic (4) DM (diabetes mellitus) Priority: Secondary Status: Chronic (5) Chronic kidney disease Priority: Secondary Status: Chronic (6) Diastolic CHF with preserved left ventricular function, NYHA class 2 Priority: Secondary Status: Acute (7) COPD (chronic obstructive pulmonary disease) Priority: Secondary Status: Acute Prognosis: Poor Aware of Diagnosis: Patient, Family Aware of Prognosis: Patient, Family - Transfer Medications Home Medications: Albuterol Sulfate [Proair Hfa] 1 - 2 puff IH Q4H PRN 05/19/16 [History] Ferrous Sulfate 325 mg PO BIDWM 05/19/16 [History] Furosemide [Lasix] 80 mg PO QAM 05/19/16 [History] Levothyroxine [Synthroid] 125 mcg PO QAM 05/19/16 [History] amLODIPine [Norvasc] 5 mg PO DAILY 05/19/16 [History] Acetaminophen [Tylenol] 650 mg PO Q6HR PRN #0 tablet 08/18/16 [Rx] Insulin ASPART [NovoLOG] 10 unit SQ TIDAC 02/28/17 [History] Aspirin [Lo-Dose Aspirin EC] 81 mg PO DAILY 05/16/17 [History] Budesonide [Pulmicort] 0.5 mg IH BID 05/16/17 [History] Ipratropium/Albuterol Neb [Duoneb] 3 ml IH Q6HR PRN 05/16/17 [History] Diphenhydramine HCl/Zinc Acet [Benadryl Itch Stopping Crm] 1 appl TP TID PRN [History] Famotidine [Heartburn Prevention] 20 mg PO DAILY 10/09/17 [History] Furosemide [Lasix] 40 mg PO QPM 10/09/17 [History] Loperamide HCl [Anti-Diarrheal] 2 mg PO Q4H PRN 10/09/17 [History] Polyvinyl Alcohol [Artificial Tears] 1 drop OP QID 10/09/17 [History] Pramipexole Di-HCl [Pramipexole Dihydrochloride] 0.125 mg PO HS 10/09/17 [ History] Pramipexole [Mirapex] 0.25 mg PO QAM 10/09/17 [History] Clopidogrel [Plavix] 75 mg PO DAILY #30 tablet 10/12/17 [Rx] Atorvastatin Calcium [Lipitor] 20 mg PO HS 07/03/18 [History] Benzonatate [Tessalon] 100 mg PO TID 07/03/18 [History] Gabapentin [Neurontin] 800 mg PO TID 07/03/18 [History] Guaifenesin [Mucinex] 600 mg PO BID 07/03/18 [History] Insulin DETEMIR [Levemir Flextouch] 34 units SQ HS 07/03/18 [History] Latanoprost [Xalatan] 1 drop OP DAILY 07/03/18 [History] Losartan Potassium [Cozaar] 100 mg PO DAILY 07/03/18 [History] Melatonin 4 mg PO HS 07/03/18 [History] Metoprolol Succinate [Toprol Xl] 100 mg PO DAILY 07/03/18 [History] Mirtazapine 7.5 mg PO HS 07/03/18 [History] Potassium Chloride [K-Tab ER] 20 meq PO DAILY 07/03/18 [History] Sertraline [Zoloft] 25 mg PO DAILY 07/03/18 [History] Venlafaxine [Effexor] 75 mg PO DAILY 07/03/18 [History] Mupirocin [Bactroban Oint] 1 appl TP BID tube 07/12/18 [Rx] Allergies/Adverse Reactions: 3 Allergy/AdvReac Type Severity Reaction Status Date / Time No Known Allergies Allergy Verified 10/08/17 12:19 - Respiratory Orders Oxygen / L per min Smoking Cessation: Smoking cessation has been advised. For more information, call the [place] Tobacco Quit Line at 8-710-HOWF-NOW. - Advance Directives Code Status: DNR-Comfort Care - Rehabiliation Orders Rehab Potential: Poor - Diet Orders Regular CERTIFICATION: I certify that the transfer of the above named patient to an Extended Care Facility is necessary for the continuing treatment of the diagnosis listed. The above information is true and accurate reflection of patient's current condition. Confidential - Redisclosure prohibited without a patient's written consent.
[2018-07-12] MEDS: Budesonide Neb 0.5 MG/2 ML IH SCH (10:38)
[2018-07-14] MEDS ORDERED: levoFLOXacin 750 MG TABLET PO SCH (09:00)
== END 2018-07-12 11:39 | DRG 177 ==
LOC: EMEROOARM 17:00 → 2ANU 17:00 → SUATTDRO 07-06 13:37
PROVIDERS: ADMIT Family Medicine; ATTEND Internal Medicine

== ENCOUNTER 2018-08-26 03:56 | Observation (INO) ==
[2018-08-26] MEDS ORDERED: 0.9 % Sodium Chloride 1,000 ML IVC ONE (04:01)
[2018-08-26] MEDS ORDERED: Ondansetron 4 MG/2 ML VIAL IVP ONE (04:01)
[2018-08-26] MEDS ORDERED: Pantoprazole 40 MG VIAL IVP ONE (04:04)
--- NOTE | 2018-08-26 04:17 | Emergency Department Note ---
Disposition Clinical Impression: Upper GI bleed, Anemia, blood loss, Hyperkalemia Disposition: Admitted As Inpatient Condition: Fair Referrals: Fabby Caballero [Primary Care Provider] - Time of Disposition: 06:01 General Adult HPI - General Stated complaint: vomiting blood Time Seen by Provider: 08/26/18 04:01 Source: patient, EMS Mode of arrival: EMS Limitations: physical limitation Nursing Notes Reviewed: Yes Vital Signs Reviewed: Yes - History of Present Illness HPI Narrative: 73-year-old female complex past medical history including previous CVA with residual left-sided weakness presenting to the emergency department with concern for GI bleed. Patient is a poor historian. Majority of history of present illness obtained by EMS. According to EMS they were called to the senior living facility with concern for vomiting blood and blood in her stool. Unknown when this started. Patient states she has never had a GI bleed before. Patient states she had previously been on anticoagulation but has not been on it for approximately 6 months. Patient denies any abdominal pain, chest pain or dizziness at this time. - Related Data Home Medications Medication Instructions Recorded Confirmed Albuterol Sulfate [Proair Hfa] 1 - 2 puff IH Q4H PRN 05/19/16 07/03/18 Ferrous Sulfate 325 mg PO BIDWM 05/19/16 07/03/18 Furosemide [Lasix] 80 mg PO QAM 05/19/16 07/03/18 Levothyroxine [Synthroid] 125 mcg PO QAM 05/19/16 07/03/18 amLODIPine [Norvasc] 5 mg PO DAILY 05/19/16 07/03/18 Insulin ASPART [NovoLOG] 10 unit SQ TIDAC 02/28/17 07/03/18 Aspirin [Lo-Dose Aspirin EC] 81 mg PO DAILY 05/16/17 07/03/18 Budesonide [Pulmicort] 0.5 mg IH BID 05/16/17 07/03/18 Ipratropium/Albuterol Neb [Duoneb] 3 ml IH Q6HR PRN 05/16/17 07/03/18 Diphenhydramine HCl/Zinc Acet 1 appl TP TID PRN 10/09/17 07/03/18 [Benadryl Itch Stopping Crm] Famotidine [Heartburn Prevention] 20 mg PO DAILY 10/09/17 07/03/18 Furosemide [Lasix] 40 mg PO QPM 10/09/17 07/03/18 Loperamide HCl [Anti-Diarrheal] 2 mg PO Q4H PRN 10/09/17 07/03/18 Polyvinyl Alcohol [Artificial 1 drop OP QID 10/09/17 07/03/18 Tears] Pramipexole Di-HCl [Pramipexole 0.125 mg PO HS 10/09/17 07/03/18 Dihydrochloride] Pramipexole [Mirapex] 0.25 mg PO QAM 10/09/17 07/03/18 Atorvastatin Calcium [Lipitor] 20 mg PO HS 07/03/18 07/03/18 Benzonatate [Tessalon] 100 mg PO TID 07/03/18 07/03/18 Gabapentin [Neurontin] 800 mg PO TID 07/03/18 07/03/18 Guaifenesin [Mucinex] 600 mg PO BID 07/03/18 07/03/18 Insulin DETEMIR [Levemir Flextouch] 34 units SQ HS 07/03/18 07/03/18 Latanoprost [Xalatan] 1 drop OP DAILY 07/03/18 07/03/18 Losartan Potassium [Cozaar] 100 mg PO DAILY 07/03/18 07/03/18 Melatonin 4 mg PO HS 07/03/18 07/03/18 Metoprolol Succinate [Toprol Xl] 100 mg PO DAILY 07/03/18 07/03/18 Mirtazapine 7.5 mg PO HS 07/03/18 07/03/18 Potassium Chloride [K-Tab ER] 20 meq PO DAILY 07/03/18 07/03/18 Sertraline [Zoloft] 25 mg PO DAILY 07/03/18 07/03/18 Venlafaxine [Effexor] 75 mg PO DAILY 07/03/18 07/03/18 Previous Rx's Medication Instructions Recorded Acetaminophen [Tylenol] 650 mg PO Q6HR PRN #0 tablet 08/18/16 Clopidogrel [Plavix] 75 mg PO DAILY #30 tablet 10/12/17 Mupirocin [Bactroban Oint] 1 appl TP BID tube 07/12/18 Allergies Allergy/AdvReac Type Severity Reaction Status Date / Time No Known Allergies Allergy Verified 10/08/17 12:19 All systems ED: reviewed and negative except as stated. Constitutional: Denies: fever, weakness Eyes: Reports: as per HPI ENT ED: Reports: as per HPI Cardiovascular: Denies: chest pain, palpitations Respiratory: Denies: cough, dyspnea Gastrointestinal: Reports: vomiting, melena, other (Hematemesis). Denies: abdominal pain Genitourinary: Reports: as per HPI Musculoskeletal: Reports: as per HPI Integumentary: Reports: as per HPI Neurological: Reports: weakness (Residual from stroke) Psychiatric: Reports: as per HPI Endocrine: Reports: as per HPI Hematological/Lymphatic: Reports: as per HPI Allergic/Immunologic: Reports: as per HPI Past Medical History - Past Medical History Attestation: Yes The following information was validated with the patient. Medical history: Reports: CVA, diabetes, GERD, hyperlipidemia, hypertension, renal disease, thyroid disease Surgical history: Reports: , cholecystectomy, herniorrhaphy, orthopedic, other Psychiatric history: Reports: anxiety, depression, panic disorder - Social History Smoking Status: Former smoker Smokeless Tobacco Status: No Alcohol use: Reports: none Drug use: Reports: none Physical Exam - General Limitations: physical limitation General appearance: alert - Head Head exam: atraumatic, normocephalic, normal inspection - Eye Eye exam: Present: normal appearance. Absent: scleral icterus, conjunctival injection - ENT ENT exam: mucous membranes dry - Neck Neck exam: Present: normal inspection. Absent: tenderness, meningismus - Chest Chest inspection: Present: normal inspection, symmetric chest wall rise. Absent: tenderness, rash - Respiratory Respiratory exam: Present: normal lung sounds bilaterally. Absent: respiratory distress, wheezes - Cardiovascular Cardiovascular exam: Present: regular rate, normal rhythm, normal heart sounds - Abdominal Exam Abdominal exam: Present: soft, Non-Tender. Absent: distention, guarding, rebound - Extremities Exam Extremities exam: Present: other (Residual left-sided weakness from previous stroke) - Neurological Exam Neurological exam: Present: alert - Skin Skin exam: Present: warm Course Course Narrative: 73-year-old female presenting with concern for GI bleed. According to EMS she had episodes of vomiting blood. When patient arrived she is alert and hemodynamically stable. Patient has tried large chunks of blood on her clothing. Patient states his never happened before. Patient had bowel movement in the room and is a dark, tarry color. Concern for GI bleed at this time. At this time will obtain basic laboratory analysis including type and screen and CBC. Provide the patient with Protonix and Zofran. A liter of fluids. Disposition will be admission versus transfer pending patient's evaluation. Patient agrees with this plan. - Reevaluation(s) Reevaluation #1: Patient's laboratory analysis shows hemoglobin of 7.4. 2 units of packed red blood cells ordered. Patient also had mild hyperkalemia at 5.4. Patient also hyperglycemic therefore we will give 10 units of insulin. Patient's CO2 level shown to be greater than 45. Previous laboratory analysis shows chronically elevated CO2. Patient remains alert and oriented 3 and hemodynamically stable in the room. At this time will plan to admit the patient for further treatment and evaluation of her GI bleed. Patient agrees this plan. I spoke with the hospitalist electronics supervisor Dr. Wen who agrees to accept the patient at this time. Vital Signs Temperature 98.8 F 08/26/18 04:17 Pulse Rate 92 08/26/18 04:17 Respiratory Rate 16 08/26/18 04:17 Blood Pressure 111/64 08/26/18 04:17 O2 Sat by Pulse Oximetry 98 08/26/18 04:17 Temperature 98.8 F 08/26/18 04:17 Pulse Rate 93 08/26/18 04:58 Respiratory Rate 19 08/26/18 04:58 Blood Pressure 96/72 08/26/18 04:58 O2 Sat by Pulse Oximetry 97 08/26/18 04:58 Oxygen Delivery Oxygen Delivery Room Air Medical Decision Making - Lab Data Result diagrams: 08/26/18 04:36 08/26/18 04:36 Lab Results 08/26/18 08/26/18 08/26/18 Range/Units 04:12 04:36 04:36 WBC 8.1 (4.3-11.1) K/mcL RBC 2.76 L (3.82-4.97) M/mcL Hgb 7.4 L (11.5-15.4) g/dL Hct 27.0 L (35.3-44.9) % MCV 97.8 (83.0-100.0) fL MCH 26.8 L (28.0-33.3) pg MCHC 27.4 L (31.6-35.5) g/dL RDW 16.9 H (11.5-14.5) % Plt Count 176 (140-400) K/mcL MPV 11.4 (9.4-12.4) fL Immature Gran % 0.7 (0-4) % Seg Neutrophils % 72.5 % Lymphocytes % 18.1 % Monocytes % 5.3 % Eosinophils % 3.2 % Basophils % 0.2 % Neutrophils # 5.9 (1.6-8.9) K/mcL Lymphocytes # 1.5 (0.6-4.6) K/mcL Monocytes # 0.4 (0.0-1.3) K/mcL Eosinophils # 0.3 (0.0-0.6) K/mcL Basophils # 0.0 (0.0-0.2) K/mcL Platelet Estimate Normal (Normal) Hypochromasia Present A (Not Present) Anisocytosis 1+ A (Not Present) PT (9.4-12.1) Seconds INR APTT (26.0-36.0) Seconds Sodium 142 (136-145) mEq/L Potassium 5.4 H (3.5-5.1) mEq/L Chloride 93 L (98-107) mEq/L Carbon Dioxide > 45 H* (23-29) mEq/L BUN 80 H (8-23) mg/dL Creatinine 1.66 H (0.60-1.20) mg/dL Est GFR ( Amer) 37 L (> 60) Est GFR (Non-Af Amer) 30 L (> 60) BUN/Creatinine Ratio 48 H (6-26) Glucose 336 H (70-105) mg/dL Calculated Osmolality 331 H (280-300) Calcium 9.1 (8.6-10.3) mg/dL Total Bilirubin 0.3 (0.3-1.0) mg/dL AST 9 L (13-39) Units/L ALT 4 L (7-52) Units/L Alkaline Phosphatase 69 (34-104) Units/L Serum Total Protein 6.9 (6.4-8.9) g/dL Albumin 3.6 (3.5-5.7) g/dL Globulin 3.3 (2.4-3.5) g/dL Albumin/Globulin Ratio 1.1 (1.1-2.2) Stool Occult Blood Positive A (Negative) Blood Type Antibody Screen Crossmatch 08/26/18 08/26/18 Range/Units 04:36 04:36 WBC (4.3-11.1) K/mcL RBC (3.82-4.97) M/mcL Hgb (11.5-15.4) g/dL Hct (35.3-44.9) % MCV (83.0-100.0) fL MCH (28.0-33.3) pg MCHC (31.6-35.5) g/dL RDW (11.5-14.5) % Plt Count (140-400) K/mcL MPV (9.4-12.4) fL Immature Gran % (0-4) % Seg Neutrophils % % Lymphocytes % % Monocytes % % Eosinophils % % Basophils % % Neutrophils # (1.6-8.9) K/mcL Lymphocytes # (0.6-4.6) K/mcL Monocytes # (0.0-1.3) K/mcL Eosinophils # (0.0-0.6) K/mcL Basophils # (0.0-0.2) K/mcL Platelet Estimate (Normal) Hypochromasia (Not Present) Anisocytosis (Not Present) PT 11.7 (9.4-12.1) Seconds INR 1.0 APTT 20.3 L (26.0-36.0) Seconds Sodium (136-145) mEq/L Potassium (3.5-5.1) mEq/L Chloride (98-107) mEq/L Carbon Dioxide (23-29) mEq/L BUN (8-23) mg/dL Creatinine (0.60-1.20) mg/dL Est GFR ( Amer) (> 60) Est GFR (Non-Af Amer) (> 60) BUN/Creatinine Ratio (6-26) Glucose (70-105) mg/dL Calculated Osmolality (280-300) Calcium (8.6-10.3) mg/dL Total Bilirubin (0.3-1.0) mg/dL AST (13-39) Units/L ALT (7-52) Units/L Alkaline Phosphatase (34-104) Units/L Serum Total Protein (6.4-8.9) g/dL Albumin (3.5-5.7) g/dL Globulin (2.4-3.5) g/dL Albumin/Globulin Ratio (1.1-2.2) Stool Occult Blood (Negative) Blood Type A POSITIVE Antibody Screen NEGATIVE Crossmatch See Detail - EKG Data EKG #1 EKG attestation: Yes I reviewed and interpreted this EKG. EKG results narrative: Sinus rhythm. Right bundle branch block. Left anterior fascicular block. 91 bpm. NE interval 182, QRS 143, QTC 522. Compared to previous EKG completed on 07/12/2018 no significant changes noted
[2018-08-26] MEDS: Pantoprazole 40 MG in 0.9 % Sodium Chloride Mini Bag 100 ML IVC SCH ×2 (04:48→10:34)
[2018-08-26 04:58] LABS: Basophils % 0.2 %; Eosinophils # 0.3 K/mcL (0.0-0.6); Eosinophils % 3.2 %; Hemoglobin 7.4 g/dL (11.5-15.4); Immature Granulocytes % 0.7 % (0-4); Lymphocytes # 1.5 K/mcL (0.6-4.6); Lymphocytes % 18.1 %; Mean Corpuscular HGB Conc 27.4 g/dL (31.6-35.5); Mean Corpuscular Hemoglobin 26.8 pg (28.0-33.3); Mean Corpuscular Volume 97.8 fL (83.0-100.0); Mean Platelet Volume 11.4 fL (9.4-12.4); Monocytes # 0.4 K/mcL (0.0-1.3); Monocytes % 5.3 %; Platelet Count 176 K/mcL (140-400); Red Blood Count 2.76 M/mcL (3.82-4.97); Red Cell Distribution Width 16.9 % (11.5-14.5); Segmented Neutrophils % 72.5 %
[2018-08-26 05:02] LABS: Prothrombin Time 11.7 Seconds (9.4-12.1)
[2018-08-26 05:18] LABS: Activated Partial Thrombo Time 20.3 Seconds (26.0-36.0)
[2018-08-26 05:19] LABS: Neutrophils # 5.9 K/mcL (1.6-8.9)
[2018-08-26 05:23] LABS: Alanine Aminotransferase 4 Units/L (7-52); Albumin 3.6 g/dL (3.5-5.7); Albumin/Globulin Ratio 1.1 (1.1-2.2); Alkaline Phosphatase 69 Units/L (34-104); Aspartate Amino Transferase 9 Units/L (13-39); BUN/Creatinine Ratio 48 (6-26); Bilirubin,Total 0.3 mg/dL (0.3-1.0); Blood Urea Nitrogen 80 mg/dL (8-23); Calcium 9.1 mg/dL (8.6-10.3); Carbon Dioxide > 45 mEq/L (23-29); Chloride 93 mEq/L (98-107); Globulin 3.3 g/dL (2.4-3.5); Glucose 336 mg/dL (70-105); Osmolality,Calculated 331 (280-300); Potassium 5.4 mEq/L (3.5-5.1); Sodium 142 mEq/L (136-145); Total Protein 6.9 g/dL (6.4-8.9); eGFR For Non-African Americans 30 (> 60)
[2018-08-26] MEDS ORDERED: Insulin Human Regular 10 UNIT in 0.9 % Sodium Chloride 10 ML IV ONE (05:25)
[2018-08-26 05:27] LABS: Hypochromasia Present (Not Present); Platelet Estimate Normal (Normal)
[2018-08-26 05:28] LABS: Anisocytosis 1+ (Not Present)
--- NOTE | 2018-08-26 05:31 | Emergency Department Note ---
Disposition Clinical Impression: Upper GI bleed, Anemia, blood loss, Hyperkalemia Disposition: Admitted As Inpatient Referrals: Fabby Caballero [Primary Care Provider] - General Adult HPI - General Chief complaint: ED GI Bleed Stated complaint: vomiting blood Time Seen by Provider: 08/26/18 04:01 Source: patient, EMS Mode of arrival: EMS Limitations: physical limitation - History of Present Illness Pain Scale: 0 - Related Data Home Medications Medication Instructions Recorded Confirmed Albuterol Sulfate [Proair Hfa] 1 - 2 puff IH Q4H PRN 05/19/16 07/03/18 Ferrous Sulfate 325 mg PO BIDWM 05/19/16 07/03/18 Furosemide [Lasix] 80 mg PO QAM 05/19/16 07/03/18 Levothyroxine [Synthroid] 125 mcg PO QAM 05/19/16 07/03/18 amLODIPine [Norvasc] 5 mg PO DAILY 05/19/16 07/03/18 Insulin ASPART [NovoLOG] 10 unit SQ TIDAC 02/28/17 07/03/18 Aspirin [Lo-Dose Aspirin EC] 81 mg PO DAILY 05/16/17 07/03/18 Budesonide [Pulmicort] 0.5 mg IH BID 05/16/17 07/03/18 Ipratropium/Albuterol Neb [Duoneb] 3 ml IH Q6HR PRN 05/16/17 07/03/18 Diphenhydramine HCl/Zinc Acet 1 appl TP TID PRN 10/09/17 07/03/18 [Benadryl Itch Stopping Crm] Famotidine [Heartburn Prevention] 20 mg PO DAILY 10/09/17 07/03/18 Furosemide [Lasix] 40 mg PO QPM 10/09/17 07/03/18 Loperamide HCl [Anti-Diarrheal] 2 mg PO Q4H PRN 10/09/17 07/03/18 Polyvinyl Alcohol [Artificial 1 drop OP QID 10/09/17 07/03/18 Tears] Pramipexole Di-HCl [Pramipexole 0.125 mg PO HS 10/09/17 07/03/18 Dihydrochloride] Pramipexole [Mirapex] 0.25 mg PO QAM 10/09/17 07/03/18 Atorvastatin Calcium [Lipitor] 20 mg PO HS 07/03/18 07/03/18 Benzonatate [Tessalon] 100 mg PO TID 07/03/18 07/03/18 Gabapentin [Neurontin] 800 mg PO TID 07/03/18 07/03/18 Guaifenesin [Mucinex] 600 mg PO BID 07/03/18 07/03/18 Insulin DETEMIR [Levemir Flextouch] 34 units SQ HS 07/03/18 07/03/18 Latanoprost [Xalatan] 1 drop OP DAILY 07/03/18 07/03/18 Losartan Potassium [Cozaar] 100 mg PO DAILY 07/03/18 07/03/18 Melatonin 4 mg PO HS 07/03/18 07/03/18 Metoprolol Succinate [Toprol Xl] 100 mg PO DAILY 07/03/18 07/03/18 Mirtazapine 7.5 mg PO HS 07/03/18 07/03/18 Potassium Chloride [K-Tab ER] 20 meq PO DAILY 07/03/18 07/03/18 Sertraline [Zoloft] 25 mg PO DAILY 07/03/18 07/03/18 Venlafaxine [Effexor] 75 mg PO DAILY 07/03/18 07/03/18 Previous Rx's Medication Instructions Recorded Acetaminophen [Tylenol] 650 mg PO Q6HR PRN #0 tablet 08/18/16 Clopidogrel [Plavix] 75 mg PO DAILY #30 tablet 10/12/17 Mupirocin [Bactroban Oint] 1 appl TP BID tube 07/12/18 Allergies Allergy/AdvReac Type Severity Reaction Status Date / Time No Known Allergies Allergy Verified 10/08/17 12:19 Constitutional: Denies: fever, weakness Eyes: Reports: as per HPI ENT ED: Reports: as per HPI Cardiovascular: Denies: chest pain, palpitations Respiratory: Denies: cough, dyspnea Gastrointestinal: Reports: vomiting, melena, other (Hematemesis). Denies: abdominal pain Genitourinary: Reports: as per HPI Musculoskeletal: Reports: as per HPI Integumentary: Reports: as per HPI Neurological: Reports: weakness (Residual from stroke) Psychiatric: Reports: as per HPI Endocrine: Reports: as per HPI Hematological/Lymphatic: Reports: as per HPI Allergic/Immunologic: Reports: as per HPI Past Medical History - Past Medical History Medical history: Reports: CVA, diabetes, GERD, hyperlipidemia, hypertension, renal disease, thyroid disease Surgical history: Reports: , cholecystectomy, herniorrhaphy, orthopedic, other Psychiatric history: Reports: anxiety, depression, panic disorder - Social History Smoking Status: Former smoker Smokeless Tobacco Status: No Alcohol use: Reports: none Drug use: Reports: none Physical Exam - General Limitations: physical limitation General appearance: alert Course Vital Signs Temperature 98.8 F 08/26/18 04:17 Pulse Rate 92 08/26/18 04:17 Respiratory Rate 16 08/26/18 04:17 Blood Pressure 111/64 08/26/18 04:17 O2 Sat by Pulse Oximetry 98 08/26/18 04:17 Temperature 98.8 F 08/26/18 04:17 Pulse Rate 93 08/26/18 04:58 Respiratory Rate 19 08/26/18 04:58 Blood Pressure 96/72 08/26/18 04:58 O2 Sat by Pulse Oximetry 97 08/26/18 04:58 Oxygen Delivery Oxygen Delivery Room Air Medical Decision Making - Lab Data Result diagrams: 08/26/18 04:36 08/26/18 04:36 Lab Results 08/26/18 08/26/18 08/26/18 Range/Units 04:12 04:36 04:36 WBC 8.1 (4.3-11.1) K/mcL RBC 2.76 L (3.82-4.97) M/mcL Hgb 7.4 L (11.5-15.4) g/dL Hct 27.0 L (35.3-44.9) % MCV 97.8 (83.0-100.0) fL MCH 26.8 L (28.0-33.3) pg MCHC 27.4 L (31.6-35.5) g/dL RDW 16.9 H (11.5-14.5) % Plt Count 176 (140-400) K/mcL MPV 11.4 (9.4-12.4) fL PT (9.4-12.1) Seconds INR APTT (26.0-36.0) Seconds Sodium 142 (136-145) mEq/L Potassium 5.4 H (3.5-5.1) mEq/L Chloride 93 L (98-107) mEq/L Carbon Dioxide > 45 H* (23-29) mEq/L BUN 80 H (8-23) mg/dL Creatinine 1.66 H (0.60-1.20) mg/dL Est GFR ( Amer) 37 L (> 60) Est GFR (Non-Af Amer) 30 L (> 60) BUN/Creatinine Ratio 48 H (6-26) Glucose 336 H (70-105) mg/dL Calculated Osmolality 331 H (280-300) Calcium 9.1 (8.6-10.3) mg/dL Total Bilirubin 0.3 (0.3-1.0) mg/dL AST 9 L (13-39) Units/L ALT 4 L (7-52) Units/L Alkaline Phosphatase 69 (34-104) Units/L Serum Total Protein 6.9 (6.4-8.9) g/dL Albumin 3.6 (3.5-5.7) g/dL Globulin 3.3 (2.4-3.5) g/dL Albumin/Globulin Ratio 1.1 (1.1-2.2) Stool Occult Blood Positive A (Negative) Blood Type Antibody Screen Crossmatch 08/26/18 08/26/18 Range/Units 04:36 04:36 WBC (4.3-11.1) K/mcL RBC (3.82-4.97) M/mcL Hgb (11.5-15.4) g/dL Hct (35.3-44.9) % MCV (83.0-100.0) fL MCH (28.0-33.3) pg MCHC (31.6-35.5) g/dL RDW (11.5-14.5) % Plt Count (140-400) K/mcL MPV (9.4-12.4) fL PT 11.7 (9.4-12.1) Seconds INR 1.0 APTT 20.3 L (26.0-36.0) Seconds Sodium (136-145) mEq/L Potassium (3.5-5.1) mEq/L Chloride (98-107) mEq/L Carbon Dioxide (23-29) mEq/L BUN (8-23) mg/dL Creatinine (0.60-1.20) mg/dL Est GFR ( Amer) (> 60) Est GFR (Non-Af Amer) (> 60) BUN/Creatinine Ratio (6-26) Glucose (70-105) mg/dL Calculated Osmolality (280-300) Calcium (8.6-10.3) mg/dL Total Bilirubin (0.3-1.0) mg/dL AST (13-39) Units/L ALT (7-52) Units/L Alkaline Phosphatase (34-104) Units/L Serum Total Protein (6.4-8.9) g/dL Albumin (3.5-5.7) g/dL Globulin (2.4-3.5) g/dL Albumin/Globulin Ratio (1.1-2.2) Stool Occult Blood (Negative) Blood Type A POSITIVE Antibody Screen NEGATIVE Crossmatch See Detail Critical Care Time Critical Care Time: Yes Total Critical Care Time: 35 Attestation: Critical care time of 35 minutes spent in medical management of her upper GI bleed Attestation Statement - Attestation Attestation: I examined this patient and my medical decision-making was reviewed with the Resident Physician. I agree with the documented findings, disposition and treatment plan as described except to the extent set forth below. 73-year-old female presented to the emergency room for GI bleed. Started within the last 24 hours. Should one bout of vomiting that had some dark colored blood in it. She has had more bouts of diarrhea or loose stool that was dark in color. This [facility] and [facility] her to the ER. She does not take any blood thinners. Patient's hemoglobin is down to 7. Hemoccult positive. Suspect an upper GI bleed. Blood pressure is 90 systolic. We will give some IV fluids. We will go ahead and transfuse HER-2 units of blood. We have started her on IV Protonix. We will consult with endoscopy. We did speak with Dr. Walters. He was covering for endoscopy. We will see the patient in consultation. Patient's potassium was elevated at 5.4. We will give her some insulin. Her glucose was ordering over 300. She has an elevated BUNs. This would be consistent with an upper GI bleed. She does have a history of renal insufficiency.
[2018-08-26] MEDS ORDERED: 0.9 % Sodium Chloride 250 ML ONE (06:05)
[2018-08-26] MEDS ORDERED: Naloxone 0.4 MG/ML INJ IVP PRN (07:50)
[2018-08-26] MEDS ORDERED: traMADol 50 MG TABLET PO PRN (07:50)
[2018-08-26] MEDS ORDERED: D5% in Water 1,000 ML IVC PRN (07:57)
[2018-08-26] MEDS ORDERED: Dextrose Gel 15 GM/37.5 ML TUBE PO PRN ×2 (07:57)
[2018-08-26] MEDS ORDERED: *HR* Dextrose 50 % in Water (Syg) 50 ML SYRINGE IVP PRN (07:57)
[2018-08-26] MEDS ORDERED: D5% in 0.9% NACL 1,000 ML IVC SCH ×2 (08:00→09:50)
[2018-08-26] MEDS ORDERED: Ipratropium/Albuterol Neb 3 ML IH SCH (08:00)
[2018-08-26 09:05] LABS: ABG Base Excess 10 mEq/L (-2 to 3); ABG HCO3 46 mEq/L (21-27); ABG Oxygen Saturation 82 % (95-98); ABG PCO2 112 mmHg (35-45); ABG PH 7.22 pH Units (7.32-7.45); ABG PO2 60 mmHg (85-104); ABG TCO2 49 mEq/L (20-26)
--- NOTE | 2018-08-26 09:42 | General Surgery Consult Note ---
Date of Encounter: 08/26/18 Time of Encounter: 09:39 Assessment and Plan (1) Hematemesis/vomiting blood Current Visit: Yes Status: Acute I explained to the patient and patient power of historic site administrator that I do think it would be appropriate to proceed with an EGD with MAC. Discussed with the patient and family member and they agree to the above plan. Qualifiers: Nausea presence: with nausea Qualified Code(s): K92.0 - Hematemesis History of Present Illness Consult date: 08/26/18 Requesting physician: Yael Montemayor History of present illness: The patient is a 73-year-old female with a past history and significant comorbidities significant for hypertension, diabetes mellitus, history of CVA, history of PE who was admitted to [facility] on 08/26/2018 secondary to hematemesis. He was at a nursing facility where yesterday she started to have hematemesis spontaneously. The patient states that she has been having lower pain actually located in the vaginal area but denies any upper abdominal pain symptoms. She has not had this symptom in the past and states, is true diarrhea has been present for many weeks. She has been taking medications to help with the bowel movements but she has been having balance on average 4-5 times a day. He has tar E stools currently and currently denies any nausea. I have been asked to a value with the patient secondary to her hematemesis. Past Med Surg Social Fam HX - Past Medical History Medical history: CVA, diabetes, GERD, hyperlipidemia, hypertension, renal disease, thyroid disease Additional medical history: anemia - diverticulosis, chronic kidney disease, hypomagnesemia, is reported pulmonary hypertension, history of pulmonary embolism Psychiatric history: anxiety, depression, panic disorder - Past Surgical History Surgical History: , cholecystectomy, herniorrhaphy, orthopedic, other Additional surgical history: shoulder - elbow and hip surgery - Social History Smoking Status: Former smoker Smokeless Tobacco Status: No Alcohol use: none Drug use: none - Family History Mother Living Status: Hx Family Cardiac Disorders: Yes ([place]) Hx Family Respiratory Disorders: No Hx Family Cancer: No Hx Family GI Disorders: No Hx Family Endocrine Disorder: Yes (DM) Hx Family Neuromuscular Disorders: No Hx Family Neurologic Disorders: No Hx Family HEENT Disorders: No Hx Family Autoimmune Disorders: No Father Living Status: Hx Family Cardiac Disorders: Yes (HTN) Hx Family Cancer: Yes (prostate) Hx Family Endocrine Disorder: Yes (DM) Medications and Allergies Albuterol Sulfate [Proair Hfa] 1 - 2 puff IH Q4H PRN 05/19/16 [History] Ferrous Sulfate 325 mg PO BIDWM 05/19/16 [History] Furosemide [Lasix] 80 mg PO QAM 05/19/16 [History] Levothyroxine [Synthroid] 125 mcg PO QAM 05/19/16 [History] amLODIPine [Norvasc] 5 mg PO DAILY 05/19/16 [History] Acetaminophen [Tylenol] 650 mg PO Q6HR PRN #0 tablet 08/18/16 [Rx] Insulin ASPART [NovoLOG] 10 unit SQ TIDAC 02/28/17 [History] Aspirin [Lo-Dose Aspirin EC] 81 mg PO DAILY 05/16/17 [History] Budesonide [Pulmicort] 0.5 mg IH BID 05/16/17 [History] Ipratropium/Albuterol Neb [Duoneb] 3 ml IH Q6HR PRN 05/16/17 [History] Diphenhydramine HCl/Zinc Acet [Benadryl Itch Stopping Crm] 1 appl TP TID PRN 10/09/17 [History] Famotidine [Heartburn Prevention] 20 mg PO DAILY 10/09/17 [History] Furosemide [Lasix] 40 mg PO QPM 10/09/17 [History] Loperamide HCl [Anti-Diarrheal] 2 mg PO Q4H PRN 10/09/17 [History] Polyvinyl Alcohol [Artificial Tears] 1 drop OP QID 10/09/17 [History] Pramipexole Di-HCl [Pramipexole Dihydrochloride] 0.125 mg PO HS 10/09/17 [History] Pramipexole [Mirapex] 0.25 mg PO QAM 10/09/17 [History] Clopidogrel [Plavix] 75 mg PO DAILY #30 tablet 10/12/17 [Rx] Atorvastatin Calcium [Lipitor] 20 mg PO HS 07/03/18 [History] Benzonatate [Tessalon] 100 mg PO TID 07/03/18 [History] Gabapentin [Neurontin] 800 mg PO TID 07/03/18 [History] Guaifenesin [Mucinex] 600 mg PO BID 10/08/18 [History] Insulin DETEMIR [Levemir Flextouch] 34 units SQ HS 07/03/18 [History] Latanoprost [Xalatan] 1 drop OP DAILY 07/03/18 [History] Losartan Potassium [Cozaar] 100 mg PO DAILY 07/03/18 [History] Melatonin 4 mg PO HS 07/03/18 [History] Metoprolol Succinate [Toprol Xl] 100 mg PO DAILY 07/03/18 [History] Mirtazapine 7.5 mg PO HS 07/03/18 [History] Potassium Chloride [K-Tab ER] 20 meq PO DAILY 07/03/18 [History] Sertraline [Zoloft] 25 mg PO DAILY 07/03/18 [History] Venlafaxine [Effexor] 75 mg PO DAILY 07/03/18 [History] Mupirocin [Bactroban Oint] 1 appl TP BID tube 07/12/18 [Rx] Allergy/AdvReac Type Severity Reaction Status Date / Time No Known Allergies Allergy Verified 10/08/17 12:19 Review of Systems All systems PM: reviewed and no additional remarkable complaints except as stated All systems PM: The remainder of the systems were reviewed and are negative General Surgery Exam Initial Vital Signs Temp Pulse Resp BP Pulse Ox 98.8 F 92 16 111/64 98 08/26/18 04:17 08/26/18 04:17 08/26/18 04:17 08/26/18 04:17 08/26/18 04:17 - Eyes PERRL, normal ocular movement - Respiratory normal expansion (Adequate respiratory effort, positive rhonchi bilaterally) - Cardiovascular Cardiovascular exam: Present: RRR, no murmurs/rubs/gallops - Abdomen Abdomen general surgery: Present: bowel sounds present (Obese, soft, no pain to palpation. No masses) - Neurologic Present: other (Difficult to assess due to patient's history of CVA. Patient does respond appropriately to questions.) - Musculoskeletal Present: other (Noted weakness in the left upper extremity and apparent left lower extremity) Exam Initial Vital Signs Temp Pulse Resp BP Pulse Ox 98.8 F 92 16 111/64 98 08/26/18 04:17 08/26/18 04:17 08/26/18 04:17 08/26/18 04:17 08/26/18 04:17 Results - Labs 08/26/18 04:36 08/26/18 04:36 Abnormal lab results RBC 2.76 M/mcL (3.82-4.97) L 08/26/18 04:36 Hgb 7.4 g/dL (11.5-15.4) L 08/26/18 04:36 Hct 27.0 % (35.3-44.9) L 08/26/18 04:36 MCH 26.8 pg (28.0-33.3) L 08/26/18 04:36 MCHC 27.4 g/dL (31.6-35.5) L 08/26/18 04:36 RDW 16.9 % (11.5-14.5) H 08/26/18 04:36 Hypochromasia Present (Not Present) A 08/26/18 04:36 Anisocytosis 1+ (Not Present) A 08/26/18 04:36 APTT 20.3 Seconds (26.0-36.0) L 08/26/18 04:36 ABG pH 7.22 pH Units (7.32-7.45) L 08/26/18 08:56 ABG pCO2 112 mmHg (35-45) H* 08/26/18 08:56 ABG pO2 60 mmHg (85-104) L 08/26/18 08:56 ABG HCO3 46 mEq/L (21-27) H 08/26/18 08:56 ABG Total CO2 49 mEq/L (20-26) H 08/26/18 08:56 ABG O2 Saturation 82 % (95-98) L 08/26/18 08:56 ABG Base Excess 10 mEq/L (-2 to 3) H 08/26/18 08:56 Potassium 5.4 mEq/L (3.5-5.1) H 08/26/18 04:36 Chloride 93 mEq/L (98-107) L 08/26/18 04:36 Carbon Dioxide > 45 mEq/L (23-29) H* 08/26/18 04:36 BUN 80 mg/dL (8-23) H 08/26/18 04:36 Creatinine 1.66 mg/dL (0.60-1.20) H 08/26/18 04:36 Est GFR ( Amer) 37 (> 60) L 08/26/18 04:36 Est GFR (Non-Af Amer) 30 (> 60) L 08/26/18 04:36 BUN/Creatinine Ratio 48 (6-26) H 08/26/18 04:36 Glucose 336 mg/dL (70-105) H 08/26/18 04:36 Calculated Osmolality 331 (280-300) H 08/26/18 04:36 AST 9 Units/L (13-39) L 08/26/18 04:36 ALT 4 Units/L (7-52) L 08/26/18 04:36 Stool Occult Blood Positive (Negative) A 08/26/18 04:12 Diabetes panel 08/26/18 Range/Units 04:36 Sodium 142 (136-145) mEq/L Potassium 5.4 H (3.5-5.1) mEq/L Chloride 93 L (98-107) mEq/L Carbon Dioxide > 45 H* (23-29) mEq/L BUN 80 H (8-23) mg/dL Creatinine 1.66 H (0.60-1.20) mg/dL Glucose 336 H (70-105) mg/dL Calcium 9.1 (8.6-10.3) mg/dL AST 9 L (13-39) Units/L ALT 4 L (7-52) Units/L Alkaline Phosphatase 69 (34-104) Units/L Albumin 3.6 (3.5-5.7) g/dL Calcium panel 08/26/18 Range/Units 04:36 Calcium 9.1 (8.6-10.3) mg/dL Albumin 3.6 (3.5-5.7) g/dL Pituitary panel 08/26/18 Range/Units 04:36 Sodium 142 (136-145) mEq/L Potassium 5.4 H (3.5-5.1) mEq/L Chloride 93 L (98-107) mEq/L Carbon Dioxide > 45 H* (23-29) mEq/L BUN 80 H (8-23) mg/dL Creatinine 1.66 H (0.60-1.20) mg/dL Glucose 336 H (70-105) mg/dL Calcium 9.1 (8.6-10.3) mg/dL Adrenal panel 08/26/18 Range/Units 04:36 Sodium 142 (136-145) mEq/L Potassium 5.4 H (3.5-5.1) mEq/L Chloride 93 L (98-107) mEq/L Carbon Dioxide > 45 H* (23-29) mEq/L BUN 80 H (8-23) mg/dL Creatinine 1.66 H (0.60-1.20) mg/dL Glucose 336 H (70-105) mg/dL Calcium 9.1 (8.6-10.3) mg/dL Total Bilirubin 0.3 (0.3-1.0) mg/dL AST 9 L (13-39) Units/L ALT 4 L (7-52) Units/L Alkaline Phosphatase 69 (34-104) Units/L Albumin 3.6 (3.5-5.7) g/dL All other labs normal. Consult Discharge Plan - Plan Referrals: Fabby Caballero [Primary Care Provider] -
[2018-08-26] MEDS ORDERED: Piperacillin/Tazobactam 3.375 GM in 0.9 % Sodium Chloride Mini Bag 100 ML IVPB SCH (09:50)
--- NOTE | 2018-08-26 09:52 | Internal Med History&Physical ---
Date of Encounter: 08/26/18 Time of Encounter: 09:45 Internal Medicine - H&P: HPI Chief complaint: GI bleeding Admitted From: Home History of present illness: Ms. Walton is a 73 year old female past medical history significant for diabetes, COPD, CVA with left hemiparesis, and HTN. Patient poor historian due to Hypercapnic respiratory failure plus expressive aphasia from old cva, information obtain from family member. As per patient niece at bedside, she reported that she received a call from the [facility] at around 4am and was told the patient was being taken to the hospital due to coffee ground emesis. She was told that everything had started overnight. She does not have information regarding seeing blood per rectum. Reports that the patient was scheduled for a EGD and colonoscopy next week. Past Med Surg Social Fam HX - Past Medical History Medical history: CVA, diabetes, GERD, hyperlipidemia, hypertension, renal disease, thyroid disease Additional medical history: anemia - diverticulosis Psychiatric history: anxiety, depression, panic disorder - Past Surgical History Surgical History: , cholecystectomy, herniorrhaphy, orthopedic, other Additional surgical history: shoulder - elbow and hip surgery - Social History Smoking Status: Former smoker Smokeless Tobacco Status: No Alcohol use: none Drug use: none - Family History Mother Living Status: Hx Family Cardiac Disorders: Yes ([place]) Hx Family Respiratory Disorders: No Hx Family Cancer: No Hx Family GI Disorders: No Hx Family Endocrine Disorder: Yes (DM) Hx Family Neuromuscular Disorders: No Hx Family Neurologic Disorders: No Hx Family HEENT Disorders: No Hx Family Autoimmune Disorders: No Father Living Status: Hx Family Cardiac Disorders: Yes (HTN) Hx Family Cancer: Yes (prostate) Hx Family Endocrine Disorder: Yes (DM) Internal Medicine - H&P: Meds Albuterol Sulfate [Proair Hfa] 1 - 2 puff IH Q4H PRN 05/19/16 [History] Ferrous Sulfate 325 mg PO BIDWM 05/19/16 [History] Furosemide [Lasix] 80 mg PO QAM 05/19/16 [History] Levothyroxine [Synthroid] 125 mcg PO QAM 05/19/16 [History] amLODIPine [Norvasc] 5 mg PO DAILY 05/19/16 [History] Acetaminophen [Tylenol] 650 mg PO Q6HR PRN #0 tablet 08/18/16 [Rx] Insulin ASPART [NovoLOG] 10 unit SQ TIDAC 02/28/17 [History] Aspirin [Lo-Dose Aspirin EC] 81 mg PO DAILY 05/16/17 [History] Budesonide [Pulmicort] 0.5 mg IH BID 05/16/17 [History] Ipratropium/Albuterol Neb [Duoneb] 3 ml IH Q6HR PRN 05/16/17 [History] Diphenhydramine HCl/Zinc Acet [Benadryl Itch Stopping Crm] 1 appl TP TID PRN 10/09/17 [History] Famotidine [Heartburn Prevention] 20 mg PO DAILY 10/09/17 [History] Furosemide [Lasix] 40 mg PO QPM 10/09/17 [History] Loperamide HCl [Anti-Diarrheal] 2 mg PO Q4H PRN 10/09/17 [History] Polyvinyl Alcohol [Artificial Tears] 1 drop OP QID 10/09/17 [History] Pramipexole Di-HCl [Pramipexole Dihydrochloride] 0.125 mg PO HS 10/09/17 [History] Pramipexole [Mirapex] 0.25 mg PO QAM 10/09/17 [History] Clopidogrel [Plavix] 75 mg PO DAILY #30 tablet 10/12/17 [Rx] Atorvastatin Calcium [Lipitor] 20 mg PO HS 07/03/18 [History] Benzonatate [Tessalon] 100 mg PO TID 07/03/18 [History] Gabapentin [Neurontin] 800 mg PO TID 07/03/18 [History] Guaifenesin [Mucinex] 600 mg PO BID 07/03/18 [History] Insulin DETEMIR [Levemir Flextouch] 34 units SQ HS 07/03/18 [History] Latanoprost [Xalatan] 1 drop OP DAILY 07/03/18 [History] Losartan Potassium [Cozaar] 100 mg PO DAILY 07/03/18 [History] Melatonin 4 mg PO HS 07/03/18 [History] Metoprolol Succinate [Toprol Xl] 100 mg PO DAILY 07/03/18 [History] Mirtazapine 7.5 mg PO HS 07/03/18 [History] Potassium Chloride [K-Tab ER] 20 meq PO DAILY 07/03/18 [History] Sertraline [Zoloft] 25 mg PO DAILY 07/03/18 [History] Venlafaxine [Effexor] 75 mg PO DAILY 07/03/18 [History] Mupirocin [Bactroban Oint] 1 appl TP BID tube 07/12/18 [Rx] Allergy/AdvReac Type Severity Reaction Status Date / Time No Known Allergies Allergy Verified 10/08/17 12:19 ROS unobtainable: due to mental status (Unable to obtain a review of systmes due to patient being somnolent. ) All Systems PM: A 10-system review of systems was performed and is negative for pertinent findings except as documented above in the HPI. - Constitutional Vitals: Temp Pulse Resp BP Pulse Ox 98.5 F 98 19 92/62 95 08/26/18 08:05 08/26/18 08:05 08/26/18 08:05 08/26/18 08:05 08/26/18 08:05 Exam: Vitals: Reviewed. General: Somnolent, Skin: Normal color, no rash, no lesions. HEENT: EOM, pupils equal, round and reactive. Cardiovascular: RRR, Normal S1 & S2, no rubs, murmurs or gallops. Lungs: Rales b/l at the bases, no wheezes or crackles. Abdomen: Obese, Soft, non-tender, no rigidity. Extremities: chronic venous stasis changes in the left lower extremity. Neurological: Unable to perform due to patient mental status. Rest of the physical exam is non contributory Internal Med - H&P Results - Labs CBC & Chem 7: 08/26/18 04:36 08/26/18 04:36 Labs: Short CBC 08/26/18 Range/Units 04:36 WBC 8.1 (4.3-11.1) K/mcL Hgb 7.4 L (11.5-15.4) g/dL Hct 27.0 L (35.3-44.9) % Plt Count 176 (140-400) K/mcL Neutrophils # 5.9 (1.6-8.9) K/mcL BMP 08/26/18 04:36 Sodium 142 Potassium 5.4 H Chloride 93 L Carbon Dioxide > 45 H* BUN 80 H Creatinine 1.66 H Glucose 336 H Calcium 9.1 Liver Function 08/26/18 Range/Units 04:36 Total Bilirubin 0.3 (0.3-1.0) mg/dL AST 9 L (13-39) Units/L ALT 4 L (7-52) Units/L Alkaline Phosphatase 69 (34-104) Units/L Albumin 3.6 (3.5-5.7) g/dL - ABG Interpretation Interpretation: ABG interpreted by me ABG results: 08/26/18 08:56 ABG pH 7.22 L ABG pCO2 112 H* ABG pO2 60 L ABG HCO3 46 H ABG Total CO2 49 H ABG O2 Saturation 82 L ABG Base Excess 10 H Interpretation: respiratory acidosis - Assessment and plan (1) Acute respiratory failure with hypoxia and hypercarbia Current Visit: No Status: Acute Assessment and plan: with significant respiratory acidosis and hypercapnia. explained to Ms. Daniel En who is the patient POA about the findings and the treatment plan. she reported that the patient does not want to be placed on a BiPap and is a DNR/comfort care. and does not want to be intubated. explained to her the potential consequences of this abnormality, she understood the consequences. Report that she will follow the patient wishes. but the POA wanted to continue with medical therapy. patient started on bronchodilators On empiric IV antibiotics as patient is very high risk for aspiration Palliative care has been consulted. portable chest x-ray. (2) COPD (chronic obstructive pulmonary disease) Current Visit: No Status: Chronic Assessment and plan: Plan of care as above. Qualifiers: COPD type: unspecified COPD Qualified Code(s): J44.9 - Chronic obstructive pulmonary disease, unspecified (3) Upper GI bleed Current Visit: Yes Status: Acute Assessment and plan: Plan surgery has been consulted transfuse 2 units of PRBCs on a PPI drip Serial CBC Q6HRs (4) Acute blood loss anemia Current Visit: No Status: Acute Assessment and plan: Plan of care as above. (5) DVT prophylaxis Current Visit: No Status: Acute Assessment and plan: NO chemical DVT prophylaxis due to GI bleeding mechincal DVT prophyalxis with plexi-pulses. (6) Diastolic CHF with preserved left ventricular function, NYHA class 2 Current Visit: No Status: Chronic Assessment and plan: Not an acute exacerbation. We hold diuretics for now Strict intake and output Daily weight Fluid restriction to 1.5 L a day. (7) Stage III pressure ulcer of right buttock Current Visit: No Status: Acute Assessment and plan: Wound care consult. (8) DM (diabetes mellitus) Current Visit: No Status: Chronic Assessment and plan: Patient is nothing by mouth. 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 will hold home antihypertensive medications.. Qualifiers: Hypertension type: essential hypertension Qualified Code(s): I10 - Essential (primary) hypertension (12) Hypothyroid Current Visit: No Status: Chronic Assessment and plan: We will resume home levothyroxine. Qualifiers: Hypothyroidism type: acquired Qualified Code(s): E03.9 - Hypothyroidism, unspecified - Time Spent With Patient Total time spent is greater than 50% in coordination of care (as documented) at patient's floor/unit and/or counseling patient: Greater than 35 minutes (40)
[2018-08-26] MEDS ORDERED: Lidocaine -MPF 2% 2 ML VIAL ONE (10:07)
[2018-08-26] MEDS ORDERED: *HR* Propofol 200 MG/20 ML VIAL IVP ONE (10:08)
--- NOTE | 2018-08-26 10:22 | Event Note ---
Date of Encounter: 08/26/18 Time of Encounter: 10:20 Had a repeat conversation with the patient POA at bedside Ms. María Pollard, the nurse and the palliative care a team at bedside. Explained to the MIGUELINA about the severity of the Hypercapnic respiratory failure and the consequences including . She decided to withdraw care and make the patient comfortable. Medical therapy will be withdrawn and will start morphine per palliative care team management.
[2018-08-26] MEDS ORDERED: OXYCODONE Oral CONC 10 MG/0.5 ML ORAL.SYG SL PRN (10:58)
[2018-08-26] MEDS ORDERED: Atropine Sulfate 1% 40 DROP/2 ML BOTTLE SL PRN (10:59)
--- NOTE | 2018-08-26 11:00 | Anesthesia Evaluation PreOp ---
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 History: CVA (residual left-sided hemiparesis) Other Medical History: Bleeding (active GI bleed requiring blood transfusion), Diabetes Type II (insulin dependnet) Anesthesia History: Past Anesthesia (Left hip IM nail, C-S, EGD), Problems (Patient underwent sedated/awake FOI due to difficult airway for her Hip IM nail) Alcohol Use: none Drug use: none Medications and Allergies Albuterol Sulfate [Proair Hfa] 1 - 2 puff IH Q4H PRN 05/19/16 [History] Ferrous Sulfate 325 mg PO BIDWM 05/19/16 [History] Furosemide [Lasix] 80 mg PO QAM 05/19/16 [History] Levothyroxine [Synthroid] 125 mcg PO QAM 05/19/16 [History] amLODIPine [Norvasc] 5 mg PO DAILY 05/19/16 [History] Acetaminophen [Tylenol] 650 mg PO Q6HR PRN #0 tablet 08/18/16 [Rx] Insulin ASPART [NovoLOG] 10 unit SQ TIDAC 02/28/17 [History] Aspirin [Lo-Dose Aspirin EC] 81 mg PO DAILY 05/16/17 [History] Budesonide [Pulmicort] 0.5 mg IH BID 05/16/17 [History] Ipratropium/Albuterol Neb [Duoneb] 3 ml IH Q6HR PRN 05/16/17 [History] Diphenhydramine HCl/Zinc Acet [Benadryl Itch Stopping Crm] 1 appl TP TID PRN 10/09/17 [History] Famotidine [Heartburn Prevention] 20 mg PO DAILY 10/09/17 [History] Furosemide [Lasix] 40 mg PO QPM 10/09/17 [History] Loperamide HCl [Anti-Diarrheal] 2 mg PO Q4H PRN 10/09/17 [History] Polyvinyl Alcohol [Artificial Tears] 1 drop OP QID 10/09/17 [History] Pramipexole Di-HCl [Pramipexole Dihydrochloride] 0.125 mg PO HS 10/09/17 [History] Pramipexole [Mirapex] 0.25 mg PO QAM 10/09/17 [History] Clopidogrel [Plavix] 75 mg PO DAILY #30 tablet 10/12/17 [Rx] Atorvastatin Calcium [Lipitor] 20 mg PO HS 07/03/18 [History] Benzonatate [Tessalon] 100 mg PO TID 07/03/18 [History] Gabapentin [Neurontin] 800 mg PO TID 07/03/18 [History] Guaifenesin [Mucinex] 600 mg PO BID 07/03/18 [History] Insulin DETEMIR [Levemir Flextouch] 34 units SQ HS 07/03/18 [History] Latanoprost [Xalatan] 1 drop OP DAILY 07/03/18 [History] Losartan Potassium [Cozaar] 100 mg PO DAILY 07/03/18 [History] Melatonin 4 mg PO HS 07/03/18 [History] Metoprolol Succinate [Toprol Xl] 100 mg PO DAILY 07/03/18 [History] Mirtazapine 7.5 mg PO HS 07/03/18 [History] Potassium Chloride [K-Tab ER] 20 meq PO DAILY 07/03/18 [History] Sertraline [Zoloft] 25 mg PO DAILY 07/03/18 [History] Venlafaxine [Effexor] 75 mg PO DAILY 07/03/18 [History] Mupirocin [Bactroban Oint] 1 appl TP BID tube 07/12/18 [Rx] Allergy/AdvReac Type Severity Reaction Status Date / Time No Known Allergies Allergy Verified 10/08/17 12:19 - Meds/Allergy Pre-op Review Medications Reviewed: Yes Allergies Reviewed: Yes Beta Blockers on Current Med List: Yes If Beta Blockers taken, Date/Time (Last Dose taken): will not administer today with bleeding and hypotension Anesthesia Results - Labs 08/26/18 04:36 08/26/18 04:36 - Imaging EKG: report reviewed, image reviewed (Sinus rhythm RBBB and LAFB) Additional studies: TTE: Impressions: LVEF 55%. Indeterminate diastolic function. Normal right ventricular structure and function. Severely sclerotic aortic valve leaflets. Mild-moderate aortic stenosis. Mild pulmonary hypertension. Anesthesia Exam Last Vital Signs Temp 98.5 F 08/26/18 08:05 Pulse 98 08/26/18 08:05 Resp 19 12/01/18 08:05 BP 92/62 08/26/18 08:05 Pulse Ox 95 08/26/18 08:05 - HEENT Pupil (Motor): Pupils equal, EOMI Mallampati: IV Teeth: Poor dentition Oral Opening: Less than or equal to 3 - SALES EXEC LOC: Oriented Anesthesia Assess/Plan ASA Score: 4 Level of consciousness: Cooperative Anesthetic Plan: MAC Monitoring Plan: Standard Monitors Recovery Plan: PACU
--- NOTE | 2018-08-26 11:29 | Palliative - Consult Note ---
Date of Encounter: 08/26/18 Time of Encounter: 10:50 - Assessment and Plan (1) Dyspnea Current Visit: No Status: Acute Assessment and plan: Breathing appears unlabored at this time. Will add Oxycodone SL for PRN use and adjust as necessary. Qualifiers: Dyspnea type: unspecified Qualified Code(s): R06.00 - Dyspnea, unspecified (2) Anxiety Current Visit: No Status: Acute Assessment and plan: Will begin Lorazepam as needed for restlessness/anxiety. Monitor and titrate as needed. (3) Anemia, blood loss Current Visit: Yes Status: Acute (4) Hematemesis/vomiting blood Current Visit: Yes Status: Acute Assessment and plan: No further workup for source. Did already receive 1Unit PRBC Qualifiers: Nausea presence: with nausea Qualified Code(s): K92.0 - Hematemesis (5) Acute respiratory failure with hypoxia and hypercarbia Current Visit: No Status: Acute Assessment and plan: Ph 7.22/CO2 112 on recent ABG's. She is documented DNRCC and has history of refusing bipap as well. (6) Goals of care, counseling/discussion Current Visit: No Status: Acute Assessment and plan: Discussed with POA at bedside. Patient was adamant during last admission regarding any respiratory assistance other than oxygen, refused bipap and intubation. Hospitalist at bedside discussing current clinical situation, and that transfusing, and endoscopy without respiratory intervention would not benefit patient as she is likely to pass away from respiratory failure. Niece verbalized understanding. Provided emotional support. Decision was made to transition to comfort measures only, and no further transfusions/scopes/lab draws and plan to initiate comfort meds if patient requires. Discussed possible transition to inpatient hospice care, which patient POA wants to think about and we will discuss further tomorrow. I notified Dr. Walters of the above events as well, and EGD will be cancelled. Palliative-CN HPI - Data of Consult Patient: known to practice within the last 3 years Consult date: 08/26/18 Requesting Physician: Harjeet Márquez MD Primary Care Provider: Fabby Caballero - Consult Narrative History of present illness: Ms. Walton is a 73 year old female known to the palliative care team from a previous visit, where she had a prolonged stay for pneumonia and respiratory failure, who was admitted after she had hematemesis at the nursing facility, and dark liquid stool. She was found to have hgb 7.4. She was given one unit of PRBC's. According to niece at bedside María Driver (JUSTEN) , she was alert and let staff know she was a DNR. Throughout this morning, she has became increasingly obtunded. When she was here earlier this month, pt had only consented to oxygen therapy, and had refused intubation and refused bipap. I was asked by hospitalist to see pt during his visit, he explained that they are transfusing and were initially planning scope, however, if pt did not desire respiratory intervention, that this would ultimately cause her to pass away, and treating one without treating the other, would be futile. Patient has DNRCC and advanced directives in place. 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 Other medical history includes: CVA, diabetes, GERD, hyperlipidemia, hypertension, renal disease, thyroid disease, anxiety, and depression. Upon my visit, she is unable to be awakened, she does moan and move arms with sternal rub. Appears pale, but in no respiratory distress. Breathing easy and reg on nasal cannula. Family is at bedside. CC: Harjeet Márquez MD - Time Spent with Patient Time: Total time spent is greater than 50% in coordination of care (as documented) at patient's floor/unit and/or counseling patient: Time with patient: 45 minutes Past Med Surg Social Fam HX - Past Medical History Medical history: CVA, diabetes, GERD, hyperlipidemia, hypertension, renal disease, thyroid disease Additional medical history: anemia - diverticulosis Psychiatric history: anxiety, depression, panic disorder - Past Surgical History Surgical History: , cholecystectomy, herniorrhaphy, orthopedic, other Additional surgical history: shoulder - elbow and hip surgery - Social History Smoking Status: Former smoker Smokeless Tobacco Status: No Alcohol use: none Drug use: none - Family History Mother Living Status: Hx Family Cardiac Disorders: Yes ([place]) Hx Family Respiratory Disorders: No Hx Family Cancer: No Hx Family GI Disorders: No Hx Family Endocrine Disorder: Yes ([place]) Hx Family Neuromuscular Disorders: No Hx Family Neurologic Disorders: No Hx Family HEENT Disorders: No Hx Family Autoimmune Disorders: No Father Living Status: Hx Family Cardiac Disorders: Yes (HTN) Hx Family Cancer: Yes (prostate) Hx Family Endocrine Disorder: Yes (DM) Medications and Allergies Albuterol Sulfate [Proair Hfa] 1 - 2 puff IH Q4H PRN 05/19/16 [History] Ferrous Sulfate 325 mg PO BIDWM 05/19/16 [History] Furosemide [Lasix] 80 mg PO QAM 05/19/16 [History] Levothyroxine [Synthroid] 125 mcg PO QAM 05/19/16 [History] amLODIPine [Norvasc] 5 mg PO DAILY 05/19/16 [History] Acetaminophen [Tylenol] 650 mg PO Q6HR PRN #0 tablet 08/18/16 [Rx] Insulin ASPART [NovoLOG] 10 unit SQ TIDAC 02/28/17 [History] Aspirin [Lo-Dose Aspirin EC] 81 mg PO DAILY 05/16/17 [History] Budesonide [Pulmicort] 0.5 mg IH BID 05/16/17 [History] Ipratropium/Albuterol Neb [Duoneb] 3 ml IH Q6HR PRN 05/16/17 [History] Diphenhydramine HCl/Zinc Acet [Benadryl Itch Stopping Crm] 1 appl TP TID PRN 10/09/17 [History] Famotidine [Heartburn Prevention] 20 mg PO DAILY 10/09/17 [History] Furosemide [Lasix] 40 mg PO QPM 10/09/17 [History] Loperamide HCl [Anti-Diarrheal] 2 mg PO Q4H PRN 10/09/17 [History] Polyvinyl Alcohol [Artificial Tears] 1 drop OP QID 10/09/17 [History] Pramipexole Di-HCl [Pramipexole Dihydrochloride] 0.125 mg PO HS 10/09/17 [History] Pramipexole [Mirapex] 0.25 mg PO QAM 10/09/17 [History] Clopidogrel [Plavix] 75 mg PO DAILY #30 tablet 10/12/17 [Rx] Atorvastatin Calcium [Lipitor] 20 mg PO HS 07/03/18 [History] Benzonatate [Tessalon] 100 mg PO TID 07/03/18 [History] Gabapentin [Neurontin] 800 mg PO TID 07/03/18 [History] Guaifenesin [Mucinex] 600 mg PO BID 07/03/18 [History] Insulin DETEMIR [Levemir Flextouch] 34 units SQ HS 07/03/18 [History] Latanoprost [Xalatan] 1 drop OP DAILY 07/03/18 [History] Losartan Potassium [Cozaar] 100 mg PO DAILY 07/03/18 [History] Melatonin 4 mg PO HS 07/03/18 [History] Metoprolol Succinate [Toprol Xl] 100 mg PO DAILY 07/03/18 [History] Mirtazapine 7.5 mg PO HS 07/03/18 [History] Potassium Chloride [K-Tab ER] 20 meq PO DAILY 07/03/18 [History] Sertraline [Zoloft] 25 mg PO DAILY 07/03/18 [History] Venlafaxine [Effexor] 75 mg PO DAILY 07/03/18 [History] Mupirocin [Bactroban Oint] 1 appl TP BID tube 07/12/18 [Rx] Allergy/AdvReac Type Severity Reaction Status Date / Time No Known Allergies Allergy Verified 10/08/17 12:19 ROS unobtainable: due to mental status Palliative Care-Exam - Constitutional Vitals: Temp Pulse Resp BP Pulse Ox 98.5 F 98 19 92/62 95 08/26/18 08:05 08/26/18 08:05 08/26/18 08:05 08/26/18 08:05 08/26/18 08:05 General appearance: Present: no acute distress, obese - Eye Eye exam: Present: normal appearance - Respiratory Respiratory exam: Present: decreased breath sounds - Cardiovascular Cardiovascular exam: Present: +S1, +S2 - GI/Abdominal Exam GI/Abdominal exam: Present: distended, normal bowel sounds, soft - Extremities Exam Extremities exam: Present: normal capillary refill, normal inspection - Neurological Exam Additional comments: Patient obtunded, does become agitated with sternal rub and moans out. SHe will move right arm. Previous left sided deficits from previous CVA. Does not verbalize or follow commands - Skin Skin exam: Present: dry, pallor, warm Internal Medicine - CN: Reslt - Labs CBC & Chem 7: 08/26/18 04:36 08/26/18 04:36 Labs: Short CBC 08/26/18 Range/Units 04:36 WBC 8.1 (4.3-11.1) K/mcL Hgb 7.4 L (11.5-15.4) g/dL Hct 27.0 L (35.3-44.9) % Plt Count 176 (140-400) K/mcL Neutrophils # 5.9 (1.6-8.9) K/mcL BMP 08/26/18 04:36 Sodium 142 Potassium 5.4 H Chloride 93 L Carbon Dioxide > 45 H* BUN 80 H Creatinine 1.66 H Glucose 336 H Calcium 9.1 Liver Function 08/26/18 Range/Units 04:36 Total Bilirubin 0.3 (0.3-1.0) mg/dL AST 9 L (13-39) Units/L ALT 4 L (7-52) Units/L Alkaline Phosphatase 69 (34-104) Units/L Albumin 3.6 (3.5-5.7) g/dL - ABG Interpretation ABG results: ABG ABG pH 7.22 pH Units (7.32-7.45) L 08/26/18 08:56 ABG pCO2 112 mmHg (35-45) H* 08/26/18 08:56 ABG pO2 60 mmHg (85-104) L 08/26/18 08:56 ABG O2 Saturation 82 % (95-98) L 08/26/18 08:56 PT/INR, D-dimer PT 11.7 Seconds (9.4-12.1) 08/26/18 04:36 - Impressions Impressions Chest X-Ray 08/26/18 09:49 IMPRESSION: Stable to mildly progressive left lung base consolidative changes. No evidence right lung base consolidation to suggest aspiration pneumonitis. D/ / 08/26/2018 10:25:51 Chavo Miller MD / sher Interpreting Provider: Chavo Miller MD Consult Discharge Plan - Plan Referrals: Fabby Caballero [Primary Care Provider] - Palliative Quality Palliative Quality: Screen for Code Status: Yes, Screen for Goals of Care: Yes, Screen for Pain: Yes, If Pain Regimen Started, Initiate Bowel Regimen: NA, Screen for Nausea/Vomitting: Yes Code Status: 08/26/18 07:50 Resuscitation Status: Active [RES] Routine Comment: Resuscitation Status: Full Code 08/26/18 09:43 CODE [Resuscitation Status: Active] [RES] Routine Comment: Resuscitation Status: [id number] 08/26/18 10:00 CODE [Resuscitation Status: Active] [RES] Routine Comment: Resuscitation Status: DNR-Comfort Care
[2018-08-26] MEDS ORDERED: Insulin LISPRO 300 UNITS/3 ML VIAL SQ SCH (12:00)
[2018-08-26] MEDS: Pantoprazole 40 MG VIAL IVP SCH (18:30)
[2018-08-26] MEDS: *HR* LORazepam Oral Conc 2 MG/ML SL PRN (21:46)
[2018-08-27] MEDS: *HR* LORazepam Oral Conc 2 MG/ML SL PRN ×2 (04:35→09:34)
[2018-08-27] MEDS: Pantoprazole 40 MG VIAL IVP SCH (04:49)
[2018-08-27 11:16] VITALS: BP 89/57
--- NOTE | 2018-08-27 12:16 | Event Note ---
Date of Encounter: 08/27/18 Time of Encounter: 10:00 Met with María khan. Patient continues to decline and requiring more medication for restlessness and agitation. Will transition to inpatient hospice care to continue symptom management. D/W Dr. Hayes.
--- NOTE | 2018-08-27 12:31 | Discharge Summary ---
Orders not resulted at time of discharge: Pending orders 08/26/18 04:02 ECG 12 lead ECG [ECG] Stat 08/26/18 04:36 Red Blood Cells [BBK] Stat Type and Screen [BBK] Stat Date of Encounter: 08/27/18 Time of Encounter: 12:23 - Discharge Diagnosis (1) Acute respiratory failure with hypoxia and hypercarbia Priority: Primary Status: Acute (2) COPD (chronic obstructive pulmonary disease) Priority: Secondary Status: Chronic Qualifiers: Qualified Code(s): J44.9 - Chronic obstructive pulmonary disease, unspecified (3) Upper GI bleed Priority: Secondary Status: Acute (4) Acute blood loss anemia Priority: Secondary Status: Acute (5) DVT prophylaxis Priority: Secondary Status: Acute (6) Diastolic CHF with preserved left ventricular function, NYHA class 2 Priority: Secondary Status: Chronic (7) Stage III pressure ulcer of right buttock Priority: Secondary Status: Acute (8) DM (diabetes mellitus) Priority: Secondary Status: Chronic Qualifiers: Qualified Code(s): E11.8 - Type 2 diabetes mellitus with unspecified complications (9) HLD (hyperlipidemia) Priority: Secondary Status: Chronic Qualifiers: Qualified Code(s): E78.5 - Hyperlipidemia, unspecified (10) History of cerebrovascular accident (CVA) with residual deficit Priority: Secondary Status: Chronic (11) Hypertension Priority: Secondary Status: Chronic Qualifiers: Qualified Code(s): I10 - Essential (primary) hypertension (12) Hypothyroid Priority: Secondary Status: Chronic Qualifiers: Qualified Code(s): E03.9 - Hypothyroidism, unspecified Hospital course: Ms. Walton is a 73 year old female past medical history significant for diabetes, COPD, CVA with left hemiparesis, and HTN. Patient poor historian due to Hypercapnic respiratory failure plus expressive aphasia from old cva, information obtain from family member. Patient was brought to the ED from a nursing facility due to coffee ground emesis. Admitted to the hospital due to GI bleeding and hypercapnic respi failure. Patient found to have a high bicarbonate on the serum and patient was very somnolent which prompted to have an ABG drawn, pco2 was found to be >112. Finding, plan of care and potential outcome including , discussed with Ms. María Blair patient POA who reported that patient did not wish to be on a Bipap. After explaining to the POA the importance of treating this acid base abnormality, she decided to make the patient comfort care as the patient would have wished. Palliative care was consulted and patient will be transferred to inpatient hospice. - Time Spent with Patient Total time spent providing and/or coordinating discharge services: Greater than 30 minutes (35) - Discharge Medications Home Medications: Albuterol Sulfate [Proair Hfa] 1 - 2 puff IH Q4H PRN 05/19/16 [History] Ferrous Sulfate 325 mg PO BIDWM 05/19/16 [History] Furosemide [Lasix] 80 mg PO QAM 05/19/16 [History] Levothyroxine [Synthroid] 125 mcg PO QAM 05/19/16 [History] amLODIPine [Norvasc] 5 mg PO DAILY 05/19/16 [History] Acetaminophen [Tylenol] 650 mg PO Q6HR PRN #0 tablet 08/18/16 [Rx] Insulin ASPART [NovoLOG] 10 unit SQ TIDAC 02/28/17 [History] Aspirin [Lo-Dose Aspirin EC] 81 mg PO DAILY 05/16/17 [History] Budesonide [Pulmicort] 0.5 mg IH BID 05/16/17 [History] Ipratropium/Albuterol Neb [Duoneb] 3 ml IH Q6HR PRN 05/16/17 [History] Diphenhydramine HCl/Zinc Acet [Benadryl Itch Stopping Crm] 1 appl TP TID PRN 10/09/17 [History] Famotidine [Heartburn Prevention] 20 mg PO DAILY 10/09/17 [History] Furosemide [Lasix] 40 mg PO QPM 10/09/17 [History] Loperamide HCl [Anti-Diarrheal] 2 mg PO Q4H PRN 10/09/17 [History] Polyvinyl Alcohol [Artificial Tears] 1 drop OP QID 10/09/17 [History] Pramipexole Di-HCl [Pramipexole Dihydrochloride] 0.125 mg PO HS 10/09/17 [History] Pramipexole [Mirapex] 0.25 mg PO QAM 10/09/17 [History] Clopidogrel [Plavix] 75 mg PO DAILY #30 tablet 10/12/17 [Rx] Atorvastatin Calcium [Lipitor] 20 mg PO HS 07/03/18 [History] Benzonatate [Tessalon] 100 mg PO TID 07/03/18 [History] Gabapentin [Neurontin] 800 mg PO TID 07/03/18 [History] Guaifenesin [Mucinex] 600 mg PO BID 07/03/18 [History] Insulin DETEMIR [Levemir Flextouch] 34 units SQ HS 07/03/18 [History] Latanoprost [Xalatan] 1 drop OP DAILY 07/03/18 [History] Losartan Potassium [Cozaar] 100 mg PO DAILY 07/03/18 [History] Melatonin 4 mg PO HS 07/03/18 [History] Metoprolol Succinate [Toprol Xl] 100 mg PO DAILY 07/03/18 [History] Mirtazapine 7.5 mg PO HS 07/03/18 [History] Potassium Chloride [K-Tab ER] 20 meq PO DAILY 07/03/18 [History] Sertraline [Zoloft] 25 mg PO DAILY 07/03/18 [History] Venlafaxine [Effexor] 75 mg PO DAILY 07/03/18 [History] Mupirocin [Bactroban Oint] 1 appl TP BID tube 07/12/18 [Rx] Allergies/Adverse Reactions: Allergy/AdvReac Type Severity Reaction Status Date / Time No Known Allergies Allergy Verified 10/08/17 12:19 Date of admission: 08/26/18 06:20 Primary care physician: Fabby Caballero Consults: 08/26/18 09:43 Consult to Palliative Care [CONS] Routine Comment: Consulting Provider: Palliative Care Adwoa Reason for Consult: HYpercapnic resp failure. does not want any intervention Call Completed: No - Constitutional Vitals: Temp Pulse Resp BP Pulse Ox 97.7 F 102 18 89/57 95 08/27/18 11:15 08/27/18 11:15 08/27/18 11:15 08/27/18 11:15 08/27/18 11:15 Exam: Vitals: Reviewed. General: lethargic, not arousable to deep sternal stimulation. Skin: pale, no rash, no lesions. HEENT: EOM, pupils equal, round and reactive. Cardiovascular: RRR, Normal S1 & S2, no rubs, murmurs or gallops. Lungs: Rales b/l at the bases, no wheezes or crackles. Abdomen: Obese, Soft, non-tender, no rigidity. Extremities: chronic venous stasis changes in the left lower extremity. Neurological: Unable to perform due to patient mental status. Rest of the physical exam is non contributory - Patient Status Disposition: Hospice - Medical Facility Condition: Critical Functional capacity at discharge: bed bound Overall status at discharge: patient is not back to baseline - Discharge Instructions Follow Up With: Fabby Caballero [Primary Care Provider] - Forms: ED Satisfaction Letter - Diet and Activity Activity: other (per hospice care. ) Diet: other (npo)
--- NOTE | 2018-08-28 14:34 | Electrocardiograph Report ---
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
== END 2018-08-27 14:01 | disposition hospice, inpatient (51) ==
LOC: EMEROOARM 03:56 → 2ANU 03:56 → SUATTDRO 06:20 → 2ANU 06:30
PROVIDERS: ADMIT Family Medicine; ATTEND Internal Medicine
PROC: ENDOEBX (2018-08-26 11:00)

== ENCOUNTER 2018-08-27 11:18 | Inpatient (IN) ==
[2018-08-27] MEDS ORDERED: Bisacodyl 10 MG RECTAL SUPPOSITORY RC PRN (12:16)
[2018-08-27] MEDS ORDERED: Haloperidol Oral Conc 10 MG/5 ML UDC PO PRN (12:16)
[2018-08-27] MEDS ORDERED: Ondansetron ODT 4 MG TAB.RAPDIS SL PRN (12:19)
[2018-08-27] MEDS ORDERED: OXYCODONE Oral CONC 10 MG/0.5 ML ORAL.SYG SL PRN (12:20)
--- NOTE | 2018-08-27 12:25 | Pallative History & Physical ---
Date of Encounter: 08/27/18 Time of Encounter: 12:30 Assessment and Plan (1) Nausea Status: Acute Ondansetron available PRN. Monitor (2) Generalized pain Status: Acute Will schedule Oxycodone and allow PRN doses for breakthrough if needed. MOnitor and titrate accordingly (3) Dyspnea Status: Acute Supportive low flow oxygen and SL Oxycodone PRN. Qualifiers: Dyspnea type: unspecified Qualified Code(s): R06.00 - Dyspnea, unspecified (4) Anxiety Status: Acute Will schedule Lorazepam as she has required frequent doses during hospital stay. (5) Anemia, blood loss Status: Acute (6) Acute respiratory failure with hypoxia and hypercarbia Status: Acute (7) Goals of care, counseling/discussion Status: Acute D/W María khan at bedside. Patient appears imminent, doubt she will survive hospital stay. Will follow daily Internal Medicine - H&P: HPI Admitted From: Intrahospital Transfer History of present illness: Ms. Walton is a 73 year old female odalis Walton known to the palliative care team from a previous visit, where she had a prolonged stay for pneumonia and respiratory failure, who was admitted after she had hematemesis at the nursing facility, and dark liquid stool. She was found to have hgb 7.4. She was given one unit of PRBC's. According to erin at bedside María Driver (POA) , she was alert and let staff know she was a DNR. Throughout this morning, she has became increasingly obtunded. When she was here earlier this month, pt had only consented to oxygen therapy, and had refused intubation and refused bipap. I was asked by hospitalist to see pt during his visit, he explained that they are transfusing and were initially planning scope, however, if pt did not desire respiratory intervention, that this would ultimately cause her to pass away, and treating one without treating the other, would be futile. Patient has DNRCC and advanced directives in place. 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 Other medical history includes: CVA, diabetes, GERD, hyperlipidemia, hypertension, renal disease, thyroid disease, anxiety, and depression. Patient has had continued decline since admission, and today with agitation/restlessness. Will not verbalized or follow commands. Large bruise right knee from hitting against rail. Extremely pale. POA at bedside. Discussed at length and will transition to general inpatient hospice for symptom management. I do not believe patient will survive inpatient stay. Past Med Surg Social Fam HX - Past Medical History Medical history: CVA, diabetes, GERD, hyperlipidemia, hypertension, renal disease, thyroid disease Additional medical history: anemia - diverticulosis Psychiatric history: anxiety, depression, panic disorder - Past Surgical History Surgical History: , cholecystectomy, herniorrhaphy, orthopedic, other Additional surgical history: shoulder - elbow and hip surgery - Social History Smoking Status: Former smoker Smokeless Tobacco Status: No Alcohol use: none Drug use: none - Family History Mother Living Status: Hx Family Cardiac Disorders: Yes ([place]) Hx Family Respiratory Disorders: No Hx Family Cancer: No Hx Family GI Disorders: No Hx Family Endocrine Disorder: Yes (DM) Hx Family Neuromuscular Disorders: No Hx Family Neurologic Disorders: No Hx Family HEENT Disorders: No Hx Family Autoimmune Disorders: No Father Living Status: Hx Family Cardiac Disorders: Yes (HTN) Hx Family Cancer: Yes (prostate) Hx Family Endocrine Disorder: Yes (DM) Internal Medicine - H&P: Meds Albuterol Sulfate [Proair Hfa] 1 - 2 puff IH Q4H PRN 05/19/16 [History] Ferrous Sulfate 325 mg PO BIDWM 05/19/16 [History] Furosemide [Lasix] 80 mg PO QAM 05/19/16 [History] Levothyroxine [Synthroid] 125 mcg PO QAM 05/19/16 [History] amLODIPine [Norvasc] 5 mg PO DAILY 05/19/16 [History] Acetaminophen [Tylenol] 650 mg PO Q6HR PRN #0 tablet 08/18/16 [Rx] Insulin ASPART [NovoLOG] 10 unit SQ TIDAC 02/28/17 [History] Aspirin [Lo-Dose Aspirin EC] 81 mg PO DAILY 05/16/17 [History] Budesonide [Pulmicort] 0.5 mg IH BID 05/16/17 [History] Ipratropium/Albuterol Neb [Duoneb] 3 ml IH Q6HR PRN 05/16/17 [History] Diphenhydramine HCl/Zinc Acet [Benadryl Itch Stopping Crm] 1 appl TP TID PRN 10/09/17 [History] Famotidine [Heartburn Prevention] 20 mg PO DAILY 10/09/17 [History] Furosemide [Lasix] 40 mg PO QPM 10/09/17 [History] Loperamide HCl [Anti-Diarrheal] 2 mg PO Q4H PRN 10/09/17 [History] Polyvinyl Alcohol [Artificial Tears] 1 drop OP QID 10/09/17 [History] Pramipexole Di-HCl [Pramipexole Dihydrochloride] 0.125 mg PO HS 10/09/17 [History] Pramipexole [Mirapex] 0.25 mg PO QAM 10/09/17 [History] Clopidogrel [Plavix] 75 mg PO DAILY #30 tablet 10/12/17 [Rx] Atorvastatin Calcium [Lipitor] 20 mg PO HS 07/03/18 [History] Benzonatate [Tessalon] 100 mg PO TID 07/03/18 [History] Gabapentin [Neurontin] 800 mg PO TID 07/03/18 [History] Guaifenesin [Mucinex] 600 mg PO BID 07/03/18 [History] Insulin DETEMIR [Levemir Flextouch] 34 units SQ HS 07/03/18 [History] Latanoprost [Xalatan] 1 drop OP DAILY 07/03/18 [History] Losartan Potassium [Cozaar] 100 mg PO DAILY 07/03/18 [History] Melatonin 4 mg PO HS 07/03/18 [History] Metoprolol Succinate [Toprol Xl] 100 mg PO DAILY 07/03/18 [History] Mirtazapine 7.5 mg PO HS 07/03/18 [History] Potassium Chloride [K-Tab ER] 20 meq PO DAILY 07/03/18 [History] Sertraline [Zoloft] 25 mg PO DAILY 07/03/18 [History] Venlafaxine [Effexor] 75 mg PO DAILY 07/03/18 [History] Mupirocin [Bactroban Oint] 1 appl TP BID tube 07/12/18 [Rx] Allergy/AdvReac Type Severity Reaction Status Date / Time No Known Allergies Allergy Verified 10/08/17 12:19 ROS unobtainable: due to mental status Palliative Care-Exam - Constitutional General appearance: Present: mild distress - Head Head Exam: Present: normal inspection, normocephalic - Eye Eye exam: Present: normal appearance, PERRL - ENT ENT exam: Present: mucous membranes dry - Respiratory Respiratory exam: Present: decreased breath sounds, CTAB - Cardiovascular Cardiovascular exam: Present: tachycardia - GI/Abdominal Exam GI/Abdominal exam: Present: distended, normal bowel sounds, soft - Extremities Exam Extremities exam: Present: normal capillary refill, normal inspection - Neurological Exam Additional comments: Patient becomes agitated at times with assessment. Does not verbalize or follow commands. - Skin Skin exam: Present: dry, pallor, warm Palliative Quality Palliative Quality: Screen for Code Status: Yes, Screen for Goals of Care: Yes, Screen for Pain: Yes, If Pain Regimen Started, Initiate Bowel Regimen: Yes, Screen for Nausea/Vomitting: Yes Code Status: 08/27/18 12:16 Resuscitation Status: Active [RES] Routine Comment: Resuscitation Status: DNR-Comfort Care
[2018-08-27] MEDS: *HR* LORazepam Oral Conc 2 MG/ML PO SCH ×3 (14:22→23:41)
[2018-08-27] MEDS: OXYCODONE Oral CONC 10 MG/0.5 ML ORAL.SYG SL SCH ×3 (14:22→23:41)
[2018-08-27 19:55] VITALS: BP 93/57
--- NOTE | 2018-08-28 09:18 | Death Note ---
Discharge Sum: Summary - Date and Time Date of admission: 08/27/18 14:08 Date of : 08/28/18 Time of : 02:17 - Summary Details: Ms. Walton is a 73 year old female admitted with acute blood loss, was being t ransfused. Pt developed respiratory failure, and was DNRCC. family decided for hospice. pt was admitted to hospice [facility], kept comfortable and on 08/28/18 at 0217. - Additional Data Confirmation of as documented by pronouncing clinician: no pulse, no respirations, no heart sounds, pupils fixed and dilated Family: at bedside Attending/PCP notified?: Yes Attending physician: Kaylen Grove MD Was code activated?: No Autopsy requested?: No fur examiner notified?: No Organ bank notified?: Yes Advance directives: Yes Hospice patient?: Yes Discharge Sum: Diag - PCOD Probable Cause of : Respiratory arrest Discharge Sum: Prov - Provider Primary care physician: Marleny Groves DO Admitting clinician: Kaylen Grove Attending physician on admission: Kaylen Grove Consults: 08/27/18 12:16 Consult to Palliative Care [CONS] Routine Comment: Consulting Provider: Palliative Care [place] Reason for Consult: [facility] Call Completed: No
== END 2018-08-28 02:17 | disposition expired | DRG 377 ==
LOC: 2ANU 14:08
PROVIDERS: ADMIT Internal Medicine Hospice and Palliative Medicine; ATTEND Internal Medicine Hospice and Palliative Medicine